=== PATIENT | female | born 1970 | race Two or more races ===

== ENCOUNTER 2020-05-06 20:49 | Inpatient (IN) | payer OTHER ==
[~2020-05-06] VITALS: Ht 157.5 cm; Wt 52.5 kg
[2020-05-06] MEDS ORDERED: Cefepime HCl 2 GM in NS 110 ML IV ONE (21:00)
[2020-05-06] MEDS ORDERED: Acetaminophen 650 MG SUPP RECTAL ONE (21:00)
[2020-05-06] MEDS ORDERED: Vancomycin 750 MG in NS 275 ML IVPB ONE (21:00)
--- NOTE | 2020-05-06 21:00 | NUR ---
ED Nurse Note: Patient brought in by ambulance TINBrandon RA 24 from [facility] with c/o altered mental status. Triage temp at 102F. BP at 68/34, BS 238. Patient is AAOx0, awake but only responds to pain. Patient on O2 at 4lpm satting at 99%. Patient has contracted upper and lower extremities. Paitent was tested covid neg 3 days ago. Patient placed on isolation bed
--- NOTE | 2020-05-06 21:03 | Emergency Room Report ---
History of Present Illness General Chief Complaint: Fever Source: Patient, EMS Present Illness HPI 49-year-old bed bound female female PMHx previous CVA, cerebral aneurysm, diabetes, chronic contracture, dysphagia, PEG, dyslipidemia, hypertension, sacral pressure ulcer brought in by ambulance from [facility] for complaint of fever Temperature prior to arrival was 104F. [facility] staff did not give antipyretic for the medication. Furthermore, she was found to be diaphoretic and hypotensive with systolic blood pressure 80mmHg. Also hypoxic 80% on RA. EMS placed patient on 4L NC with correction of hypoxia. The patient's symptoms were gradual onset, severity was moderate, duration since several days. Quality: unable to obtain Past medical history: previous CVA, cerebral aneurysm, diabetes, chronic contracture, dysphagia, PEG, dyslipidemia, hypertension, sacral pressure ulcer Past surgical history: UTO Smoking: Denies Alcohol use: Denies Drug use: Denies Review of systems: CONST: ++ fevers ++ chills, No night sweats PULMONARY: No productive cough, No shortness of breath CARDIAC: No chest pain, No palpitations GI: No vomiting, No diarrhea , No melena_or_BRBPR : No dysuria, No hematuria, No discharge NEURO: No new_focal_weakness_or_numbness, No confusion, No vision changes 14 point Review of Systems is otherwise negative except per HPI Physical Exam: GENERAL: Awake, chronically ill-appearing, distress, diaphoretic, febrile EYES: Pupils reactive. Conjunctiva clear. ENT: External nose and ear appear normal. Oropharynx clear. Head atraumatic. NECK: No thyromegaly. No midline tenderness. LUNGS: Normal respiratory effort. Clear to auscultation. No stridor. No rales. No wheezes. CARDIAC: Tachycardic and rhythm. Normal radial pulses bilaterally. No significant pedal edema. ABDOMEN: Soft, nontender, and nondistended. No rebound/guarding. No hepatosplenomegaly. G-tube in place, epigastrium, c/d/i, no discharge or tenderness. MSK: Poor muscle tone, contractures with rigidity in extremities. Extremities without asymmetric deformity or swelling. NEUROLOGIC: Awake. Does not follow commands for motor and sensory exam. No truncal ataxia. GCS 2-4-2, protecting airway, intact gag reflex. Withdraws to pain in extremities, groans and opens eyes to sternal rub. SKIN: Diaphoretic. No cyanosis or urticaria present. - COORDINATION OF CARE Case was discussed with: Patient , Patient's Physician Any labs and imaging that were ordered were interpreted as part of the medical decision making: Medical Decision Making/Plan: Differential diagnosis includes sepsis / severe sepsis /septic shock, UTI, pneumonia , viral syndrome, gastroenteritis, emergent abdominal infection, among others. Vitals show high fever, tachycardia, tachypnea, hypoxia on RA, and hypotension. Patients abdomen is benign, no evidence of emergent abdominal condition. CXR shows multifocal pneumonia. COVID swab is negative, however, due to inflammatory marker elevation, my suspicion remains high. Wll not DC iso precuations. Labs demonstrate NSTEMI (type II demand ischemia 2/2 COVID pneumonia) trop 0.2, JESSICA (2/2 septic shock), and elevated inflammatory markers (LDH, CRP, lactate, transaminitis). Lipase is acutely elevated as well. Ca is low. Ransons score is 2. Sepsis bundle initiated on arrival. Blood cultures, lactate drawn. Lactate was elevated , patient was given 30 cc/kg IV fluids by bolus. Empiric antibiotics were started. L IJ placed for adminstration of pressors for septic shock. Patient will be admitted to the hospital for further care and evaluation. I spoke with Dr. Miles, and reviewed the patients presentation, workup, results, and treatment. They will admit the patient for further care and evaluation, and assume care of the patient at this time. 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 COVID-19 Screening: PUI COVID-19 COVID-19 Testing Source: at [facility] Nursing Documentation-PMH Hx Cardiac Problems: Yes - hyperlipidemia Hx Hypertension: Yes Hx Diabetes: Yes Hx Gastrointestinal Problems: Yes - G-tube Hx Cerebrovascular Accident: Yes Hx Seizures: Yes Physical Exam Vital Signs Date Time Temp Pulse Resp B/P (MAP) Pulse Ox O2 Delivery O2 Flow Rate FiO2 05/06/20 20:51 102.0 146 18 84/50 (61) 94 Nasal Cannula 4.0 Sp02 EP Interpretation: reviewed, abnormal Procedures Critical Care Time Critical Care Time Critical Care Statement Organ systems at risk include: cardiac / circulatory / renal / pulmonary Critical care performed for 75 minutes. Time is exclusive of separately billable procedures. Time includes: direct patient care, continuous monitoring and multiple patient reassessment, coordination of patient care, review of patient's medical records, medical consultation, family consultation regarding treatment decisions and documentation of patient care. Medical Decision Making Diagnostic Impression: Primary Impression: COVID-19 Additional Impressions: Hypoxia Sepsis NSTEMI (non-ST elevated myocardial infarction) JESSICA (acute kidney injury) Hypernatremia Dehydration PEG (percutaneous endoscopic gastrostomy) adjustment/replacement/removal Hyperglycemia Diabetes CVA, old, hemiparesis Aneurysm Transaminitis Pancreatitis EKG Diagnostic Results PA Scribe Kelsey 12-lead EKG (interpreted by me) Time: 2115 Indication: Rhythm analysis Tracing visualized and Interpreted by me. Rhythm: Sinus tachycardia Rate: 114 bpm QTc: 541 Morphology: No_significant_ST_elevations_or_depressions, No STEMI Impression: Sinus tachycardia. Normal axis. Normal intervals. Rhythm Strip Diag. Results Rhythm Strip Time: 21:27 EP Interpretation: yes Rate: 141 Rhythm: no PVC's, no ectopy Chest X-Ray Diagnostic Results Chest X-Ray Diagnostic Results : MERRY Monrealibjorge Cole Chest X-Ray: Views: 1 view(s) Indication: SOB Findings: s/p central line Impression: no PTX, interstitial edema vs multifocal pneumonia, no pleural effusion The X-ray(s) were independently viewed and interpreted contemporaneously Electronically signed by Mariela malik DO Reevaluation Time: 22:55 Last Vital Signs Date Time Temp Pulse Resp B/P (MAP) Pulse Ox O2 Delivery O2 Flow Rate FiO2 //20 20:51 102.0 146 18 84/50 (61) 94 Nasal Cannula 4.0 Status: improved Disposition: ADMITTED INPATIENT Admit Decision Time: 21:28 Condition: Critical Mariela Salazar D.O. May 06, 2020 21:03
--- NOTE | 2020-05-06 21:05 | NUR ---
ED Nurse Note: ERMD at bedside
[2020-05-06] MEDS ORDERED: ZOFRAN4 M3 GT (21:10)
[2020-05-06] MEDS ORDERED: HUMALOG100 UNIT/4 SUBQ (21:10)
[2020-05-06] MEDS ORDERED: LISINOPRIL20 MG GT (21:10)
[2020-05-06] MEDS ORDERED: ACETAMINOPHEN325 M1 GT (21:10)
[2020-05-06] MEDS ORDERED: BISACODYL5 MG GT (21:10)
[2020-05-06] MEDS ORDERED: SENNA8.6 M2 GT (21:10)
[2020-05-06] MEDS ORDERED: FLOMAX0.4 MG GT (21:10)
[2020-05-06] MEDS ORDERED: AMANTADINE100 M2 GT (21:10)
[2020-05-06] MEDS ORDERED: LIPITOR80 MG ORAL (21:10)
[2020-05-06] MEDS ORDERED: NORVASC5 MG GT (21:10)
[2020-05-06] MEDS ORDERED: GABAPENTIN100 MG GT (21:10)
[2020-05-06] MEDS ORDERED: MELATONIN5 M5 GT (21:10)
[2020-05-06] MEDS ORDERED: LEVETIRACE1000 MG/10 IV (21:10)
[2020-05-06] MEDS ORDERED: METOPROLOL TART25 MG PO (21:10)
[2020-05-06] MEDS ORDERED: PROSCAR5 MG GT (21:10)
[2020-05-06] MEDS ORDERED: DOCUSATE SODIU100 MG GT (21:10)
[2020-05-06] MEDS ORDERED: LEVEMIR FL100 UNIT/2 SQ (21:10)
[2020-05-06] MEDS ORDERED: cefTRIAXone 1 GM in NS 55 ML IV ONE (21:15)
[2020-05-06] MEDS ORDERED: dexAMETHasone 10mg/ml Inj IV ONE (21:15)
--- NOTE | 2020-05-06 21:20 | NUR ---
ED Nurse Note: IV access established on right and left hand BLood, culture, swab, rapid covid sent to lab
[2020-05-06 21:39] LABS: HEMATOCRIT 37.6 % (37.0-47.0); HEMOGLOBIN 11.4 G/DL (12.0-16.0); MEAN CORPUSCULAR VOLUME 94 FL (80-99); PLATELET COUNT 120 K/UL (150-450); RED BLOOD COUNT 3.99 M/UL (4.20-5.40); RED CELL DISTRIBUTION WIDTH 18.6 % (11.6-14.8); WHITE BLOOD COUNT 10.1 K/UL (4.8-10.8)
[2020-05-06 21:44] LABS: BASOPHILS % (AUTO) 0.2 % (0.0-2.0); EOSINOPHILS % (AUTO) 0.1 % (0.0-3.0); LYMPHOCYTES % (AUTO) 8.1 % (20.0-45.0); MONOCYTES % (AUTO) 4.3 % (1.0-10.0); NEUTROPHILS % (AUTO) 87.3 % (45.0-75.0)
[2020-05-06] MEDS ORDERED: Lidocaine 1% Plain 30 ml INJ ONE (21:48)
[2020-05-06 21:58] LABS: INR 1.3 (0.9-1.1)
[2020-05-06 22:25] VITALS: BP 72/43
[2020-05-06 22:28] LABS: ALANINE AMINOTRANSFERASE 293 U/L (12-78); ALBUMIN 2.4 G/DL (3.4-5.0); ALBUMIN/GLOBULIN RATIO 0.4 (1.0-2.7); ALKALINE PHOSPHATASE 210 U/L (46-116); ANION GAP 14 mmol/L (5-15); ASPARTATE AMINO TRANSFERASE 222 U/L (15-37); BILIRUBIN,TOTAL 0.8 MG/DL (0.2-1.0); BLOOD UREA NITROGEN 92 mg/dL (7-18); CALCIUM 8.3 MG/DL (8.5-10.1); CARBON DIOXIDE 24 MMOL/L (21-32); CHLORIDE 127 MMOL/L (98-107); CREATINE KINASE 95 U/L (26-308); CREATININE 1.8 MG/DL (0.55-1.30); PHOSPHORUS 2.7 MG/DL (2.5-4.9)
[2020-05-06 22:29] LABS: SODIUM 165 MMOL/L (136-145)
--- NOTE | 2020-05-06 22:30 | NUR ---
ED Nurse Note: Levophed drip 4mg started at 10mcg/min BP at 68/34
--- NOTE | 2020-05-06 22:45 | NUR ---
ED Nurse Note: Levophed drip 4mg increased to 16mcg/min BP at 72/38
--- NOTE | 2020-05-06 22:45 | NUR ---
ED Nurse Note: Central line access inserted at left neck by GERALD. Placement verified thru xray
[2020-05-06 23:00] VITALS: BP 79/45
--- NOTE | 2020-05-06 23:00 | NUR ---
ED Nurse Note: Skin assessment: Heel ulcer present on left and right foot Sacral ulcer stage 3 present Pressure ulcer at left ear - All pictures taken and uploaded
--- NOTE | 2020-05-06 23:00 | NUR ---
ED Nurse Note: Levophed drip 4mg increased at 20mcg/min BP at 79/44
--- NOTE | 2020-05-06 23:05 | NUR ---
ED Nurse Note: Skin assessment: Pressure ulcer at left and right ear - All pictures taken and uploaded
--- NOTE | 2020-05-06 23:15 | NUR ---
ED Nurse Note: Pruitt catheter fr 16 inserted aseptically
--- NOTE | 2020-05-06 23:20 | NUR ---
ED Nurse Note: Levophed drip 4mg increased at 28mcg/min BP at 95/67
--- NOTE | 2020-05-06 23:21 | Diagnostic Imaging Report ---
EXAM: XR Chest, 1 View CLINICAL HISTORY: COUGH TECHNIQUE: Frontal view of the chest. COMPARISON: No relevant prior studies available. FINDINGS: Lungs: Bibasilar subsegmental atelectasis. Pleural space: Unremarkable. No pneumothorax. Heart: Unremarkable. No cardiomegaly. Mediastinum: Unremarkable. Bones/joints: Unremarkable. Tubes, lines and devices: Left internal jugular central venous catheter reidentified with the tip in the right atrium. IMPRESSION: Bibasilar subsegmental atelectasis.
[2020-05-06 23:30] VITALS: BP 95/67
[2020-05-06] MEDS ORDERED: Milk of Magnesia 30ml Ud ORAL PRN (23:30)
[2020-05-06 23:34] LABS: APPEARANCE,URINE SLIGHTLY CLOUDY; BILIRUBIN, URINE NEGATIVE (NEGATIVE); GLUCOSE, URINE (UA) NEGATIVE (NEGATIVE); KETONES,URINE NEGATIVE (NEGATIVE); LEUKOCYTE ESTERASE ,URINE 1+ (NEGATIVE); NITRITE,URINE NEGATIVE (NEGATIVE); PH,URINE 5 (4.5-8.0); PROTEIN,URINE 3+ (NEGATIVE); UROBILINOGEN,URINE 1 MG/DL (0.0-1.0)
[2020-05-06 23:36] LABS: COLOR,URINE YELLOW
[2020-05-06] MEDS ORDERED: cefTRIAXone 1 GM in D5W 55 ML IVPB SCH (23:45)
[2020-05-07] VITALS (47 sets, daily range): BP systolic 96–139; BP diastolic 45–84
--- NOTE | 2020-05-07 00:13 | NUR ---
ED Nurse Note: Report given to LOWELL CAZARES
--- NOTE | 2020-05-07 01:25 | NUR ---
TRANSFER TO FLOOR: Patient transferred to ICU at rm 246-G via gurney, with medical facilities section director, accompanied by RN and certified surgical technologist. Belongings checked and given to RN. Patient transported safely to bed and endorsed to RN
--- NOTE | 2020-05-07 02:00 | NUR ---
NURSE NOTES: Received pt from ER, obtunded Afib on the monitor 114/min, Bp labile ,0n 02 at 4L/NC 02 sat >92%,On Levophed at 30mcg/min , infusing to left IJ central line. Site with drsg dry and intact Pt with multiple pressure sores, picture taken done Tx was initiated. and ordered P 200 mattress. Pruitt to gravity with yellowiah urine moderate in amt. Will continue to monitor.
[2020-05-07] MEDS: Enoxaparin 40mg Inj SUBQ SCH ×2 (02:56→20:36)
[2020-05-07] MEDS: D5NS 1,000 ML IV SCH ×3 (02:57→20:30)
--- NOTE | 2020-05-07 04:00 | NUR ---
NURSE NOTES: Repositioned q 2hrs pRN .for comfort and to avoid further developement of pressure sores.
--- NOTE | 2020-05-07 05:00 | NUR ---
NURSE NOTES: Accucheck> 400 with coverage , Will notify Dr Bales
[2020-05-07] MEDS: NovoLOG Insulin Flexpen SUBQ SCH ×4 (05:35→21:04)
--- NOTE | 2020-05-07 06:00 | NUR ---
NURSE NOTES: Still on AFib 109/min, Bp stii labile, Levophed drip tapered. Will continue to monitor.
--- NOTE | 2020-05-07 07:15 | NUR ---
NURSE HAND-OFF REPORT: Latest Vital Signs: Temperature 99.8 , Pulse 115 , B/P 125 /77 , Respiratory Rate 26 , O2 SAT 98 , Nasal Cannula, O2 Flow Rate 2.0 . Vital Sign Comment: [] EKG Rhythm: Sinus Tachycardia Rhythm change?: N MD Notified?: N - MD Response: Latest Rivera Fall Score: 50 Fall Risk: High Risk Safety Measures: Call light Within Reach, Bed Alarm Zone 1, Side Rails Side Rails x3, Bed position Low and Locked. Fall Precautions: Yellow Socks Yellow Gown Door Sign Patient Fall Education Report given to [].Josefina CAZARES
--- NOTE | 2020-05-07 07:39 | NUR ---
NURSE NOTES: levophed bag empty. New bag hung. BP 90s/60s.
--- NOTE | 2020-05-07 08:20 | NUR ---
NURSE NOTES: pt turned and repositioned. oral care done, pt suctioned.
[2020-05-07] MEDS: Tamsulosin 0.4mg cap ORAL SCH (08:23)
[2020-05-07] MEDS ORDERED: CEFTRIAXONE IVPB SCH ×2 (09:00)
[2020-05-07] MEDS ORDERED: [UNRECOGNIZED DRUG - OTHER] IVPB SCH ×2 (09:00)
[2020-05-07 09:19] LABS: ALBUMIN 2.2 G/DL (3.4-5.0); ALKALINE PHOSPHATASE 196 U/L (46-116); ANION GAP 16 mmol/L (5-15); ASPARTATE AMINO TRANSFERASE 232 U/L (15-37); BILIRUBIN,DIRECT 0.5 MG/DL (0.0-0.3); BILIRUBIN,TOTAL 1.1 MG/DL (0.2-1.0); BLOOD UREA NITROGEN 72 mg/dL (7-18); CALCIUM 7.7 MG/DL (8.5-10.1); CARBON DIOXIDE 20 MMOL/L (21-32); CHLORIDE 127 MMOL/L (98-107); CREATININE 1.2 MG/DL (0.55-1.30); PHOSPHORUS 3.2 MG/DL (2.5-4.9); POTASSIUM 3.3 MMOL/L (3.5-5.1)
--- NOTE | 2020-05-07 09:21 | History & Physical ---
History and Physical History & Physicial HP dictated # [id number] Navi Bales MD May 07, 2020 09:21
[2020-05-07 09:24] LABS: SODIUM 163 MMOL/L (136-145)
--- NOTE | 2020-05-07 09:35 | NUR ---
RD ASSESSMENT & RECOMMENDATIONS SEE CARE ACTIVITY FOR COMPLETE ASSESSMENT DAILY ESTIMATED NEEDS: Needs based on Wound, 46.4kg 30-35 kcals/kg 6184-1492 total kcals 1.25-2 g protein/kg 58-93 g total protein 25-35ml/kcal mL/kg 4156-1365 total fluid mLs NUTRITION DIAGNOSIS: Increased kcal and pro needs r/t wound healing as evidenced by sacral wound, eval pending, pt is bedbound GT dep. CURRENT TF: NPO ENTERAL NUTRITION RECOMMENDATIONS: Vital AF 1.2 @50ml/hr x24 hrs to provide 1200ml, 1440 kcal, 90g pro, 973ml free H2O - Currently on high dose pressor support, rec trophic feeds as medically able. - When hemodynamically available, rec to initiate Vital 1.2 (carb control,, high pro, lower in fat than Glucerna carb control) @15ml/hr for 6 hrs. Advance as tolerated 10ml/hr q4-6 hrs to goal. - Flush per MD. HOB over 30 degrees. ADDITIONAL RECOMMENDATIONS: 1) Maintain calibrated bed scale wts 2) Initiate GT feeds when hemodynamically stable 3) F/up w/ WC eval-> open sacral wound 4) Maintain IVF / D5 while NPO Monitor hydration status (Na 165)
[2020-05-07 09:36] LABS: ALANINE AMINOTRANSFERASE 315 U/L (12-78)
--- NOTE | 2020-05-07 09:37 | NUR ---
NURSE NOTES: Dr. Bales @ bedside aware of all morning labs and put in orders.
--- NOTE | 2020-05-07 10:30 | History and Physical Report ---
DATE OF ADMISSION: 05/06/2020 CHIEF COMPLAINT: Fevers. HISTORY OF PRESENT ILLNESS: This is a 49-year-old female who has a history of cerebral aneurysm, status post CVA, bedridden with sacral decubitus. She was brought into the emergency room for fever of 104. In the emergency room, she was found to be diaphoretic, hypotensive, systolic blood pressure in 80s. She had a low O2 saturation in the 80s on room air. She was placed on nasal cannula O2 at 4 liters and was admitted. Also, she was started on Levophed after central line was placed. The patient was seen in the ICU. She is nonverbal and unable to provide any further history. PAST MEDICAL HISTORY: Includes history of diabetes mellitus, chronic contractures, dysphagia status post G-tube placement, history of hypertension, and dyslipidemia. MEDICATIONS: Reviewed in the EMR. SOCIAL HISTORY: No history of smoking or alcohol abuse. ALLERGIES: No known drug allergies. REVIEW OF SYSTEMS: Unobtainable. PHYSICAL EXAMINATION: GENERAL: The patient is a 49-year-old female, in no acute distress. She opens her eyes, does not respond verbally. VITAL SIGNS: Blood pressure is 95/60, pulse 105, and temperature max was 102 yesterday, the latest 98.6. HEENT: [place] conjunctivae. Anicteric sclerae. NECK: Stiff positional. LUNGS: Coarse breath sounds bilaterally. HEART: S1, S2 without murmurs or rubs. ABDOMEN: Soft, nontender. There is a G-tube in upper abdomen. EXTREMITIES: No cyanosis or edema. Lower extremity is in extension contractures. LABORATORY FINDINGS: The CBC shows a WBC of 10,100, hematocrit is 37.6, hemoglobin is 11.4, platelets 120,000. Chemistry panel as of yesterday shows sodium 165, potassium 3, chloride 127, carbon dioxide 24, BUN 92, creatinine 1.8. Blood sugar is 295. ASSESSMENT: This is a 49-year-old female who is admitted with fevers with a concern that the patient may have COVID-19, however, the rapid test was negative. Chest x-ray does not show bilateral infiltrates, which is typical of COVID. The patient has also severe free water deficit with sodium of 165, and also acute renal failure, probably prerenal azotemia with the creatinine of 1.8. There is moderate bacteria in the urine, however, only 2 to 4 wbc's per high-powered field, so I do not believe that source of infection is urinary tract infection. However, he does have significant stage IV sacral decubitus, so he can have osteomyelitis. PLAN: The patient will be on IV antibiotics. ID consultation and Pulmonary consultation will be obtained and a rapid COVID test will be done again. The patient was hydrated with D5 NS because of low blood pressure, but because of high sodium I will start using the G-tube for water flushes and the patient also will be started on tube feeding. IV fluid will be discontinued at this point. She will be on sliding scale insulin. Surgical consultation will be obtained for wound care. Case was discussed with the RN. Navi Bales M.D. DR: BELLA JOB#: [id number] CC:
--- NOTE | 2020-05-07 10:44 | NUR ---
NURSE NOTES: pt continues on NPO status for ABD US
--- NOTE | 2020-05-07 10:49 | NUR ---
NURSE NOTES: Per Dr. Bales, stop decadron IVP d/t high sugar levels.
[2020-05-07] MEDS ORDERED: SILVER SULFADIA50 GM TP (11:32)
[2020-05-07] MEDS ORDERED: MILK OF MA400 MG/51 ORAL (11:32)
[2020-05-07] MEDS ORDERED: CALCIUM CARBON500 M1 GT (11:32)
[2020-05-07] MEDS ORDERED: LEVETIRACE500 MG/51 GT (11:32)
[2020-05-07] MEDS ORDERED: BACITRACIN ZIN1 EACH TOPIC (11:32)
[2020-05-07] MEDS ORDERED: BISACODYL10 M1 RC (11:32)
[2020-05-07] MEDS ORDERED: PRAVASTATIN SOD80 M1 GT (11:32)
[2020-05-07] MEDS ORDERED: MULTIVITAMINS1 EAC8 ORAL (11:32)
[2020-05-07] MEDS ORDERED: BETADINE1 EAC1 TP (11:32)
[2020-05-07] MEDS ORDERED: MINERAL OIL RECTAL (11:35)
--- NOTE | 2020-05-07 12:00 | Consultation ---
DATE OF CONSULTATION: 05/07/2020 PULMONARY CONSULTATION HISTORY OF PRESENT ILLNESS: This is a 49-year-old female who has a history of previous CVA. She is chronically bedridden with decubitus and history of cerebral aneurysm. She was brought in from a facility with fever and was also hypotensive and hypoxemic. She was placed on nasal oxygen with improvement in saturations. She has, however, required placement of a central line and initiation of Levophed. She is currently in the ICU. PAST MEDICAL HISTORY: Notable for chronic dysphagia, diabetes mellitus, hypertension, dyslipidemia, previous CVA, cerebral aneurysm. CURRENT MEDICATIONS: Include antibiotics as well as Levophed. SOCIAL HISTORY: She is a prison resident. ALLERGIES: None. REVIEW OF SYSTEMS: Not obtainable. PHYSICAL EXAMINATION: GENERAL: Reveals elderly female. At this time, she is awake but does not respond. HEENT: Unremarkable. CHEST: Clear breath sounds. ABDOMEN: Soft. G-tube is noted. EXTREMITIES: There is no edema. She has bilateral lower extremity contractures. LABORATORY DATA: Lab testing shows hemoglobin 11.4, otherwise normal CBC. Sodium 163, glucose 514, creatinine 1.2. She has elevation of AST and ALT. Toxicology is negative. Coags are negative. ABG shows pH 7.38, pCO2 32, pO2 159. X-ray chest is reviewed, which shows bilateral subsegmental atelectasis. IMPRESSION: 1. Shock, suspect hypovolemic shock. 2. Cannot exclude infectious process. 3. Chronic decubitus. 4. History of CVA. 5. Diabetes mellitus. DISCUSSION: Admit to the hospital. The patient will need broad-spectrum antibiotics empirically. She will also need fluid resuscitation with hypotonic fluids. Continue pressors. The patient received Decadron for unclear reason, we will discontinue. We will follow carefully. At this point, her rapid COVID-19 testing is negative. Asif Prasad M.D. DR: Mary JOB#: [id number] CC:
--- NOTE | 2020-05-07 12:09 | NUR ---
NURSE NOTES: Pt still febrile. Ice packs placed under bilateral armpits.
--- NOTE | 2020-05-07 12:39 | NUR ---
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 102.0 HR 146 RR 18 B/P 84/50 4L NC O2 SAT @ 98% WBC 16.5 K 3.0 BUN 92 CR 1.8 LACTID ACID 2.90 AST 222 ALT 293 ALK PHOS 210 TROP 0.213 LIPASE 1197 CXR=Bibasilar subsegmental atelectasis. IS: VANCO IV CEFEPIME IV DECADRON IV LEVOPHED GTT IV BOLUS NS 1800ML TYLENOL ADMITTED TO ICU ICU STATUS DCP PENDING HOSPITAL STAY
[2020-05-07] MEDS: Piperacillin/Tazobactam 3.375 GM in NS 110 ML IVPB SCH ×2 (13:00→20:15)
--- NOTE | 2020-05-07 13:16 | NUR ---
NURSE NOTES: spoke with Gillian, wound care nurse, who said they will be seeing patient to evaluate her wounds tomorrow.
--- NOTE | 2020-05-07 14:05 | NUR ---
Social Work This SW followed up with patient who is currently in the ICU. Patient has a history of [place], G-tube, from [facility] and has a POLST on file stating full code, full treatment. This Sw spoke with daughter, Caitlin (who is an MILITARY PAY TECHNICIAN) @ [phone] who plans to visit patient courtney. Patient has a stage 4 D.U (daughter aware). Daughter confirmed plans to remain full code, full treatment; planning to return to [facility] when medically cleared. Brief emotional support provided to daughter. SW to follow as needed.
--- NOTE | 2020-05-07 15:57 | NUR ---
NURSE NOTES: central line dressing changed.
--- NOTE | 2020-05-07 17:02 | NUR ---
NURSE NOTES: Pt cleaned, linen changed. Oral care done. Pt in stable condition.
--- NOTE | 2020-05-07 17:30 | Consultation ---
DATE OF CONSULTATION: 05/07/2020 INFECTIOUS DISEASES CONSULTATION CONSULTING PHYSICIAN: Peter Bales MD PRIMARY ATTENDING PHYSICIAN: Navi Bales MD REASON FOR CONSULTATION: Sepsis, septic shock, pancreatitis. HISTORY OF PRESENT ILLNESS: The patient is a 49-year-old female who is a resident of intermediate facility, admitted yesterday because of fever. She had a temperature of 104 in facility, had a temperature of 102 in hospital, was hypoxemic, diaphoretic, hypotensive, started on Levophed, and transferred to the ICU. PAST MEDICAL HISTORY: CVA, cerebral aneurysm, dysphagia, status post G-tube, hypertension, diabetes mellitus, hyperlipidemia, and contractures. ALLERGIES: No known drug allergies. MEDICATIONS: Getting vancomycin, potassium chloride, norepinephrine, ceftriaxone, dexamethasone, finasteride, vancomycin, magnesium hydroxide, famotidine, Tylenol, and enoxaparin. Got a dose of cefepime in the ER. SOCIAL HISTORY: Single. snf resident. No other history obtainable. REVIEW OF SYSTEMS: Unobtainable. PHYSICAL EXAMINATION: VITAL SIGNS: Temperature 101, pulse is 105, blood pressure 109/62. GENERAL APPEARANCE: She seems to be thin and cachectic. HEAD AND NECK: Ears, pressure ulcer. HEART: Tachycardic. LUNGS: Clear. The patient is getting oxygen by nasal cannula. ABDOMEN: Soft. She has G-tube. EXTREMITIES: She has no edema. SKIN: She has multiple pressure ulcers including ears, left heel, right foot, and sacrum. NEUROLOGIC: Unresponsive. LABORATORY AND DIAGNOSTIC DATA: Sodium 163, potassium 3.3, chloride 127, bicarb 20, BUN 72, creatinine 1.2, glucose is 514. AST 232, ALT 315, alkaline phosphatase 196. Lipase is 1157. Lactic acid 2.9. COVID test was negative. Chest x-ray shows some atelectasis. UA showed wbc's 2-4, rbc's of 2-4, leukocyte esterase 1+, yeast many, and bacteria moderate. IMPRESSION: Sepsis with septic shock. She has acute pancreatitis. We will try to rule out gallstone pancreatitis. She has diabetes mellitus with hyperglycemia, acute renal failure, acidosis, elevated transaminase, hypernatremia, and multiple pressure ulcer. RECOMMENDATION: Continue with IV vancomycin. Change ceftriaxone to Zosyn. We will follow up the culture. We will order abdominal ultrasound. At the end of my exam, I thank Dr. Navi Bales for involving me in the care of this patient. Peter Bales M.D. DR: Nely JOB#: [id number] CC:
--- NOTE | 2020-05-07 18:20 | NUR ---
NURSE NOTES: Vital AF not available in the hospital at this time. tube feeding order changed to glucerna 1.2 as earlier requested by Dr. Bales. Tube feeding started.
--- NOTE | 2020-05-07 19:09 | NUR ---
NURSE HAND-OFF REPORT: Latest Vital Signs: Temperature 99.3 , Pulse 111 , B/P 119 /77 , Respiratory Rate 23 , O2 SAT 99 , Nasal Cannula, O2 Flow Rate 2.0 . Vital Sign Comment: Pt on levophed drip @ 12 EKG Rhythm: Sinus Rhythm Rhythm change?: N MD Notified?: N - MD Response: Latest Rivera Fall Score: 50 Fall Risk: High Risk Safety Measures: Call light Within Reach, Bed Alarm Zone 1, Side Rails Side Rails x3, Bed position Low and Locked. Fall Precautions: Yellow Socks Yellow Gown Door Sign Patient Fall Education Report given to SAGE Fuentes.
--- NOTE | 2020-05-07 20:00 | NUR ---
NURSE NOTES: received report from heidi rn pt obtunded open eyes to touch does not follows command hr [id number] stachy on levo drip at 10mcg/min reposition and suction urnary output good
[2020-05-07] MEDS: Dyna-Hex 2% Top Sol 2oz TOPIC SCH (20:16)
[2020-05-07] MEDS ORDERED: Vancomycin 750mg/D5W 275ml IVPB SCH ×2 (22:00)
--- NOTE | 2020-05-07 22:00 | NUR ---
NURSE NOTES: reposition and suction
--- NOTE | 2020-05-07 23:02 | Consultation ---
History of Present Illness General Date patient seen: May 07, 2020 Chief Complaint: Fever Present Illness HPI This is a very unfortunate 49-year-old bed bound female female PMHx previous CVA, cerebral aneurysm, diabetes, chronic contracture, dysphagia, PEG, dyslipidemia, hypertension, sacral pressure ulcer brought in by ambulance from SNF for complaint of fever. on admission identified to havestage 4 sacral decubitus, heel ulcers, ear ulcers dti abnormal labs and surgery called to evaluate and assist with care and planning. Patient seen, patient [place], chart reviewed. Allergies: Coded Allergies: No Known Allergies (Unverified , 05/06/20) Medication History Scheduled Amantadine Hcl* (Amantadine*), 100 MG GT TWICE A DAY, (Reported) Amlodipine Besylate (Norvasc), 5 MG GT DAILY, (Reported) Bacitracin Zinc* (Bacitracin Zinc*), 1 APPLIC TOPIC DAILY, (Reported) Docusate Sodium* (Docusate Sodium*), 100 MG GT BID, (Reported) Finasteride* (Proscar*), 5 MG GT DAILY, (Reported) Gabapentin* (Gabapentin*), 100 MG GT BID, (Reported) Insulin Detemir (Levemir Flextouch), 15 UNIT SQ Q12HR, (Reported) Levetiracetam (Levetiracetam), 500 MG GT BID, (Reported) Lisinopril (Lisinopril*), 20 MG GT DAILY, (Reported) Metoprolol Tartrate* (Metoprolol Tartrate*), 12.5 MG PO BID, (Reported) Multivitamin With Minerals (Multivitamins With Minerals*), 1 TAB ORAL DAILY, (Reported) Povidone-Iodine (Betadine), 1 EACH TP DAILY, (Reported) Pravastatin Sod (Pravastatin Sod), 80 MG GT BEDTIME, (Reported) Silver Sulfadiazine (Silver Sulfadiazine), 50 GM TP DAILY, (Reported) Tamsulosin HCl (Flomax), 0.4 MG GT DAILY, (Reported) Scheduled PRN Acetaminophen* (Acetaminophen 325MG Tablet*), 650 MG GT Q4H PRN for PAIN/TEMP>100.4, (Reported) Bisacodyl (Bisacodyl), 10 MG RC NEEDED PRN for Constipation, (Reported) Calcium Carbonate (Calcium Carbonate), 500 MG GT Q4HR PRN for HEARTBURN, (Reported) Magnesium Hydroxide* (Milk Of Magnesia*), 15 ML ORAL DAILY PRN for Constipation, (Reported) Melatonin (Melatonin), 5 MG GT BEDTIME PRN for Insomnia, (Reported) Ondansetron* (Zofran*), 4 MG GT Q6H PRN for Nausea & Vomiting, (Reported) [Enema Mineral Oil], 1 UNIT RECTAL NEEDED PRN for Constipation, (Reported) Miscellaneous Medications Insulin Lispro (Humalog), 0 SUBQ, (Reported) Sennosides (Senna), 8.6 MG GT, (Reported) Discontinued Medications Atorvastatin (Lipitor), 80 MG ORAL BEDTIME, (Reported) Discontinued Reason: Prescription changed Bisacodyl* (Dulcolax*), 10 MG GT DAILY, (Reported) Discontinued Reason: Prescription changed Levetiracetam In Nacl (Iso-Os) (Levetiraceta-Nacl 1,000 Mg/100), 1,000 MG IV, (Reported) Discontinued Reason: Prescription changed Patient History Limited by: medical condition History Provided By: Medical Record, PMD Healthcare decision maker Resuscitation status Advanced Directive on File Past Medical/Surgical History Past Medical/Surgical History: (1) Pancreatitis (2) Transaminitis (3) Dehydration (4) Aneurysm (5) Diabetes (6) Hyperglycemia (7) Hypernatremia (8) Hypoxia (9) Sepsis (10) NSTEMI (non-ST elevated myocardial infarction) (11) PEG (percutaneous endoscopic gastrostomy) adjustment/replacement/removal (12) JESSICA (acute kidney injury) (13) CVA, old, hemiparesis (14) COVID-19 Review of Systems All Other Systems: negative except mentioned in HPI ROS Narrative limited given medical condition Physical Exam General Appearance: no apparent distress, alert Lines, tubes and drains: peripheral, central line HEENT: anicteric, mucous membranes moist Neck: supple, normal inspection Respiratory/Chest: no respiratory distress, no accessory muscle use, decreased breath sounds, other Cardiovascular/Chest: normal rate, regular rhythm Abdomen: normal bowel sounds, non tender, soft, no organomegaly, no mass Genitourinary/Rectal: normal rectal exam Extremities: non-tender, normal inspection, no calf tenderness, normal capillary refill, inflammation Skin Exam: warm/dry Neurologic: alert Last 24 Hour Vital Signs Date Time Temp Pulse Resp B/P (MAP) Pulse Ox O2 Delivery O2 Flow Rate FiO2 05/07/20 22:15 118 26 123/75 (91) 98 05/07/20 22:00 123/75 05/07/20 22:00 118 26 121/77 (92) 99 05/07/20 21:45 115 25 123/76 (92) 99 05/07/20 21:30 114 23 123/77 (92) 99 05/07/20 21:15 114 25 122/76 (91) 99 05/07/20 21:00 113 24 124/79 (94) 99 05/07/20 21:00 124/75 05/07/20 20:45 113 25 124/78 (93) 99 05/07/20 20:30 112 24 125/77 (93) 99 05/07/20 20:15 113 22 124/78 (93) 99 05/07/20 20:00 Nasal Cannula 2.0 05/07/20 20:00 99.4 112 20 126/79 (95) 99 05/07/20 20:00 124/78 05/07/20 20:00 110 05/07/20 19:30 111 20 125/80 (95) 99 05/07/20 19:26 98 Nasal Cannula 2.0 28 05/07/20 19:15 109 23 124/77 (93) 99 05/07/20 19:00 124/77 05/07/20 19:00 108 25 123/78 (93) 99 05/07/20 18:30 119/77 05/07/20 18:00 111 23 110/73 (85) 99 05/07/20 17:30 113/71 05/07/20 17:28 109/72 05/07/20 17:13 113/71 05/07/20 17:00 113 24 124/76 (92) 99 05/07/20 16:13 129/78 05/07/20 16:00 99.3 113 23 127/78 (94) 99 05/07/20 16:00 113 05/07/20 16:00 Nasal Cannula 2.0 05/07/20 15:13 128/77 05/07/20 15:00 99.3 115 26 129/76 (93) 99 05/07/20 14:13 129/76 05/07/20 14:00 119 26 128/75 (92) 99 05/07/20 13:43 130/76 05/07/20 13:13 129/78 05/07/20 13:00 118 26 131/76 (94) 99 05/07/20 12:43 134/77 05/07/20 12:13 132/79 05/07/20 12:00 118 05/07/20 12:00 100.0 118 28 133/78 (96) 99 05/07/20 12:00 Nasal Cannula 2.0 05/07/20 11:43 133/79 05/07/20 11:13 135/79 05/07/20 11:00 118 25 139/81 (100) 99 05/07/20 10:43 135/80 05/07/20 10:13 109/62 05/07/20 10:00 114 24 109/62 (78) 99 05/07/20 10:00 128/71 05/07/20 09:52 135/77 05/07/20 09:37 134/76 05/07/20 09:21 101.0 05/07/20 09:07 131/71 05/07/20 09:00 113 23 129/73 (91) 100 05/07/20 08:52 129/75 05/07/20 08:37 134/79 05/07/20 08:00 Nasal Cannula 2.0 05/07/20 08:00 100.3 110 21 132/74 (93) 100 05/07/20 08:00 104 05/07/20 07:37 95/60 05/07/20 07:24 Nasal Cannula 4.0 05/07/20 07:10 100 Nasal Cannula 4.0 36 05/07/20 07:00 114 20 98/54 (69) 100 05/07/20 05:00 100/56 05/07/20 04:45 105 22 100/50 (67) 100 05/07/20 04:41 114/41 05/07/20 04:30 107 20 100/50 (67) 100 05/07/20 04:15 103 21 100/45 (63) 100 05/07/20 04:00 98.6 104 20 113/67 (82) 100 05/07/20 04:00 81/56 05/07/20 03:45 103 20 96/50 (65) 100 05/07/20 03:30 104 18 110/50 (70) 100 05/07/20 03:20 101 18 113/62 (79) 100 05/07/20 03:15 101 18 100/50 (67) 100 05/07/20 03:00 96/45 05/07/20 03:00 100 18 110/63 (79) 100 05/07/20 02:45 100 18 110/46 (67) 100 05/07/20 02:40 99 18 111/61 (78) 100 05/07/20 02:30 99 19 100/50 (67) 100 05/07/20 02:15 97.8 99 17 107/62 (77) 100 05/07/20 02:02 106/36 05/07/20 02:00 97.8 99 17 98/62 (74) 100 05/07/20 02:00 93 19 106/47 (66) 100 05/07/20 01:41 102 05/07/20 01:25 100.4 114 22 101/78 98 Nasal Cannula 4.0 05/07/20 01:00 100.6 113 20 102/84 100 Nasal Cannula 4.0 05/07/20 00:00 100.6 108 22 101/72 100 Nasal Cannula 4.0 05/06/20 23:30 101.0 108 22 95/67 100 Nasal Cannula 4.0 05/06/20 23:20 95/67 05/06/20 23:15 89/55 05/06/20 23:10 84/53 05/06/20 23:05 82/49 Intake and Output 05/06/20 05/07/20 19:00 07:00 Intake Total 637.5 ml Output Total 500 ml Balance 137.5 ml Intake Oral 0 ml IV Total 637.5 ml Output Urine Total 450 ml Stool Total 0 ml Gastric Drainage Total 50 ml Laboratory Tests Test 05/06/20 23:20 05/07/20 00:15 05/07/20 04:03 05/07/20 08:15 Urine Color Yellow Urine Appearance Slightly cloudy Urine pH 5 (4.5-8.0) Urine Specific [place] 1.025 (1.005-1.035) Urine Protein 3+ (NEGATIVE) H Urine Glucose (UA) Negative (NEGATIVE) Urine Ketones Negative (NEGATIVE) Urine Blood 1+ (NEGATIVE) H Urine Nitrite Negative (NEGATIVE) Urine Bilirubin Negative (NEGATIVE) Urine Urobilinogen 1 MG/DL (0.0-1.0) H Urine Leukocyte Esterase 1+ (NEGATIVE) H Urine RBC 2-4 /HPF (0 - 2) H Urine WBC 2-4 /HPF (0 - 2) Urine Squamous Epithelial Cells Moderate /LPF (NONE/OCC) H Urine Bacteria Moderate /HPF (NONE) H Urine Yeast Many /HPF (NONE) H Lactic Acid Level 1.40 mmol/L (0.66-2.22) Sodium Level 163 MMOL/L (136-145) *H Potassium Level 3.3 MMOL/L (3.5-5.1) L Chloride Level 127 MMOL/L (98-107) H Carbon Dioxide Level 20 MMOL/L (21-32) L Anion Gap 16 mmol/L (5-15) H Blood Urea Nitrogen 72 mg/dL (7-18) H Creatinine 1.2 MG/DL (0.55-1.30) Estimat Glomerular Filtration Rate 47.3 mL/min (>60) Glucose Level 514 MG/DL (74-106) #*H Calcium Level 7.7 MG/DL (8.5-10.1) L Phosphorus Level 3.2 MG/DL (2.5-4.9) Magnesium Level 3.1 MG/DL (1.8-2.4) H Total Bilirubin 1.1 MG/DL (0.2-1.0) H Direct Bilirubin 0.5 MG/DL (0.0-0.3) H Aspartate Amino Transf (AST/SGOT) 232 U/L (15-37) H Alanine Aminotransferase (ALT/SGPT) 315 U/L (12-78) H Alkaline Phosphatase 196 U/L (46-116) H Total Protein 7.3 G/DL (6.4-8.2) Albumin 2.2 G/DL (3.4-5.0) L Arterial Blood pH 7.385 (7.350-7.450) Arterial Blood Partial Pressure CO2 32.8 mmHg (35.0-45.0) L Arterial Blood Partial Pressure O2 159.3 mmHg (75.0-100.0) H Arterial Blood HCO3 19.2 mmol/L (22.0-26.0) L Arterial Blood Oxygen Saturation 97.6 % (95-100) Arterial Blood Base Excess -5.1 (-2-2) L [place] Test Positive Microbiology Date/Time Source Procedure Growth Status 05/07/20 12:00 Nasopharynx SARS-CoV-2 RdRp Gene Assay - Final Complete Height (Feet): 5 Height (Inches): 2.00 Weight (Pounds): 102 Medications Current Medications Medications (Trade) Dose Ordered Sig/Renetta Route PRN Reason Start Time Stop Time Status Last Admin Dose Admin Acetaminophen (Tylenol) 650 mg Q4H PRN ORAL Fever 05/06/20 23:30 06/05/20 23:29 05/07/20 08:51 Acetaminophen (Tylenol) 650 mg Q4H PRN ORAL Mild Pain (Pain Scale 1-3) 05/06/20 23:30 06/05/20 23:29 Chlorhexidine Gluconate (Yola-Hex 2%) 1 applic DAILY@2000 TOPIC 05/07/20 20:00 08/05/20 19:59 05/07/20 20:16 Dextrose (Dextrose 50%) 25 ml Q30M PRN IV Hypoglycemia 05/06/20 23:30 08/04/20 23:29 Dextrose (Dextrose 50%) 50 ml Q30M PRN IV Hypoglycemia 05/06/20 23:30 08/04/20 23:29 Dextrose/Sodium Chloride 1,000 ml @ 100 mls/hr Q10H IV 05/07/20 00:30 06/06/20 00:29 05/07/20 20:30 Enoxaparin Sodium (Lovenox) 40 mg QHS SUBQ 05/06/20 23:30 08/04/20 23:29 05/07/20 20:36 Famotidine (Pepcid) 20 mg QHS GT 05/06/20 23:30 08/04/20 23:29 05/07/20 20:37 Finasteride (Proscar) 5 mg DAILY ORAL 05/07/20 09:00 08/05/20 08:59 05/07/20 08:23 Insulin Aspart (NovoLOG) BEFORE MEALS AND HS SUBQ 05/07/20 06:30 08/05/20 06:29 05/07/20 21:04 Magnesium Hydroxide (Mom) 30 ml HSPRN PRN ORAL Constipation 05/06/20 23:30 06/05/20 23:29 Norepinephrine Bitartrate 8 mg/ Dextrose 250 ml @ 0 mls/hr Q24H IV 05/07/20 10:15 05/10/20 10:14 05/07/20 17:30 Ondansetron HCl (Zofran) 4 mg Q6H PRN IVP Nausea & Vomiting 05/06/20 23:30 06/05/20 23:29 Piperacillin Sod/ Tazobactam Sod 3.375 gm/Sodium Chloride 110 ml @ 27.5 mls/hr Q8HR@0400,1200,2000 IVPB 05/07/20 12:00 05/14/20 11:59 05/07/20 20:15 Tamsulosin HCl (Flomax) 0.4 mg DAILY ORAL 05/07/20 09:00 06/06/20 08:59 05/07/20 08:23 Vancomycin HCl (Vanco pharmacy to dose) 1 ea DAILY PRN MISC Per rx protocol 05/06/20 23:45 06/05/20 23:44 Vancomycin HCl 750 mg/Dextrose 275 ml @ 184 mls/hr Q24H IVPB 05/07/20 22:00 05/12/20 21:59 05/07/20 21:30 Assessment/Plan Problem List: (1) Stage 4 skin ulcer of sacral region Assessment & Plan: PATIENT NON-VERBAL. FACIAL GRIMACES NOTED WHEN REPOSITIONING. UNABLE TO REPOSITION SELF. LEFT EAR-STAGE III PRESSURE ULCER MEASURES 3.5X1.0X0.2CM. WOUND BED PINK WITH NOTED SLOUGH. PERIWOUND SKIN DARK RED/PURPLE AND BRUISED. DRAINING SMALL AMOUNT SERO-SANGUINEOUS. RECOMMEND-CLEAN WITH SALINE. PAT DRY. APPLY THERAHONEY AND COVER WITH OPTIFOAM DRESSING. REPLACE DRESSING DAILY. RIGHT EAR- STAGE III PRESSURE ULCER MEASURES 0.5X0.6X0.2CM. WOUND BED PINK WITH NOTED SLOUGH. SMALL AMOUNT SERO-SANGUINEOUS DRAINAGE. RECOMMEND-CLEAN WITH SALINE, PAT DRY, APPLY THERAHONEY AND COVER WITH OPTIFOAM DRESSING. REPLACE DRESSING DAILY. LEFT MEDIAL HEEL- DTI MEASURES 1.7X1.5X0.2CM. NOTED AREA DARK PURPLE. NON- BLANCHABLE. RECOMMEND- APPLY SKIN PROTECTOR AND OPTIFOAM DRESSING. REPLACE DAILY AND PRN. ELEVATE HEELS WITH PILLOWS RIGHT MEDIAL FOOT- DTI 2.5X2.0X0.1CM NOTED AREA DARK PURPLE RECOMMEND- APPLY SKIN PROTECTOR AND OPTIFOAM DRESSING. REPLACE DAILY AND PRN. ELEVATE HEELS/FEET WITH PILLOWS. SACRUM- STAGE IV PRESSURE ULCER MEASURES 9.5X13.7X0.5CM. MODERATE AMOUNT SEROSANGUINEOUS DRAINAGE. NO ODOR NOTED. BONE EXPOSURE WITH 40% SLOUGH AND 60% PINK GRANULATION TISSUE. AREA WITHIN WOUND BED DARK RED, POSSIBLE BRUISING. RECOMMEND-MD CONSULT. CLEAN WITH SALINE. PAT DRY. APPLY THERAHONEY AND COVER WITH GAUZE AND OPTIFOAM DRESSING. REPLACE DAILY. BHARAT MATTRESS(ALREADY IN PLACE). REPOSITION SIDE TO SIDE AT LEAST EVERY 2 HOURS OR TOLERATED ICD Codes: L98.429 - Non-pressure chronic ulcer of back with unspecified severity SNOMED: 13268056, 445938126 (2) Heel ulcer ICD Codes: L97.409 - Non-pressure chronic ulcer of unspecified heel and midfoot with unspecified severity SNOMED: 518959830 (3) Ulcer of external ear ICD Codes: L98.499 - Non-pressure chronic ulcer of skin of other sites with unspecified severity SNOMED: 42964059, 83998683, 07692411 (4) Pancreatitis Assessment & Plan: Patient identified to have elevated lipase levels upon admission. Etiology unknown work-up initiated Trend labs IV fluids urine output monitoring we will follow with recommendations ICD Codes: K85.90 - Acute pancreatitis without necrosis or infection, unspecified SNOMED: 38774355, 642567788 (5) Transaminitis ICD Codes: R74.01 - Elevation of levels of liver transaminase levels SNOMED: 251103359, 556879586 (6) Dehydration ICD Codes: E86.0 - Dehydration SNOMED: 05805867, 5067676 (7) Aneurysm ICD Codes: I72.9 - Aneurysm of unspecified site SNOMED: 565994784 (8) Diabetes ICD Codes: E11.9 - Type 2 diabetes mellitus without complications SNOMED: 65056131 (9) Hyperglycemia ICD Codes: R73.9 - Hyperglycemia, unspecified SNOMED: 23468020 (10) Hypernatremia ICD Codes: E87.0 - Hyperosmolality and hypernatremia SNOMED: 923982175 (11) Hypoxia ICD Codes: R09.02 - Hypoxemia SNOMED: 375338795 (12) Sepsis ICD Codes: A41.9 - Sepsis, unspecified organism SNOMED: 22274348 (13) NSTEMI (non-ST elevated myocardial infarction) ICD Codes: I21.4 - Non-ST elevation (NSTEMI) myocardial infarction SNOMED: 77025526 (14) PEG (percutaneous endoscopic gastrostomy) adjustment/replacement/removal ICD Codes: Z43.1 - Encounter for attention to gastrostomy SNOMED: 247812280, 065941957 (15) JESSICA (acute kidney injury) ICD Codes: N17.9 - Acute kidney failure, unspecified SNOMED: 82821495, 1869789 (16) CVA, old, hemiparesis ICD Codes: I69.359 - Hemiplegia and hemiparesis following cerebral infarction affecting unspecified side SNOMED: 328643030, 5894784 (17) COVID-19 ICD Codes: U07.1 - COVID-19 SNOMED: 636340067 Lino Clark May 07, 2020 23:02
[2020-05-08] VITALS (45 sets, daily range): BP systolic 105–133; BP diastolic 67–81
--- NOTE | 2020-05-08 | NUR ---
NURSE NOTES: npo after mn for abdomenal ultrasound
--- NOTE | 2020-05-08 04:00 | NUR ---
NURSE NOTES: complete bed bath oral care and wound care done
[2020-05-08] MEDS: Piperacillin/Tazobactam 3.375 GM in NS 110 ML IVPB SCH ×3 (04:59→20:35)
[2020-05-08] MEDS: D5NS 1,000 ML IV SCH (05:22)
--- NOTE | 2020-05-08 06:00 | NUR ---
NURSE NOTES: bs 356 insulin coverage given as order
[2020-05-08] MEDS: NovoLOG Insulin Flexpen SUBQ SCH ×4 (06:06→21:41)
[2020-05-08 06:36] LABS: HEMATOCRIT 28.8 % (37.0-47.0); HEMOGLOBIN 8.9 G/DL (12.0-16.0); MEAN CORPUSCULAR VOLUME 91 FL (80-99); PLATELET COUNT 72 K/UL (150-450); RED BLOOD COUNT 3.15 M/UL (4.20-5.40); RED CELL DISTRIBUTION WIDTH 17.2 % (11.6-14.8)
[2020-05-08 06:44] LABS: ANION GAP 10 mmol/L (5-15); BLOOD UREA NITROGEN 24 mg/dL (7-18); CALCIUM 8.2 MG/DL (8.5-10.1); CARBON DIOXIDE 24 MMOL/L (21-32); CHLORIDE 133 MMOL/L (98-107); CREATININE 0.7 MG/DL (0.55-1.30); POTASSIUM 3.2 MMOL/L (3.5-5.1)
[2020-05-08 07:05] LABS: SODIUM 167 MMOL/L (136-145)
--- NOTE | 2020-05-08 07:53 | NUR ---
HAND-OFF: Report given to .
--- NOTE | 2020-05-08 07:56 | NUR ---
NURSE HAND-OFF REPORT: Latest Vital Signs: Temperature 99.8 , Pulse 109 , B/P 120 /78 , Respiratory Rate 20 , O2 SAT 100 , Nasal Cannula, O2 Flow Rate 2.0 . Vital Sign Comment: EKG Rhythm: Sinus Tachycardia Rhythm change?: N MD Notified?: N - MD Response: Latest Rivera Fall Score: 50 Fall Risk: High Risk Safety Measures: Call light Within Reach, Bed Alarm Zone 1, Side Rails Side Rails x3, Bed position Low and Locked. Fall Precautions: Yellow Socks Yellow Gown Door Sign Patient Fall Education Report given to lorenzo oh rn using sbar .
--- NOTE | 2020-05-08 07:57 | NUR ---
NURSE NOTES: Report received SAGE Arias. Pt is awake and resting in bed. Opens eyes spontaneously but does not make eye contacts. Non-verbal. Unable to follow commands. Localizes and makes face to pain. ST on director of cardiac cath lab with HR 100's. On N/C 2L. O2 sat 98-100%. G-tube in place. Feeding is held for abdominal US scheduled for this AM. Pruitt in place draining to yellow urine. Left IJ TLC patent and asymptomatic. Levophed is off for SBP 120's. D5NS is running at 100cc/hr. Bed in lowest position. Side rails up x3. Will resume plan of care.
[2020-05-08] MEDS: Tamsulosin 0.4mg cap ORAL SCH (08:52)
--- NOTE | 2020-05-08 09:50 | NUR ---
NURSE NOTES: Dr Prasad here to see the patient. Updated him with patient's current condition including that patient is off Levo this AM. No new orders.
--- NOTE | 2020-05-08 10:43 | NUR ---
NURSE NOTES: 2 wound care nurses from outpatient wound center came and assessed the patient. Dr Clark was also here to see the patient. Notified him that patient has valente from craniotomy. No new orders for now.
--- NOTE | 2020-05-08 11:49 | Pulmonology Progress Note ---
Subjective Interval Events: None new; on low dose levophed Constitutional: Reports: no symptoms HEENT: Repors: no symptoms Respiratory: Reports: no symptoms Cardiovascular: Reports: no symptoms Gastrointestinal/Abdominal: Reports: no symptoms Allergies: Coded Allergies: No Known Allergies (Unverified , 05/06/20) Objective Last 24 Hour Vital Signs Date Time Temp Pulse Resp B/P (MAP) Pulse Ox O2 Delivery O2 Flow Rate FiO2 05/08/20 10:00 103 18 113/74 (87) 100 05/08/20 09:00 108 20 117/72 (87) 98 05/08/20 08:15 105 22 112/73 (86) 100 05/08/20 08:00 106 19 118/76 (90) 98 05/08/20 08:00 Nasal Cannula 2.0 05/08/20 07:45 107 20 117/74 (88) 100 05/08/20 07:30 108 19 119/75 (90) 92 05/08/20 07:15 106 22 120/76 (91) 100 05/08/20 07:05 120/76 05/08/20 07:00 123/76 05/08/20 07:00 99.1 106 23 123/76 (92) 99 05/08/20 06:00 120/78 05/08/20 05:45 109 20 126/76 (93) 100 05/08/20 05:30 107 17 127/79 (95) 100 05/08/20 05:15 108 21 126/78 (94) 100 05/08/20 05:00 112 18 124/79 (94) 100 05/08/20 05:00 126/73 05/08/20 04:45 109 20 121/76 (91) 100 05/08/20 04:30 106 23 126/78 (94) 100 05/08/20 04:15 110 20 125/79 (94) 100 05/08/20 04:00 Nasal Cannula 2.0 05/08/20 04:00 107 05/08/20 04:00 102 20 124/77 (93) 100 05/08/20 04:00 121/76 05/08/20 03:45 107 22 124/78 (93) 100 05/08/20 03:30 106 19 133/74 (93) 99 05/08/20 03:15 109 19 124/79 (94) 100 05/08/20 03:00 109 22 123/76 (92) 97 05/08/20 03:00 125/75 05/08/20 02:53 109 21 124/79 (94) 100 05/08/20 02:30 117 24 129/81 (97) 98 05/08/20 02:15 113 24 126/77 (93) 98 05/08/20 02:00 124/77 05/08/20 02:00 112 25 124/78 (93) 98 05/08/20 01:45 115 26 125/77 (93) 98 05/08/20 01:30 115 23 127/78 (94) 98 05/08/20 01:15 114 25 126/79 (95) 98 05/08/20 01:00 112 27 126/77 (93) 98 05/08/20 01:00 125/77 05/08/20 00:45 112 25 124/78 (93) 98 05/08/20 00:30 114 27 122/77 (92) 98 05/08/20 00:15 114 26 123/78 (93) 99 05/08/20 00:00 99.8 115 26 125/78 (94) 98 05/08/20 00:00 114 05/08/20 00:00 Nasal Cannula 2.0 05/08/20 00:00 123/78 05/07/20 23:45 116 27 124/77 (93) 99 05/07/20 23:30 115 26 123/78 (93) 99 05/07/20 23:15 117 26 122/77 (92) 99 05/07/20 23:00 118 27 120/76 (91) 98 05/07/20 23:00 122/77 05/07/20 22:45 118 26 124/76 (92) 98 05/07/20 22:30 117 24 122/75 (91) 99 05/07/20 22:15 118 26 123/75 (91) 98 05/07/20 22:00 123/75 05/07/20 22:00 118 26 121/77 (92) 99 05/07/20 21:45 115 25 123/76 (92) 99 05/07/20 21:30 114 23 123/77 (92) 99 05/07/20 21:15 114 25 122/76 (91) 99 05/07/20 21:00 113 24 124/79 (94) 99 05/07/20 21:00 124/75 05/07/20 20:45 113 25 124/78 (93) 99 05/07/20 20:30 112 24 125/77 (93) 99 05/07/20 20:15 113 22 124/78 (93) 99 05/07/20 20:00 Nasal Cannula 2.0 05/07/20 20:00 99.4 112 20 126/79 (95) 99 05/07/20 20:00 124/78 05/07/20 20:00 110 05/07/20 19:30 111 20 125/80 (95) 99 05/07/20 19:26 98 Nasal Cannula 2.0 28 05/07/20 19:15 109 23 124/77 (93) 99 05/07/20 19:00 124/77 05/07/20 19:00 108 25 123/78 (93) 99 05/07/20 18:30 119/77 05/07/20 18:00 111 23 110/73 (85) 99 05/07/20 17:30 113/71 05/07/20 17:28 109/72 05/07/20 17:13 113/71 05/07/20 17:00 113 24 124/76 (92) 99 05/07/20 16:13 129/78 05/07/20 16:00 99.3 113 23 127/78 (94) 99 05/07/20 16:00 113 05/07/20 16:00 Nasal Cannula 2.0 05/07/20 15:13 128/77 05/07/20 15:00 99.3 115 26 129/76 (93) 99 05/07/20 14:13 129/76 05/07/20 14:00 119 26 128/75 (92) 99 05/07/20 13:43 130/76 05/07/20 13:13 129/78 05/07/20 13:00 118 26 131/76 (94) 99 05/07/20 12:43 134/77 05/07/20 12:13 132/79 05/07/20 12:00 118 05/07/20 12:00 100.0 118 28 133/78 (96) 99 05/07/20 12:00 Nasal Cannula 2.0 Intake and Output 05/07/20 05/08/20 19:00 07:00 Intake Total 1836.875 ml 1817.25 ml Output Total 1600 ml 1510 ml Balance 236.875 ml 307.25 ml Intake Oral 0 ml Free Water 100 ml 25 ml IV Total 1716.875 ml 1742.25 ml Tube Feeding 20 ml 50 ml Output Urine Total 1600 ml 1510 ml # Bowel Movements 1 General Appearance: no acute distress HEENT: normocephalic Respiratory: chest wall non-tender, lungs clear Cardiovascular: normal peripheral pulses, normal rate Abdomen: normal bowel sounds Microbiology Date/Time Source Procedure Growth Status 05/07/20 12:00 Nasopharynx SARS-CoV-2 RdRp Gene Assay - Final Complete 05/06/20 23:20 Urine,Clean Catch Urine Culture - Preliminary NO GROWTH Resulted 05/06/20 21:40 Nasopharynx SARS-CoV-2 RdRp Gene Assay - Final Complete 05/06/20 21:20 Nasal Nares MRSA Culture - Final Staphylococcus Aureus - Mrsa Complete Laboratory Tests 05/08/20 04:56: White Blood Count 13.0H, Red Blood Count 3.15L, Hemoglobin 8.9L, Hematocrit 28.8L, Mean Corpuscular Volume 91, Mean Corpuscular Hemoglobin 28.1, Mean Corpu scular Hemoglobin Concent 30.8L, Red Cell Distribution Width 17.2H, Platelet Count 72L, Mean Platelet Volume 14.2H, Neutrophils (%) (Auto) , Lymphocytes (%) (Auto) , Monocytes (%) (Auto) , Eosinophils (%) (Auto) , Basophils (%) (Auto) , Differential Total Cells Counted 100, Neutrophils % (Manual) 91H, Lymphocytes % (Manual) 7L, Monocytes % (Manual) 2, Eosinophils % (Manual) 0, Basophils % (Manu al) 0, Band Neutrophils 0, Nucleated Red Blood Cells 1, Platelet Estimate DecreasedL, Platelet Morphology Normal, Hypochromasia 2+, Anisocytosis 1+, Sodium Level 167*H, Potassium Level 3.2L, Chloride Level 133H, Carbon Dioxide Level 24, Anion Gap 10, Blood Urea Nitrogen 24H, Creatinine 0.7, Estimat Glomerular Filtration Rate > 60, Glucose Level 431H, Calcium Level 8.2L Current Medications Medications (Trade) Dose Ordered Sig/Renetta Route PRN Reason Start Time Stop Time Status Last Admin Dose Admin Acetaminophen (Tylenol) 650 mg Q4H PRN ORAL Fever 05/06/20 23:30 06/05/20 23:29 05/07/20 08:51 Acetaminophen (Tylenol) 650 mg Q4H PRN ORAL Mild Pain (Pain Scale 1-3) 05/06/20 23:30 06/05/20 23:29 Chlorhexidine Gluconate (Yola-Hex 2%) 1 applic DAILY@2000 TOPIC 05/07/20 20:00 08/05/20 19:59 05/07/20 20:16 Dextrose (Dextrose 50%) 25 ml Q30M PRN IV Hypoglycemia 05/06/20 23:30 08/04/20 23:29 Dextrose (Dextrose 50%) 50 ml Q30M PRN IV Hypoglycemia 05/06/20 23:30 08/04/20 23:29 Dextrose/Sodium Chloride 1,000 ml @ 100 mls/hr Q10H IV 05/07/20 00:30 06/06/20 00:29 05/08/20 05:22 Enoxaparin Sodium (Lovenox) 40 mg QHS SUBQ 05/06/20 23:30 08/04/20 23:29 05/07/20 20:36 Famotidine (Pepcid) 20 mg QHS GT 05/06/20 23:30 08/04/20 23:29 05/07/20 20:37 Finasteride (Proscar) 5 mg DAILY ORAL 05/07/20 09:00 08/05/20 08:59 05/08/20 08:52 Insulin Aspart (NovoLOG) BEFORE MEALS AND HS SUBQ 05/07/20 06:30 08/05/20 06:29 05/08/20 11:44 Magnesium Hydroxide (Mom) 30 ml HSPRN PRN ORAL Constipation 05/06/20 23:30 06/05/20 23:29 Norepinephrine Bitartrate 8 mg/ Dextrose 250 ml @ 0 mls/hr Q24H IV 05/07/20 10:15 05/10/20 10:14 05/07/20 17:30 Ondansetron HCl (Zofran) 4 mg Q6H PRN IVP Nausea & Vomiting 05/06/20 23:30 06/05/20 23:29 Piperacillin Sod/ Tazobactam Sod 3.375 gm/Sodium Chloride 110 ml @ 27.5 mls/hr Q8HR@0400,1200,2000 IVPB 05/07/20 12:00 05/14/20 11:59 05/08/20 11:30 Tamsulosin HCl (Flomax) 0.4 mg DAILY ORAL 05/07/20 09:00 06/06/20 08:59 05/08/20 08:52 Vancomycin HCl (Vanco pharmacy to dose) 1 ea DAILY PRN MISC Per rx protocol 05/06/20 23:45 06/05/20 23:44 Vancomycin HCl 750 mg/Dextrose 275 ml @ 184 mls/hr Q24H IVPB 05/07/20 22:00 05/12/20 21:59 05/07/20 21:30 Assessment/Plan Assessment/Plan IMPRESSION: 1. Shock, suspect hypovolemic shock. 2. Cannot exclude infectious process. 3. Chronic decubitus. 4. History of CVA. 5. Diabetes mellitus. DISCUSSION: continue abx Continue fluid resuscitation with hypotonic fluids. Continue pressors. I will follow carefully. At this point, her rapid COVID-19 testing is negative. Asif Prasad M.D. Asif Prasad MD May 08, 2020 11:49
--- NOTE | 2020-05-08 11:55 | Infectious Diseases Prog Note ---
Assessment/Plan Assessment/Plan IMPRESSION: Sepsis with septic shock, improving Acute pancreatitis. Diabetes mellitus with hyperglycemia, Acute renal failure, Acidosis, Elevated transaminase, Hypernatremia, Multiple pressure ulcer. MRSA carrier RECOMMENDATION: Continue with IV vancomycin & Zosyn. We will follow up the cultures We will follow abdominal ultrasound. Subjective ROS Limited/Unobtainable: Yes Constitutional: Denies: fever Cardiovascular: Reports: other - off of pressor Neurologic: Reports: confusion, other - on restraint Allergies: Coded Allergies: No Known Allergies (Unverified , 05/06/20) Objective Last 24 Hour Vital Signs Date Time Temp Pulse Resp B/P (MAP) Pulse Ox O2 Delivery O2 Flow Rate FiO2 05/08/20 10:00 103 18 113/74 (87) 100 05/08/20 09:00 108 20 117/72 (87) 98 05/08/20 08:15 105 22 112/73 (86) 100 05/08/20 08:00 106 19 118/76 (90) 98 05/08/20 08:00 Nasal Cannula 2.0 05/08/20 07:45 107 20 117/74 (88) 100 05/08/20 07:30 108 19 119/75 (90) 92 05/08/20 07:15 106 22 120/76 (91) 100 05/08/20 07:05 120/76 05/08/20 07:00 123/76 05/08/20 07:00 99.1 106 23 123/76 (92) 99 05/08/20 06:00 120/78 05/08/20 05:45 109 20 126/76 (93) 100 05/08/20 05:30 107 17 127/79 (95) 100 05/08/20 05:15 108 21 126/78 (94) 100 05/08/20 05:00 112 18 124/79 (94) 100 05/08/20 05:00 126/73 05/08/20 04:45 109 20 121/76 (91) 100 05/08/20 04:30 106 23 126/78 (94) 100 05/08/20 04:15 110 20 125/79 (94) 100 05/08/20 04:00 Nasal Cannula 2.0 05/08/20 04:00 107 05/08/20 04:00 102 20 124/77 (93) 100 05/08/20 04:00 121/76 05/08/20 03:45 107 22 124/78 (93) 100 05/08/20 03:30 106 19 133/74 (93) 99 05/08/20 03:15 109 19 124/79 (94) 100 05/08/20 03:00 109 22 123/76 (92) 97 05/08/20 03:00 125/75 05/08/20 02:53 109 21 124/79 (94) 100 05/08/20 02:30 117 24 129/81 (97) 98 05/08/20 02:15 113 24 126/77 (93) 98 05/08/20 02:00 124/77 05/08/20 02:00 112 25 124/78 (93) 98 05/08/20 01:45 115 26 125/77 (93) 98 05/08/20 01:30 115 23 127/78 (94) 98 05/08/20 01:15 114 25 126/79 (95) 98 05/08/20 01:00 112 27 126/77 (93) 98 05/08/20 01:00 125/77 05/08/20 00:45 112 25 124/78 (93) 98 05/08/20 00:30 114 27 122/77 (92) 98 05/08/20 00:15 114 26 123/78 (93) 99 05/08/20 00:00 99.8 115 26 125/78 (94) 98 05/08/20 00:00 114 05/08/20 00:00 Nasal Cannula 2.0 05/08/20 00:00 123/78 05/07/20 23:45 116 27 124/77 (93) 99 05/07/20 23:30 115 26 123/78 (93) 99 05/07/20 23:15 117 26 122/77 (92) 99 05/07/20 23:00 118 27 120/76 (91) 98 05/07/20 23:00 122/77 05/07/20 22:45 118 26 124/76 (92) 98 05/07/20 22:30 117 24 122/75 (91) 99 05/07/20 22:15 118 26 123/75 (91) 98 05/07/20 22:00 123/75 05/07/20 22:00 118 26 121/77 (92) 99 05/07/20 21:45 115 25 123/76 (92) 99 05/07/20 21:30 114 23 123/77 (92) 99 05/07/20 21:15 114 25 122/76 (91) 99 05/07/20 21:00 113 24 124/79 (94) 99 05/07/20 21:00 124/75 05/07/20 20:45 113 25 124/78 (93) 99 05/07/20 20:30 112 24 125/77 (93) 99 05/07/20 20:15 113 22 124/78 (93) 99 05/07/20 20:00 Nasal Cannula 2.0 05/07/20 20:00 99.4 112 20 126/79 (95) 99 05/07/20 20:00 124/78 05/07/20 20:00 110 05/07/20 19:30 111 20 125/80 (95) 99 05/07/20 19:26 98 Nasal Cannula 2.0 28 05/07/20 19:15 109 23 124/77 (93) 99 05/07/20 19:00 124/77 05/07/20 19:00 108 25 123/78 (93) 99 05/07/20 18:30 119/77 05/07/20 18:00 111 23 110/73 (85) 99 05/07/20 17:30 113/71 05/07/20 17:28 109/72 05/07/20 17:13 113/71 05/07/20 17:00 113 24 124/76 (92) 99 05/07/20 16:13 129/78 05/07/20 16:00 99.3 113 23 127/78 (94) 99 05/07/20 16:00 113 05/07/20 16:00 Nasal Cannula 2.0 05/07/20 15:13 128/77 05/07/20 15:00 99.3 115 26 129/76 (93) 99 05/07/20 14:13 129/76 05/07/20 14:00 119 26 128/75 (92) 99 05/07/20 13:43 130/76 05/07/20 13:13 129/78 05/07/20 13:00 118 26 131/76 (94) 99 05/07/20 12:43 134/77 05/07/20 12:13 132/79 05/07/20 12:00 118 05/07/20 12:00 100.0 118 28 133/78 (96) 99 05/07/20 12:00 Nasal Cannula 2.0 Height (Feet): 5 Height (Inches): 2.00 Weight (Pounds): 102 HEENT: mucous membranes moist Respiratory/Chest: no respiratory distress, other - oxygen by nasal cannula Cardiovascular: tachycardia Abdomen: soft, non tender Extremities: no edema Skin: ulcers Neurologic/Psychiatric: other - opens eyes Microbiology Date/Time Source Procedure Growth Status 05/07/20 12:00 Nasopharynx SARS-CoV-2 RdRp Gene Assay - Final Complete 05/06/20 23:20 Urine,Clean Catch Urine Culture - Preliminary NO GROWTH Resulted 05/06/20 21:40 Nasopharynx SARS-CoV-2 RdRp Gene Assay - Final Complete 05/06/20 21:20 Nasal Nares MRSA Culture - Final Staphylococcus Aureus - Mrsa Complete Laboratory Tests Test 05/08/20 04:56 White Blood Count 13.0 K/UL (4.8-10.8) H Red Blood Count 3.15 M/UL (4.20-5.40) L Hemoglobin 8.9 G/DL (12.0-16.0) L Hematocrit 28.8 % (37.0-47.0) L Mean Corpuscular Volume 91 FL (80-99) Mean Corpuscular Hemoglobin 28.1 PG (27.0-31.0) Mean Corpuscular Hemoglobin Concent 30.8 G/DL (32.0-36.0) L Red Cell Distribution Width 17.2 % (11.6-14.8) H Platelet Count 72 K/UL (150-450) L Mean Platelet Volume 14.2 FL (6.5-10.1) H Neutrophils (%) (Auto) % (45.0-75.0) Lymphocytes (%) (Auto) % (20.0-45.0) Monocytes (%) (Auto) % (1.0-10.0) Eosinophils (%) (Auto) % (0.0-3.0) Basophils (%) (Auto) % (0.0-2.0) Differential Total Cells Counted 100 Neutrophils % (Manual) 91 % (45-75) H Lymphocytes % (Manual) 7 % (20-45) L Monocytes % (Manual) 2 % (1-10) Eosinophils % (Manual) 0 % (0-3) Basophils % (Manual) 0 % (0-2) Band Neutrophils 0 % (0-8) Nucleated Red Blood Cells 1 /100 WBC Platelet Estimate Decreased L Platelet Morphology Normal Hypochromasia 2+ Anisocytosis 1+ Sodium Level 167 MMOL/L (136-145) *H Potassium Level 3.2 MMOL/L (3.5-5.1) L Chloride Level 133 MMOL/L (98-107) H Carbon Dioxide Level 24 MMOL/L (21-32) Anion Gap 10 mmol/L (5-15) Blood Urea Nitrogen 24 mg/dL (7-18) H Creatinine 0.7 MG/DL (0.55-1.30) Estimat Glomerular Filtration Rate > 60 mL/min (>60) Glucose Level 431 MG/DL (74-106) H Calcium Level 8.2 MG/DL (8.5-10.1) L Current Medications Medications (Trade) Dose Ordered Sig/Renetta Route PRN Reason Start Time Stop Time Status Last Admin Dose Admin Acetaminophen (Tylenol) 650 mg Q4H PRN ORAL Fever 05/06/20 23:30 06/05/20 23:29 05/07/20 08:51 Acetaminophen (Tylenol) 650 mg Q4H PRN ORAL Mild Pain (Pain Scale 1-3) 05/06/20 23:30 06/05/20 23:29 Chlorhexidine Gluconate (Yola-Hex 2%) 1 applic DAILY@1999 TOPIC 05/07/20 20:00 08/05/20 19:59 05/07/20 20:16 Dextrose (Dextrose 50%) 25 ml Q30M PRN IV Hypoglycemia 05/06/20 23:30 08/04/20 23:29 Dextrose (Dextrose 50%) 50 ml Q30M PRN IV Hypoglycemia 05/06/20 23:30 08/04/20 23:29 Dextrose/Sodium Chloride 1,000 ml @ 100 mls/hr Q10H IV 05/07/20 00:30 06/06/20 00:29 05/08/20 05:22 Enoxaparin Sodium (Lovenox) 40 mg QHS SUBQ 05/06/20 23:30 08/04/20 23:29 05/07/20 20:36 Famotidine (Pepcid) 20 mg QHS GT 05/06/20 23:30 08/04/20 23:29 05/07/20 20:37 Finasteride (Proscar) 5 mg DAILY ORAL 05/07/20 09:00 08/05/20 08:59 05/08/20 08:52 Insulin Aspart (NovoLOG) BEFORE MEALS AND HS SUBQ 05/07/20 06:30 08/05/20 06:29 05/08/20 11:44 Magnesium Hydroxide (Mom) 30 ml HSPRN PRN ORAL Constipation 05/06/20 23:30 06/05/20 23:29 Norepinephrine Bitartrate 8 mg/ Dextrose 250 ml @ 0 mls/hr Q24H IV 05/07/20 10:15 05/10/20 10:14 05/07/20 17:30 Ondansetron HCl (Zofran) 4 mg Q6H PRN IVP Nausea & Vomiting 05/06/20 23:30 06/05/20 23:29 Piperacillin Sod/ Tazobactam Sod 3.375 gm/Sodium Chloride 110 ml @ 27.5 mls/hr Q8HR@0400,1200,2000 IVPB 05/07/20 12:00 05/14/20 11:59 05/08/20 11:30 Tamsulosin HCl (Flomax) 0.4 mg DAILY ORAL 05/07/20 09:00 06/06/20 08:59 05/08/20 08:52 Vancomycin HCl (Vanco pharmacy to dose) 1 ea DAILY PRN MISC Per rx protocol 05/06/20 23:45 06/05/20 23:44 Vancomycin HCl 750 mg/Dextrose 275 ml @ 184 mls/hr Q24H IVPB 05/07/20 22:00 05/12/20 21:59 05/07/20 21:30 Peter Bales MD May 08, 2020 11:55
--- NOTE | 2020-05-08 12:14 | NUR ---
NURSE NOTES: Temp 99.0 orally. Turned and repositioned patient. BS 284. Novolog given as per protocol. Feeding is running at 20cc/hr. No residual noted. Will continue to monitor.
--- NOTE | 2020-05-08 12:22 | NUR ---
NURSE NOTES: Dr Lynn Bales here to see the patient. Order for K-Dur 40 meq and IVF to D5W at75cc/hr received, noted, and carried out. Addendum: 05/09/20 at 0800 by COLLEEN ABURTO RN RN Late Entry: NURSE NOTES: Dr Lynn Bales here to see the patient. Updated him with patient's current condition including elevated Na and low K level. Order for K-Dur 40 meq and IVF to D5W at75cc/hr received, noted, and carried out.
--- NOTE | 2020-05-08 12:28 | General Progress Note ---
Subjective Allergies: Coded Allergies: No Known Allergies (Unverified , 05/06/20) Subjective seen in ICU awake Objective Last 24 Hour Vital Signs Date Time Temp Pulse Resp B/P (MAP) Pulse Ox O2 Delivery O2 Flow Rate FiO2 05/08/20 12:00 99.0 108 18 125/71 (89) 100 05/08/20 12:00 Nasal Cannula 2.0 05/08/20 11:00 106 16 116/74 (88) 100 05/08/20 10:00 103 18 113/74 (87) 100 05/08/20 09:00 108 20 117/72 (87) 98 05/08/20 08:15 105 22 112/73 (86) 100 05/08/20 08:02 105 05/08/20 08:00 106 19 118/76 (90) 98 05/08/20 08:00 Nasal Cannula 2.0 05/08/20 07:45 107 20 117/74 (88) 100 05/08/20 07:30 108 19 119/75 (90) 92 05/08/20 07:15 106 22 120/76 (91) 100 05/08/20 07:05 120/76 05/08/20 07:00 123/76 05/08/20 07:00 99.1 106 23 123/76 (92) 99 05/08/20 06:00 120/78 05/08/20 05:45 109 20 126/76 (93) 100 05/08/20 05:30 107 17 127/79 (95) 100 05/08/20 05:15 108 21 126/78 (94) 100 05/08/20 05:00 112 18 124/79 (94) 100 05/08/20 05:00 126/73 05/08/20 04:45 109 20 121/76 (91) 100 05/08/20 04:30 106 23 126/78 (94) 100 05/08/20 04:15 110 20 125/79 (94) 100 05/08/20 04:00 Nasal Cannula 2.0 05/08/20 04:00 107 05/08/20 04:00 102 20 124/77 (93) 100 05/08/20 04:00 121/76 05/08/20 03:45 107 22 124/78 (93) 100 05/08/20 03:30 106 19 133/74 (93) 99 05/08/20 03:15 109 19 124/79 (94) 100 05/08/20 03:00 109 22 123/76 (92) 97 05/08/20 03:00 125/75 05/08/20 02:53 109 21 124/79 (94) 100 05/08/20 02:30 117 24 129/81 (97) 98 05/08/20 02:15 113 24 126/77 (93) 98 05/08/20 02:00 124/77 05/08/20 02:00 112 25 124/78 (93) 98 05/08/20 01:45 115 26 125/77 (93) 98 05/08/20 01:30 115 23 127/78 (94) 98 05/08/20 01:15 114 25 126/79 (95) 98 05/08/20 01:00 112 27 126/77 (93) 98 05/08/20 01:00 125/77 05/08/20 00:45 112 25 124/78 (93) 98 05/08/20 00:30 114 27 122/77 (92) 98 05/08/20 00:15 114 26 123/78 (93) 99 05/08/20 00:00 99.8 115 26 125/78 (94) 98 05/08/20 00:00 114 05/08/20 00:00 Nasal Cannula 2.0 05/08/20 00:00 123/78 05/07/20 23:45 116 27 124/77 (93) 99 05/07/20 23:30 115 26 123/78 (93) 99 05/07/20 23:15 117 26 122/77 (92) 99 05/07/20 23:00 118 27 120/76 (91) 98 05/07/20 23:00 122/77 05/07/20 22:45 118 26 124/76 (92) 98 05/07/20 22:30 117 24 122/75 (91) 99 05/07/20 22:15 118 26 123/75 (91) 98 05/07/20 22:00 123/75 05/07/20 22:00 118 26 121/77 (92) 99 05/07/20 21:45 115 25 123/76 (92) 99 05/07/20 21:30 114 23 123/77 (92) 99 05/07/20 21:15 114 25 122/76 (91) 99 05/07/20 21:00 113 24 124/79 (94) 99 05/07/20 21:00 124/75 05/07/20 20:45 113 25 124/78 (93) 99 05/07/20 20:30 112 24 125/77 (93) 99 05/07/20 20:15 113 22 124/78 (93) 99 05/07/20 20:00 Nasal Cannula 2.0 05/07/20 20:00 99.4 112 20 126/79 (95) 99 05/07/20 20:00 124/78 05/07/20 20:00 110 05/07/20 19:30 111 20 125/80 (95) 99 05/07/20 19:26 98 Nasal Cannula 2.0 28 05/07/20 19:15 109 23 124/77 (93) 99 05/07/20 19:00 124/77 05/07/20 19:00 108 25 123/78 (93) 99 05/07/20 18:30 119/77 05/07/20 18:00 111 23 110/73 (85) 99 05/07/20 17:30 113/71 05/07/20 17:28 109/72 05/07/20 17:13 113/71 05/07/20 17:00 113 24 124/76 (92) 99 05/07/20 16:13 129/78 05/07/20 16:00 99.3 113 23 127/78 (94) 99 05/07/20 16:00 113 05/07/20 16:00 Nasal Cannula 2.0 05/07/20 15:13 128/77 05/07/20 15:00 99.3 115 26 129/76 (93) 99 05/07/20 14:13 129/76 05/07/20 14:00 119 26 128/75 (92) 99 05/07/20 13:43 130/76 05/07/20 13:13 129/78 05/07/20 13:00 118 26 131/76 (94) 99 05/07/20 12:43 134/77 Intake and Output 05/07/20 05/08/20 19:00 07:00 Intake Total 1836.875 ml 1817.25 ml Output Total 1600 ml 1510 ml Balance 236.875 ml 307.25 ml Intake Oral 0 ml Free Water 100 ml 25 ml IV Total 1716.875 ml 1742.25 ml Tube Feeding 20 ml 50 ml Output Urine Total 1600 ml 1510 ml # Bowel Movements 1 Laboratory Tests 05/08/20 04:56: White Blood Count 13.0H, Red Blood Count 3.15L, Hemoglobin 8.9L, Hematocrit 28.8L, Mean Corpuscular Volume 91, Mean Corpuscular Hemoglobin 28.1, Mean Corpuscular Hemoglobin Concent 30.8L, Red Cell Distribution Width 17.2H, Platelet Count 72L, Mean Platelet Volume 14.2H, Neutrophils (%) (Auto) , Lymphocytes (%) (Auto) , Monocytes (%) (Auto) , Eosinophils (%) (Auto) , Basophils (%) (Auto) , Differential Total Cells Counted 100, Neutrophils % (Manual) 91H, Lymphocytes % (Manual) 7L, Monocytes % (Manual) 2, Eosinophils % (Manual) 0, Basophils % (Manual) 0, Band Neutrophils 0, Nucleated Red Blood Cells 1, Platelet Estimate DecreasedL, Platelet Morphology Normal, Hypochromasia 2+, Anisocytosis 1+, Sodium Level 167*H, Potassium Level 3.2L, Chloride Level 133H, Carbon Dioxide Level 24, Anion Gap 10, Blood Urea Nitrogen 24H, Creatinine 0.7, Estimat Glomerular Filtration Rate > 60, Glucose Level 431H, Calcium Level 8.2L Height (Feet): 5 Height (Inches): 2.00 Weight (Pounds): 102 Cardiovascular: normal rate Respiratory/Chest: rhonchi - bilaterally Edema: no edema noted Generalized Assessment/Plan Problem List: (1) Pneumonia ICD Codes: J18.9 - Pneumonia, unspecified organism SNOMED: 704733471 (2) Sepsis ICD Codes: A41.9 - Sepsis, unspecified organism SNOMED: 25113995 (3) Diabetes ICD Codes: E11.9 - Type 2 diabetes mellitus without complications SNOMED: 66489426 (4) Hypernatremia ICD Codes: E87.0 - Hyperosmolality and hypernatremia SNOMED: 886281768 (5) Stage 4 skin ulcer of sacral region ICD Codes: L98.429 - Non-pressure chronic ulcer of back with unspecified severity SNOMED: 15364221, 162571190 (6) PEG (percutaneous endoscopic gastrostomy) adjustment/replacement/removal ICD Codes: Z43.1 - Encounter for attention to gastrostomy SNOMED: 001373209, 190076046 (7) Anemia ICD Codes: D64.9 - Anemia, unspecified SNOMED: 323582587 Assessment/Plan: change IVF to D5W at 100 ml/hr replete K abxs res treatments off Levophed follow labs Discussed with [employer] total time spent 40 min Navi Bales MD May 08, 2020 12:28
--- NOTE | 2020-05-08 12:55 | NUR ---
NURSE NOTES:WOUND ASSESSMENT PATIENT NON-VERBAL. FACIAL GRIMACES NOTED WHEN REPOSITIONING. UNABLE TO REPOSITION SELF. LEFT EAR-STAGE III PRESSURE ULCER MEASURES 3.5X1.0X0.2CM. WOUND BED PINK WITH NOTED SLOUGH. PERIWOUND SKIN DARK RED/PURPLE AND BRUISED. DRAINING SMALL AMOUNT SERO-SANGUINEOUS. RECOMMEND-CLEAN WITH SALINE. PAT DRY. APPLY THERAHONEY AND COVER WITH OPTIFOAM DRESSING. REPLACE DRESSING DAILY. RIGHT EAR- STAGE III PRESSURE ULCER MEASURES 0.5X0.6X0.2CM. WOUND BED PINK WITH NOTED SLOUGH. SMALL AMOUNT SERO-SANGUINEOUS DRAINAGE. RECOMMEND-CLEAN WITH SALINE, PAT DRY, APPLY THERAHONEY AND COVER WITH OPTIFOAM DRESSING. REPLACE DRESSING DAILY. LEFT MEDIAL HEEL- DTI MEASURES 1.7X1.5X0.2CM. NOTED AREA DARK PURPLE. NON-BLANCHABLE. RECOMMEND- APPLY SKIN PROTECTOR AND OPTIFOAM DRESSING. REPLACE DAILY AND PRN. ELEVATE HEELS WITH PILLOWS RIGHT MEDIAL FOOT- DTI 2.5X2.0X0.1CM NOTED AREA DARK PURPLE RECOMMEND- APPLY SKIN PROTECTOR AND OPTIFOAM DRESSING. REPLACE DAILY AND PRN. ELEVATE HEELS/FEET WITH PILLOWS. SACRUM- STAGE IV PRESSURE ULCER MEASURES 9.5X13.7X0.5CM. MODERATE AMOUNT SEROSANGUINEOUS DRAINAGE. NO ODOR NOTED. BONE EXPOSURE WITH 40% SLOUGH AND 60% PINK GRANULATION TISSUE. AREA WITHIN WOUND BED DARK RED, POSSIBLE BRUISING. RECOMMEND-MD CONSULT. (DR. MCKINNON ALREADY CONSULTED). CLEAN WITH SALINE. PAT DRY. APPLY THERAHONEY AND COVER WITH GAUZE AND OPTIFOAM DRESSING. REPLACE DAILY. BHARAT MATTRESS(ALREADY IN PLACE). REPOSITION SIDE TO SIDE AT LEAST EVERY 2 HOURS OR TOLERATED
--- NOTE | 2020-05-08 13:32 | Diagnostic Imaging Report ---
Indication: Abnormal liver function tests, abnormal renal function tests, abnormal lipase Technique: James-scale and duplex images of the upper abdomen were obtained Comparison: No Findings: Gallbladder demonstrates gallstones. Gallbladder wall is borderline thickened, measuring just over 3 mm in diameter. Common bile duct is dilated, measuring 9 mm diameter. Sonographic Lockhart's sign could not be reported, patient noncommunicative. No intrahepatic biliary ductal dilatation. Liver demonstrates normal echogenicity, no focal abnormality. Portal vein and hepatic veins are patent. Pancreas is unremarkable. Spleen is unremarkable. Left kidney measures 10.3 cm in length. Right kidney measures 9.5 cm length. Both kidneys demonstrate normal echogenicity. There is no hydronephrosis. No focal abnormality . Abdominal aorta is partially obscured by bowel gas, visualized portions are non-aneurysmal . There is trace right pleural fluid. There is a very questionable poorly visualized cystic structure in the right lower quadrant Impression: Cholelithiasis. Borderline gallbladder wall thickening raises concern for acute cholecystitis. Consider further evaluation with hepatobiliary nuclear scan Right common bile duct. Downstream obstruction possibility. MRCP may be useful for better characterization Trace right pleural effusion Very questionable, poorly visualized if real, right lower quadrant cystic structure. Of uncertain significance. Consider CT to further characterize if clinically indicated
--- NOTE | 2020-05-08 14:30 | NUR ---
NURSE NOTES: Turned and repositioned patient. Oral care done. Patient is off Levophed. BP stable. Temp 99.0. Will continue to monitor.
--- NOTE | 2020-05-08 14:35 | Surgery Progress Note ---
Surgery Progress Note Subjective Additional Comments ill appearing lab snoted exam stable on support Objective Last 24 Hour Vital Signs Date Time Temp Pulse Resp B/P (MAP) Pulse Ox O2 Delivery O2 Flow Rate FiO2 05/08/20 14:00 108 15 115/73 (87) 100 05/08/20 13:00 106 14 114/70 (85) 98 05/08/20 12:00 99.0 108 18 125/71 (89) 100 05/08/20 12:00 106 05/08/20 12:00 Nasal Cannula 2.0 05/08/20 11:00 106 16 116/74 (88) 100 05/08/20 10:00 103 18 113/74 (87) 100 05/08/20 09:00 108 20 117/72 (87) 98 05/08/20 08:15 105 22 112/73 (86) 100 05/08/20 08:02 105 05/08/20 08:00 106 19 118/76 (90) 98 05/08/20 08:00 Nasal Cannula 2.0 05/08/20 07:45 107 20 117/74 (88) 100 05/08/20 07:30 108 19 119/75 (90) 92 05/08/20 07:15 106 22 120/76 (91) 100 05/08/20 07:05 120/76 05/08/20 07:00 123/76 05/08/20 07:00 99.1 106 23 123/76 (92) 99 05/08/20 06:00 120/78 05/08/20 05:45 109 20 126/76 (93) 100 05/08/20 05:30 107 17 127/79 (95) 100 05/08/20 05:15 108 21 126/78 (94) 100 05/08/20 05:00 112 18 124/79 (94) 100 05/08/20 05:00 126/73 05/08/20 04:45 109 20 121/76 (91) 100 05/08/20 04:30 106 23 126/78 (94) 100 05/08/20 04:15 110 20 125/79 (94) 100 05/08/20 04:00 Nasal Cannula 2.0 05/08/20 04:00 107 05/08/20 04:00 102 20 124/77 (93) 100 05/08/20 04:00 121/76 10/6/20 03:45 107 22 124/78 (93) 100 05/08/20 03:30 106 19 133/74 (93) 99 05/08/20 03:15 109 19 124/79 (94) 100 05/08/20 03:00 109 22 123/76 (92) 97 05/08/20 03:00 125/75 05/08/20 02:53 109 21 124/79 (94) 100 05/08/20 02:30 117 24 129/81 (97) 98 05/08/20 02:15 113 24 126/77 (93) 98 05/08/20 02:00 124/77 05/08/20 02:00 112 25 124/78 (93) 98 05/08/20 01:45 115 26 125/77 (93) 98 05/08/20 01:30 115 23 127/78 (94) 98 05/08/20 01:15 114 25 126/79 (95) 98 05/08/20 01:00 112 27 126/77 (93) 98 05/08/20 01:00 125/77 05/08/20 00:45 112 25 124/78 (93) 98 05/08/20 00:30 114 27 122/77 (92) 98 05/08/20 00:15 114 26 123/78 (93) 99 05/08/20 00:00 99.8 115 26 125/78 (94) 98 05/08/20 00:00 114 05/08/20 00:00 Nasal Cannula 2.0 05/08/20 00:00 123/78 05/07/20 23:45 116 27 124/77 (93) 99 05/07/20 23:30 115 26 123/78 (93) 99 05/07/20 23:15 117 26 122/77 (92) 99 05/07/20 23:00 118 27 120/76 (91) 98 05/07/20 23:00 122/77 05/07/20 22:45 118 26 124/76 (92) 98 05/07/20 22:30 117 24 122/75 (91) 99 05/07/20 22:15 118 26 123/75 (91) 98 05/07/20 22:00 123/75 05/07/20 22:00 118 26 121/77 (92) 99 05/07/20 21:45 115 25 123/76 (92) 99 05/07/20 21:30 114 23 123/77 (92) 99 05/07/20 21:15 114 25 122/76 (91) 99 05/07/20 21:00 113 24 124/79 (94) 99 05/07/20 21:00 124/75 05/07/20 20:45 113 25 124/78 (93) 99 05/07/20 20:30 112 24 125/77 (93) 99 05/07/20 20:15 113 22 124/78 (93) 99 05/07/20 20:00 Nasal Cannula 2.0 05/07/20 20:00 99.4 112 20 126/79 (95) 99 05/07/20 20:00 124/78 05/07/20 20:00 110 05/07/20 19:30 111 20 125/80 (95) 99 05/07/20 19:26 98 Nasal Cannula 2.0 28 05/07/20 19:15 109 23 124/77 (93) 99 05/07/20 19:00 124/77 05/07/20 19:00 108 25 123/78 (93) 99 05/07/20 18:30 119/77 05/07/20 18:00 111 23 110/73 (85) 99 05/07/20 17:30 113/71 05/07/20 17:28 109/72 05/07/20 17:13 113/71 05/07/20 17:00 113 24 124/76 (92) 99 05/07/20 16:13 129/78 05/07/20 16:00 99.3 113 23 127/78 (94) 99 05/07/20 16:00 113 05/07/20 16:00 Nasal Cannula 2.0 05/07/20 15:13 128/77 05/07/20 15:00 99.3 115 26 129/76 (93) 99 I&O Intake and Output 05/07/20 05/08/20 19:00 07:00 Intake Total 1836.875 ml 1817.25 ml Output Total 1600 ml 1510 ml Balance 236.875 ml 307.25 ml Intake Oral 0 ml Free Water 100 ml 25 ml IV Total 1716.875 ml 1742.25 ml Tube Feeding 20 ml 50 ml Output Urine Total 1600 ml 1510 ml # Bowel Movements 1 Dressing: saturated Cardiovascular: RSR Respiratory: decreased breath sounds Abdomen: non-tender, present bowel sounds Extremities: edema, no cyanosis, other Laboratory Tests Test 05/08/20 04:56 White Blood Count 13.0 K/UL (4.8-10.8) H Red Blood Count 3.15 M/UL (4.20-5.40) L Hemoglobin 8.9 G/DL (12.0-16.0) L Hematocrit 28.8 % (37.0-47.0) L Mean Corpuscular Volume 91 FL (80-99) Mean Corpuscular Hemoglobin 28.1 PG (27.0-31.0) Mean Corpuscular Hemoglobin Concent 30.8 G/DL (32.0-36.0) L Red Cell Distribution Width 17.2 % (11.6-14.8) H Platelet Count 72 K/UL (150-450) L Mean Platelet Volume 14.2 FL (6.5-10.1) H Neutrophils (%) (Auto) % (45.0-75.0) Lymphocytes (%) (Auto) % (20.0-45.0) Monocytes (%) (Auto) % (1.0-10.0) Eosinophils (%) (Auto) % (0.0-3.0) Basophils (%) (Auto) % (0.0-2.0) Differential Total Cells Counted 100 Neutrophils % (Manual) 91 % (45-75) H Lymphocytes % (Manual) 7 % (20-45) L Monocytes % (Manual) 2 % (1-10) Eosinophils % (Manual) 0 % (0-3) Basophils % (Manual) 0 % (0-2) Band Neutrophils 0 % (0-8) Nucleated Red Blood Cells 1 /100 WBC Platelet Estimate Decreased L Platelet Morphology Normal Hypochromasia 2+ Anisocytosis 1+ Sodium Level 167 MMOL/L (136-145) *H Potassium Level 3.2 MMOL/L (3.5-5.1) L Chloride Level 133 MMOL/L (98-107) H Carbon Dioxide Level 24 MMOL/L (21-32) Anion Gap 10 mmol/L (5-15) Blood Urea Nitrogen 24 mg/dL (7-18) H Creatinine 0.7 MG/DL (0.55-1.30) Estimat Glomerular Filtration Rate > 60 mL/min (>60) Glucose Level 431 MG/DL (74-106) H Calcium Level 8.2 MG/DL (8.5-10.1) L Plan Problems: (1) Stage 4 skin ulcer of sacral region Assessment & Plan: PATIENT NON-VERBAL. FACIAL GRIMACES NOTED WHEN REPOSITIONING. UNABLE TO REPOSITION SELF. LEFT EAR-STAGE III PRESSURE ULCER MEASURES 3.5X1.0X0.2CM. WOUND BED PINK WITH NOTED SLOUGH. PERIWOUND SKIN DARK RED/PURPLE AND BRUISED. DRAINING SMALL AMOUNT SERO-SANGUINEOUS. RECOMMEND-CLEAN WITH SALINE. PAT DRY. APPLY THERAHONEY AND COVER WITH OPTIFOAM DRESSING. REPLACE DRESSING DAILY. RIGHT EAR- STAGE III PRESSURE ULCER MEASURES 0.5X0.6X0.2CM. WOUND BED PINK WITH NOTED SLOUGH. SMALL AMOUNT SERO-SANGUINEOUS DRAINAGE. RECOMMEND-CLEAN WITH SALINE, PAT DRY, APPLY THERAHONEY AND COVER WITH OPTIFOAM DRESSING. REPLACE DRESSING DAILY. LEFT MEDIAL HEEL- DTI MEASURES 1.7X1.5X0.2CM. NOTED AREA DARK PURPLE. NON- BLANCHABLE. RECOMMEND- APPLY SKIN PROTECTOR AND OPTIFOAM DRESSING. REPLACE DAILY AND PRN. ELEVATE HEELS WITH PILLOWS RIGHT MEDIAL FOOT- DTI 2.5X2.0X0.1CM NOTED AREA DARK PURPLE RECOMMEND- APPLY SKIN PROTECTOR AND OPTIFOAM DRESSING. REPLACE DAILY AND PRN. ELEVATE HEELS/FEET WITH PILLOWS. SACRUM- STAGE IV PRESSURE ULCER MEASURES 9.5X13.7X0.5CM. MODERATE AMOUNT SEROSANGUINEOUS DRAINAGE. NO ODOR NOTED. BONE EXPOSURE WITH 40% SLOUGH AND 60% PINK GRANULATION TISSUE. AREA WITHIN WOUND BED DARK RED, POSSIBLE BRUISING. RECOMMEND-MD CONSULT. CLEAN WITH SALINE. PAT DRY. APPLY THERAHONEY AND COVER WITH GAUZE AND OPTIFOAM DRESSING. REPLACE DAILY. BHARAT MATTRESS(ALREADY IN PLACE). REPOSITION SIDE TO SIDE AT LEAST EVERY 2 HOURS OR TOLERATED (2) Heel ulcer (3) Ulcer of external ear (4) Pancreatitis (5) Transaminitis (6) Dehydration (7) Aneurysm (8) Diabetes (9) Hyperglycemia (10) Hypernatremia (11) Hypoxia (12) Sepsis (13) NSTEMI (non-ST elevated myocardial infarction) (14) PEG (percutaneous endoscopic gastrostomy) adjustment/replacement/removal (15) JESSICA (acute kidney injury) (16) CVA, old, hemiparesis (17) COVID-19 Lino Clark May 08, 2020 14:34
--- NOTE | 2020-05-08 14:52 | NUR ---
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 99.0 HR 108 RR 18 B/P 116/74 2L NC WBC 13.0 NA 167 BUN 24 ABD US=Cholelithiasis. Borderline gallbladder wall thickening raises concern for acute cholecystitis. IS: IVF D5@ 100ML/HR LEVAQUIN IV VANCO IV ZOSYN IV ICU STATUS
--- NOTE | 2020-05-08 15:39 | NUR ---
NURSE NOTES: Dr Mosqueda here to see the patient. Updated him with patient's current condition. Order was entered by Dr Mosqueda. Will carry out his order. Addendum: 05/08/20 at 1540 by COLLEEN ABURTO RN RN wrong patient
--- NOTE | 2020-05-08 16:35 | NUR ---
NURSE NOTES: Started 2nd unit of pRBC. Cosigned with SAGE Muniz. Pre-transfusion temp 99.3, HR 71, BP 103/51. Will continue to monitor. Addendum: 05/08/20 at 1637 by COLLEEN ABURTO RN RN wrong patient
--- NOTE | 2020-05-08 16:40 | NUR ---
NURSE NOTES: Cleaned patient for small amount of leaked urine. Turned and repositioned patient. Oral care done. Afebrile. No acute distress noted. Will continue to monitor.
--- NOTE | 2020-05-08 17:30 | NUR ---
INSURANCE CLINICALS/REVIEW FAXED TO [facility] PH [phone] FX [phone]
--- NOTE | 2020-05-08 19:15 | NUR ---
NURSE HAND-OFF REPORT: Latest Vital Signs: Temperature 98.6 , Pulse 105 , B/P 111 /69 , Respiratory Rate 18 , O2 SAT 99 , Nasal Cannula, O2 Flow Rate 2.0L . Vital Sign Comment: EKG Rhythm: Sinus Tachycardia Rhythm change?: N MD Notified?: MD Response: Latest Rivera Fall Score: 50 Fall Risk: High Risk Safety Measures: Call light Within Reach, Bed Alarm Zone 1, Side Rails Side Rails x3, Bed position Low and Locked. Fall Precautions: Yellow Socks Yellow Gown Door Sign Patient Fall Education Report given to SAGE Arias.
--- NOTE | 2020-05-08 19:27 | NUR ---
NURSE NOTES:received report frommiyeon rn pt awake nonverbal no movement upper and lower extermities on 2l n/c o2 sat 96-100% no resp distress noted [id number] stachy reposiition and suction tolerating tube feeding no residual urinary output reposition and suction
[2020-05-08] MEDS: Dyna-Hex 2% Top Sol 2oz TOPIC SCH (20:36)
[2020-05-08] MEDS: Enoxaparin 40mg Inj SUBQ SCH (20:37)
--- NOTE | 2020-05-08 22:00 | NUR ---
NURSE NOTES: BS [id number] INSULIN COVERAGEGIVEN ORDER
[2020-05-08] MEDS: Vancomycin 750mg/D5W 275ml IVPB SCH ×2 (22:55)
[2020-05-09] VITALS (19 sets, daily range): BP systolic 96–130; BP diastolic 60–79
--- NOTE | 2020-05-09 | NUR ---
NURSE NOTES: REPOSITION AND SUCTION
--- NOTE | 2020-05-09 02:00 | NUR ---
NURSE NOTES: CONDITION UN CHANGE
--- NOTE | 2020-05-09 04:05 | NUR ---
NURSE NOTES: complete bed bath oral care and back care done and wound care done
[2020-05-09 05:02] LABS: HEMATOCRIT 27.5 % (37.0-47.0); HEMOGLOBIN 8.4 G/DL (12.0-16.0); MEAN CORPUSCULAR VOLUME 92 FL (80-99); PLATELET COUNT 55 K/UL (150-450); RED CELL DISTRIBUTION WIDTH 17.1 % (11.6-14.8); WHITE BLOOD COUNT 6.6 K/UL (4.8-10.8)
[2020-05-09] MEDS: Piperacillin/Tazobactam 3.375 GM in NS 110 ML IVPB SCH ×3 (05:06→21:54)
[2020-05-09 05:48] LABS: ALANINE AMINOTRANSFERASE 143 U/L (12-78); ALBUMIN 1.9 G/DL (3.4-5.0); ALBUMIN/GLOBULIN RATIO 0.5 (1.0-2.7); ALKALINE PHOSPHATASE 167 U/L (46-116); ANION GAP 11 mmol/L (5-15); ASPARTATE AMINO TRANSFERASE 26 U/L (15-37); BILIRUBIN,TOTAL 0.4 MG/DL (0.2-1.0); BLOOD UREA NITROGEN 17 mg/dL (7-18); CARBON DIOXIDE 24 MMOL/L (21-32); CHLORIDE 126 MMOL/L (98-107); CREATININE 0.6 MG/DL (0.55-1.30); POTASSIUM 2.9 MMOL/L (3.5-5.1)
[2020-05-09] MEDS: NovoLOG Insulin Flexpen SUBQ SCH ×4 (05:51→22:53)
[2020-05-09 05:53] LABS: SODIUM 162 MMOL/L (136-145)
--- NOTE | 2020-05-09 06:00 | NUR ---
NURSE NOTES: bs [id number] insulin coverage given as order
--- NOTE | 2020-05-09 07:09 | NUR ---
NURSE HAND-OFF REPORT: Latest Vital Signs: Temperature 99.0 , Pulse 94 , B/P 113 /72 , Respiratory Rate 15 , O2 SAT 100 , Nasal Cannula, O2 Flow Rate 2.0 . Vital Sign Comment: EKG Rhythm: Sinus Rhythm Rhythm change?: N MD Notified?: N - MD Response: Latest Rivera Fall Score: 50 Fall Risk: High Risk Safety Measures: Call light Within Reach, Bed Alarm Zone 1, Side Rails Side Rails x3, Bed position Low and Locked. Fall Precautions: Yellow Socks Yellow Gown Door Sign Patient Fall Education Report given to ISAIAH CAZARES USING SBAR.
--- NOTE | 2020-05-09 07:10 | NUR ---
NURSE NOTES: Report received SAGE Arias. Pt is sleeping in bed. Opens eyes to light tactile stimuli but does not make eye contacts. Non-verbal. Unable to follow commands. Localizes and makes face to pain. ST on traffic monitor specialist with HR 100's. On N/C 2L. O2 sat 98-100%. G-tube in place, receiving Glucerna 1.2 at 30cc/hr. Pruitt in place draining to yellow urine. Left IJ TLC patent and asymptomatic. D5W is running at 100cc/hr. Bed in lowest position. Side rails up x3. Will resume plan of care.
[2020-05-09] MEDS: Tamsulosin 0.4mg cap ORAL SCH (08:06)
--- NOTE | 2020-05-09 09:30 | NUR ---
NURSE NOTES: Turned and repositioned patient. VSS. No respiratory distress noted. On 2L N/C. O2 sat 98-100%. Will continue to monitor.
[2020-05-09] MEDS: Vancomycin 750mg/D5W 275ml IVPB SCH ×2 (10:32)
--- NOTE | 2020-05-09 10:40 | NUR ---
NURSE NOTES: Dr Prasad here to see the patient. Updated him with patient's current condition. Patient was cleared to downgrade by Dr Prasad. Will check with primary doctor, Lynn Bales.
--- NOTE | 2020-05-09 10:49 | Pulmonology Progress Note ---
Subjective ROS Limited/Unobtainable: Yes Interval Events: None new; off levophed Constitutional: Denies: fever HEENT: Repors: no symptoms Respiratory: Reports: no symptoms Cardiovascular: Reports: no symptoms Gastrointestinal/Abdominal: Reports: no symptoms Allergies: Coded Allergies: No Known Allergies (Unverified , 05/06/20) Objective Last 24 Hour Vital Signs Date Time Temp Pulse Resp B/P (MAP) Pulse Ox O2 Delivery O2 Flow Rate FiO2 05/09/20 10:00 102 15 106/64 (78) 98 05/09/20 09:30 93 14 119/74 (89) 100 05/09/20 09:00 89 14 108/67 (81) 100 05/09/20 08:00 98.7 90 14 116/71 (86) 100 05/09/20 08:00 Nasal Cannula 2.0 05/09/20 07:00 94 15 113/72 (86) 100 05/09/20 06:00 99 12 114/79 (91) 99 05/09/20 05:00 95 15 106/69 (81) 100 05/09/20 04:00 Nasal Cannula 2.0 05/09/20 04:00 99.0 100 14 103/65 (78) 99 05/09/20 04:00 95 05/09/20 03:00 95 16 97/60 (72) 100 05/09/20 02:00 90 16 96/61 (73) 100 05/09/20 01:00 95 16 97/60 (72) 100 05/09/20 00:00 Nasal Cannula 2.0 05/09/20 00:00 94 05/09/20 00:00 99.4 100 17 102/61 (75) 99 05/08/20 23:00 100 15 105/68 (80) 100 05/08/20 22:00 106 18 107/67 (80) 100 05/08/20 21:00 107 19 115/71 (86) 100 05/08/20 20:00 104 05/08/20 20:00 Nasal Cannula 2.0 05/08/20 20:00 99.2 104 17 107/69 (82) 99 05/08/20 19:00 105 18 111/69 (83) 99 05/08/20 18:00 111 23 108/71 (83) 100 05/08/20 17:00 98.6 108 13 108/69 (82) 100 05/08/20 16:00 106 05/08/20 16:00 Nasal Cannula 2.0 05/08/20 16:00 106 17 110/71 (84) 100 05/08/20 15:00 107 16 114/76 (89) 100 05/08/20 14:00 108 15 115/73 (87) 100 05/08/20 13:00 106 14 114/70 (85) 98 05/08/20 12:00 99.0 108 18 125/71 (89) 100 05/08/20 12:00 106 05/08/20 12:00 Nasal Cannula 2.0 05/08/20 11:00 106 16 116/74 (88) 100 Intake and Output 0 05/08/20 05/09/20 19:00 07:00 Intake Total 1614.4791 ml 1970.0 ml Output Total 885 ml 615 ml Balance 729.4791 ml 1355.0 ml Free Water 75 ml 50 ml IV Total 1309.4791 ml 1640.0 ml Tube Feeding 180 ml 280 ml Other 50 ml Output Urine Total 885 ml 615 ml # Bowel Movements 1 General Appearance: no acute distress HEENT: normocephalic Respiratory: chest wall non-tender, lungs clear Cardiovascular: normal peripheral pulses, normal rate Abdomen: normal bowel sounds Microbiology Date/Time Source Procedure Growth Status 05/07/20 12:00 Nasopharynx Coronavirus COVID-19 PCR (RHONDA) - Final Complete 05/07/20 12:00 Nasopharynx SARS-CoV-2 RdRp Gene Assay - Final Complete 05/06/20 23:20 Urine,Clean Catch Urine Culture - Preliminary NO GROWTH Resulted 05/06/20 21:40 Nasopharynx SARS-CoV-2 RdRp Gene Assay - Final Complete 05/06/20 21:20 Nasal Nares MRSA Culture - Final Staphylococcus Aureus - Mrsa Complete 05/06/20 21:20 Blood Blood Culture - Preliminary Gram Negative Bacillus 1 Resulted 05/06/20 21:05 Blood Blood Culture - Preliminary Gram Negative Bacillus 1 Resulted Laboratory Tests 05/08/20 20:50: Vancomycin Level Trough 0.8L 05/09/20 04:05: White Blood Count 6.6, Red Blood Count 3.00L, Hemoglobin 8.4L, Hematocrit 27.5L, Mean Corpuscular Volume 92, Mean Corpuscular Hemoglobin 28.1, Mean Corpuscular Hemoglobin Concent 30.6L, Red Cell Distribution Width 17.1H, Platelet Count 55L, Mean Platelet Volume 11.6H, Neutrophils (%) (Auto) , Lymphocytes (%) (Auto) , Monocytes (%) (Auto) , Eosinophils (%) (Auto) , Basophils (%) (Auto) , Differential Total Cells Counted 100, Neutrophils % (Manual) 84H, Lymphocytes % (Manual) 13L, Monocytes % (Manual) 0L, Eosinophils % (Manual) 0, Basophils % (Manual) 0, Band Neutrophils 3, Platelet Estimate DecreasedL, Platelet Morphology Normal, Hypochromasia 1+, Anisocytosis 1+, Sodium Level 162*H, Potassium Level 2.9L, Chloride Level 126H, Carbon Dioxide Level 24, Anion Gap 11, Blood Urea Nitrogen 17, Creatinine 0.6, Estimat Glomerular Filtration Rate > 60, Glucose Level 342H, Calcium Level 8.0L, Total Bilirubin 0.4, Aspartate Amino Transf (AST/SGOT) 26, Alanine Aminotransferase (ALT/SGPT) 143H, Alkaline Phosphatase 167H, Total Protein 6.0L, Albumin 1.9L, Globulin 4.1, Albumin/Globulin Ratio 0.5L, Lipase 702H Current Medications Medications (Trade) Dose Ordered Sig/Renetta Route PRN Reason Start Time Stop Time Status Last Admin Dose Admin Acetaminophen (Tylenol) 650 mg Q4H PRN ORAL Fever 05/06/20 23:30 06/05/20 23:29 05/07/20 08:51 Acetaminophen (Tylenol) 650 mg Q4H PRN ORAL Mild Pain (Pain Scale 1-3) 05/06/20 23:30 06/05/20 23:29 Chlorhexidine Gluconate (Yola-Hex 2%) 1 applic DAILY@2000 TOPIC 05/07/20 20:00 08/05/20 19:59 05/08/20 20:36 Dextrose 1,000 ml @ 100 mls/hr Q10H IV 05/08/20 14:33 06/07/20 14:32 05/09/20 09:00 Dextrose (Dextrose 50%) 25 ml Q30M PRN IV Hypoglycemia 05/06/20 23:30 08/04/20 23:29 Dextrose (Dextrose 50%) 50 ml Q30M PRN IV Hypoglycemia 05/06/20 23:30 08/04/20 23:29 Enoxaparin Sodium (Lovenox) 40 mg QHS SUBQ 05/06/20 23:30 08/04/20 23:29 05/08/20 20:37 Famotidine (Pepcid) 20 mg QHS GT 05/06/20 23:30 08/04/20 23:29 05/08/20 20:36 Finasteride (Proscar) 5 mg DAILY ORAL 05/07/20 09:00 08/05/20 08:59 05/09/20 08:06 Insulin Aspart (NovoLOG) BEFORE MEALS AND HS SUBQ 05/07/20 06:30 08/05/20 06:29 05/09/20 05:51 Magnesium Hydroxide (Mom) 30 ml HSPRN PRN ORAL Constipation 05/06/20 23:30 06/05/20 23:29 Norepinephrine Bitartrate 8 mg/ Dextrose 250 ml @ 0 mls/hr Q24H IV 05/07/20 10:15 05/10/20 10:14 05/07/20 17:30 Ondansetron HCl (Zofran) 4 mg Q6H PRN IVP Nausea & Vomiting 05/06/20 23:30 06/05/20 23:29 Piperacillin Sod/ Tazobactam Sod 3.375 gm/Sodium Chloride 110 ml @ 27.5 mls/hr Q8HR@0400,1200,2000 IVPB 05/07/20 12:00 05/14/20 11:59 05/09/20 05:06 Tamsulosin HCl (Flomax) 0.4 mg DAILY ORAL 05/07/20 09:00 06/06/20 08:59 05/09/20 08:06 Vancomycin HCl (Vanco pharmacy to dose) 1 ea DAILY PRN MISC Per rx protocol 05/06/20 23:45 06/05/20 23:44 Vancomycin HCl 750 mg/Dextrose 275 ml @ 184 mls/hr Q12H IVPB 05/08/20 22:00 05/13/20 21:59 05/09/20 10:32 Assessment/Plan Assessment/Plan IMPRESSION: 1. Shock, suspect hypovolemic shock. Now resolved 2. Cannot exclude infectious process. 3. Chronic decubitus. 4. History of CVA. 5. Diabetes mellitus. DISCUSSION: continue abx Continue fluid resuscitation with hypotonic fluids. now off pressors. I will follow carefully. At this point, her rapid COVID-19 testing is negative. Asif Prasad M.D. Asif Prasad MD May 09, 2020 10:48
--- NOTE | 2020-05-09 12:24 | General Progress Note ---
Subjective Allergies: Coded Allergies: No Known Allergies (Unverified , 05/06/20) Subjective seen in ICU Objective Last 24 Hour Vital Signs Date Time Temp Pulse Resp B/P (MAP) Pulse Ox O2 Delivery O2 Flow Rate FiO2 05/09/20 12:00 98.5 88 15 120/71 (87) 100 05/09/20 12:00 91 13 112/70 (84) 100 05/09/20 12:00 Nasal Cannula 2.0 05/09/20 11:00 92 13 112/70 (84) 100 05/09/20 10:00 102 15 106/64 (78) 98 05/09/20 09:30 93 14 119/74 (89) 100 05/09/20 09:00 89 14 108/67 (81) 100 05/09/20 08:00 98.7 90 14 116/71 (86) 100 05/09/20 08:00 91 05/09/20 08:00 Nasal Cannula 2.0 05/09/20 07:00 94 15 113/72 (86) 100 05/09/20 06:00 99 12 114/79 (91) 99 05/09/20 05:00 95 15 106/69 (81) 100 05/09/20 04:00 Nasal Cannula 2.0 05/09/20 04:00 99.0 100 14 103/65 (78) 99 05/09/20 04:00 95 05/09/20 03:00 95 16 97/60 (72) 100 05/09/20 02:00 90 16 96/61 (73) 100 05/09/20 01:00 95 16 97/60 (72) 100 05/09/20 00:00 Nasal Cannula 2.0 05/09/20 00:00 94 05/09/20 00:00 99.4 100 17 102/61 (75) 99 05/08/20 23:00 100 15 105/68 (80) 100 05/08/20 22:00 106 18 107/67 (80) 100 05/08/20 21:00 107 19 115/71 (86) 100 05/08/20 20:00 104 05/08/20 20:00 Nasal Cannula 2.0 05/08/20 20:00 99.2 104 17 107/69 (82) 99 05/08/20 19:00 105 18 111/69 (83) 99 05/08/20 18:00 111 23 108/71 (83) 100 05/08/20 17:00 98.6 108 13 108/69 (82) 100 05/08/20 16:00 106 05/08/20 16:00 Nasal Cannula 2.0 05/08/20 16:00 106 17 110/71 (84) 100 05/08/20 15:00 107 16 114/76 (89) 100 05/08/20 14:00 108 15 115/73 (87) 100 05/08/20 13:00 106 14 114/70 (85) 98 Intake and Output 05/08/20 05/09/20 19:00 07:00 Intake Total 1614.4791 ml 1970.0 ml Output Total 885 ml 615 ml Balance 729.4791 ml 1355.0 ml Free Water 75 ml 50 ml IV Total 1309.4791 ml 1640.0 ml Tube Feeding 180 ml 280 ml Other 50 ml Output Urine Total 885 ml 615 ml # Bowel Movements 1 Laboratory Tests 05/08/20 20:50: Vancomycin Level Trough 0.8L 05/09/20 04:05: White Blood Count 6.6, Red Blood Count 3.00L, Hemoglobin 8.4L, Hematocrit 27.5L, Mean Corpuscular Volume 92, Mean Corpuscular Hemoglobin 28.1, Mean Corpuscular Hemoglobin Concent 30.6L, Red Cell Distribution Width 17.1H, Platelet Count 55L, Mean Platelet Volume 11.6H, Neutrophils (%) (Auto) , Lymphocytes (%) (Auto) , Monocytes (%) (Auto) , Eosinophils (%) (Auto) , Basophils (%) (Auto) , Differential Total Cells Counted 100, Neutrophils % (Manual) 84H, Lymphocytes % (Manual) 13L, Monocytes % (Manual) 0L, Eosinophils % (Manual) 0, Basophils % (Manual) 0, Band Neutrophils 3, Platelet Estimate DecreasedL, Platelet Morphology Normal, Hypochromasia 1+, Anisocytosis 1+, Sodium Level 162*H, Potassium Level 2.9L, Chloride Level 126H, Carbon Dioxide Level 24, Anion Gap 11, Blood Urea Nitrogen 17, Creatinine 0.6, Estimat Glomerular Filtration Rate > 60, Glucose Level 342H, Calcium Level 8.0L, Total Bilirubin 0.4, Aspartate Amino Transf (AST/SGOT) 26, Alanine Aminotransferase (ALT/SGPT) 143H, Alkaline Phosphatase 167H, Total Protein 6.0L, Albumin 1.9L, Globulin 4.1, Albumin/Globulin Ratio 0.5L, Lipase 702H Height (Feet): 5 Height (Inches): 2.00 Weight (Pounds): 102 Cardiovascular: normal rate Respiratory/Chest: rhonchi - bilaterally Edema: no edema noted Generalized Assessment/Plan Problem List: (1) Pneumonia ICD Codes: J18.9 - Pneumonia, unspecified organism SNOMED: 232107983 (2) Sepsis ICD Codes: A41.9 - Sepsis, unspecified organism SNOMED: 15162323 (3) Diabetes ICD Codes: E11.9 - Type 2 diabetes mellitus without complications SNOMED: 33541537 (4) Hypernatremia ICD Codes: E87.0 - Hyperosmolality and hypernatremia SNOMED: 259327232 (5) Stage 4 skin ulcer of sacral region ICD Codes: L98.429 - Non-pressure chronic ulcer of back with unspecified severity SNOMED: 01361732, 871283504 (6) PEG (percutaneous endoscopic gastrostomy) adjustment/replacement/removal ICD Codes: Z43.1 - Encounter for attention to gastrostomy SNOMED: 189207430, 088939974 (7) Anemia ICD Codes: D64.9 - Anemia, unspecified SNOMED: 153184792 (8) Thrombocytopenia ICD Codes: D69.6 - Thrombocytopenia, unspecified SNOMED: 136495510 Assessment/Plan: continue D5W at 100 ml/hr replete K abxs res treatments off Levophed follow labs Discussed with RN PRIVATE DUTY Ming Lovenox Apply SCDs total time spent 40 min Navi Bales MD May 09, 2020 12:24
--- NOTE | 2020-05-09 12:45 | NUR ---
NURSE NOTES: Dr Lynn Bales here to see the patient. Updated him with patient's condition including abnormal labs. Orders received, noted, and carried out.
--- NOTE | 2020-05-09 14:22 | NUR ---
NURSE NOTES: Patient is tolerating tube feeding at 40cc/hr. No residual noted. O2 sat 99-100% on N/C 2L. Patient is sleeping in bed. No acute distress noted. Will continue to monitor.
--- NOTE | 2020-05-09 14:27 | Surgery Progress Note ---
Surgery Progress Note Subjective Additional Comments Leukocytosis resolved LFTs improved lipase trending down. No nausea vomiting. Tachycardic. Micro noted. Objective Last 24 Hour Vital Signs Date Time Temp Pulse Resp B/P (MAP) Pulse Ox O2 Delivery O2 Flow Rate FiO2 05/09/20 14:00 88 12 116/75 (89) 100 05/09/20 13:00 97 16 116/68 (84) 100 05/09/20 12:00 98.5 88 15 120/71 (87) 100 05/09/20 12:00 91 13 112/70 (84) 100 05/09/20 12:00 92 05/09/20 12:00 Nasal Cannula 2.0 05/09/20 11:00 92 13 112/70 (84) 100 05/09/20 10:00 102 15 106/64 (78) 98 05/09/20 09:30 93 14 119/74 (89) 100 05/09/20 09:00 89 14 108/67 (81) 100 05/09/20 08:00 98.7 90 14 116/71 (86) 100 05/09/20 08:00 91 05/09/20 08:00 Nasal Cannula 2.0 05/09/20 07:00 94 15 113/72 (86) 100 05/09/20 06:00 99 12 114/79 (91) 99 05/09/20 05:00 95 15 106/69 (81) 100 05/09/20 04:00 Nasal Cannula 2.0 05/09/20 04:00 99.0 100 14 103/65 (78) 99 05/09/20 04:00 95 05/09/20 03:00 95 16 97/60 (72) 100 05/09/20 02:00 90 16 96/61 (73) 100 05/09/20 01:00 95 16 97/60 (72) 100 05/09/20 00:00 Nasal Cannula 2.0 05/09/20 00:00 94 05/09/20 00:00 99.4 100 17 102/61 (75) 99 05/08/20 23:00 100 15 105/68 (80) 100 05/08/20 22:00 106 18 107/67 (80) 100 05/08/20 21:00 107 19 115/71 (86) 100 05/08/20 20:00 104 05/08/20 20:00 Nasal Cannula 2.0 05/08/20 20:00 99.2 104 17 107/69 (82) 99 05/08/20 19:00 105 18 111/69 (83) 99 05/08/20 18:00 111 23 108/71 (83) 100 05/08/20 17:00 98.6 108 13 108/69 (82) 100 05/08/20 16:00 106 05/08/20 16:00 Nasal Cannula 2.0 05/08/20 16:00 106 17 110/71 (84) 100 05/08/20 15:00 107 16 114/76 (89) 100 I&O Intake and Output 05/08/20 05/09/20 19:00 07:00 Intake Total 1614.4791 ml 1970.0 ml Output Total 885 ml 615 ml Balance 729.4791 ml 1355.0 ml Free Water 75 ml 50 ml IV Total 1309.4791 ml 1640.0 ml Tube Feeding 180 ml 280 ml Other 50 ml Output Urine Total 885 ml 615 ml # Bowel Movements 1 Dressing: saturated Cardiovascular: RSR Respiratory: decreased breath sounds Abdomen: soft, non-tender, present bowel sounds Extremities: no tenderness, no cyanosis Laboratory Tests Test 05/08/20 20:50 05/09/20 04:05 Vancomycin Level Trough 0.8 ug/mL (5.0-12.0) L White Blood Count 6.6 K/UL (4.8-10.8) Red Blood Count 3.00 M/UL (4.20-5.40) L Hemoglobin 8.4 G/DL (12.0-16.0) L Hematocrit 27.5 % (37.0-47.0) L Mean Corpuscular Volume 92 FL (80-99) Mean Corpuscular Hemoglobin 28.1 PG (27.0-31.0) Mean Corpuscular Hemoglobin Concent 30.6 G/DL (32.0-36.0) L Red Cell Distribution Width 17.1 % (11.6-14.8) H Platelet Count 55 K/UL (150-450) L Mean Platelet Volume 11.6 FL (6.5-10.1) H Neutrophils (%) (Auto) % (45.0-75.0) Lymphocytes (%) (Auto) % (20.0-45.0) Monocytes (%) (Auto) % (1.0-10.0) Eosinophils (%) (Auto) % (0.0-3.0) Basophils (%) (Auto) % (0.0-2.0) Differential Total Cells Counted 100 Neutrophils % (Manual) 84 % (45-75) H Lymphocytes % (Manual) 13 % (20-45) L Monocytes % (Manual) 0 % (1-10) L Eosinophils % (Manual) 0 % (0-3) Basophils % (Manual) 0 % (0-2) Band Neutrophils 3 % (0-8) Platelet Estimate Decreased L Platelet Morphology Normal Hypochromasia 1+ Anisocytosis 1+ Sodium Level 162 MMOL/L (136-145) *H Potassium Level 2.9 MMOL/L (3.5-5.1) L Chloride Level 126 MMOL/L (98-107) H Carbon Dioxide Level 24 MMOL/L (21-32) Anion Gap 11 mmol/L (5-15) Blood Urea Nitrogen 17 mg/dL (7-18) Creatinine 0.6 MG/DL (0.55-1.30) Estimat Glomerular Filtration Rate > 60 mL/min (>60) Glucose Level 342 MG/DL (74-106) H Calcium Level 8.0 MG/DL (8.5-10.1) L Total Bilirubin 0.4 MG/DL (0.2-1.0) Aspartate Amino Transf (AST/SGOT) 26 U/L (15-37) Alanine Aminotransferase (ALT/SGPT) 143 U/L (12-78) H Alkaline Phosphatase 167 U/L (46-116) H Total Protein 6.0 G/DL (6.4-8.2) L Albumin 1.9 G/DL (3.4-5.0) L Globulin 4.1 g/dL Albumin/Globulin Ratio 0.5 (1.0-2.7) L Lipase 702 U/L (73-393) H Plan Problems: (1) Stage 4 skin ulcer of sacral region Assessment & Plan: PATIENT NON-VERBAL. FACIAL GRIMACES NOTED WHEN REPOSITIONING. UNABLE TO REPOSITION SELF. LEFT EAR-STAGE III PRESSURE ULCER MEASURES 3.5X1.0X0.2CM. WOUND BED PINK WITH NOTED SLOUGH. PERIWOUND SKIN DARK RED/PURPLE AND BRUISED. DRAINING SMALL AMOUNT SERO-SANGUINEOUS. RECOMMEND-CLEAN WITH SALINE. PAT DRY. APPLY THERAHONEY AND COVER WITH OPTIFOAM DRESSING. REPLACE DRESSING DAILY. RIGHT EAR- STAGE III PRESSURE ULCER MEASURES 0.5X0.6X0.2CM. WOUND BED PINK WITH NOTED SLOUGH. SMALL AMOUNT SERO-SANGUINEOUS DRAINAGE. RECOMMEND-CLEAN WITH SALINE, PAT DRY, APPLY THERAHONEY AND COVER WITH OPTIFOAM DRESSING. REPLACE DRESSING DAILY. LEFT MEDIAL HEEL- DTI MEASURES 1.7X1.5X0.2CM. NOTED AREA DARK PURPLE. NON- BLANCHABLE. RECOMMEND- APPLY SKIN PROTECTOR AND OPTIFOAM DRESSING. REPLACE DAILY AND PRN. ELEVATE HEELS WITH PILLOWS RIGHT MEDIAL FOOT- DTI 2.5X2.0X0.1CM NOTED AREA DARK PURPLE RECOMMEND- APPLY SKIN PROTECTOR AND OPTIFOAM DRESSING. REPLACE DAILY AND PRN. ELEVATE HEELS/FEET WITH PILLOWS. SACRUM- STAGE IV PRESSURE ULCER MEASURES 9.5X13.7X0.5CM. MODERATE AMOUNT SEROSANGUINEOUS DRAINAGE. NO ODOR NOTED. BONE EXPOSURE WITH 40% SLOUGH AND 60% PINK GRANULATION TISSUE. AREA WITHIN WOUND BED DARK RED, POSSIBLE BRUISING. RECOMMEND-MD CONSULT. CLEAN WITH SALINE. PAT DRY. APPLY THERAHONEY AND COVER WITH GAUZE AND OPTIFOAM DRESSING. REPLACE DAILY. BHARAT MATTRESS(ALREADY IN PLACE). REPOSITION SIDE TO SIDE AT LEAST EVERY 2 HOURS OR TOLERATED (2) Heel ulcer (3) Ulcer of external ear (4) Pancreatitis Assessment & Plan: Patient identified to have elevated lipase levels upon admission. Etiology unknown work-up initiated Trend labs IV fluids urine output monitoring we will follow with recommendations Gallbladder demonstrates gallstones. Gallbladder wall is borderline thickened, measuring just over 3 mm in diameter. Common bile duct is dilated, measuring 9 mm diameter. Sonographic Lockhart's sign could not be reported, patient noncommunicative. No intrahepatic biliary ductal dilatation. Liver demonstrates normal echogenicity, no focal abnormality. Portal vein and hepatic veins are patent. Pancreas is unremarkable. Spleen is unremarkable. Left kidney measures 10.3 cm in length. Right kidney measures 9.5 cm length. Both kidneys demonstrate normal echogenicity. There is no hydronephrosis. No focal abnormality . Abdominal aorta is partially obscured by bowel gas, visualized portions are non-aneurysmal . There is trace right pleural fluid. There is a very questionable poorly visualized cystic structure in the right lower quadrant Impression: Cholelithiasis. Borderline gallbladder wall thickening raises concern for acute cholecystitis. Consider further evaluation with hepatobiliary nuclear scan Right common bile duct. Downstream obstruction possibility. MRCP may be useful for better characterization Trace right pleural effusion Very questionable, poorly visualized if real, right lower quadrant cystic structure. Of uncertain significance. Consider CT to further characterize if clinically indicated (5) Transaminitis (6) Dehydration (7) Aneurysm (8) Diabetes (9) Hyperglycemia (10) Hypernatremia (11) Hypoxia (12) Sepsis (13) NSTEMI (non-ST elevated myocardial infarction) (14) PEG (percutaneous endoscopic gastrostomy) adjustment/replacement/removal (15) JESSICA (acute kidney injury) (16) CVA, old, hemiparesis (17) COVID-19 Lino Clark May 09, 2020 14:26
--- NOTE | 2020-05-09 14:40 | NUR ---
NURSE NOTES: Dr Junaid Bales here to see the patient. Updated him with patent's current condition including regular Covid result and abdominal US result. Order to remove isolation for PUI received and noted. Will continue contact isolation only.
--- NOTE | 2020-05-09 14:41 | Infectious Diseases Prog Note ---
Assessment/Plan Assessment/Plan IMPRESSION: Sepsis with septic shock, improving Gram negative sepsis Cholelithiasis, ? cholecystitis Acute pancreatitis. Diabetes mellitus with hyperglycemia, Acute renal failure, Acidosis, Elevated transaminase, Hypernatremia, Multiple pressure ulcer. MRSA carrier RECOMMENDATION: Discontinue IV vancomycin Continue Zosyn. We will follow up the cultures HIDA scan Subjective ROS Limited/Unobtainable: Yes Constitutional: Denies: fever Allergies: Coded Allergies: No Known Allergies (Unverified , 05/06/20) Objective Last 24 Hour Vital Signs Date Time Temp Pulse Resp B/P (MAP) Pulse Ox O2 Delivery O2 Flow Rate FiO2 05/09/20 14:00 88 12 116/75 (89) 100 05/09/20 13:00 97 16 116/68 (84) 100 05/09/20 12:00 98.5 88 15 120/71 (87) 100 05/09/20 12:00 91 13 112/70 (84) 100 05/09/20 12:00 92 05/09/20 12:00 Nasal Cannula 2.0 05/09/20 11:00 92 13 112/70 (84) 100 05/09/20 10:00 102 15 106/64 (78) 98 05/09/20 09:30 93 14 119/74 (89) 100 05/09/20 09:00 89 14 108/67 (81) 100 05/09/20 08:00 98.7 90 14 116/71 (86) 100 05/09/20 08:00 91 05/09/20 08:00 Nasal Cannula 2.0 05/09/20 07:00 94 15 113/72 (86) 100 05/09/20 06:00 99 12 114/79 (91) 99 05/09/20 05:00 95 15 106/69 (81) 100 05/09/20 04:00 Nasal Cannula 2.0 05/09/20 04:00 99.0 100 14 103/65 (78) 99 05/09/20 04:00 95 05/09/20 03:00 95 16 97/60 (72) 100 05/09/20 02:00 90 16 96/61 (73) 100 05/09/20 01:00 95 16 97/60 (72) 100 05/09/20 00:00 Nasal Cannula 2.0 05/09/20 00:00 94 05/09/20 00:00 99.4 100 17 102/61 (75) 99 05/08/20 23:00 100 15 105/68 (80) 100 05/08/20 22:00 106 18 107/67 (80) 100 05/08/20 21:00 107 19 115/71 (86) 100 05/08/20 20:00 104 05/08/20 20:00 Nasal Cannula 2.0 05/08/20 20:00 99.2 104 17 107/69 (82) 99 05/08/20 19:00 105 18 111/69 (83) 99 05/08/20 18:00 111 23 108/71 (83) 100 05/08/20 17:00 98.6 108 13 108/69 (82) 100 05/08/20 16:00 106 05/08/20 16:00 Nasal Cannula 2.0 05/08/20 16:00 106 17 110/71 (84) 100 05/08/20 15:00 107 16 114/76 (89) 100 Height (Feet): 5 Height (Inches): 2.00 Weight (Pounds): 102 General Appearance: no acute distress HEENT: mucous membranes moist Respiratory/Chest: lungs clear Cardiovascular: normal rate Abdomen: soft, non tender Extremities: no edema Neurologic/Psychiatric: aphasia Microbiology Date/Time Source Procedure Growth Status 05/07/20 12:00 Nasopharynx Coronavirus COVID-19 PCR ([facility]ONDA) - Final Complete 05/07/20 12:00 Nasopharynx SARS-CoV-2 RdRp Gene Assay - Final Complete 05/06/20 23:20 Urine,Clean Catch Urine Culture - Final NO GROWTH AFTER 48 HOURS Complete 05/06/20 21:40 Nasopharynx SARS-CoV-2 RdRp Gene Assay - Final Complete 05/06/20 21:20 Nasal Nares MRSA Culture - Final Staphylococcus Aureus - Mrsa Complete 05/06/20 21:20 Blood Blood Culture - Preliminary Gram Negative Bacillus 1 Resulted 05/06/20 21:05 Blood Blood Culture - Preliminary Gram Negative Bacillus 1 Resulted Laboratory Tests Test 05/08/20 20:50 05/09/20 04:05 Vancomycin Level Trough 0.8 ug/mL (5.0-12.0) L White Blood Count 6.6 K/UL (4.8-10.8) Red Blood Count 3.00 M/UL (4.20-5.40) L Hemoglobin 8.4 G/DL (12.0-16.0) L Hematocrit 27.5 % (37.0-47.0) L Mean Corpuscular Volume 92 FL (80-99) Mean Corpuscular Hemoglobin 28.1 PG (27.0-31.0) Mean Corpuscular Hemoglobin Concent 30.6 G/DL (32.0-36.0) L Red Cell Distribution Width 17.1 % (11.6-14.8) H Platelet Count 55 K/UL (150-450) L Mean Platelet Volume 11.6 FL (6.5-10.1) H Neutrophils (%) (Auto) % (45.0-75.0) Lymphocytes (%) (Auto) % (20.0-45.0) Monocytes (%) (Auto) % (1.0-10.0) Eosinophils (%) (Auto) % (0.0-3.0) Basophils (%) (Auto) % (0.0-2.0) Differential Total Cells Counted 100 Neutrophils % (Manual) 84 % (45-75) H Lymphocytes % (Manual) 13 % (20-45) L Monocytes % (Manual) 0 % (1-10) L Eosinophils % (Manual) 0 % (0-3) Basophils % (Manual) 0 % (0-2) Band Neutrophils 3 % (0-8) Platelet Estimate Decreased L Platelet Morphology Normal Hypochromasia 1+ Anisocytosis 1+ Sodium Level 162 MMOL/L (136-145) *H Potassium Level 2.9 MMOL/L (3.5-5.1) L Chloride Level 126 MMOL/L (98-107) H Carbon Dioxide Level 24 MMOL/L (21-32) Anion Gap 11 mmol/L (5-15) Blood Urea Nitrogen 17 mg/dL (7-18) Creatinine 0.6 MG/DL (0.55-1.30) Estimat Glomerular Filtration Rate > 60 mL/min (>60) Glucose Level 342 MG/DL (74-106) H Calcium Level 8.0 MG/DL (8.5-10.1) L Total Bilirubin 0.4 MG/DL (0.2-1.0) Aspartate Amino Transf (AST/SGOT) 26 U/L (15-37) Alanine Aminotransferase (ALT/SGPT) 143 U/L (12-78) H Alkaline Phosphatase 167 U/L (46-116) H Total Protein 6.0 G/DL (6.4-8.2) L Albumin 1.9 G/DL (3.4-5.0) L Globulin 4.1 g/dL Albumin/Globulin Ratio 0.5 (1.0-2.7) L Lipase 702 U/L (73-393) H Current Medications Medications (Trade) Dose Ordered Sig/Renetta Route PRN Reason Start Time Stop Time Status Last Admin Dose Admin Acetaminophen (Tylenol) 650 mg Q4H PRN ORAL Fever 05/06/20 23:30 06/05/20 23:29 05/07/20 08:51 Acetaminophen (Tylenol) 650 mg Q4H PRN ORAL Mild Pain (Pain Scale 1-3) 05/06/20 23:30 06/05/20 23:29 Chlorhexidine Gluconate (Yola-Hex 2%) 1 applic DAILY@2000 TOPIC 05/07/20 20:00 08/05/20 19:59 05/08/20 20:36 Dextrose 1,000 ml @ 100 mls/hr Q10H IV 05/08/20 14:33 06/07/20 14:32 05/09/20 09:00 Dextrose (Dextrose 50%) 25 ml Q30M PRN IV Hypoglycemia 05/06/20 23:30 08/04/20 23:29 Dextrose (Dextrose 50%) 50 ml Q30M PRN IV Hypoglycemia 05/06/20 23:30 08/04/20 23:29 Famotidine (Pepcid) 20 mg QHS GT 05/06/20 23:30 08/04/20 23:29 05/08/20 20:36 Finasteride (Proscar) 5 mg DAILY ORAL 05/07/20 09:00 08/05/20 08:59 05/09/20 08:06 Insulin Aspart (NovoLOG) BEFORE MEALS AND HS SUBQ 05/07/20 06:30 08/05/20 06:29 05/09/20 11:51 Magnesium Hydroxide (Mom) 30 ml HSPRN PRN ORAL Constipation 05/06/20 23:30 06/05/20 23:29 Norepinephrine Bitartrate 8 mg/ Dextrose 250 ml @ 0 mls/hr Q24H IV 10/5/20 10:15 05/10/20 10:14 05/07/20 17:30 Ondansetron HCl (Zofran) 4 mg Q6H PRN IVP Nausea & Vomiting 05/06/20 23:30 06/05/20 23:29 Piperacillin Sod/ Tazobactam Sod 3.375 gm/Sodium Chloride 110 ml @ 27.5 mls/hr Q8HR@0400,1200,2000 IVPB 05/07/20 12:00 05/14/20 11:59 05/09/20 11:41 Potassium Chloride (K-Dur) 40 meq ONCE ORAL 05/09/20 16:30 05/09/20 18:30 Tamsulosin HCl (Flomax) 0.4 mg DAILY ORAL 05/07/20 09:00 06/06/20 08:59 05/09/20 08:06 Vancomycin HCl (Vanco pharmacy to dose) 1 ea DAILY PRN MISC Per rx protocol 05/06/20 23:45 06/05/20 23:44 Vancomycin HCl 750 mg/Dextrose 275 ml @ 184 mls/hr Q12H IVPB 05/08/20 22:00 05/13/20 21:59 05/09/20 10:32 Peter Bales MD May 09, 2020 14:41
--- NOTE | 2020-05-09 16:18 | NUR ---
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 98.5 HR 91 RR 12 B/P 112/70 2L NC O2 SAT @ 98% NA 162 K 2.9 AST 143 IS: ZOSYN IV TRANSFER TO TELE TELE STATUS
--- NOTE | 2020-05-09 16:50 | NUR ---
TRANSFER TO FLOOR: Patient transferred to 220-1, 2E. Report given to Jocelynn. No belongings noted. Medications given to SAGE Cabezas. Will inform family of the transfer.
--- NOTE | 2020-05-09 16:51 | NUR ---
NURSE NOTES: Patient transferred from ICU via hospital bed. AAO x1, Non-verbal, On 2L nasal canula, no acute distress noted, multiple pressure injury noted and took pictures and change dressing. G-tube site intact and patent, Glucerna running at 40cc/hr. Pruitt draining well to gravity. On pressure release mattress for pressure injury protection. Patient has triple lumen central line, intact and patent. SCD's on , bedside rails padded, suction set up for seizure precaution, Bed in low position and locked, call light within reach. will continue plan of care.
--- NOTE | 2020-05-09 19:17 | NUR ---
NURSE HAND-OFF REPORT: Important Events on Shift:NA Patient Status: Stable, Non verbal Diet: Tube feeding Pending Orders: HIDA Pending Results/Labs:Morning labs Pending MD notification:NA Latest Vital Signs: Temperature 98.6 , Pulse 79 , B/P 103 /65 , Respiratory Rate 17 , O2 SAT 100 , Nasal Cannula, O2 Flow Rate 2.0 . Vital Sign Comment: Stable EKG Rhythm: Sinus Rhythm Rhythm change?: N MD Notified?: N - MD Response: Latest Rivera Fall Score: 50 Fall Risk: High Risk Safety Measures: Call light Within Reach, Bed Alarm Zone 1, Side Rails Side Rails x3, Bed position Low and Locked. Fall Precautions: Yellow Socks Yellow Gown Door Sign Patient Fall Education Report given to Melissa/RN.
--- NOTE | 2020-05-09 19:35 | NUR ---
NURSE NOTES: revived report from SAGE Drummond AAO x1, Non-verbal, On 2L nasal canula, wharf hand in place.G-tube site intact and patent, Glucerna running at 40cc/hr. Pruitt draining well to gravity. On pressure release mattress for pressure injury protection. Right jugular triple lumen central line, intact and patent. SCD's. Bed in low position and locked, call light within reach. will continue plan of care.
[2020-05-09] MEDS: Dyna-Hex 2% Top Sol 2oz TOPIC SCH (21:53)
[2020-05-10] VITALS: BP 107/61
[2020-05-10 04:00] VITALS: BP 120/70
[2020-05-10] MEDS: Piperacillin/Tazobactam 3.375 GM in NS 110 ML IVPB SCH ×2 (04:01→12:33)
[2020-05-10] MEDS: NovoLOG Insulin Flexpen SUBQ SCH ×4 (06:36→21:41)
--- NOTE | 2020-05-10 06:52 | NUR ---
NURSE NOTES: Left message for Dr.M. Miles regarding blood culture results.
[2020-05-10 07:22] LABS: HEMATOCRIT 24.1 % (37.0-47.0); HEMOGLOBIN 7.7 G/DL (12.0-16.0); MEAN CORPUSCULAR VOLUME 89 FL (80-99); PLATELET COUNT 45 K/UL (150-450); RED CELL DISTRIBUTION WIDTH 16.2 % (11.6-14.8); WHITE BLOOD COUNT 4.7 K/UL (4.8-10.8)
--- NOTE | 2020-05-10 07:25 | NUR ---
NURSE HAND-OFF REPORT: Important Events on Shift:pt NPO for missya sacn. POSTIVE FOR ESBL of blood left message fro Jd HARRIS Patient Status: [stable Diet: glucernia 1.2 @ 40cc Pending Orders: [] Pending Results/Labs:[] Pending MD notification:[] Latest Vital Signs: Temperature 98.8 , Pulse 92 , B/P 120 /70 , Respiratory Rate 20 , O2 SAT 100 , Nasal Cannula, O2 Flow Rate 2.0 . Vital Sign Comment: [] EKG Rhythm: Sinus Rhythm Rhythm change?: N MD Notified?: N - MD Response: Latest Rivera Fall Score: 50 Fall Risk: High Risk Safety Measures: Call light Within Reach, Bed Alarm Zone 1, Side Rails Side Rails x3, Bed position Low and Locked. Fall Precautions: Yellow Socks Yellow Gown Door Sign Patient Fall Education Report given to marcy Ocampo.
--- NOTE | 2020-05-10 07:53 | NUR ---
NURSE NOTES: Received report from Melissa/RN. Pt in bed laying semi-fowlers. On 2L nasal cannula, no distress or SOB noted. Triple lumen jugular and IV on left hand 20G SL, patent and clean. Bed in the lowest position and locked. Call light within reach. Side rails up X3. Will continue plan of care.
[2020-05-10 08:00] VITALS: BP 109/65
[2020-05-10 08:02] LABS: ALANINE AMINOTRANSFERASE 99 U/L (12-78); ALBUMIN 1.9 G/DL (3.4-5.0); ALBUMIN/GLOBULIN RATIO 0.5 (1.0-2.7); ALKALINE PHOSPHATASE 160 U/L (46-116); AMYLASE 75 U/L (25-115); ANION GAP 8 mmol/L (5-15); ASPARTATE AMINO TRANSFERASE 25 U/L (15-37); BILIRUBIN,TOTAL 0.4 MG/DL (0.2-1.0); BLOOD UREA NITROGEN 13 mg/dL (7-18); CALCIUM 7.7 MG/DL (8.5-10.1); CARBON DIOXIDE 26 MMOL/L (21-32); CHLORIDE 115 MMOL/L (98-107); CREATININE 0.5 MG/DL (0.55-1.30); POTASSIUM 3.2 MMOL/L (3.5-5.1); SODIUM 149 MMOL/L (136-145)
[2020-05-10] MEDS: Tamsulosin 0.4mg cap ORAL SCH (10:01)
--- NOTE | 2020-05-10 10:17 | NUR ---
CASE MANAGEMENT: REVIEW SI: COVID-19 . PNA . CHOLELITHIASIS r/o T 101.9 HR 98 RR 20 BP 107/61 STA 100% NC/2L WBC 4.7 H/H 7.7/24.1 NA 149 IS: D5W IVF @ 100ML/HR ZOSYN IV Q8HR K-DUR 40MEQ PO X2 NPO HIDA SCAN TELEMETRY UNIT STATUS DCP: PATIENT IS FROM [facility]
--- NOTE | 2020-05-10 10:38 | Pulmonology Progress Note ---
Subjective ROS Limited/Unobtainable: Yes Interval Events: None new; off levophed; seen on tele Constitutional: Denies: fever HEENT: Repors: no symptoms Respiratory: Reports: no symptoms Cardiovascular: Reports: no symptoms Gastrointestinal/Abdominal: Reports: no symptoms Allergies: Coded Allergies: No Known Allergies (Unverified , 05/06/20) Objective Last 24 Hour Vital Signs Date Time Temp Pulse Resp B/P (MAP) Pulse Ox O2 Delivery O2 Flow Rate FiO2 05/10/20 08:00 98.1 82 20 109/65 (80) 100 05/10/20 04:00 87 05/10/20 04:00 98.8 92 20 120/70 (87) 100 05/10/20 00:07 100.0 05/10/20 00:00 101.9 98 20 107/61 (76) 100 05/10/20 00:00 Nasal Cannula 2.0 05/10/20 00:00 95 05/09/20 20:00 87 05/09/20 20:00 Nasal Cannula 2.0 05/09/20 20:00 99.9 100 20 130/72 (91) 95 05/09/20 19:26 97 Nasal Cannula 2.0 28 05/09/20 16:00 Nasal Cannula 2.0 05/09/20 16:00 98.6 79 17 103/65 (78) 100 05/09/20 15:24 83 05/09/20 15:00 80 16 118/63 (81) 100 05/09/20 14:00 88 12 116/75 (89) 100 05/09/20 13:00 97 16 116/68 (84) 100 05/09/20 12:00 98.5 88 15 120/71 (87) 100 05/09/20 12:00 91 13 112/70 (84) 100 05/09/20 12:00 92 05/09/20 12:00 Nasal Cannula 2.0 05/09/20 11:00 92 13 112/70 (84) 100 Intake and Output 05/09/20 05/10/20 18:59 06:59 Intake Total 2012.5 ml Output Total 1275 ml Balance 737.5 ml Free Water 75 ml IV Total 1467.5 ml Tube Feeding 370 ml Other 100 ml Output Urine Total 1275 ml General Appearance: no acute distress HEENT: normocephalic Respiratory: chest wall non-tender, lungs clear Cardiovascular: normal peripheral pulses, normal rate Abdomen: normal bowel sounds Microbiology Date/Time Source Procedure Growth Status 05/07/20 12:00 Nasopharynx Coronavirus COVID-19 PCR (RHONDA) - Final Complete 05/07/20 12:00 Nasopharynx SARS-CoV-2 RdRp Gene Assay - Final Complete Laboratory Tests 05/10/20 06:02: POC Whole Blood Glucose 252H 05/10/20 06:40: White Blood Count 4.7L, Red Blood Count 2.70L, Hemoglobin 7.7L, Hematocrit 24.1L , Mean Corpuscular Volume 89, Mean Corpuscular Hemoglobin 28.3, Mean Corpuscular Hemoglobin Concent 31.8L, Red Cell Distribution Width 16.2H, Platelet Count 45L, Mean Platelet Volume 9.7, Neutrophils (%) (Auto) , Lymphocytes (%) (Auto) , Monocytes (%) (Auto) , Eosinophils (%) (Auto) , Basophils (%) (Auto) , Differential Total Cells Counted 100, Neutrophils % (Manual) 80H, Lymphocytes % (Manual) 18L, Monocytes % (Manual) 2, Eosinophils % (Manual) 0, Basophils % (Manual) 0, Band Neutrophils 0, Platelet Estimate DecreasedL, Platelet Morphology Normal, Anisocytosis 1+, Erythrocyte Sedimentation Rate 124H, Prothrombin Time 11.0, Prothromb Time International Ratio 1.0, Activated Partial Thromboplast Time 27, Sodium Level 149H, Potassium Level 3.2L, Chloride Level 115H, Carbon Dioxide Level 26, Anion Gap 8, Blood Urea Nitrogen 13, Creatinine 0.5L, Estimat Glomerular Filtration Rate > 60, Glucose Level 258H, Lactic Acid Level 1.90, Calcium Level 7.7L, Total Bilirubin 0.4, Aspartate Amino Transf (AST/SGOT) 25, Alanine Aminotransferase (ALT/SGPT) 99H, Alkaline Phosphatase 160H, C-Reactive Protein, Quantitative 1.5H, Total Protein 5.6L, Albumin 1.9L, Globulin 3.7, Albumin/Globulin Ratio 0.5L, Amylase Level 75, Lipase 482H Current Medications Medications (Trade) Dose Ordered Sig/Renetta Route PRN Reason Start Time Stop Time Status Last Admin Dose Admin Acetaminophen (Tylenol) 650 mg Q4H PRN ORAL Fever 05/06/20 23:30 06/05/20 23:29 05/09/20 23:37 Acetaminophen (Tylenol) 650 mg Q4H PRN ORAL Mild Pain (Pain Scale 1-3) 05/06/20 23:30 06/05/20 23:29 Chlorhexidine Gluconate (Yola-Hex 2%) 1 applic DAILY@1999 TOPIC 05/07/20 20:00 08/05/20 19:59 05/09/20 21:53 Dextrose 1,000 ml @ 100 mls/hr Q10H IV 05/08/20 14:33 06/07/20 14:32 05/10/20 06:08 Dextrose (Dextrose 50%) 25 ml Q30M PRN IV Hypoglycemia 05/06/20 23:30 08/04/20 23:29 Dextrose (Dextrose 50%) 50 ml Q30M PRN IV Hypoglycemia 05/06/20 23:30 08/04/20 23:29 Famotidine (Pepcid) 20 mg QHS GT 05/06/20 23:30 08/04/20 23:29 05/09/20 21:54 Finasteride (Proscar) 5 mg DAILY ORAL 05/07/20 09:00 08/05/20 08:59 05/10/20 10:01 Insulin Aspart (NovoLOG) BEFORE MEALS AND HS SUBQ 05/07/20 06:30 08/05/20 06:29 05/10/20 06:36 Magnesium Hydroxide (Mom) 30 ml HSPRN PRN ORAL Constipation 05/06/20 23:30 06/05/20 23:29 Ondansetron HCl (Zofran) 4 mg Q6H PRN IVP Nausea & Vomiting 05/06/20 23:30 06/05/20 23:29 Piperacillin Sod/ Tazobactam Sod 3.375 gm/Sodium Chloride 110 ml @ 27.5 mls/hr Q8HR@0400,1200,2000 IVPB 05/07/20 12:00 05/14/20 11:59 05/10/20 04:01 Tamsulosin HCl (Flomax) 0.4 mg DAILY ORAL 05/07/20 09:00 06/06/20 08:59 05/10/20 10:01 Assessment/Plan Assessment/Plan IMPRESSION: 1. Shock, suspect hypovolemic shock. Now resolved 2. Cannot exclude infectious process. 3. Chronic decubitus. 4. History of CVA. 5. Diabetes mellitus. DISCUSSION: continue abx Continue fluid resuscitation with hypotonic fluids. Now off pressors. I will follow carefully. Asif Prasad M.D. Asif Prasad MD May 10, 2020 10:38
[2020-05-10 12:00] VITALS: BP 112/71
--- NOTE | 2020-05-10 12:08 | NUR ---
RD ASSESSMENT & RECOMMENDATIONS SEE CARE ACTIVITY FOR COMPLETE ASSESSMENT DAILY ESTIMATED NEEDS: Needs based on Wound, 46.4kg 30-35 kcals/kg 9680-4888 total kcals 1.5-2 g protein/kg 69-93 g total protein 25-35ml/kcal mL/kg 2347-4306 total fluid mLs NUTRITION DIAGNOSIS: Increased kcal and pro needs r/t wound healing as evidenced by multiple wounds, including stage 4 sacral wound, stage 3 wounds @ lt ear and rt ear, DTI @ lt medial heel and rt medial foot. CURRENT TF:Glucerna 1.2 @ 40ml/hr x 24 hrs -> NPO for HIDA SCAN ENTERAL NUTRITION RECOMMENDATIONS: Glucerna 1.2 @ 50ml/hr x 24 hrs to provide 1200ml, 1440 kcal, 72g pro, 966ml free H2O - Increase goal rate to 50ml/hr x 24 hrs to meet 100% est kcal/prot needs - Flush per MD/ HOB over 30 degrees. ADDITIONAL RECOMMENDATIONS: 1) Maintain calibrated bed scale wts 2) Wound healing: add Vit C 500mg BID + ZnSO4 220mg QD x 10 days Cuauhtemoc BID via PEG 3) DC D5 IVF, increase water flushes instead for improved BG control (BGs in the 200's and 300's) 4) Rec long acting insulin for improved BG control 5) Monitor lipase and TF tolerance: Lipase trending down.
--- NOTE | 2020-05-10 12:59 | Diagnostic Imaging Report ---
Indications: Abnormal liver function tests, abnormal abdominal ultrasound Technique: IV administration 6.5 mCi 99 M technetium Choletec. Serial images obtained over the abdomen for one hour Comparison: No comparison nuclear scan. Reference made to abdominal sonogram dated 05/08/2020 Findings: Prompt tracer uptake within the liver. Extrahepatic bile ducts are seen at 10 minutes. Excretion into the duodenum demonstrated at 13 minutes. Gallbladder visualized at 55 minutes. Impression: Negative. No evidence of cystic duct or common bile duct obstruction
--- NOTE | 2020-05-10 13:17 | General Progress Note ---
Subjective Allergies: Coded Allergies: No Known Allergies (Unverified , 05/06/20) Subjective In NAD Objective Last 24 Hour Vital Signs Date Time Temp Pulse Resp B/P (MAP) Pulse Ox O2 Delivery O2 Flow Rate FiO2 05/10/20 12:00 81 05/10/20 08:00 98.1 82 20 109/65 (80) 100 05/10/20 08:00 86 05/10/20 04:00 87 05/10/20 04:00 98.8 92 20 120/70 (87) 100 05/10/20 00:07 100.0 05/10/20 00:00 101.9 98 20 107/61 (76) 100 05/10/20 00:00 Nasal Cannula 2.0 05/10/20 00:00 95 05/09/20 20:00 87 05/09/20 20:00 Nasal Cannula 2.0 05/09/20 20:00 99.9 100 20 130/72 (91) 95 05/09/20 19:26 97 Nasal Cannula 2.0 28 05/09/20 16:00 Nasal Cannula 2.0 05/09/20 16:00 98.6 79 17 103/65 (78) 100 05/09/20 15:24 83 05/09/20 15:00 80 16 118/63 (81) 100 05/09/20 14:00 88 12 116/75 (89) 100 Intake and Output 05/09/20 05/10/20 19:00 07:00 Intake Total 1855.0 ml Output Total 1205 ml Balance 650.0 ml Free Water 75 ml IV Total 1340.0 ml Tube Feeding 340 ml Other 100 ml Output Urine Total 1205 ml Laboratory Tests 05/10/20 06:02: POC Whole Blood Glucose 252H 05/10/20 06:40: White Blood Count 4.7L, Red Blood Count 2.70L, Hemoglobin 7.7L, Hematocrit 24.1L , Mean Corpuscular Volume 89, Mean Corpuscular Hemoglobin 28.3, Mean Corpuscular Hemoglobin Concent 31.8L, Red Cell Distribution Width 16.2H, Platelet Count 45L, Mean Platelet Volume 9.7, Neutrophils (%) (Auto) , Lymphocytes (%) (Auto) , Monocytes (%) (Auto) , Eosinophils (%) (Auto) , Basophils (%) (Auto) , Differential Total Cells Counted 100, Neutrophils % (Manual) 80H, Lymphocytes % (Manual) 18L, Monocytes % (Manual) 2, Eosinophils % (Manual) 0, Basophils % (Manual) 0, Band Neutrophils 0, Platelet Estimate DecreasedL, Platelet Morphology Normal, Anisocytosis 1+, Erythrocyte Sedimentation Rate 124H, Prothrombin Time 11.0, Prothromb Time International Ratio 1.0, Activated Partial Thromboplast Time 27, Sodium Level 149H, Potassium Level 3.2L, Chloride Level 115H, Carbon Dioxide Level 26, Anion Gap 8, Blood Urea Nitrogen 13, Creatinine 0.5L, Estimat Glomerular Filtration Rate > 60, Glucose Level 258H, Lactic Acid Level 1.90, Calcium Level 7.7L, Total Bilirubin 0.4, Aspartate Amino Transf (AST/SGOT) 25, Alanine Aminotransferase (ALT/SGPT) 99H, Alkaline Phosphatase 160H, C-Reactive Protein, Quantitative 1.5H, Total Protein 5.6L, Albumin 1.9L, Globulin 3.7, Albumin/Globulin Ratio 0.5L, Amylase Level 75, Lipase 482H 05/10/20 11:35: POC Whole Blood Glucose 214H Height (Feet): 5 Height (Inches): 2.00 Weight (Pounds): 102 Cardiovascular: normal rate Respiratory/Chest: lungs clear Edema: other - no edema Assessment/Plan Problem List: (1) Pneumonia ICD Codes: J18.9 - Pneumonia, unspecified organism SNOMED: 669415169 (2) Sepsis ICD Codes: A41.9 - Sepsis, unspecified organism SNOMED: 98928694 (3) Diabetes ICD Codes: E11.9 - Type 2 diabetes mellitus without complications SNOMED: 83469432 (4) Hypernatremia Assessment & Plan: better ICD Codes: E87.0 - Hyperosmolality and hypernatremia SNOMED: 050995940 (5) Stage 4 skin ulcer of sacral region ICD Codes: L98.429 - Non-pressure chronic ulcer of back with unspecified severity SNOMED: 70259540, 609663332 (6) PEG (percutaneous endoscopic gastrostomy) adjustment/replacement/removal ICD Codes: Z43.1 - Encounter for attention to gastrostomy SNOMED: 488895233, 971732536 (7) Anemia Assessment & Plan: worse ICD Codes: D64.9 - Anemia, unspecified SNOMED: 791952349 (8) Thrombocytopenia ICD Codes: D69.6 - Thrombocytopenia, unspecified SNOMED: 191580765 Assessment/Plan: continue D5W at 100 ml/hr replete K abxs res treatments follow labs Discussed with RN total time spent 35 min Navi Bales MD May 10, 2020 13:17
--- NOTE | 2020-05-10 14:46 | NUR ---
INSURANCE CLINICALS/REVIEW FAXED TO [facility] [phone] FX [phone]
--- NOTE | 2020-05-10 15:07 | Infectious Diseases Prog Note ---
Assessment/Plan Assessment/Plan IMPRESSION: Sepsis with septic shock, improving E. coli sepsis Cholelithiasis, HIDS scan negative Acute pancreatitis. Diabetes mellitus with hyperglycemia, Acute renal failure, Acidosis, Elevated transaminase, Hypernatremia, Multiple pressure ulcer. MRSA carrier RECOMMENDATION: Change Zosyn to Meropenem Subjective Constitutional: Reports: fever, other - Am=362.9 Allergies: Coded Allergies: No Known Allergies (Unverified , 05/06/20) Objective Last 24 Hour Vital Signs Date Time Temp Pulse Resp B/P (MAP) Pulse Ox O2 Delivery O2 Flow Rate FiO2 05/10/20 12:00 81 05/10/20 12:00 97.9 86 22 112/71 (85) 99 05/10/20 09:00 Nasal Cannula 2.0 05/10/20 08:00 98.1 82 20 109/65 (80) 100 05/10/20 08:00 86 05/10/20 04:00 87 05/10/20 04:00 98.8 92 20 120/70 (87) 100 05/10/20 00:07 100.0 05/10/20 00:00 101.9 98 20 107/61 (76) 100 05/10/20 00:00 Nasal Cannula 2.0 05/10/20 00:00 95 05/09/20 20:00 87 05/09/20 20:00 Nasal Cannula 2.0 05/09/20 20:00 99.9 100 20 130/72 (91) 95 05/09/20 19:26 97 Nasal Cannula 2.0 28 05/09/20 16:00 Nasal Cannula 2.0 05/09/20 16:00 98.6 79 17 103/65 (78) 100 05/09/20 15:24 83 Height (Feet): 5 Height (Inches): 2.00 Weight (Pounds): 102 General Appearance: no acute distress HEENT: mucous membranes moist Respiratory/Chest: lungs clear, other - oxygen by nasal cannula Cardiovascular: normal rate, other - left IJ central line Abdomen: soft, non tender Extremities: no edema Neurologic/Psychiatric: unresponsiveness Laboratory Tests Test 05/10/20 06:02 05/10/20 06:40 05/10/20 11:35 POC Whole Blood Glucose 252 MG/DL (74-106) H 214 MG/DL (74-106) H White Blood Count 4.7 K/UL (4.8-10.8) L Red Blood Count 2.70 M/UL (4.20-5.40) L Hemoglobin 7.7 G/DL (12.0-16.0) L Hematocrit 24.1 % (37.0-47.0) L Mean Corpuscular Volume 89 FL (80-99) Mean Corpuscular Hemoglobin 28.3 PG (27.0-31.0) Mean Corpuscular Hemoglobin Concent 31.8 G/DL (32.0-36.0) L Red Cell Distribution Width 16.2 % (11.6-14.8) H Platelet Count 45 K/UL (150-450) L Mean Platelet Volume 9.7 FL (6.5-10.1) Neutrophils (%) (Auto) % (45.0-75.0) Lymphocytes (%) (Auto) % (20.0-45.0) Monocytes (%) (Auto) % (1.0-10.0) Eosinophils (%) (Auto) % (0.0-3.0) Basophils (%) (Auto) % (0.0-2.0) Differential Total Cells Counted 100 Neutrophils % (Manual) 80 % (45-75) H Lymphocytes % (Manual) 18 % (20-45) L Monocytes % (Manual) 2 % (1-10) Eosinophils % (Manual) 0 % (0-3) Basophils % (Manual) 0 % (0-2) Band Neutrophils 0 % (0-8) Platelet Estimate Decreased L Platelet Morphology Normal Anisocytosis 1+ Erythrocyte Sedimentation Rate 124 MM/HR (0-30) H Prothrombin Time 11.0 SEC (9.30-11.50) Prothromb Time International Ratio 1.0 (0.9-1.1) Activated Partial Thromboplast Time 27 SEC (23-33) Sodium Level 149 MMOL/L (136-145) H Potassium Level 3.2 MMOL/L (3.5-5.1) L Chloride Level 115 MMOL/L (98-107) H Carbon Dioxide Level 26 MMOL/L (21-32) Anion Gap 8 mmol/L (5-15) Blood Urea Nitrogen 13 mg/dL (7-18) Creatinine 0.5 MG/DL (0.55-1.30) L Estimat Glomerular Filtration Rate > 60 mL/min (>60) Glucose Level 258 MG/DL (74-106) H Lactic Acid Level 1.90 mmol/L (0.4-2.0) Calcium Level 7.7 MG/DL (8.5-10.1) L Total Bilirubin 0.4 MG/DL (0.2-1.0) Aspartate Amino Transf (AST/SGOT) 25 U/L (15-37) Alanine Aminotransferase (ALT/SGPT) 99 U/L (12-78) H Alkaline Phosphatase 160 U/L (46-116) H C-Reactive Protein, Quantitative 1.5 mg/dL (0.00-0.90) H Total Protein 5.6 G/DL (6.4-8.2) L Albumin 1.9 G/DL (3.4-5.0) L Globulin 3.7 g/dL Albumin/Globulin Ratio 0.5 (1.0-2.7) L Amylase Level 75 U/L (25-115) Lipase 482 U/L (73-393) H Current Medications Medications (Trade) Dose Ordered Sig/Renetta Route PRN Reason Start Time Stop Time Status Last Admin Dose Admin Acetaminophen (Tylenol) 650 mg Q4H PRN ORAL Fever 05/06/20 23:30 06/05/20 23:29 05/09/20 23:37 Acetaminophen (Tylenol) 650 mg Q4H PRN ORAL Mild Pain (Pain Scale 1-3) 05/06/20 23:30 06/05/20 23:29 Chlorhexidine Gluconate (Yola-Hex 2%) 1 applic DAILY@2000 TOPIC 05/07/20 20:00 08/05/20 19:59 05/09/20 21:53 Dextrose 1,000 ml @ 100 mls/hr Q10H IV 05/08/20 14:33 06/07/20 14:32 05/10/20 06:08 Dextrose (Dextrose 50%) 25 ml Q30M PRN IV Hypoglycemia 05/06/20 23:30 08/04/20 23:29 Dextrose (Dextrose 50%) 50 ml Q30M PRN IV Hypoglycemia 05/06/20 23:30 08/04/20 23:29 Famotidine (Pepcid) 20 mg QHS GT 05/06/20 23:30 1/2/21 23:29 05/09/20 21:54 Finasteride (Proscar) 5 mg DAILY ORAL 05/07/20 09:00 08/05/20 08:59 05/10/20 10:01 Insulin Aspart (NovoLOG) BEFORE MEALS AND HS SUBQ 05/07/20 06:30 08/05/20 06:29 05/10/20 11:51 Magnesium Hydroxide (Mom) 30 ml HSPRN PRN ORAL Constipation 05/06/20 23:30 06/05/20 23:29 Ondansetron HCl (Zofran) 4 mg Q6H PRN IVP Nausea & Vomiting 05/06/20 23:30 06/05/20 23:29 Piperacillin Sod/ Tazobactam Sod 3.375 gm/Sodium Chloride 110 ml @ 27.5 mls/hr Q8HR@0400,1200,2000 IVPB 05/07/20 12:00 05/14/20 11:59 05/10/20 12:33 Potassium Chloride (K-Dur) 40 meq ONCE GT 05/10/20 13:30 05/10/20 15:30 05/10/20 13:39 Tamsulosin HCl (Flomax) 0.4 mg DAILY ORAL 05/07/20 09:00 06/06/20 08:59 05/10/20 10:01 Peter Bales MD May 10, 2020 15:07
--- NOTE | 2020-05-10 15:16 | Surgery Progress Note ---
Surgery Progress Note Subjective Additional Comments no acute events hida negative resume diet no n/v Objective Last 24 Hour Vital Signs Date Time Temp Pulse Resp B/P (MAP) Pulse Ox O2 Delivery O2 Flow Rate FiO2 05/10/20 12:00 81 05/10/20 12:00 97.9 86 22 112/71 (85) 99 05/10/20 09:00 Nasal Cannula 2.0 05/10/20 08:00 98.1 82 20 109/65 (80) 100 05/10/20 08:00 86 05/10/20 04:00 87 05/10/20 04:00 98.8 92 20 120/70 (87) 100 05/10/20 00:07 100.0 05/10/20 00:00 101.9 98 20 107/61 (76) 100 05/10/20 00:00 Nasal Cannula 2.0 05/10/20 00:00 95 05/09/20 20:00 87 05/09/20 20:00 Nasal Cannula 2.0 05/09/20 20:00 99.9 100 20 130/72 (91) 95 05/09/20 19:26 97 Nasal Cannula 2.0 28 05/09/20 16:00 Nasal Cannula 2.0 05/09/20 16:00 98.6 79 17 103/65 (78) 100 05/09/20 15:24 83 I&O Intake and Output 05/09/20 05/10/20 19:00 07:00 Intake Total 1855.0 ml Output Total 1205 ml Balance 650.0 ml Free Water 75 ml IV Total 1340.0 ml Tube Feeding 340 ml Other 100 ml Output Urine Total 1205 ml Dressing: saturated Cardiovascular: RSR Respiratory: decreased breath sounds Abdomen: soft, non-tender, present bowel sounds Extremities: no edema, no tenderness, no cyanosis Laboratory Tests Test 05/10/20 06:02 05/10/20 06:40 05/10/20 11:35 POC Whole Blood Glucose 252 MG/DL (74-106) H 214 MG/DL (74-106) H White Blood Count 4.7 K/UL (4.8-10.8) L Red Blood Count 2.70 M/UL (4.20-5.40) L Hemoglobin 7.7 G/DL (12.0-16.0) L Hematocrit 24.1 % (37.0-47.0) L Mean Corpuscular Volume 89 FL (80-99) Mean Corpuscular Hemoglobin 28.3 PG (27.0-31.0) Mean Corpuscular Hemoglobin Concent 31.8 G/DL (32.0-36.0) L Red Cell Distribution Width 16.2 % (11.6-14.8) H Platelet Count 45 K/UL (150-450) L Mean Platelet Volume 9.7 FL (6.5-10.1) Neutrophils (%) (Auto) % (45.0-75.0) Lymphocytes (%) (Auto) % (20.0-45.0) Monocytes (%) (Auto) % (1.0-10.0) Eosinophils (%) (Auto) % (0.0-3.0) Basophils (%) (Auto) % (0.0-2.0) Differential Total Cells Counted 100 Neutrophils % (Manual) 80 % (45-75) H Lymphocytes % (Manual) 18 % (20-45) L Monocytes % (Manual) 2 % (1-10) Eosinophils % (Manual) 0 % (0-3) Basophils % (Manual) 0 % (0-2) Band Neutrophils 0 % (0-8) Platelet Estimate Decreased L Platelet Morphology Normal Anisocytosis 1+ Erythrocyte Sedimentation Rate 124 MM/HR (0-30) H Prothrombin Time 11.0 SEC (9.30-11.50) Prothromb Time International Ratio 1.0 (0.9-1.1) Activated Partial Thromboplast Time 27 SEC (23-33) Sodium Level 149 MMOL/L (136-145) H Potassium Level 3.2 MMOL/L (3.5-5.1) L Chloride Level 115 MMOL/L (98-107) H Carbon Dioxide Level 26 MMOL/L (21-32) Anion Gap 8 mmol/L (5-15) Blood Urea Nitrogen 13 mg/dL (7-18) Creatinine 0.5 MG/DL (0.55-1.30) L Estimat Glomerular Filtration Rate > 60 mL/min (>60) Glucose Level 258 MG/DL (74-106) H Lactic Acid Level 1.90 mmol/L (0.4-2.0) Calcium Level 7.7 MG/DL (8.5-10.1) L Total Bilirubin 0.4 MG/DL (0.2-1.0) Aspartate Amino Transf (AST/SGOT) 25 U/L (15-37) Alanine Aminotransferase (ALT/SGPT) 99 U/L (12-78) H Alkaline Phosphatase 160 U/L (46-116) H C-Reactive Protein, Quantitative 1.5 mg/dL (0.00-0.90) H Total Protein 5.6 G/DL (6.4-8.2) L Albumin 1.9 G/DL (3.4-5.0) L Globulin 3.7 g/dL Albumin/Globulin Ratio 0.5 (1.0-2.7) L Amylase Level 75 U/L (25-115) Lipase 482 U/L (73-393) H Plan Problems: (1) Stage 4 skin ulcer of sacral region Assessment & Plan: PATIENT NON-VERBAL. FACIAL GRIMACES NOTED WHEN REPOSITIONING. UNABLE TO REPOSITION SELF. LEFT EAR-STAGE III PRESSURE ULCER MEASURES 3.5X1.0X0.2CM. WOUND BED PINK WITH NOTED SLOUGH. PERIWOUND SKIN DARK RED/PURPLE AND BRUISED. DRAINING SMALL AMOUNT SERO-SANGUINEOUS. RECOMMEND-CLEAN WITH SALINE. PAT DRY. APPLY THERAHONEY AND COVER WITH OPTIFOAM DRESSING. REPLACE DRESSING DAILY. RIGHT EAR- STAGE III PRESSURE ULCER MEASURES 0.5X0.6X0.2CM. WOUND BED PINK WITH NOTED SLOUGH. SMALL AMOUNT SERO-SANGUINEOUS DRAINAGE. RECOMMEND-CLEAN WITH SALINE, PAT DRY, APPLY THERAHONEY AND COVER WITH OPTIFOAM DRESSING. REPLACE DRESSING DAILY. LEFT MEDIAL HEEL- DTI MEASURES 1.7X1.5X0.2CM. NOTED AREA DARK PURPLE. NON- BLANCHABLE. RECOMMEND- APPLY SKIN PROTECTOR AND OPTIFOAM DRESSING. REPLACE DAILY AND PRN. ELEVATE HEELS WITH PILLOWS RIGHT MEDIAL FOOT- DTI 2.5X2.0X0.1CM NOTED AREA DARK PURPLE RECOMMEND- APPLY SKIN PROTECTOR AND OPTIFOAM DRESSING. REPLACE DAILY AND PRN. ELEVATE HEELS/FEET WITH PILLOWS. SACRUM- STAGE IV PRESSURE ULCER MEASURES 9.5X13.7X0.5CM. MODERATE AMOUNT SEROSANGUINEOUS DRAINAGE. NO ODOR NOTED. BONE EXPOSURE WITH 40% SLOUGH AND 60% PINK GRANULATION TISSUE. AREA WITHIN WOUND BED DARK RED, POSSIBLE BRUISING. RECOMMEND-MD CONSULT. CLEAN WITH SALINE. PAT DRY. APPLY THERAHONEY AND COVER WITH GAUZE AND OPTIFOAM DRESSING. REPLACE DAILY. BHARAT MATTRESS(ALREADY IN PLACE). REPOSITION SIDE TO SIDE AT LEAST EVERY 2 HOURS OR TOLERATED (2) Heel ulcer (3) Ulcer of external ear (4) Pancreatitis Assessment & Plan: Patient identified to have elevated lipase levels upon admission. Etiology unknown work-up initiated Trend labs IV fluids urine output monitoring we will follow with recommendations hida negative us noted okay for diet Gallbladder demonstrates gallstones. Gallbladder wall is borderline thickened, measuring just over 3 mm in diameter. Common bile duct is dilated, measuring 9 mm diameter. Sonographic Lockhart's sign could not be reported, pat ient noncommunicative. No intrahepatic biliary ductal dilatation. Liver demonstrates normal echogenicity, no focal abnormality. Portal vein and hepatic veins are patent. Pancreas is unremarkable. Spleen is unremarkable. Left kidney measures 10.3 cm in length. Right kidney measures 9.5 cm length. Both kidneys demonstrate normal echogenicity. There is no hydronephrosis. No focal abnormality . Abdominal aorta is partially obscured by bowel gas, visualized portions are non-aneurysmal . There is trace right pleural fluid. There is a very questionable poorly visualized cystic structure in the right lower quadrant Impression: Cholelithiasis. Borderline gallbladder wall thickening raises concern for acute cholecystitis. Consider further evaluation with hepatobiliary nuclear scan Right common bile duct. Downstream obstruction possibility. MRCP may be useful for better characterization Trace right pleural effusion Very questionable, poorly visualized if real, right lower quadrant cystic struc ture. Of uncertain significance. Consider CT to further characterize if clinically indicated (5) Transaminitis (6) Dehydration (7) Aneurysm (8) Diabetes (9) Hyperglycemia (10) Hypernatremia (11) Hypoxia (12) Sepsis (13) NSTEMI (non-ST elevated myocardial infarction) (14) PEG (percutaneous endoscopic gastrostomy) adjustment/replacement/removal (15) JESSICA (acute kidney injury) (16) CVA, old, hemiparesis (17) COVID-19 LyndonchiloLino May 10, 2020 15:16
[2020-05-10 16:00] VITALS: BP 114/66
--- NOTE | 2020-05-10 18:42 | NUR ---
NURSE NOTES: Called Md Bales stated no transfusion at this time for HGB of 7.7
--- NOTE | 2020-05-10 19:25 | NUR ---
NURSE NOTES: Received report from SAGE Clancy. Pt in bed awake Non-verbal, On 2L nasal canula, environmental monitoring technician in place.G-tube in place & patent , Glucerna 1.2 running at 40cc/hr. HOB elevated, aspiration precautions observed. Pruitt draining well to gravity. On pressure release mattress for pressure injury protection. Left jugular triple lumen central line, intact and patent infusing D5W at 100cc/hr. SCD's in place. On air loss mattress for skin maintenance. Bed in low position and locked, call light within reach. side rails up x2.
--- NOTE | 2020-05-10 19:36 | NUR ---
NURSE HAND-OFF REPORT: Important Events on Shift: Patient Status: Stable Diet: Glucerna 1.2 @ 40ml/hr Pending Orders: Pending Results/Labs: Pending MD notification: Latest Vital Signs: Temperature 98.8 , Pulse 76 , B/P 114 /66 , Respiratory Rate 20 , O2 SAT 98 , Nasal Cannula, O2 Flow Rate 2.0 . Vital Sign Comment: Stable EKG Rhythm: Sinus Rhythm Rhythm change?: N MD Notified?: N - MD Response: Latest Rivera Fall Score: 50 Fall Risk: High Risk Safety Measures: Call light Within Reach, Bed Alarm Zone 1, Side Rails Side Rails x3, Bed position Low and Locked. Fall Precautions: Yellow Socks Yellow Gown Door Sign Patient Fall Education Report given to Melissa/RN.
[2020-05-10 20:00] VITALS: BP 124/79
[2020-05-10] MEDS: Dyna-Hex 2% Top Sol 2oz TOPIC SCH (20:35)
[2020-05-10] MEDS: Meropenem 1 GM in NS 55 ML IVPB SCH (21:36)
[2020-05-10] MEDS ORDERED: NS 275ml ONE (21:56)
[2020-05-10] MEDS ORDERED: D5 1/2NS 1000ml IV ONE (21:56)
[2020-05-10] MEDS ORDERED: Tubing IV Secondary IV ONE (21:56)
[2020-05-10] MEDS ORDERED: D5W 275ml ONE (21:56)
[2020-05-11] VITALS: BP 122/72
[2020-05-11 04:00] VITALS: BP 128/78
[2020-05-11] MEDS: Meropenem 1 GM in NS 55 ML IVPB SCH ×3 (05:42→21:14)
[2020-05-11] MEDS: NovoLOG Insulin Flexpen SUBQ SCH ×4 (05:58→21:23)
[2020-05-11 06:58] LABS: HEMOGLOBIN 7.1 G/DL (12.0-16.0); MEAN CORPUSCULAR VOLUME 87 FL (80-99); PLATELET COUNT 49 K/UL (150-450); RED BLOOD COUNT 2.53 M/UL (4.20-5.40); RED CELL DISTRIBUTION WIDTH 15.7 % (11.6-14.8); WHITE BLOOD COUNT 4.4 K/UL (4.8-10.8)
[2020-05-11 07:19] LABS: ANION GAP 7 mmol/L (5-15); BLOOD UREA NITROGEN 4 mg/dL (7-18); CALCIUM 7.8 MG/DL (8.5-10.1); CARBON DIOXIDE 27 MMOL/L (21-32); CHLORIDE 114 MMOL/L (98-107); CREATININE 0.4 MG/DL (0.55-1.30); POTASSIUM 3.2 MMOL/L (3.5-5.1); SODIUM 148 MMOL/L (136-145)
[2020-05-11 07:30] LABS: % IRON SATURATION 22 % (15-50); IRON 36 ug/dL (50-175); TOTAL IRON BINDING CAPACITY 161 ug/dL (250-450)
--- NOTE | 2020-05-11 07:46 | NUR ---
NURSE HAND-OFF REPORT: Important Events on Shift:n/a Patient Status: stable Diet: glucerna 1.2 @ 40cc/hr Pending Orders: [] Pending Results/Labs:[] Pending MD notification:[] Latest Vital Signs: Temperature 98.6 , Pulse 94 , B/P 128 /78 , Respiratory Rate 20 , O2 SAT 100 , Nasal Cannula, O2 Flow Rate 2.0 . Vital Sign Comment: [] EKG Rhythm: Sinus Rhythm Rhythm change?: N MD Notified?: N - MD Response: Latest Rivera Fall Score: 50 Fall Risk: High Risk Safety Measures: Call light Within Reach, Bed Alarm Zone 1, Side Rails Side Rails x3, Bed position Low and Locked. Fall Precautions: Yellow Socks Yellow Gown Door Sign Patient Fall Education Report given to SAGE Ocampo.
[2020-05-11 08:00] VITALS: BP 120/66
--- NOTE | 2020-05-11 08:15 | NUR ---
NURSE NOTES: Received report from Melissa/RN. Pt in bed lying semi-fowlers. On 2L nasal cannula, no distress or SOB noted. Pruitt catheter draining to gravity. IV on left hand 20G SL, Triple lumen IJ, running D5 @ 100ml/hr. G-tube feeding running Glucerna 1.2 @ 40cc/hr. Bed in the lowest position and locked, call light within reach, side rails up X3. Will continue plan of care.
[2020-05-11] MEDS: Tamsulosin 0.4mg cap ORAL SCH (09:39)
--- NOTE | 2020-05-11 10:23 | Surgery Progress Note ---
Surgery Progress Note Subjective Additional Comments afebrile, HD stable improving tolerating diet Objective Last 24 Hour Vital Signs Date Time Temp Pulse Resp B/P (MAP) Pulse Ox O2 Delivery O2 Flow Rate FiO2 05/11/20 08:00 98.1 82 18 120/66 (84) 99 05/11/20 04:00 87 05/11/20 04:00 98.6 94 20 128/78 (95) 100 05/11/20 00:00 87 05/11/20 00:00 99.2 93 20 122/72 (89) 100 05/10/20 21:00 Nasal Cannula 2.0 05/10/20 20:00 86 05/10/20 20:00 99.0 92 22 124/79 (94) 99 05/10/20 16:00 98.8 91 20 114/66 (82) 98 05/10/20 16:00 76 05/10/20 12:00 81 05/10/20 12:00 97.9 86 22 112/71 (85) 99 I&O Intake and Output 05/10/20 05/11/20 19:00 07:00 Output Total 1300 ml Balance -1300 ml Output Urine Total 1300 ml # Bowel Movements 1 Dressing: saturated Cardiovascular: RSR Respiratory: decreased breath sounds Abdomen: non-tender, present bowel sounds Extremities: no edema, no tenderness, no cyanosis Laboratory Tests Test 05/10/20 11:35 05/10/20 17:18 05/10/20 20:37 05/11/20 05:10 POC Whole Blood Glucose 214 MG/DL (74-106) H 257 MG/DL (74-106) H 239 MG/DL (74-106) H White Blood Count 4.4 K/UL (4.8-10.8) L Red Blood Count 2.53 M/UL (4.20-5.40) L Hemoglobin 7.1 G/DL (12.0-16.0) L Hematocrit 22.0 % (37.0-47.0) L Mean Corpuscular Volume 87 FL (80-99) Mean Corpuscular Hemoglobin 28.2 PG (27.0-31.0) Mean Corpuscular Hemoglobin Concent 32.4 G/DL (32.0-36.0) Red Cell Distribution Width 15.7 % (11.6-14.8) H Platelet Count 49 K/UL (150-450) L Mean Platelet Volume 11.6 FL (6.5-10.1) H Neutrophils (%) (Auto) % (45.0-75.0) Lymphocytes (%) (Auto) % (20.0-45.0) Monocytes (%) (Auto) % (1.0-10.0) Eosinophils (%) (Auto) % (0.0-3.0) Basophils (%) (Auto) % (0.0-2.0) Neutrophils % (Manual) Pending Lymphocytes % (Manual) Pending Platelet Estimate Pending Platelet Morphology Pending Sodium Level 148 MMOL/L (136-145) H Potassium Level 3.2 MMOL/L (3.5-5.1) L Chloride Level 114 MMOL/L (98-107) H Carbon Dioxide Level 27 MMOL/L (21-32) Anion Gap 7 mmol/L (5-15) Blood Urea Nitrogen 4 mg/dL (7-18) L Creatinine 0.4 MG/DL (0.55-1.30) L Estimat Glomerular Filtration Rate > 60 mL/min (>60) Glucose Level 249 MG/DL (74-106) H Calcium Level 7.8 MG/DL (8.5-10.1) L Iron Level 36 ug/dL (50-175) L Total Iron Binding Capacity 161 ug/dL (250-450) L Percent Iron Saturation 22 % (15-50) Unsaturated Iron Binding 125 ug/dL (112-346) Test 05/11/20 05:48 POC Whole Blood Glucose Pending Plan Problems: (1) Stage 4 skin ulcer of sacral region Assessment & Plan: PATIENT NON-VERBAL. FACIAL GRIMACES NOTED WHEN REPOSITIONING. UNABLE TO REPOSITION SELF. LEFT EAR-STAGE III PRESSURE ULCER MEASURES 3.5X1.0X0.2CM. WOUND BED PINK WITH NOTED SLOUGH. PERIWOUND SKIN DARK RED/PURPLE AND BRUISED. DRAINING SMALL AMOUNT SERO-SANGUINEOUS. RECOMMEND-CLEAN WITH SALINE. PAT DRY. APPLY THERAHONEY AND COVER WITH OPTIFOAM DRESSING. REPLACE DRESSING DAILY. RIGHT EAR- STAGE III PRESSURE ULCER MEASURES 0.5X0.6X0.2CM. WOUND BED PINK WITH NOTED SLOUGH. SMALL AMOUNT SERO-SANGUINEOUS DRAINAGE. RECOMMEND-CLEAN WITH SALINE, PAT DRY, APPLY THERAHONEY AND COVER WITH OPTIFOAM DRESSING. REPLACE DRESSING DAILY. LEFT MEDIAL HEEL- DTI MEASURES 1.7X1.5X0.2CM. NOTED AREA DARK PURPLE. NON- BLANCHABLE. RECOMMEND- APPLY SKIN PROTECTOR AND OPTIFOAM DRESSING. REPLACE DAILY AND PRN. ELEVATE HEELS WITH PILLOWS RIGHT MEDIAL FOOT- DTI 2.5X2.0X0.1CM NOTED AREA DARK PURPLE RECOMMEND- APPLY SKIN PROTECTOR AND OPTIFOAM DRESSING. REPLACE DAILY AND PRN. ELEVATE HEELS/FEET WITH PILLOWS. SACRUM- STAGE IV PRESSURE ULCER MEASURES 9.5X13.7X0.5CM. MODERATE AMOUNT SEROSANGUINEOUS DRAINAGE. NO ODOR NOTED. BONE EXPOSURE WITH 40% SLOUGH AND 60% PINK GRANULATION TISSUE. AREA WITHIN WOUND BED DARK RED, POSSIBLE BRUISING. RECOMMEND-MD CONSULT. CLEAN WITH SALINE. PAT DRY. APPLY THERAHONEY AND COVER WITH GAUZE AND OPTIFOAM DRESSING. REPLACE DAILY. BHARAT MATTRESS(ALREADY IN PLACE). REPOSITION SIDE TO SIDE AT LEAST EVERY 2 HOURS OR TOLERATED (2) Heel ulcer (3) Ulcer of external ear (4) Pancreatitis Assessment & Plan: Patient identified to have elevated lipase levels upon admission. Etiology unknown work-up initiated Trend labs IV fluids urine output monitoring we will follow with recommendations hida negative us noted okay for diet Gallbladder demonstrates gallstones. Gallbladder wall is borderline thickened, measuring just over 3 mm in diameter. Common bile duct is dilated, measuring 9 mm diameter. Sonographic Lockhart's sign could not be reported, patient noncommunicative. No intrahepatic biliary ductal dilatation. Liver demonstrates normal echogenicity, no focal abnormality. Portal vein and hepatic veins are patent. Pancreas is unremarkable. Spleen is unremarkable. Left kidney measures 10.3 cm in length. Right kidney measures 9.5 cm length. Both kidneys demonstrate normal echogenicity. There is no hydronephrosis. No focal abnormality . Abdominal aorta is partially obscured by bowel gas, visualized portions are non-aneurysmal . There is trace right pleural fluid. There is a very questionable poorly visualized cystic structure in the right lower quadrant Impression: Cholelithiasis. Borderline gallbladder wall thickening raises concern for acute cholecystitis. Consider further evaluation with hepatobiliary nuclear scan Right common bile duct. Downstream obstruction possibility. MRCP may be useful for better characterization Trace right pleural effusion Very questionable, poorly visualized if real, right lower quadrant cystic structure. Of uncertain significance. Consider CT to further characterize if clinically indicated (5) Transaminitis (6) Dehydration (7) Aneurysm (8) Diabetes (9) Hyperglycemia (10) Hypernatremia (11) Hypoxia (12) Sepsis (13) NSTEMI (non-ST elevated myocardial infarction) (14) PEG (percutaneous endoscopic gastrostomy) adjustment/replacement/removal (15) JESSICA (acute kidney injury) (16) CVA, old, hemiparesis (17) COVID-19 Lino Clark May 11, 2020 10:23
--- NOTE | 2020-05-11 10:33 | Infectious Diseases Prog Note ---
Assessment/Plan Assessment/Plan IMPRESSION: Sepsis with septic shock, improving E. coli, Bacteroid sepsis Cholelithiasis, HIDA scan negative Acute pancreatitis. Diabetes mellitus with hyperglycemia, Acute renal failure, Acidosis, Elevated transaminase, Hypernatremia, Multiple pressure ulcer. MRSA carrier RECOMMENDATION: Continue Meropenem Subjective ROS Limited/Unobtainable: Yes Constitutional: Denies: fever Allergies: Coded Allergies: No Known Allergies (Unverified , 05/06/20) Objective Last 24 Hour Vital Signs Date Time Temp Pulse Resp B/P (MAP) Pulse Ox O2 Delivery O2 Flow Rate FiO2 05/11/20 08:00 98.1 82 18 120/66 (84) 99 05/11/20 04:00 87 05/11/20 04:00 98.6 94 20 128/78 (95) 100 05/11/20 00:00 87 05/11/20 00:00 99.2 93 20 122/72 (89) 100 05/10/20 21:00 Nasal Cannula 2.0 05/10/20 20:00 86 05/10/20 20:00 99.0 92 22 124/79 (94) 99 05/10/20 16:00 98.8 91 20 114/66 (82) 98 05/10/20 16:00 76 05/10/20 12:00 81 05/10/20 12:00 97.9 86 22 112/71 (85) 99 Height (Feet): 5 Height (Inches): 2.00 Weight (Pounds): 102 HEENT: mucous membranes moist Respiratory/Chest: lungs clear Cardiovascular: normal rate, other - Left IJ central line Abdomen: soft, non tender, other - GT feeding Neurologic/Psychiatric: responsive, other - tries to open eyes Laboratory Tests Test 05/10/20 11:35 05/10/20 17:18 05/10/20 20:37 05/11/20 05:10 POC Whole Blood Glucose 214 MG/DL (74-106) H 257 MG/DL (74-106) H 239 MG/DL (74-106) H White Blood Count 4.4 K/UL (4.8-10.8) L Red Blood Count 2.53 M/UL (4.20-5.40) L Hemoglobin 7.1 G/DL (12.0-16.0) L Hematocrit 22.0 % (37.0-47.0) L Mean Corpuscular Volume 87 FL (80-99) Mean Corpuscular Hemoglobin 28.2 PG (27.0-31.0) Mean Corpuscular Hemoglobin Concent 32.4 G/DL (32.0-36.0) Red Cell Distribution Width 15.7 % (11.6-14.8) H Platelet Count 49 K/UL (150-450) L Mean Platelet Volume 11.6 FL (6.5-10.1) H Neutrophils (%) (Auto) % (45.0-75.0) Lymphocytes (%) (Auto) % (20.0-45.0) Monocytes (%) (Auto) % (1.0-10.0) Eosinophils (%) (Auto) % (0.0-3.0) Basophils (%) (Auto) % (0.0-2.0) Neutrophils % (Manual) Pending Lymphocytes % (Manual) Pending Platelet Estimate Pending Platelet Morphology Pending Sodium Level 148 MMOL/L (136-145) H Potassium Level 3.2 MMOL/L (3.5-5.1) L Chloride Level 114 MMOL/L (98-107) H Carbon Dioxide Level 27 MMOL/L (21-32) Anion Gap 7 mmol/L (5-15) Blood Urea Nitrogen 4 mg/dL (7-18) L Creatinine 0.4 MG/DL (0.55-1.30) L Estimat Glomerular Filtration Rate > 60 mL/min (>60) Glucose Level 249 MG/DL (74-106) H Calcium Level 7.8 MG/DL (8.5-10.1) L Iron Level 36 ug/dL (50-175) L Total Iron Binding Capacity 161 ug/dL (250-450) L Percent Iron Saturation 22 % (15-50) Unsaturated Iron Binding 125 ug/dL (112-346) Test 05/11/20 05:48 POC Whole Blood Glucose Pending Current Medications Medications (Trade) Dose Ordered Sig/Renetta Route PRN Reason Start Time Stop Time Status Last Admin Dose Admin Acetaminophen (Tylenol) 650 mg Q4H PRN ORAL Fever 05/06/20 23:30 06/05/20 23:29 05/09/20 23:37 Acetaminophen (Tylenol) 650 mg Q4H PRN ORAL Mild Pain (Pain Scale 1-3) 05/06/20 23:30 06/05/20 23:29 Chlorhexidine Gluconate (Yola-Hex 2%) 1 applic DAILY@2000 TOPIC 05/07/20 20:00 08/05/20 19:59 05/10/20 20:35 Dextrose 1,000 ml @ 100 mls/hr Q10H IV 05/08/20 14:33 06/07/20 14:32 05/11/20 03:04 Dextrose (Dextrose 50%) 25 ml Q30M PRN IV Hypoglycemia 05/06/20 23:30 08/04/20 23:29 Dextrose (Dextrose 50%) 50 ml Q30M PRN IV Hypoglycemia 05/06/20 23:30 08/04/20 23:29 Famotidine (Pepcid) 20 mg QHS GT 05/06/20 23:30 08/04/20 23:29 05/10/20 20:35 Finasteride (Proscar) 5 mg DAILY ORAL 05/07/20 09:00 08/05/20 08:59 05/11/20 09:39 Insulin Aspart (NovoLOG) BEFORE MEALS AND HS SUBQ 05/07/20 06:30 08/05/20 06:29 05/11/20 05:58 Magnesium Hydroxide (Mom) 30 ml HSPRN PRN ORAL Constipation 05/06/20 23:30 06/05/20 23:29 Meropenem 1 gm/ Sodium Chloride 55 ml @ 110 mls/hr Q8HR IVPB 05/10/20 22:00 05/15/20 21:59 05/11/20 05:42 Ondansetron HCl (Zofran) 4 mg Q6H PRN IVP Nausea & Vomiting 05/06/20 23:30 06/05/20 23:29 Tamsulosin HCl (Flomax) 0.4 mg DAILY ORAL 05/07/20 09:00 06/06/20 08:59 05/11/20 09:39 Peter Bales MD May 11, 2020 10:33
--- NOTE | 2020-05-11 11:49 | Pulmonology Progress Note ---
Subjective ROS Limited/Unobtainable: Yes Interval Events: None new; off levophed; seen on tele Constitutional: Denies: fever HEENT: Repors: no symptoms Respiratory: Reports: no symptoms Cardiovascular: Reports: no symptoms Gastrointestinal/Abdominal: Reports: no symptoms Allergies: Coded Allergies: No Known Allergies (Unverified , 05/06/20) Objective Last 24 Hour Vital Signs Date Time Temp Pulse Resp B/P (MAP) Pulse Ox O2 Delivery O2 Flow Rate FiO2 05/11/20 09:00 Nasal Cannula 2.0 05/11/20 08:00 98.1 82 18 120/66 (84) 99 05/11/20 08:00 75 05/11/20 07:06 94 Nasal Cannula 3.0 32 05/11/20 04:00 87 05/11/20 04:00 98.6 94 20 128/78 (95) 100 05/11/20 00:00 87 05/11/20 00:00 99.2 93 20 122/72 (89) 100 05/10/20 21:00 Nasal Cannula 2.0 05/10/20 20:00 86 05/10/20 20:00 99.0 92 22 124/79 (94) 99 05/10/20 16:00 98.8 91 20 114/66 (82) 98 05/10/20 16:00 76 05/10/20 12:00 81 05/10/20 12:00 97.9 86 22 112/71 (85) 99 Intake and Output 05/10/20 05/11/20 19:00 07:00 Output Total 1300 ml Balance -1300 ml Output Urine Total 1300 ml # Bowel Movements 1 General Appearance: no acute distress HEENT: normocephalic Respiratory: chest wall non-tender, lungs clear Cardiovascular: normal peripheral pulses, normal rate Abdomen: normal bowel sounds Laboratory Tests 05/10/20 17:18: POC Whole Blood Glucose 257H 05/10/20 20:37: POC Whole Blood Glucose 239H 05/11/20 05:10: White Blood Count 4.4L, Red Blood Count 2.53L, Hemoglobin 7.1L, Hematocrit 22.0L , Mean Corpuscular Volume 87, Mean Corpuscular Hemoglobin 28.2, Mean Corpuscular Hemoglobin Concent 32.4, Red Cell Distribution Width 15.7H, Platelet Count 49L, Mean Platelet Volume 11.6H, Neutrophils (%) (Auto) , Lymphocytes (%) (Auto) , Monocytes (%) (Auto) , Eosinophils (%) (Auto) , Basophils (%) (Auto) , Differential Total Cells Counted 100, Neutrophils % (Manual) 85H, Lymphocytes % (Manual) 12L, Monocytes % (Manual) 3, Eosinophils % (Manual) 0, Basophils % (Manual) 0, Band Neutrophils 0, Platelet Estimate DecreasedL, Platelet M orphology Normal, Anisocytosis 1+, Sodium Level 148H, Potassium Level 3.2L, Chloride Level 114H, Carbon Dioxide Level 27, Anion Gap 7, Blood Urea Nitrogen 4L, Creatinine 0.4L, Estimat Glomerular Filtration Rate > 60, Glucose Level 249H , Calcium Level 7.8L, Iron Level 36L, Total Iron Binding Capacity 161L, Percent Iron Saturation 22, Unsaturated Iron Binding 125 05/11/20 05:48: POC Whole Blood Glucose [Pending] 05/11/20 11:30: POC Whole Blood Glucose 210H Current Medications Medications (Trade) Dose Ordered Sig/Renetta Route PRN Reason Start Time Stop Time Status Last Admin Dose Admin Acetaminophen (Tylenol) 650 mg Q4H PRN ORAL Fever 05/06/20 23:30 06/05/20 23:29 05/09/20 23:37 Acetaminophen (Tylenol) 650 mg Q4H PRN ORAL Mild Pain (Pain Scale 1-3) 05/06/20 23:30 06/05/20 23:29 Chlorhexidine Gluconate (Yola-Hex 2%) 1 applic DAILY@2000 TOPIC 05/07/20 20:00 08/05/20 19:59 05/10/20 20:35 Dextrose 1,000 ml @ 100 mls/hr Q10H IV 05/08/20 14:33 06/07/20 14:32 05/11/20 03:04 Dextrose (Dextrose 50%) 25 ml Q30M PRN IV Hypoglycemia 05/06/20 23:30 08/04/20 23:29 Dextrose (Dextrose 50%) 50 ml Q30M PRN IV Hypoglycemia 05/06/20 23:30 08/04/20 23:29 Famotidine (Pepcid) 20 mg QHS GT 05/06/20 23:30 08/04/20 23:29 05/10/20 20:35 Finasteride (Proscar) 5 mg DAILY ORAL 05/07/20 09:00 08/05/20 08:59 05/11/20 09:39 Insulin Aspart (NovoLOG) BEFORE MEALS AND HS SUBQ 05/07/20 06:30 08/05/20 06:29 05/11/20 11:38 Magnesium Hydroxide (Mom) 30 ml HSPRN PRN ORAL Constipation 05/06/20 23:30 06/05/20 23:29 Meropenem 1 gm/ Sodium Chloride 55 ml @ 110 mls/hr Q8HR IVPB 05/10/20 22:00 05/15/20 21:59 05/11/20 05:42 Ondansetron HCl (Zofran) 4 mg Q6H PRN IVP Nausea & Vomiting 05/06/20 23:30 06/05/20 23:29 Tamsulosin HCl (Flomax) 0.4 mg DAILY ORAL 05/07/20 09:00 06/06/20 08:59 05/11/20 09:39 Assessment/Plan Assessment/Plan IMPRESSION: 1. Shock, suspect hypovolemic shock. Now resolved 2. Cannot exclude infectious process. 3. Chronic decubitus. 4. History of CVA. 5. Diabetes mellitus. DISCUSSION: continue abx Continue fluid resuscitation with hypotonic fluids. Now off pressors. I will follow carefully. Jarett Schilling Omar Syed MD May 11, 2020 11:49
[2020-05-11 12:00] VITALS: BP 118/69
--- NOTE | 2020-05-11 12:20 | General Progress Note ---
Subjective Allergies: Coded Allergies: No Known Allergies (Unverified , 05/06/20) Subjective In NAD Objective Last 24 Hour Vital Signs Date Time Temp Pulse Resp B/P (MAP) Pulse Ox O2 Delivery O2 Flow Rate FiO2 05/11/20 09:00 Nasal Cannula 2.0 05/11/20 08:00 98.1 82 18 120/66 (84) 99 05/11/20 08:00 75 05/11/20 07:06 94 Nasal Cannula 3.0 32 05/11/20 04:00 87 05/11/20 04:00 98.6 94 20 128/78 (95) 100 05/11/20 00:00 87 05/11/20 00:00 99.2 93 20 122/72 (89) 100 05/10/20 21:00 Nasal Cannula 2.0 05/10/20 20:00 86 05/10/20 20:00 99.0 92 22 124/79 (94) 99 05/10/20 16:00 98.8 91 20 114/66 (82) 98 05/10/20 16:00 76 Intake and Output 05/10/20 05/11/20 19:00 07:00 Output Total 1300 ml Balance -1300 ml Output Urine Total 1300 ml # Bowel Movements 1 Laboratory Tests 05/10/20 17:18: POC Whole Blood Glucose 257H 05/10/20 20:37: POC Whole Blood Glucose 239H 05/11/20 05:10: White Blood Count 4.4L, Red Blood Count 2.53L, Hemoglobin 7.1L, Hematocrit 22.0L , Mean Corpuscular Volume 87, Mean Corpuscular Hemoglobin 28.2, Mean Corpuscular Hemoglobin Concent 32.4, Red Cell Distribution Width 15.7H, Platelet Count 49L, Mean Platelet Volume 11.6H, Neutrophils (%) (Auto) , Lymphocytes (%) (Auto) , Monocytes (%) (Auto) , Eosinophils (%) (Auto) , Basophils (%) (Auto) , Differential Total Cells Counted 100, Neutrophils % (Manual) 85H, Lymphocytes % (Manual) 12L, Monocytes % (Manual) 3, Eosinophils % (Manual) 0, Basophils % (Manual) 0, Band Neutrophils 0, Platelet Estimate DecreasedL, Platelet Morphology Normal, Anisocytosis 1+, Sodium Level 148H, Potassium Level 3.2L, Chloride Level 114H, Carbon Dioxide Level 27, Anion Gap 7, Blood Urea Nitrogen 4L, Creatinine 0.4L, Estimat Glomerular Filtration Rate > 60, Glucose Level 249H , Calcium Level 7.8L, Iron Level 36L, Total Iron Binding Capacity 161L, Percent Iron Saturation 22, Unsaturated Iron Binding 125 05/11/20 05:48: POC Whole Blood Glucose [Pending] 05/11/20 11:30: POC Whole Blood Glucose 210H Height (Feet): 5 Height (Inches): 2.00 Weight (Pounds): 102 Cardiovascular: normal rate Respiratory/Chest: lungs clear Assessment/Plan Problem List: (1) Pneumonia ICD Codes: J18.9 - Pneumonia, unspecified organism SNOMED: 579025248 (2) Sepsis ICD Codes: A41.9 - Sepsis, unspecified organism SNOMED: 90070602 (3) Diabetes ICD Codes: E11.9 - Type 2 diabetes mellitus without complications SNOMED: 28085365 (4) Hypernatremia Assessment & Plan: better ICD Codes: E87.0 - Hyperosmolality and hypernatremia SNOMED: 389379276 (5) Stage 4 skin ulcer of sacral region ICD Codes: L98.429 - Non-pressure chronic ulcer of back with unspecified severity SNOMED: 47887606, 878210833 (6) PEG (percutaneous endoscopic gastrostomy) adjustment/replacement/removal ICD Codes: Z43.1 - Encounter for attention to gastrostomy SNOMED: 883848192, 251613214 (7) Anemia Assessment & Plan: worse ICD Codes: D64.9 - Anemia, unspecified SNOMED: 055423296 (8) Thrombocytopenia ICD Codes: D69.6 - Thrombocytopenia, unspecified SNOMED: 274600527 Assessment/Plan: change IVF to D5W with KCL Transfuse 2 units BRBCs abxs res treatments follow labs Discussed with RN GI consult total time spent 32 min Navi Bales MD May 11, 2020 12:20
[2020-05-11] MEDS: D5W w/KCl 20mEq 1,000 ML IV SCH (14:15)
--- NOTE | 2020-05-11 15:43 | NUR ---
CASE MANAGEMENT:REVIEW 05/11/20 SI: COVID PNA. / CHOLELITHIASIS 98.6 81 18 118/69 98% ON 2L/NC H/H-7.1/22.0 PLT-49 IS: IVF@75/HR IV MEROPENEM Q8HRS TRANSFUSE 1 UNIT PRBC'S : TELEMETRY DCP: FROM [facility]
[2020-05-11 16:00] VITALS: BP 122/72
--- NOTE | 2020-05-11 16:11 | NUR ---
INSURANCE CLINICALS/REVIEW FAXED TO ELINA SILVA [phone]
--- NOTE | 2020-05-11 16:25 | Cardiology Report ---
APPROVED REPORT EKG Measurement Heart [id number] <Conclusion> Sinus tachycardia with short MT Nonspecific ST and T wave abnormality Abnormal ECG
--- NOTE | 2020-05-11 19:31 | NUR ---
NURSE HAND-OFF REPORT: Important Events on Shift:Blood transfusion in process Patient Status: Stable Diet: G-tube Glucerna 1.2 @ 40cc/hr Pending Orders: Pending Results/Labs: Pending MD notification: Latest Vital Signs: Temperature 98.1 , Pulse 106 , B/P 122 /72 , Respiratory Rate 20 , O2 SAT 100 , Nasal Cannula, O2 Flow Rate 2.0 . Vital Sign Comment: Stable EKG Rhythm: Sinus Tachycardia Rhythm change?: N MD Notified?: N - MD Response: Latest Rivera Fall Score: 50 Fall Risk: High Risk Safety Measures: Call light Within Reach, Bed Alarm Zone 1, Side Rails Side Rails x3, Bed position Low and Locked. Fall Precautions: Yellow Socks Yellow Gown Door Sign Patient Fall Education Report given to Agustin/RN.
--- NOTE | 2020-05-11 19:40 | NUR ---
NURSE NOTES: Received report from Julieth CAZARES.The patient is presently sleeping and is receiving blood transfusion of PRBC tolerating well.She is on oxygen via NC @ 2 liters well tolerated. The Resp is even and unlabored. The HOB is at semi fair position as indicated for aspiration precaution.She is status Gtube feeding and is on Glucerna 1.2 @ 40cc/Hr via enteral pulp well tolerated.The patient was also noted with bilateral ear stage 3 ulcer, L heel DTI, R. inner foot DTI and a sacral stage 4 all covered with clean dressings. The bed in low and locked level and the call light within reach. Bed alarm was on.
[2020-05-11 20:00] VITALS: BP 130/84
[2020-05-11] MEDS: Dyna-Hex 2% Top Sol 2oz TOPIC SCH (21:31)
--- NOTE | 2020-05-11 21:36 | NUR ---
NURSE NOTES: The patient started the second unit of PRBC and is alert and stable with Resp even and unlabored. No evidence of a transfusion reaction noted at this time.Will continue to monitor
--- NOTE | 2020-05-11 21:44 | General Progress Note ---
Subjective Allergies: Coded Allergies: No Known Allergies (Unverified , 05/06/20) Objective Last 24 Hour Vital Signs Date Time Temp Pulse Resp B/P (MAP) Pulse Ox O2 Delivery O2 Flow Rate FiO2 05/11/20 20:00 99.0 91 20 130/84 (99) 100 05/11/20 16:00 98.1 105 20 122/72 (89) 100 05/11/20 16:00 106 05/11/20 12:00 98.6 81 18 118/69 (85) 98 05/11/20 12:00 76 05/11/20 09:00 Nasal Cannula 2.0 05/11/20 08:00 98.1 82 18 120/66 (84) 99 05/11/20 08:00 75 05/11/20 07:06 94 Nasal Cannula 3.0 32 05/11/20 04:00 87 05/11/20 04:00 98.6 94 20 128/78 (95) 100 05/11/20 00:00 87 05/11/20 00:00 99.2 93 20 122/72 (89) 100 Intake and Output 05/10/20 05/11/20 19:00 07:00 Output Total 1300 ml Balance -1300 ml Output Urine Total 1300 ml # Bowel Movements 1 Laboratory Tests 05/11/20 05:10: White Blood Count 4.4L, Red Blood Count 2.53L, Hemoglobin 7.1L, Hematocrit 22.0L , Mean Corpuscular Volume 87, Mean Corpuscular Hemoglobin 28.2, Mean Corpuscular Hemoglobin Concent 32.4, Red Cell Distribution Width 15.7H, Platelet Count 49L, Mean Platelet Volume 11.6H, Neutrophils (%) (Auto) , Lymphocytes (%) (Auto) , Monocytes (%) (Auto) , Eosinophils (%) (Auto) , Basophils (%) (Auto) , Diff erential Total Cells Counted 100, Neutrophils % (Manual) 85H, Lymphocytes % (Manual) 12L, Monocytes % (Manual) 3, Eosinophils % (Manual) 0, Basophils % (Manual) 0, Band Neutrophils 0, Platelet Estimate DecreasedL, Platelet Morphology Normal, Anisocytosis 1+, Sodium Level 148H, Potassium Level 3.2L, Chloride Level 114H, Carbon Dioxide Level 27, Anion Gap 7, Blood Urea Nitrogen 4L, Creatinine 0.4L, Estimat Glomerular Filtration Rate > 60, Glucose Level 249H , Calcium Level 7.8L, Iron Level 36L, Total Iron Binding Capacity 161L, Percent Iron Saturation 22, Unsaturated Iron Binding 125 05/11/20 05:48: POC Whole Blood Glucose [Pending] 05/11/20 11:30: POC Whole Blood Glucose 210H 05/11/20 16:34: POC Whole Blood Glucose 163H Height (Feet): 5 Height (Inches): 2.00 Weight (Pounds): 102 Assessment/Plan Assessment/Plan: Assessment - Anemia, ? chronic disease, ? decline due to hydration - OBS - dysphagia, s/p PEG - decubitus ulcerations - contracted - HTN - cerebral aneuryms - Poor Px Recommendations - Transfuse PRN - Continue TF - elevate HOB - PPI - family discussion re level of care Thank you MD Jb Caraballo Payman MD May 11, 2020 21:44
[2020-05-12] VITALS: BP 142/78
[2020-05-12] MEDS: Pantoprazole Inj IVP SCH ×3 (00:55→21:32)
--- NOTE | 2020-05-12 01:14 | NUR ---
NURSE NOTES: The patient completed her second bag of PRBC transfusion and is stable with Resp even and unlabored. The is no evidence of a transfusion reaction noted at this time . Will continue to monitor as indicated
[2020-05-12] MEDS: D5W w/KCl 20mEq 1,000 ML IV SCH ×2 (03:57→16:42)
[2020-05-12 04:00] VITALS: BP 137/87
[2020-05-12] MEDS: Meropenem 1 GM in NS 55 ML IVPB SCH ×3 (05:29→21:19)
[2020-05-12] MEDS: NovoLOG Insulin Flexpen SUBQ SCH ×4 (05:59→21:33)
--- NOTE | 2020-05-12 07:02 | NUR ---
HAND-OFF: Report given to Julieth CAZARES.
--- NOTE | 2020-05-12 07:14 | NUR ---
NURSE NOTES: Received report from Agustin/RN. Pt in bed lying semi-fowlers. On 2L nasal cannula, no distress or SOB noted. Pruitt catheter draining to gravity. IV on left hand 20G SL, Triple lumen IJ, running D5W w/Kcl 20Meq @ 75 ml/hr. G-tube feeding running Glucerna 1.2 @ 40cc/hr. Bed in the lowest position and locked, call light within reach, side rails up X3. Will continue plan of care.
[2020-05-12 07:24] LABS: HEMATOCRIT 35.9 % (37.0-47.0); MEAN CORPUSCULAR VOLUME 87 FL (80-99); PLATELET COUNT 42 K/UL (150-450); RED BLOOD COUNT 4.11 M/UL (4.20-5.40); RED CELL DISTRIBUTION WIDTH 14.2 % (11.6-14.8); WHITE BLOOD COUNT 4.5 K/UL (4.8-10.8)
[2020-05-12 07:32] LABS: ANION GAP 7 mmol/L (5-15); BLOOD UREA NITROGEN 6 mg/dL (7-18); CALCIUM 8.3 MG/DL (8.5-10.1); CARBON DIOXIDE 28 MMOL/L (21-32); CHLORIDE 114 MMOL/L (98-107); CREATININE 0.4 MG/DL (0.55-1.30); POTASSIUM 3.4 MMOL/L (3.5-5.1); SODIUM 149 MMOL/L (136-145)
[2020-05-12 08:00] VITALS: BP 137/68
[2020-05-12] MEDS: Tamsulosin 0.4mg cap ORAL SCH (09:32)
[2020-05-12 12:00] VITALS: BP 124/83
--- NOTE | 2020-05-12 12:54 | Surgery Progress Note ---
Surgery Progress Note Subjective Additional Comments no acute events tolerating tube feeds central line left IJ in place no n/v Objective Last 24 Hour Vital Signs Date Time Temp Pulse Resp B/P (MAP) Pulse Ox O2 Delivery O2 Flow Rate FiO2 05/12/20 12:00 97.3 95 20 124/83 (97) 100 05/12/20 12:00 87 05/12/20 10:00 80 05/12/20 09:00 Nasal Cannula 2.0 05/12/20 08:00 97.7 93 20 137/68 (91) 100 05/12/20 04:00 89 05/12/20 04:00 98.9 91 20 137/87 (104) 99 05/12/20 00:00 99.1 79 20 142/78 (99) 100 05/12/20 00:00 91 05/11/20 21:00 Nasal Cannula 2.0 05/11/20 20:00 83 05/11/20 20:00 99.0 91 20 130/84 (99) 100 05/11/20 16:00 98.1 105 20 122/72 (89) 100 05/11/20 16:00 106 I&O Intake and Output 05/11/20 05/12/20 19:00 07:00 Intake Total 395 ml 1455 ml Output Total 3350 ml 800 ml Balance -2955 ml 655 ml Free Water 120 ml 75 ml IV Total 75 ml 900 ml Tube Feeding 80 ml 480 ml Other 120 ml Output Urine Total 3350 ml 800 ml # Voids 2 1 # Bowel Movements 1 Dressing: saturated Cardiovascular: RSR Respiratory: decreased breath sounds Abdomen: soft, non-tender, present bowel sounds Extremities: no tenderness, no cyanosis Laboratory Tests Test 05/11/20 16:34 05/12/20 05:10 05/12/20 05:44 POC Whole Blood Glucose 163 MG/DL (74-106) H 145 MG/DL (74-106) H White Blood Count 4.5 K/UL (4.8-10.8) L Red Blood Count 4.11 M/UL (4.20-5.40) L Hemoglobin 12.0 G/DL (12.0-16.0) # Hematocrit 35.9 % (37.0-47.0) #L Mean Corpuscular Volume 87 FL (80-99) Mean Corpuscular Hemoglobin 29.2 PG (27.0-31.0) Mean Corpuscular Hemoglobin Concent 33.4 G/DL (32.0-36.0) Red Cell Distribution Width 14.2 % (11.6-14.8) Platelet Count 42 K/UL (150-450) L Mean Platelet Volume 10.2 FL (6.5-10.1) H Neutrophils (%) (Auto) % (45.0-75.0) Lymphocytes (%) (Auto) % (20.0-45.0) Monocytes (%) (Auto) % (1.0-10.0) Eosinophils (%) (Auto) % (0.0-3.0) Basophils (%) (Auto) % (0.0-2.0) Differential Total Cells Counted 100 Neutrophils % (Manual) 81 % (45-75) H Lymphocytes % (Manual) 15 % (20-45) L Monocytes % (Manual) 4 % (1-10) Eosinophils % (Manual) 0 % (0-3) Basophils % (Manual) 0 % (0-2) Band Neutrophils 0 % (0-8) Platelet Estimate Decreased L Platelet Morphology Normal Anisocytosis 1+ Sodium Level 149 MMOL/L (136-145) H Potassium Level 3.4 MMOL/L (3.5-5.1) L Chloride Level 114 MMOL/L (98-107) H Carbon Dioxide Level 28 MMOL/L (21-32) Anion Gap 7 mmol/L (5-15) Blood Urea Nitrogen 6 mg/dL (7-18) L Creatinine 0.4 MG/DL (0.55-1.30) L Estimat Glomerular Filtration Rate > 60 mL/min (>60) Glucose Level 170 MG/DL (74-106) H Calcium Level 8.3 MG/DL (8.5-10.1) L Plan Problems: (1) Stage 4 skin ulcer of sacral region Assessment & Plan: PATIENT NON-VERBAL. FACIAL GRIMACES NOTED WHEN REPOSITIONING. UNABLE TO REPOSITION SELF. LEFT EAR-STAGE III PRESSURE ULCER MEASURES 3.5X1.0X0.2CM. WOUND BED PINK WITH NOTED SLOUGH. PERIWOUND SKIN DARK RED/PURPLE AND BRUISED. DRAINING SMALL AMOUNT SERO-SANGUINEOUS. RECOMMEND-CLEAN WITH SALINE. PAT DRY. APPLY THERAHONEY AND COVER WITH OPTIFOAM DRESSING. REPLACE DRESSING DAILY. RIGHT EAR- STAGE III PRESSURE ULCER MEASURES 0.5X0.6X0.2CM. WOUND BED PINK WITH NOTED SLOUGH. SMALL AMOUNT SERO-SANGUINEOUS DRAINAGE. RECOMMEND-CLEAN WITH SALINE, PAT DRY, APPLY THERAHONEY AND COVER WITH OPTIFOAM DRESSING. REPLACE DRESSING DAILY. LEFT MEDIAL HEEL- DTI MEASURES 1.7X1.5X0.2CM. NOTED AREA DARK PURPLE. NON- BLANCHABLE. RECOMMEND- APPLY SKIN PROTECTOR AND OPTIFOAM DRESSING. REPLACE DAILY AND PRN. ELEVATE HEELS WITH PILLOWS RIGHT MEDIAL FOOT- DTI 2.5X2.0X0.1CM NOTED AREA DARK PURPLE RECOMMEND- APPLY SKIN PROTECTOR AND OPTIFOAM DRESSING. REPLACE DAILY AND PRN. ELEVATE HEELS/FEET WITH PILLOWS. SACRUM- STAGE IV PRESSURE ULCER MEASURES 9.5X13.7X0.5CM. MODERATE AMOUNT SEROSANGUINEOUS DRAINAGE. NO ODOR NOTED. BONE EXPOSURE WITH 40% SLOUGH AND 60% PINK GRANULATION TISSUE. AREA WITHIN WOUND BED DARK RED, POSSIBLE BRUISING. RECOMMEND-MD CONSULT. CLEAN WITH SALINE. PAT DRY. APPLY THERAHONEY AND COVER WITH GAUZE AND OPTIFOAM DRESSING. REPLACE DAILY. BHARAT MATTRESS(ALREADY IN PLACE). REPOSITION SIDE TO SIDE AT LEAST EVERY 2 HOURS OR TOLERATED (2) Heel ulcer (3) Ulcer of external ear (4) Pancreatitis Assessment & Plan: Patient identified to have elevated lipase levels upon admission. Etiology unknown work-up initiated Trend labs IV fluids urine output monitoring we will follow with recommendations hida negative us noted labs improved tf as tolerated okay for diet Gallbladder demonstrates gallstones. Gallbladder wall is borderline thickened, measuring just over 3 mm in diameter. Common bile duct is dilated, measuring 9 mm diameter. Sonographic Lockhart's sign could not be reported, patient noncommunicative. No intrahepatic biliary ductal dilatation. Liver demonstrates normal echogenicity, no focal abnormality. Portal vein and hepatic veins are patent. Pancreas is unremarkable. Spleen is unremarkable. Left kidney measures 10.3 cm in length. Right kidney measures 9.5 cm length. Both kidneys demonstrate normal echogenicity. There is no hydronephrosis. No focal abnormality . Abdominal aorta is partially obscured by bowel gas, visualized portions are non-aneurysmal . There is trace right pleural fluid. There is a very questionable poorly visualized cystic structure in the right lower quadrant Impression: Cholelithiasis. Borderline gallbladder wall thickening raises concern for acute cholecystitis. Consider further evaluation with hepatobiliary nuclear scan Right common bile duct. Downstream obstruction possibility. MRCP may be useful for better characterization Trace right pleural effusion Very questionable, poorly visualized if real, right lower quadrant cystic structure. Of uncertain significance. Consider CT to further characterize if clinically indicated (5) Transaminitis (6) Dehydration (7) Aneurysm (8) Diabetes (9) Hyperglycemia (10) Hypernatremia (11) Hypoxia (12) Sepsis (13) NSTEMI (non-ST elevated myocardial infarction) (14) PEG (percutaneous endoscopic gastrostomy) adjustment/replacement/removal (15) JESSICA (acute kidney injury) (16) CVA, old, hemiparesis (17) COVID-19 Lino Clark May 12, 2020 12:54
--- NOTE | 2020-05-12 14:19 | Pulmonology Progress Note ---
Subjective ROS Limited/Unobtainable: Yes Interval Events: None new; off levophed; seen on tele Constitutional: Denies: fever HEENT: Repors: no symptoms Respiratory: Reports: no symptoms Cardiovascular: Reports: no symptoms Gastrointestinal/Abdominal: Reports: no symptoms Allergies: Coded Allergies: No Known Allergies (Unverified , 05/06/20) Objective Last 24 Hour Vital Signs Date Time Temp Pulse Resp B/P (MAP) Pulse Ox O2 Delivery O2 Flow Rate FiO2 05/12/20 12:00 97.3 95 20 124/83 (97) 100 05/12/20 12:00 87 05/12/20 10:00 80 05/12/20 09:00 Nasal Cannula 2.0 05/12/20 08:00 97.7 93 20 137/68 (91) 100 05/12/20 04:00 89 05/12/20 04:00 98.9 91 20 137/87 (104) 99 05/12/20 00:00 99.1 79 20 142/78 (99) 100 05/12/20 00:00 91 05/11/20 21:00 Nasal Cannula 2.0 05/11/20 20:00 83 05/11/20 20:00 99.0 91 20 130/84 (99) 100 05/11/20 16:00 98.1 105 20 122/72 (89) 100 05/11/20 16:00 106 Intake and Output 05/11/20 05/12/20 19:00 07:00 Intake Total 395 ml 1455 ml Output Total 3350 ml 800 ml Balance -2955 ml 655 ml Free Water 120 ml 75 ml IV Total 75 ml 900 ml Tube Feeding 80 ml 480 ml Other 120 ml Output Urine Total 3350 ml 800 ml # Voids 2 1 # Bowel Movements 1 General Appearance: no acute distress HEENT: normocephalic Respiratory: chest wall non-tender, lungs clear Cardiovascular: normal peripheral pulses, normal rate Abdomen: normal bowel sounds Laboratory Tests 05/11/20 16:34: POC Whole Blood Glucose 163H 05/12/20 05:10: White Blood Count 4.5L, Red Blood Count 4.11L, Hemoglobin 12.0#, Hematocrit 35.9#L, Mean Corpuscular Volume 87, Mean Corpuscular Hemoglobin 29.2, Mean Corpuscular Hemoglobin Concent 33.4, Red Cell Distribution Width 14.2, Platelet Count 42L, Mean Platelet Volume 10.2H, Neutrophils (%) (Auto) , Lymphocytes (%) (Auto) , Monocytes (%) (Auto) , Eosinophils (%) (Auto) , Basophils (%) (Auto) , Differential Total Cells Counted 100, Neutrophils % (Manual) 81H, Lymphocytes % (Manual) 15L, Monocytes % (Manual) 4, Eosinophils % (Manual) 0, Basophils % (Manual) 0, Band Neutrophils 0, Platelet Estimate DecreasedL, Platelet Morphology Normal, Anisocytosis 1+, Sodium Level 149H, Potassium Level 3.4L, Chloride Level 114H, Carbon Dioxide Level 28, Anion Gap 7, Blood Urea Nitrogen 6L, Creatinine 0.4L, Estimat Glomerular Filtration Rate > 60, Glucose Level 170H , Calcium Level 8.3L 05/12/20 05:44: POC Whole Blood Glucose 145H Current Medications Medications (Trade) Dose Ordered Sig/Renetta Route PRN Reason Start Time Stop Time Status Last Admin Dose Admin Acetaminophen (Tylenol) 650 mg Q4H PRN ORAL Fever 05/06/20 23:30 06/05/20 23:29 05/09/20 23:37 Acetaminophen (Tylenol) 650 mg Q4H PRN ORAL Mild Pain (Pain Scale 1-3) 05/06/20 23:30 06/05/20 23:29 Chlorhexidine Gluconate (Yola-Hex 2%) 1 applic DAILY@2000 TOPIC 05/07/20 20:00 08/05/20 19:59 05/11/20 21:31 Dextrose (Dextrose 50%) 25 ml Q30M PRN IV Hypoglycemia 05/06/20 23:30 08/04/20 23:29 Dextrose (Dextrose 50%) 50 ml Q30M PRN IV Hypoglycemia 05/06/20 23:30 08/04/20 23:29 Dextrose/ Electrolytes 1,000 ml @ 75 mls/hr [id number] IV 05/11/20 14:00 06/10/20 13:59 05/12/20 03:57 Famotidine (Pepcid) 20 mg QHS GT 05/06/20 23:30 08/04/20 23:29 05/11/20 21:26 Finasteride (Proscar) 5 mg DAILY ORAL 05/07/20 09:00 08/05/20 08:59 05/12/20 09:32 Insulin Aspart (NovoLOG) BEFORE MEALS AND HS SUBQ 05/07/20 06:30 08/05/20 06:29 05/12/20 05:59 Magnesium Hydroxide (Mom) 30 ml HSPRN PRN ORAL Constipation 05/06/20 23:30 06/05/20 23:29 Meropenem 1 gm/ Sodium Chloride 55 ml @ 110 mls/hr Q8HR IVPB 05/10/20 22:00 05/15/20 21:59 05/12/20 13:17 Ondansetron HCl (Zofran) 4 mg Q6H PRN IVP Nausea & Vomiting 05/06/20 23:30 06/05/20 23:29 Pantoprazole (Protonix) 40 mg EVERY 12 HOURS IVP 05/12/20 00:00 06/11/20 00:00 05/12/20 09:33 Tamsulosin HCl (Flomax) 0.4 mg DAILY ORAL 05/07/20 09:00 06/06/20 08:59 05/12/20 09:32 Assessment/Plan Assessment/Plan IMPRESSION: 1. Shock, suspect hypovolemic shock. Now resolved 2. Cannot exclude infectious process. 3. Chronic decubitus. 4. History of CVA. 5. Diabetes mellitus. DISCUSSION: continue abx Continue fluid resuscitation with hypotonic fluids. Now off pressors. I will follow carefully. Jarett Schilling Omar Syed MD May 12, 2020 14:19
[2020-05-12 16:00] VITALS: BP 142/92
--- NOTE | 2020-05-12 16:22 | NUR ---
CASE MANAGEMENT:REVIEW SI;COVID PNA. CHOLELITHIASIS. 99.1 95 20 142/78 99% 2L NC WBC 4.5 RBC 4.11 PLT 42 NA 149 K+ 3.4 BG 170 IS;PROTONIX IV Q12 MEROPENEM IV Q8 IVF D5W @ 110 ML/HR FLOMAX PO QD TELE STATUS DCP;FROM [facility]
--- NOTE | 2020-05-12 16:27 | NUR ---
INSURANCE CLINICALS/REVIEW FAXED TO [facility]IL[facility] [phone]
--- NOTE | 2020-05-12 18:50 | General Progress Note ---
Subjective Allergies: Coded Allergies: No Known Allergies (Unverified , 05/06/20) Subjective Above noted non verbal tolerating TF Objective Last 24 Hour Vital Signs Date Time Temp Pulse Resp B/P (MAP) Pulse Ox O2 Delivery O2 Flow Rate FiO2 05/12/20 16:00 97.7 61 20 142/92 (109) 100 05/12/20 16:00 87 05/12/20 12:00 97.3 95 20 124/83 (97) 100 05/12/20 12:00 87 05/12/20 10:00 80 05/12/20 09:00 Nasal Cannula 2.0 05/12/20 08:00 97.7 93 20 137/68 (91) 100 05/12/20 04:00 89 05/12/20 04:00 98.9 91 20 137/87 (104) 99 05/12/20 00:00 99.1 79 20 142/78 (99) 100 05/12/20 00:00 91 05/11/20 21:00 Nasal Cannula 2.0 05/11/20 20:00 83 05/11/20 20:00 99.0 91 20 130/84 (99) 100 Intake and Output 05/11/20 05/12/20 19:00 07:00 Intake Total 395 ml 1455 ml Output Total 3350 ml 800 ml Balance -2955 ml 655 ml Free Water 120 ml 75 ml IV Total 75 ml 900 ml Tube Feeding 80 ml 480 ml Other 120 ml Output Urine Total 3350 ml 800 ml # Voids 2 1 # Bowel Movements 1 Laboratory Tests 05/12/20 05:10: White Blood Count 4.5L, Red Blood Count 4.11L, Hemoglobin 12.0#, Hematocrit 35.9#L, Mean Corpuscular Volume 87, Mean Corpuscular Hemoglobin 29.2, Mean Corpuscular Hemoglobin Concent 33.4, Red Cell Distribution Width 14.2, Platelet Count 42L, Mean Platelet Volume 10.2H, Neutrophils (%) (Auto) , Lymphocytes (%) (Auto) , Monocytes (%) (Auto) , Eosinophils (%) (Auto) , Basophils (%) (Auto) , Differential Total Cells Counted 100, Neutrophils % (Manual) 81H, Lymphocytes % (Manual) 15L, Monocytes % (Manual) 4, Eosinophils % (Manual) 0, Basophils % (Manual) 0, Band Neutrophils 0, Platelet Estimate DecreasedL, Platelet Morpho logy Normal, Anisocytosis 1+, Sodium Level 149H, Potassium Level 3.4L, Chloride Level 114H, Carbon Dioxide Level 28, Anion Gap 7, Blood Urea Nitrogen 6L, Creatinine 0.4L, Estimat Glomerular Filtration Rate > 60, Glucose Level 170H, Calcium Level 8.3L 05/12/20 05:44: POC Whole Blood Glucose 145H Height (Feet): 5 Height (Inches): 2.00 Weight (Pounds): 102 Objective Bedridden Woman NCAT CTA RR abd soft, (+) GT contractures Assessment/Plan Assessment/Plan: Assessment - Anemia, - ? chronic disease, - ? decline due to hydration - ? marow d/o (pacytopenia) - thrombocytopenia - OBS - dysphagia, s/p PEG - decubitus ulcerations - contracted - HTN - cerebral aneuryms - Poor Px Recommendations - Transfuse PRN - Continue TF - check OB - ? Heme eval re platelets - elevate HOB - PPI - family discussion re level of care Mariajose Muhammad MD May 12, 2020 18:50
--- NOTE | 2020-05-12 19:14 | NUR ---
NURSE HAND-OFF REPORT: Important Events on Shift: n/a Patient Status: Full code, stable Diet: Glucerna 1.2 @ 40 ml/hr Pending Orders: n/a Pending Results/Labs: CT chest/abd/pelvis Pending MD notification: Latest Vital Signs: Temperature 97.7 , Pulse 87 , B/P 142 /92 , Respiratory Rate 20 , O2 SAT 100 , Nasal Cannula, O2 Flow Rate 2.0 . Vital Sign Comment: EKG Rhythm: Sinus Rhythm Rhythm change?: N MD Notified?: N - MD Response: Latest Rivera Fall Score: 50 Fall Risk: High Risk Safety Measures: Call light Within Reach, Bed Alarm Zone 1, Side Rails Side Rails x3, Bed position Low and Locked. Fall Precautions: Yellow Socks Yellow Gown Door Sign Patient Fall Education Report given to SAGE Mitchell.
--- NOTE | 2020-05-12 19:20 | NUR ---
NURSE NOTES: Pt received from SAGE Van alert and oriented x0, nonverbal with no acute s/s of distress noted at bedside. On 2L nasal cannula. Gtube feed tolerated, HOB elevated - Glucerna 1.2 at 40 running to Gtube. IV site asymptomatic and patent on L hand 20 g, saline lock and L neck IJ triple lumen with D5W with 20 KCL at 75. Seizure precautions implemented. Bed in lowest position, bed alarm on. Call light and belongings within reach.
[2020-05-12 20:00] VITALS: BP 154/96
--- NOTE | 2020-05-12 20:54 | General Progress Note ---
Subjective Allergies: Coded Allergies: No Known Allergies (Unverified , 05/06/20) Subjective all noted Objective Last 24 Hour Vital Signs Date Time Temp Pulse Resp B/P (MAP) Pulse Ox O2 Delivery O2 Flow Rate FiO2 05/12/20 20:23 99 Nasal Cannula 3.0 32 05/12/20 16:00 97.7 61 20 142/92 (109) 100 05/12/20 16:00 87 05/12/20 12:00 97.3 95 20 124/83 (97) 100 05/12/20 12:00 87 05/12/20 10:00 80 05/12/20 09:00 Nasal Cannula 2.0 05/12/20 08:00 97.7 93 20 137/68 (91) 100 05/12/20 04:00 89 05/12/20 04:00 98.9 91 20 137/87 (104) 99 05/12/20 00:00 99.1 79 20 142/78 (99) 100 05/12/20 00:00 91 05/11/20 21:00 Nasal Cannula 2.0 Intake and Output 05/11/20 05/12/20 19:00 07:00 Intake Total 395 ml 1455 ml Output Total 3350 ml 800 ml Balance -2955 ml 655 ml Free Water 120 ml 75 ml IV Total 75 ml 900 ml Tube Feeding 80 ml 480 ml Other 120 ml Output Urine Total 3350 ml 800 ml # Voids 2 1 # Bowel Movements 1 Laboratory Tests 05/12/20 05:10: White Blood Count 4.5L, Red Blood Count 4.11L, Hemoglobin 12.0#, Hematocrit 35.9#L, Mean Corpuscular Volume 87, Mean Corpuscular Hemoglobin 29.2, Mean Corpuscular Hemoglobin Concent 33.4, Red Cell Distribution Width 14.2, Platelet Count 42L, Mean Platelet Volume 10.2H, Neutrophils (%) (Auto) , Lymphocytes (%) (Auto) , Monocytes (%) (Auto) , Eosinophils (%) (Auto) , Basophils (%) (Auto) , Differential Total Cells Counted 100, Neutrophils % (Manual) 81H, Lymphocytes % (Manual) 15L, Monocytes % (Manual) 4, Eosinophils % (Manual) 0, Basophils % (Manual) 0, Band Neutrophils 0, Platelet Estimate DecreasedL, Platelet Morphology Normal, Anisocytosis 1+, Sodium Level 149H, Potassium Level 3.4L, Chloride Level 114H, Carbon Dioxide Level 28, Anion Gap 7, Blood Urea Nitrogen 6L, Creatinine 0.4L, Estimat Glomerular Filtration Rate > 60, Glucose Level 170H , Calcium Level 8.3L 05/12/20 05:44: POC Whole Blood Glucose 145H Height (Feet): 5 Height (Inches): 2.00 Weight (Pounds): 102 Cardiovascular: normal rate Respiratory/Chest: lungs clear Assessment/Plan Problem List: (1) Pneumonia ICD Codes: J18.9 - Pneumonia, unspecified organism SNOMED: 233495539 (2) Sepsis ICD Codes: A41.9 - Sepsis, unspecified organism SNOMED: 84298865 (3) Diabetes ICD Codes: E11.9 - Type 2 diabetes mellitus without complications SNOMED: 36103686 (4) Hypernatremia Assessment & Plan: better ICD Codes: E87.0 - Hyperosmolality and hypernatremia SNOMED: 632326681 (5) Stage 4 skin ulcer of sacral region ICD Codes: L98.429 - Non-pressure chronic ulcer of back with unspecified severity SNOMED: 35891210, 500278616 (6) PEG (percutaneous endoscopic gastrostomy) adjustment/replacement/removal ICD Codes: Z43.1 - Encounter for attention to gastrostomy SNOMED: 738756668, 220158986 (7) Anemia Assessment & Plan: worse ICD Codes: D64.9 - Anemia, unspecified SNOMED: 647728558 (8) Thrombocytopenia ICD Codes: D69.6 - Thrombocytopenia, unspecified SNOMED: 883874153 Assessment/Plan: Continue D5W with KCL abxs res treatments follow labs total time spent 31 min Navi Bales MD May 12, 2020 20:54
--- NOTE | 2020-05-12 21:18 | NUR ---
NURSE NOTES: Noted patient's Gtube residual to be over 200 ml of yellow-tinged fluid. Gtube feed paused, pending reassessment of residual later. Will continue to monitor.
[2020-05-12] MEDS: Dyna-Hex 2% Top Sol 2oz TOPIC SCH (21:32)
--- NOTE | 2020-05-12 23:17 | NUR ---
NURSE NOTES: Gtube residual reassessed - noted 5 ml of yellow-tinged gastric residual. Gtube feed restarted, will continue to monitor.
[2020-05-13] VITALS: BP 140/84
[2020-05-13 04:00] VITALS: BP 121/79
[2020-05-13] MEDS: NovoLOG Insulin Flexpen SUBQ SCH ×4 (05:39→20:51)
[2020-05-13] MEDS: Meropenem 1 GM in NS 55 ML IVPB SCH ×3 (05:39→21:46)
[2020-05-13] MEDS: D5W w/KCl 20mEq 1,000 ML IV SCH ×2 (05:39→20:32)
[2020-05-13 06:07] LABS: HEMATOCRIT 33.2 % (37.0-47.0); HEMOGLOBIN 11.3 G/DL (12.0-16.0); MEAN CORPUSCULAR VOLUME 86 FL (80-99); PLATELET COUNT 51 K/UL (150-450); RED BLOOD COUNT 3.85 M/UL (4.20-5.40); RED CELL DISTRIBUTION WIDTH 14.1 % (11.6-14.8); WHITE BLOOD COUNT 4.5 K/UL (4.8-10.8)
[2020-05-13 06:22] LABS: ALANINE AMINOTRANSFERASE 68 U/L (12-78); ALBUMIN/GLOBULIN RATIO 0.5 (1.0-2.7); ALKALINE PHOSPHATASE 174 U/L (46-116); ANION GAP 5 mmol/L (5-15); ASPARTATE AMINO TRANSFERASE 26 U/L (15-37); BILIRUBIN,TOTAL 0.6 MG/DL (0.2-1.0); BLOOD UREA NITROGEN 5 mg/dL (7-18); CALCIUM 8.4 MG/DL (8.5-10.1); CARBON DIOXIDE 30 MMOL/L (21-32); CHLORIDE 110 MMOL/L (98-107); CREATININE 0.4 MG/DL (0.55-1.30); POTASSIUM 3.6 MMOL/L (3.5-5.1); SODIUM 144 MMOL/L (136-145)
--- NOTE | 2020-05-13 07:05 | NUR ---
NURSE HAND-OFF REPORT: Important Events on Shift: OB stool collected Patient Status: Stable Diet: Glucerna 1.2 at 40 Pending Orders: n/a Pending Results/Labs: CBC, BMP Pending MD notification:n/a Latest Vital Signs: Temperature 98.2 , Pulse 105 , B/P 121 /79 , Respiratory Rate 20 , O2 SAT 100 , Nasal Cannula, O2 Flow Rate 2.0 . Vital Sign Comment: EKG Rhythm: Sinus Rhythm Rhythm change?: N MD Notified?: N - MD Response: Latest Rivera Fall Score: 50 Fall Risk: High Risk Safety Measures: Call light Within Reach, Bed Alarm Zone 1, Side Rails Side Rails x3, Bed position Low and Locked. Fall Precautions: Yes Yellow Socks Yellow Gown Door Sign Patient Fall Education Report given to SAGE Perez.
--- NOTE | 2020-05-13 07:10 | NUR ---
NURSE NOTES: Pt report received from SAGE Mitchell. Pt alert and oriented x0, nonverbal with no acute s/s of distress noted at this time. On 2L nasal cannula, unlabored and even breathing. Gtube feed tolerated, no residual, HOB elevated - Glucerna 1.2 at 40 running to Gtube. IV site on L hand 20g asymptomatic and patent, saline lock and L neck IJ triple lumen running D5W with 20 KCL at 75cc, asymptomatic and intact. Pruitt draining to gravity, clear pale yellow urine, off the floor. Seizure precautions implemented. Bed in low and locked, call light in reach and call light in reach.
[2020-05-13 08:00] VITALS: BP 99/49
[2020-05-13] MEDS ORDERED: D5W 275ml ONE (08:53)
[2020-05-13] MEDS ORDERED: Tubing Blood Filter IV ONE (08:53)
[2020-05-13] MEDS ORDERED: NS 275ml ONE (08:53)
[2020-05-13] MEDS: Tamsulosin 0.4mg cap ORAL SCH (09:15)
[2020-05-13] MEDS: Pantoprazole Inj IVP SCH ×2 (09:15→20:33)
[2020-05-13 12:00] VITALS: BP 122/85
--- NOTE | 2020-05-13 12:59 | Pulmonology Progress Note ---
Subjective ROS Limited/Unobtainable: Yes Interval Events: None new; off levophed; seen on tele Constitutional: Denies: fever HEENT: Repors: no symptoms Respiratory: Reports: no symptoms Cardiovascular: Reports: no symptoms Gastrointestinal/Abdominal: Reports: no symptoms Allergies: Coded Allergies: No Known Allergies (Unverified , 05/06/20) Objective Last 24 Hour Vital Signs Date Time Temp Pulse Resp B/P (MAP) Pulse Ox O2 Delivery O2 Flow Rate FiO2 05/13/20 12:00 99 05/13/20 12:00 97.9 109 22 122/85 (97) 100 05/13/20 09:00 Nasal Cannula 2.0 05/13/20 08:00 103 05/13/20 08:00 96.6 70 20 99/49 (66) 100 05/13/20 04:00 98.2 105 20 121/79 (93) 100 05/13/20 04:00 90 05/13/20 00:00 97.5 101 22 140/84 (102) 100 05/13/20 00:00 101 05/12/20 21:00 Nasal Cannula 2.0 05/12/20 20:23 99 Nasal Cannula 3.0 32 05/12/20 20:00 87 05/12/20 20:00 96.6 97 22 154/96 (115) 100 05/12/20 16:00 97.7 61 20 142/92 (109) 100 05/12/20 16:00 87 Intake and Output 05/12/20 05/13/20 19:00 07:00 Intake Total 355 ml 1110 ml Output Total 800 ml Balance 355 ml 310 ml IV Total 75 ml 750 ml Tube Feeding 280 ml 360 ml Output Urine Total 800 ml # Bowel Movements 1 General Appearance: no acute distress HEENT: normocephalic Respiratory: chest wall non-tender, lungs clear Cardiovascular: normal peripheral pulses, normal rate Abdomen: normal bowel sounds Laboratory Tests 05/12/20 22:00: Stool Occult Blood Negative 05/13/20 05:45: White Blood Count 4.5L, Red Blood Count 3.85L, Hemoglobin 11.3L, Hematocrit 33.2L, Mean Corpuscular Volume 86, Mean Corpuscular Hemoglobin 29.4, Mean Corpuscular Hemoglobin Concent 34.1, Red Cell Distribution Width 14.1, Platelet Count 51L, Mean Platelet Volume 10.4H, Neutrophils (%) (Auto) , Lymphocytes (%) (Auto) , Monocytes (%) (Auto) , Eosinophils (%) (Auto) , Basophils (%) (Auto) , Differential Total Cells Counted 100, Neutrophils % (Manual) 84H, Lymphocytes % (Manual) 11L, Monocytes % (Manual) 5, Eosinophils % (Manual) 0, Basophils % (Manual) 0, Band Neutrophils 0, Platelet Estimate DecreasedL, Platelet Morphology Normal, Anisocytosis 1+, Sodium Level 144, Potassium Level 3.6, Chloride Level 110H, Carbon Dioxide Level 30, Anion Gap 5, Blood Urea Nitrogen 5 L, Creatinine 0.4L, Estimat Glomerular Filtration Rate > 60, Glucose Level 155H, Calcium Level 8.4L, Total Bilirubin 0.6, Aspartate Amino Transf (AST/SGOT) 26, Alanine Aminotransferase (ALT/SGPT) 68, Alkaline Phosphatase 174H, Total Protein 5.7L, Albumin 2.0L, Globulin 3.7, Albumin/Globulin Ratio 0.5L 05/13/20 11:33: POC Whole Blood Glucose 173H Current Medications Medications (Trade) Dose Ordered Sig/Renetta Route PRN Reason Start Time Stop Time Status Last Admin Dose Admin Acetaminophen (Tylenol) 650 mg Q4H PRN ORAL Fever 05/06/20 23:30 06/05/20 23:29 05/09/20 23:37 Acetaminophen (Tylenol) 650 mg Q4H PRN ORAL Mild Pain (Pain Scale 1-3) 05/06/20 23:30 06/05/20 23:29 Chlorhexidine Gluconate (Yola-Hex 2%) 1 applic DAILY@2000 TOPIC 05/07/20 20:00 08/05/20 19:59 05/12/20 21:32 Dextrose (Dextrose 50%) 25 ml Q30M PRN IV Hypoglycemia 05/06/20 23:30 08/04/20 23:29 Dextrose (Dextrose 50%) 50 ml Q30M PRN IV Hypoglycemia 05/06/20 23:30 08/04/20 23:29 Dextrose/ Electrolytes 1,000 ml @ 75 mls/hr [id number] IV 05/11/20 14:00 06/10/20 13:59 05/13/20 05:39 Famotidine (Pepcid) 20 mg QHS GT 05/06/20 23:30 08/04/20 23:29 05/12/20 21:32 Finasteride (Proscar) 5 mg DAILY ORAL 05/07/20 09:00 08/05/20 08:59 05/13/20 09:15 Insulin Aspart (NovoLOG) BEFORE MEALS AND HS SUBQ 05/07/20 06:30 08/05/20 06:29 05/13/20 11:45 Magnesium Hydroxide (Mom) 30 ml HSPRN PRN ORAL Constipation 05/06/20 23:30 06/05/20 23:29 Meropenem 1 gm/ Sodium Chloride 55 ml @ 110 mls/hr Q8HR IVPB 05/10/20 22:00 05/15/20 21:59 05/13/20 05:39 Ondansetron HCl (Zofran) 4 mg Q6H PRN IVP Nausea & Vomiting 05/06/20 23:30 06/05/20 23:29 Pantoprazole (Protonix) 40 mg EVERY 12 HOURS IVP 05/12/20 00:00 06/11/20 00:00 05/13/20 09:15 Tamsulosin HCl (Flomax) 0.4 mg DAILY ORAL 05/07/20 09:00 06/06/20 08:59 05/13/20 09:15 Assessment/Plan Assessment/Plan 1. Shock resolved 2. Cannot exclude infectious process. 3. Chronic decubitus. 4. History of CVA. 5. Diabetes mellitus. 6. Anemia DISCUSSION: continue abx Continue fluid resuscitation with hypotonic fluids. Now off pressors. Cont. o2 2/L n/c, pulse ox 100% I will follow carefully. Roberto Oneill [employer]ETING MANAGER May 13, 2020 12:59
--- NOTE | 2020-05-13 15:35 | Infectious Diseases Prog Note ---
Assessment/Plan Assessment/Plan IMPRESSION: Sepsis with septic shock, improving E. coli, Bacteroid sepsis Cholelithiasis, HIDA scan negative Acute pancreatitis. Diabetes mellitus with hyperglycemia, Acute renal failure, Acidosis, Elevated transaminase, Hypernatremia, Multiple pressure ulcer. MRSA carrier RECOMMENDATION: Continue Meropenem Will f/u CT scan of abdomen & Pelvis Subjective ROS Limited/Unobtainable: Yes Constitutional: Denies: fever Allergies: Coded Allergies: No Known Allergies (Unverified , 05/06/20) Objective Last 24 Hour Vital Signs Date Time Temp Pulse Resp B/P (MAP) Pulse Ox O2 Delivery O2 Flow Rate FiO2 05/13/20 12:00 99 05/13/20 12:00 97.9 109 22 122/85 (97) 100 05/13/20 09:00 Nasal Cannula 2.0 05/13/20 08:00 103 05/13/20 08:00 96.6 70 20 99/49 (66) 100 05/13/20 04:00 98.2 105 20 121/79 (93) 100 05/13/20 04:00 90 05/13/20 00:00 97.5 101 22 140/84 (102) 100 05/13/20 00:00 101 05/12/20 21:00 Nasal Cannula 2.0 05/12/20 20:23 99 Nasal Cannula 3.0 32 05/12/20 20:00 87 05/12/20 20:00 96.6 97 22 154/96 (115) 100 05/12/20 16:00 97.7 61 20 142/92 (109) 100 05/12/20 16:00 87 Height (Feet): 5 Height (Inches): 2.00 Weight (Pounds): 102 General Appearance: no acute distress HEENT: mucous membranes moist Respiratory/Chest: lungs clear Cardiovascular: tachycardia, other - left IJ line Abdomen: soft, non tender, other - GT feeding Extremities: other - mild pedal edema Skin: ulcers Neurologic/Psychiatric: unresponsiveness, aphasia Laboratory Tests Test 05/12/20 22:00 05/13/20 05:45 05/13/20 11:33 Stool Occult Blood Negative (NEGATIVE) White Blood Count 4.5 K/UL (4.8-10.8) L Red Blood Count 3.85 M/UL (4.20-5.40) L Hemoglobin 11.3 G/DL (12.0-16.0) L Hematocrit 33.2 % (37.0-47.0) L Mean Corpuscular Volume 86 FL (80-99) Mean Corpuscular Hemoglobin 29.4 PG (27.0-31.0) Mean Corpuscular Hemoglobin Concent 34.1 G/DL (32.0-36.0) Red Cell Distribution Width 14.1 % (11.6-14.8) Platelet Count 51 K/UL (150-450) L Mean Platelet Volume 10.4 FL (6.5-10.1) H Neutrophils (%) (Auto) % (45.0-75.0) Lymphocytes (%) (Auto) % (20.0-45.0) Monocytes (%) (Auto) % (1.0-10.0) Eosinophils (%) (Auto) % (0.0-3.0) Basophils (%) (Auto) % (0.0-2.0) Differential Total Cells Counted 100 Neutrophils % (Manual) 84 % (45-75) H Lymphocytes % (Manual) 11 % (20-45) L Monocytes % (Manual) 5 % (1-10) Eosinophils % (Manual) 0 % (0-3) Basophils % (Manual) 0 % (0-2) Band Neutrophils 0 % (0-8) Platelet Estimate Decreased L Platelet Morphology Normal Anisocytosis 1+ Sodium Level 144 MMOL/L (136-145) Potassium Level 3.6 MMOL/L (3.5-5.1) Chloride Level 110 MMOL/L (98-107) H Carbon Dioxide Level 30 MMOL/L (21-32) Anion Gap 5 mmol/L (5-15) Blood Urea Nitrogen 5 mg/dL (7-18) L Creatinine 0.4 MG/DL (0.55-1.30) L Estimat Glomerular Filtration Rate > 60 mL/min (>60) Glucose Level 155 MG/DL (74-106) H Calcium Level 8.4 MG/DL (8.5-10.1) L Total Bilirubin 0.6 MG/DL (0.2-1.0) Aspartate Amino Transf (AST/SGOT) 26 U/L (15-37) Alanine Aminotransferase (ALT/SGPT) 68 U/L (12-78) Alkaline Phosphatase 174 U/L (46-116) H Total Protein 5.7 G/DL (6.4-8.2) L Albumin 2.0 G/DL (3.4-5.0) L Globulin 3.7 g/dL Albumin/Globulin Ratio 0.5 (1.0-2.7) L POC Whole Blood Glucose 173 MG/DL (74-106) H Current Medications Medications (Trade) Dose Ordered Sig/Renetta Route PRN Reason Start Time Stop Time Status Last Admin Dose Admin Acetaminophen (Tylenol) 650 mg Q4H PRN ORAL Fever 05/06/20 23:30 06/05/20 23:29 05/09/20 23:37 Acetaminophen (Tylenol) 650 mg Q4H PRN ORAL Mild Pain (Pain Scale 1-3) 05/06/20 23:30 06/05/20 23:29 Chlorhexidine Gluconate (Yola-Hex 2%) 1 applic DAILY@2000 TOPIC 05/07/20 20:00 08/05/20 19:59 05/12/20 21:32 Dextrose (Dextrose 50%) 25 ml Q30M PRN IV Hypoglycemia 05/06/20 23:30 08/04/20 23:29 Dextrose (Dextrose 50%) 50 ml Q30M PRN IV Hypoglycemia 05/06/20 23:30 08/04/20 23:29 Dextrose/ Electrolytes 1,000 ml @ 75 mls/hr [id number] IV 05/11/20 14:00 06/10/20 13:59 05/13/20 05:39 Famotidine (Pepcid) 20 mg QHS GT 05/06/20 23:30 08/04/20 23:29 05/12/20 21:32 Finasteride (Proscar) 5 mg DAILY ORAL 05/07/20 09:00 08/05/20 08:59 05/13/20 09:15 Insulin Aspart (NovoLOG) BEFORE MEALS AND HS SUBQ 05/07/20 06:30 08/05/20 06:29 05/13/20 11:45 Magnesium Hydroxide (Mom) 30 ml HSPRN PRN ORAL Constipation 05/06/20 23:30 06/05/20 23:29 Meropenem 1 gm/ Sodium Chloride 55 ml @ 110 mls/hr Q8HR IVPB 05/10/20 22:00 05/15/20 21:59 05/13/20 13:15 Ondansetron HCl (Zofran) 4 mg Q6H PRN IVP Nausea & Vomiting 05/06/20 23:30 06/05/20 23:29 Pantoprazole (Protonix) 40 mg EVERY 12 HOURS IVP 05/12/20 00:00 06/11/20 00:00 05/13/20 09:15 Tamsulosin HCl (Flomax) 0.4 mg DAILY ORAL 05/07/20 09:00 06/06/20 08:59 05/13/20 09:15 Peter Bales MD May 13, 2020 15:35
--- NOTE | 2020-05-13 15:52 | General Progress Note ---
Subjective Allergies: Coded Allergies: No Known Allergies (Unverified , 05/06/20) Subjective all noted Objective Last 24 Hour Vital Signs Date Time Temp Pulse Resp B/P (MAP) Pulse Ox O2 Delivery O2 Flow Rate FiO2 05/13/20 12:00 99 05/13/20 12:00 97.9 109 22 122/85 (97) 100 05/13/20 09:00 Nasal Cannula 2.0 05/13/20 08:00 103 05/13/20 08:00 96.6 70 20 99/49 (66) 100 05/13/20 04:00 98.2 105 20 121/79 (93) 100 05/13/20 04:00 90 05/13/20 00:00 97.5 101 22 140/84 (102) 100 05/13/20 00:00 101 05/12/20 21:00 Nasal Cannula 2.0 05/12/20 20:23 99 Nasal Cannula 3.0 32 05/12/20 20:00 87 05/12/20 20:00 96.6 97 22 154/96 (115) 100 05/12/20 16:00 97.7 61 20 142/92 (109) 100 05/12/20 16:00 87 Intake and Output 05/12/20 05/13/20 19:00 07:00 Intake Total 355 ml 1110 ml Output Total 800 ml Balance 355 ml 310 ml IV Total 75 ml 750 ml Tube Feeding 280 ml 360 ml Output Urine Total 800 ml # Bowel Movements 1 Laboratory Tests 05/12/20 22:00: Stool Occult Blood Negative 05/13/20 05:45: White Blood Count 4.5L, Red Blood Count 3.85L, Hemoglobin 11.3L, Hematocrit 33.2L, Mean Corpuscular Volume 86, Mean Corpuscular Hemoglobin 29.4, Mean Corpuscular Hemoglobin Concent 34.1, Red Cell Distribution Width 14.1, Platelet Count 51L, Mean Platelet Volume 10.4H, Neutrophils (%) (Auto) , Lymphocytes (%) (Auto) , Monocytes (%) (Auto) , Eosinophils (%) (Auto) , Basophils (%) (Auto) , Differential Total Cells Counted 100, Neutrophils % (Manual) 84H, Lymphocytes % (Manual) 11L, Monocytes % (Manual) 5, Eosinophils % (Manual) 0, Basophils % (Manual) 0, Band Neutrophils 0, Platelet Estimate DecreasedL, Platelet Morphology Normal, Anisocytosis 1+, Sodium Level 144, Potassium Level 3.6, Chloride Level 110H, Carbon Dioxide Level 30, Anion Gap 5, Blood Urea Nitrogen 5L, Creatinine 0.4L, Estimat Glomerular Filtration Rate > 60, Glucose Level 155H , Calcium Level 8.4L, Total Bilirubin 0.6, Aspartate Amino Transf (AST/SGOT) 26, Alanine Aminotransferase (ALT/SGPT) 68, Alkaline Phosphatase 174H, Total Protein 5.7L, Albumin 2.0L, Globulin 3.7, Albumin/Globulin Ratio 0.5L 05/13/20 11:33: POC Whole Blood Glucose 173H Height (Feet): 5 Height (Inches): 2.00 Weight (Pounds): 102 Cardiovascular: normal rate Respiratory/Chest: lungs clear Edema: no edema noted Generalized Assessment/Plan Problem List: (1) Pneumonia ICD Codes: J18.9 - Pneumonia, unspecified organism SNOMED: 618706897 (2) Sepsis ICD Codes: A41.9 - Sepsis, unspecified organism SNOMED: 06211774 (3) Diabetes ICD Codes: E11.9 - Type 2 diabetes mellitus without complications SNOMED: 01202335 (4) Hypernatremia Assessment & Plan: better ICD Codes: E87.0 - Hyperosmolality and hypernatremia SNOMED: 321877020 (5) Stage 4 skin ulcer of sacral region ICD Codes: L98.429 - Non-pressure chronic ulcer of back with unspecified severity SNOMED: 79110543, 166482167 (6) PEG (percutaneous endoscopic gastrostomy) adjustment/replacement/removal ICD Codes: Z43.1 - Encounter for attention to gastrostomy SNOMED: 227060126, 910179582 (7) Anemia Assessment & Plan: worse ICD Codes: D64.9 - Anemia, unspecified SNOMED: 292020845 (8) Thrombocytopenia ICD Codes: D69.6 - Thrombocytopenia, unspecified SNOMED: 790250526 Assessment/Plan: Continue D5W with KCL abxs res treatments follow labs total time spent 32 min Navi Bales MD May 13, 2020 15:52
[2020-05-13 16:00] VITALS: BP 126/82
--- NOTE | 2020-05-13 17:39 | Surgery Progress Note ---
Surgery Progress Note Subjective Symptoms: improved, tolerating diet, passing flatus Objective Last 24 Hour Vital Signs Date Time Temp Pulse Resp B/P (MAP) Pulse Ox O2 Delivery O2 Flow Rate FiO2 05/13/20 16:00 97.4 119 22 126/82 (97) 100 05/13/20 16:00 95 05/13/20 12:00 99 05/13/20 12:00 97.9 109 22 122/85 (97) 100 05/13/20 09:00 Nasal Cannula 2.0 05/13/20 08:00 103 05/13/20 08:00 96.6 70 20 99/49 (66) 100 05/13/20 04:00 98.2 105 20 121/79 (93) 100 05/13/20 04:00 90 05/13/20 00:00 97.5 101 22 140/84 (102) 100 05/13/20 00:00 101 05/12/20 21:00 Nasal Cannula 2.0 05/12/20 20:23 99 Nasal Cannula 3.0 32 05/12/20 20:00 87 05/12/20 20:00 96.6 97 22 154/96 (115) 100 I&O Intake and Output 05/12/20 05/13/20 19:00 07:00 Intake Total 355 ml 1110 ml Output Total 800 ml Balance 355 ml 310 ml IV Total 75 ml 750 ml Tube Feeding 280 ml 360 ml Output Urine Total 800 ml # Bowel Movements 1 Dressing: saturated Cardiovascular: RSR Respiratory: decreased breath sounds Abdomen: soft, non-tender, present bowel sounds Extremities: no edema, no tenderness, no cyanosis Laboratory Tests Test 05/12/20 22:00 05/13/20 05:45 05/13/20 11:33 Stool Occult Blood Negative (NEGATIVE) White Blood Count 4.5 K/UL (4.8-10.8) L Red Blood Count 3.85 M/UL (4.20-5.40) L Hemoglobin 11.3 G/DL (12.0-16.0) L Hematocrit 33.2 % (37.0-47.0) L Mean Corpuscular Volume 86 FL (80-99) Mean Corpuscular Hemoglobin 29.4 PG (27.0-31.0) Mean Corpuscular Hemoglobin Concent 34.1 G/DL (32.0-36.0) Red Cell Distribution Width 14.1 % (11.6-14.8) Platelet Count 51 K/UL (150-450) L Mean Platelet Volume 10.4 FL (6.5-10.1) H Neutrophils (%) (Auto) % (45.0-75.0) Lymphocytes (%) (Auto) % (20.0-45.0) Monocytes (%) (Auto) % (1.0-10.0) Eosinophils (%) (Auto) % (0.0-3.0) Basophils (%) (Auto) % (0.0-2.0) Differential Total Cells Counted 100 Neutrophils % (Manual) 84 % (45-75) H Lymphocytes % (Manual) 11 % (20-45) L Monocytes % (Manual) 5 % (1-10) Eosinophils % (Manual) 0 % (0-3) Basophils % (Manual) 0 % (0-2) Band Neutrophils 0 % (0-8) Platelet Estimate Decreased L Platelet Morphology Normal Anisocytosis 1+ Sodium Level 144 MMOL/L (136-145) Potassium Level 3.6 MMOL/L (3.5-5.1) Chloride Level 110 MMOL/L (98-107) H Carbon Dioxide Level 30 MMOL/L (21-32) Anion Gap 5 mmol/L (5-15) Blood Urea Nitrogen 5 mg/dL (7-18) L Creatinine 0.4 MG/DL (0.55-1.30) L Estimat Glomerular Filtration Rate > 60 mL/min (>60) Glucose Level 155 MG/DL (74-106) H Calcium Level 8.4 MG/DL (8.5-10.1) L Total Bilirubin 0.6 MG/DL (0.2-1.0) Aspartate Amino Transf (AST/SGOT) 26 U/L (15-37) Alanine Aminotransferase (ALT/SGPT) 68 U/L (12-78) Alkaline Phosphatase 174 U/L (46-116) H Total Protein 5.7 G/DL (6.4-8.2) L Albumin 2.0 G/DL (3.4-5.0) L Globulin 3.7 g/dL Albumin/Globulin Ratio 0.5 (1.0-2.7) L POC Whole Blood Glucose 173 MG/DL (74-106) H Plan Problems: (1) Stage 4 skin ulcer of sacral region Assessment & Plan: PATIENT NON-VERBAL. FACIAL GRIMACES NOTED WHEN REPOSITIONING. UNABLE TO REPOSITION SELF. LEFT EAR-STAGE III PRESSURE ULCER MEASURES 3.5X1.0X0.2CM. WOUND BED PINK WITH NOTED SLOUGH. PERIWOUND SKIN DARK RED/PURPLE AND BRUISED. DRAINING SMALL AMOUNT SERO-SANGUINEOUS. RECOMMEND-CLEAN WITH SALINE. PAT DRY. APPLY THERAHONEY AND COVER WITH OPTIFOAM DRESSING. REPLACE DRESSING DAILY. RIGHT EAR- STAGE III PRESSURE ULCER MEASURES 0.5X0.6X0.2CM. WOUND BED PINK WITH NOTED SLOUGH. SMALL AMOUNT SERO-SANGUINEOUS DRAINAGE. RECOMMEND-CLEAN WITH SALINE, PAT DRY, APPLY THERAHONEY AND COVER WITH OPTIFOAM DRESSING. REPLACE DRESSING DAILY. LEFT MEDIAL HEEL- DTI MEASURES 1.7X1.5X0.2CM. NOTED AREA DARK PURPLE. NON- BLANCHABLE. RECOMMEND- APPLY SKIN PROTECTOR AND OPTIFOAM DRESSING. REPLACE DAILY AND PRN. ELEVATE HEELS WITH PILLOWS RIGHT MEDIAL FOOT- DTI 2.5X2.0X0.1CM NOTED AREA DARK PURPLE RECOMMEND- APPLY SKIN PROTECTOR AND OPTIFOAM DRESSING. REPLACE DAILY AND PRN. ELEVATE HEELS/FEET WITH PILLOWS. SACRUM- STAGE IV PRESSURE ULCER MEASURES 9.5X13.7X0.5CM. MODERATE AMOUNT SEROSANGUINEOUS DRAINAGE. NO ODOR NOTED. BONE EXPOSURE WITH 40% SLOUGH AND 60% PINK GRANULATION TISSUE. AREA WITHIN WOUND BED DARK RED, POSSIBLE BRUISING. RECOMMEND-MD CONSULT. CLEAN WITH SALINE. PAT DRY. APPLY THERAHONEY AND COVER WITH GAUZE AND OPTIFOAM DRESSING. REPLACE DAILY. BHARAT MATTRESS(ALREADY IN PLACE). REPOSITION SIDE TO SIDE AT LEAST EVERY 2 HOURS OR TOLERATED (2) Heel ulcer (3) Ulcer of external ear (4) Pancreatitis Assessment & Plan: Patient identified to have elevated lipase levels upon admission. Etiology unknown work-up initiated Trend labs IV fluids urine output monitoring we will follow with recommendations hida negative us noted labs improved tf as tolerated okay for diet Gallbladder demonstrates gallstones. Gallbladder wall is borderline thickened, measuring just over 3 mm in diameter. Common bile duct is dilated, measuring 9 mm diameter. Sonographic Lockhart's sign could not be reported, patient noncommunicative. No intrahepatic biliary ductal dilatation. Liver demonstrates normal echogenicity, no focal abnormality. Portal vein and hepatic veins are patent. Pancreas is unremarkable. Spleen is unremarkable. Left kidney measures 10.3 cm in length. Right kidney measures 9.5 cm length. Both kidneys demonstrate normal echogenicity. There is no hydronephrosis. No focal abnormality . Abdominal aorta is partially obscured by bowel gas, visualized portions are non-aneurysmal . There is trace right pleural fluid. There is a very questionable poorly visualized cystic structure in the right lower quadrant Impression: Cholelithiasis. Borderline gallbladder wall thickening raises concern for acute cholecystitis. Consider further evaluation with hepatobiliary nuclear scan Right common bile duct. Downstream obstruction possibility. MRCP may be useful for better characterization Trace right pleural effusion Very questionable, poorly visualized if real, right lower quadrant cystic structure. Of uncertain significance. Consider CT to further characterize if clinically indicated (5) Transaminitis (6) Dehydration (7) Aneurysm (8) Diabetes (9) Hyperglycemia (10) Hypernatremia (11) Hypoxia (12) Sepsis (13) NSTEMI (non-ST elevated myocardial infarction) (14) PEG (percutaneous endoscopic gastrostomy) adjustment/replacement/removal (15) JESSICA (acute kidney injury) (16) CVA, old, hemiparesis (17) COVID-19 Lino Clark May 13, 2020 17:39
--- NOTE | 2020-05-13 19:18 | General Progress Note ---
Subjective Allergies: Coded Allergies: No Known Allergies (Unverified , 05/06/20) Subjective Above noted non verbal tolerating TF Objective Last 24 Hour Vital Signs Date Time Temp Pulse Resp B/P (MAP) Pulse Ox O2 Delivery O2 Flow Rate FiO2 05/13/20 16:00 97.4 119 22 126/82 (97) 100 05/13/20 16:00 95 05/13/20 12:00 99 05/13/20 12:00 97.9 109 22 122/85 (97) 100 05/13/20 09:00 Nasal Cannula 2.0 05/13/20 08:00 103 05/13/20 08:00 96.6 70 20 99/49 (66) 100 05/13/20 04:00 98.2 105 20 121/79 (93) 100 05/13/20 04:00 90 05/13/20 00:00 97.5 101 22 140/84 (102) 100 05/13/20 00:00 101 05/12/20 21:00 Nasal Cannula 2.0 05/12/20 20:23 99 Nasal Cannula 3.0 32 05/12/20 20:00 87 05/12/20 20:00 96.6 97 22 154/96 (115) 100 Intake and Output 05/12/20 05/13/20 19:00 07:00 Intake Total 355 ml 1110 ml Output Total 800 ml Balance 355 ml 310 ml IV Total 75 ml 750 ml Tube Feeding 280 ml 360 ml Output Urine Total 800 ml # Bowel Movements 1 Laboratory Tests 05/12/20 22:00: Stool Occult Blood Negative 05/13/20 05:45: White Blood Count 4.5L, Red Blood Count 3.85L, Hemoglobin 11.3L, Hematocrit 33.2L, Mean Corpuscular Volume 86, Mean Corpuscular Hemoglobin 29.4, Mean Corpuscular Hemoglobin Concent 34.1, Red Cell Distribution Width 14.1, Platelet Count 51L, Mean Platelet Volume 10.4H, Neutrophils (%) (Auto) , Lymphocytes (%) (Auto) , Monocytes (%) (Auto) , Eosinophils (%) (Auto) , Basophils (%) (Auto) , Differential Total Cells Counted 100, Neutrophils % (Manual) 84H, Lymphocytes % (Manual) 11L, Monocytes % (Manual) 5, Eosinophils % (Manual) 0, Basophils % (Manual) 0, Band Neutrophils 0, Platelet Estimate DecreasedL, Platelet Morphology Normal, Anisocytosis 1+, Sodium Level 144, Potassium Level 3.6, Chloride Level 110H, Carbon Dioxide Level 30, Anion Gap 5, Blood Urea Nitrogen 5L, Creatinine 0.4L, Estimat Glomerular Filtration Rate > 60, Glucose Level 155H , Calcium Level 8.4L, Total Bilirubin 0.6, Aspartate Amino Transf (AST/SGOT) 26, Alanine Aminotransferase (ALT/SGPT) 68, Alkaline Phosphatase 174H, Total Protein 5.7L, Albumin 2.0L, Globulin 3.7, Albumin/Globulin Ratio 0.5L 05/13/20 11:33: POC Whole Blood Glucose 173H Height (Feet): 5 Height (Inches): 2.00 Weight (Pounds): 102 Objective Bedridden Woman NCAT CTA RR abd soft, (+) GT contractures Assessment/Plan Assessment/Plan: Assessment - Anemia, - ? chronic disease, - ? decline due to hydration - ? marow d/o (pacytopenia) - thrombocytopenia - OBS - dysphagia, s/p PEG - decubitus ulcerations - contracted - HTN - cerebral aneuryms - Poor Px Recommendations - Transfuse PRN - Continue TF - check OB - ? Heme eval re platelets - elevate HOB - PPI - family discussion re level of care Mariajose Muhammad MD May 13, 2020 19:18
--- NOTE | 2020-05-13 19:37 | NUR ---
NURSE HAND-OFF REPORT: Important Events on Shift: Patient Status: fc, stable Diet: fc, stable Pending Orders: Pending Results/Labs: ct of abd and pelvis Pending MD notification: possible leaky crandall Latest Vital Signs: Temperature 97.4 , Pulse 119 , B/P 126 /82 , Respiratory Rate 22 , O2 SAT 100 , Nasal Cannula, O2 Flow Rate 2.0 . Vital Sign Comment: EKG Rhythm: Sinus Rhythm Rhythm change?: N MD Notified?: N - MD Response: Latest Rivera Fall Score: 50 Fall Risk: High Risk Safety Measures: Call light Within Reach, Bed Alarm Zone 1, Side Rails Side Rails x3, Bed position Low and Locked. Fall Precautions: Yellow Socks Yellow Gown Door Sign Patient Fall Education Report given to SAGE Banks.
--- NOTE | 2020-05-13 19:40 | NUR ---
NURSE NOTES: Received report from SAGE Perez. Patient is alert and oriented x 0. shoemaker apprentice is in place, shows sinus rhythm. With g-tube on glucerna 1.2 @ 40 cc/hour.. With crandall catheter in place, drained via gravity, slightly leaking and added 6ml of saline on the balloon for anchor, will continue to observe. On fall and aspiration precaution. Safety measures are in place, bed in [facility] hagane dposition, Addendum: 05/13/20 at 1954 by Norah Reeves RN Will continue plan of care,
[2020-05-13 20:00] VITALS: BP 117/76
[2020-05-13] MEDS: Dyna-Hex 2% Top Sol 2oz TOPIC SCH (20:32)
--- NOTE | 2020-05-13 23:00 | Consultation ---
DATE OF CONSULTATION: 05/11/2020 GASTROENTEROLOGY CONSULTATION REPORT CONSULTING PHYSICIAN: Mariajose Muhammad MD CHIEF COMPLAINT: I was asked to see patient by Dr. Navi Bales for evaluation of anemia. HISTORY OF PRESENT ILLNESS: The patient is an unfortunate 49-year-old with a history of cerebral aneurysm, status post stroke, who has been admitted with sacral decubitus ulcerations and gastrostomy tube who was found to have anemia and declining hematocrit. The patient is a unable to provide any history and most of the information is available only from the chart. PAST MEDICAL HISTORY: History of diabetes, chronic contraction, dysphagia, status post gastrostomy tube placement, hypertension, hyperlipidemia. FAMILY HISTORY: Unavailable. SOCIAL HISTORY: The is no chart reports of smoking or drinking. ALLERGIES: None. REVIEW OF SYSTEMS: Unobtainable. PHYSICAL EXAMINATION: GENERAL: Debilitated woman seen in her room, nonverbal. HEENT: Normocephalic. CHEST: Revealed coarse breath sounds. CARDIOVASCULAR: Revealed a regular rate. ABDOMEN: Soft. Gastrostomy tube is in position. EXTREMITIES: Revealed no edema. LABORATORY DATA: Noted. ASSESSMENT: This patient presents with anemia of unclear etiology. Differential diagnosis would likely lead to multifactorial process such as chronic disease or possible decline due to dehydration. The patient has advanced medical conditions including stroke, contractures, bedridden state, and has poor prognosis. Therefore, a discussion to be held with the patient's family history for further GI workup will be worthwhile. RECOMMENDATIONS: 1. Consider management. 2. Monitor CBC. 3. Continue tube feeds. 4. Further workup if decline continues. Thank you for asking me to participate in the care of this patient. Mariajose Muhammad M.D. DR: GARRETT JOB#: [id number] CC: RUDI
[2020-05-14] VITALS: BP 122/88
[2020-05-14 04:00] VITALS: BP 128/78
--- NOTE | 2020-05-14 04:00 | NUR ---
NURSE NOTES: Dressing changed on bilateral heels and sacral area and turned to left side.
[2020-05-14] MEDS: Meropenem 1 GM in NS 55 ML IVPB SCH ×3 (05:19→22:19)
[2020-05-14] MEDS: NovoLOG Insulin Flexpen SUBQ SCH ×4 (06:05→21:00)
--- NOTE | 2020-05-14 06:19 | Diagnostic Imaging Report ---
History: INFECT Exam: CT ABDOMEN + PELVIS Without Contrast Technique more: CTDI is 3.6 mGy and DLP is 196.3 mGy-cm. Technique more: One or more of the following dose reduction techniques were used: automated exposure control, adjustment of the mA and/or kV according to patient size, use of iterative reconstruction technique. Comparison: FINDINGS: Basilar atelectasis. Presumed ventricular peroneal shunt catheter, percutaneous gastrostomy tube and Pruitt catheter noted. Cholelithiasis noted nondistended, noninflamed appearing gallbladder. Nonobstructing small right intrarenal stones. 7 mm high-density ovoid focus interpolar aspect left kidney axial 57 may represent complex cyst with possibility of a solid lesion not excluded. Bilateral perinephric stranding slightly greater on the right is nonspecific, clinically correlate. No hydronephrosis. The other abdominal solid organs and abdominal aorta appear within limits on non-infused imaging. No bowel dilation or free air. Normal caliber appendix without secondary signs. The adnexa, uterus and bladder appear within limits. Destruction, deformity of the lower sacrum and coccyx with osseous erosion and overlying appearance of possible sacral decubitus pressure ulcer associated with presacral soft tissue thickening, stranding, edema with possibility of chronic osteomyelitis and soft tissue infection not excluded. IMPRESSION: Presumed ventricular peroneal shunt catheter, percutaneous gastrostomy tube and Pruitt catheter noted. Cholelithiasis noted nondistended, noninflamed appearing gallbladder. Nonobstructing small right intrarenal stones. 7 mm high-density ovoid focus interpolar aspect left kidney axial 57 may represent complex cyst with possibility of a solid lesion not excluded. Bilateral perinephric stranding slightly greater on the right is nonspecific, clinically correlate. No hydronephrosis. Destruction, deformity of the lower sacrum and coccyx with osseous erosion and overlying appearance of possible sacral decubitus pressure ulcer associated with presacral soft tissue thickening, stranding, edema with possibility of chronic osteomyelitis and soft tissue infection not excluded.
--- NOTE | 2020-05-14 06:49 | NUR ---
NURSE NOTES: Called Dr. Gokul Bales to inform him about the Nutrition recommendation as well as Pruitt catheter leaking. Awaiting for call back.
[2020-05-14 07:39] LABS: HEMATOCRIT 32.7 % (37.0-47.0); MEAN CORPUSCULAR VOLUME 87 FL (80-99); PLATELET COUNT 64 K/UL (150-450); RED BLOOD COUNT 3.77 M/UL (4.20-5.40); WHITE BLOOD COUNT 4.1 K/UL (4.8-10.8)
--- NOTE | 2020-05-14 07:50 | NUR ---
NURSE NOTES: pt in bed, AOx2. pt on monitor and storage bin tender no signs of cardiac or respiratory distress at this time. Bed in lowest position , call light within reach. pt has Gtube and is able to flush. IV site intact and running. pt also has a crandall. Will continue to monitor pt.
[2020-05-14 08:00] VITALS: BP 140/46
[2020-05-14 08:03] LABS: ANION GAP 7 mmol/L (5-15); BLOOD UREA NITROGEN 8 mg/dL (7-18); CALCIUM 8.7 MG/DL (8.5-10.1); CARBON DIOXIDE 28 MMOL/L (21-32); CHLORIDE 109 MMOL/L (98-107); CREATININE 0.4 MG/DL (0.55-1.30); POTASSIUM 3.8 MMOL/L (3.5-5.1); SODIUM 144 MMOL/L (136-145)
[2020-05-14] MEDS: D5W w/KCl 20mEq 1,000 ML IV SCH ×2 (09:15→22:19)
[2020-05-14] MEDS: Tamsulosin 0.4mg cap ORAL SCH (10:24)
[2020-05-14] MEDS: Pantoprazole Inj IVP SCH ×2 (10:25→22:15)
--- NOTE | 2020-05-14 10:51 | Pulmonology Progress Note ---
Subjective ROS Limited/Unobtainable: Yes Interval Events: None new; off levophed; seen on tele Constitutional: Denies: fever HEENT: Repors: no symptoms Respiratory: Reports: no symptoms Cardiovascular: Reports: no symptoms Gastrointestinal/Abdominal: Reports: no symptoms Allergies: Coded Allergies: No Known Allergies (Unverified , 05/06/20) Objective Last 24 Hour Vital Signs Date Time Temp Pulse Resp B/P (MAP) Pulse Ox O2 Delivery O2 Flow Rate FiO2 05/14/20 08:56 Nasal Cannula 2.0 05/14/20 08:00 96.6 94 19 140/46 (77) 100 05/14/20 04:00 98.8 99 20 128/78 (95) 99 05/14/20 04:00 97 05/14/20 01:46 100.1 05/14/20 00:00 100.6 104 22 122/88 (99) 100 05/14/20 00:00 103 05/13/20 22:06 98 Nasal Cannula 3.0 32 05/13/20 21:00 Nasal Cannula 2.0 05/13/20 20:00 102 05/13/20 20:00 100.0 111 22 117/76 (90) 99 05/13/20 16:00 97.4 119 22 126/82 (97) 100 05/13/20 16:00 95 05/13/20 12:00 99 05/13/20 12:00 97.9 109 22 122/85 (97) 100 Intake and Output 05/13/20 05/14/20 19:00 07:00 Intake Total 505 ml 1340 ml Output Total 1300 ml 1100 ml Balance -795 ml 240 ml Free Water 350 ml 150 ml IV Total 75 ml 750 ml Tube Feeding 80 ml 440 ml Output Urine Total 1300 ml 1100 ml # Voids 1 # Bowel Movements 1 General Appearance: no acute distress HEENT: normocephalic Respiratory: chest wall non-tender, lungs clear Cardiovascular: normal peripheral pulses, normal rate Abdomen: normal bowel sounds Laboratory Tests 05/13/20 11:33: POC Whole Blood Glucose 173H 05/14/20 07:30: White Blood Count 4.1L, Red Blood Count 3.77L, Hemoglobin 11.0L, Hematocrit 32.7L, Mean Corpuscular Volume 87, Mean Corpuscular Hemoglobin 29.3, Mean Corpuscular Hemoglobin Concent 33.8, Red Cell Distribution Width 14.0, Platelet Count 64L, Mean Platelet Volume 9.3, Neutrophils (%) (Auto) , Lymphocytes (%) (Auto) , Monocytes (%) (Auto) , Eosinophils (%) (Auto) , Basophils (%) (Auto) , Differential Total Cells Counted 100, Neutrophils % (Manual) 79H, Lymphocytes % (Manual) 15L, Monocytes % (Manual) 6, Eosinophils % (Manual) 0, Basophils % (Manual) 0, Band Neutrophils 0, Platelet Estimate DecreasedL, Platelet Morphology Normal, Red Blood Cell Morphology Normal, Sodium Level 144, Potassium Level 3.8, Chloride Level 109H, Carbon Dioxide Level 28, Anion Gap 7, Blood Urea Nitrogen 8, Creatinine 0.4L, Estimat Glomerular Filtration Rate > 60, Glucose Level 150H, Calcium Level 8.7 Current Medications Medications (Trade) Dose Ordered Sig/Renetta Route PRN Reason Start Time Stop Time Status Last Admin Dose Admin Acetaminophen (Tylenol) 650 mg Q4H PRN ORAL Fever 05/06/20 23:30 06/05/20 23:29 05/14/20 01:16 Acetaminophen (Tylenol) 650 mg Q4H PRN ORAL Mild Pain (Pain Scale 1-3) 05/06/20 23:30 06/05/20 23:29 Chlorhexidine Gluconate (Yola-Hex 2%) 1 applic DAILY@2000 TOPIC 05/07/20 20:00 08/05/20 19:59 05/13/20 20:32 Dextrose (Dextrose 50%) 25 ml Q30M PRN IV Hypoglycemia 05/06/20 23:30 08/04/20 23:29 Dextrose (Dextrose 50%) 50 ml Q30M PRN IV Hypoglycemia 05/06/20 23:30 08/04/20 23:29 Dextrose/ Electrolytes 1,000 ml @ 75 mls/hr [id number] IV 05/11/20 14:00 06/10/20 13:59 05/14/20 09:15 Famotidine (Pepcid) 20 mg QHS GT 05/06/20 23:30 08/04/20 23:29 05/13/20 20:33 Finasteride (Proscar) 5 mg DAILY ORAL 05/07/20 09:00 08/05/20 08:59 05/14/20 10:24 Insulin Aspart (NovoLOG) BEFORE MEALS AND HS SUBQ 05/07/20 06:30 08/05/20 06:29 05/14/20 06:05 Magnesium Hydroxide (Mom) 30 ml HSPRN PRN ORAL Constipation 05/06/20 23:30 06/05/20 23:29 Meropenem 1 gm/ Sodium Chloride 55 ml @ 110 mls/hr Q8HR IVPB 05/10/20 22:00 05/15/20 21:59 05/14/20 05:19 Ondansetron HCl (Zofran) 4 mg Q6H PRN IVP Nausea & Vomiting 05/06/20 23:30 06/05/20 23:29 Pantoprazole (Protonix) 40 mg EVERY 12 HOURS IVP 05/12/20 00:00 06/11/20 00:00 05/14/20 10:25 Tamsulosin HCl (Flomax) 0.4 mg DAILY ORAL 05/07/20 09:00 06/06/20 08:59 05/14/20 10:24 Assessment/Plan Assessment/Plan IMPRESSION: 1. Shock, suspect hypovolemic shock. Now resolved 2. Cannot exclude infectious process. 3. Chronic decubitus. 4. History of CVA. 5. Diabetes mellitus. DISCUSSION: continue abx Respiratory status is stable Now off pressors. I will follow carefully. Asif Prasad M.D. Asif Prasad MD May 14, 2020 10:50
--- NOTE | 2020-05-14 11:08 | Infectious Diseases Prog Note ---
Assessment/Plan Assessment/Plan IMPRESSION: Sepsis with septic shock, improving E. coli, Bacteroid sepsis Cholelithiasis, HIDA scan negative Acute pancreatitis. Chronic sacral osteomyelitis Diabetes mellitus with hyperglycemia, Acute renal failure, Acidosis, Elevated transaminase, Hypernatremia, Multiple pressure ulcer. 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 RECOMMENDATION: Continue Meropenem Start on IV Vancomycin PICC line placement Case was D/W primary MD Subjective ROS Limited/Unobtainable: Yes Constitutional: Reports: fever, other - Um=098.6 Allergies: Coded Allergies: No Known Allergies (Unverified , 05/06/20) Objective Last 24 Hour Vital Signs Date Time Temp Pulse Resp B/P (MAP) Pulse Ox O2 Delivery O2 Flow Rate FiO2 05/14/20 08:56 Nasal Cannula 2.0 05/14/20 08:00 96.6 94 19 140/46 (77) 100 05/14/20 04:00 98.8 99 20 128/78 (95) 99 05/14/20 04:00 97 05/14/20 01:46 100.1 05/14/20 00:00 100.6 104 22 122/88 (99) 100 05/14/20 00:00 103 05/13/20 22:06 98 Nasal Cannula 3.0 32 05/13/20 21:00 Nasal Cannula 2.0 05/13/20 20:00 102 05/13/20 20:00 100.0 111 22 117/76 (90) 99 05/13/20 16:00 97.4 119 22 126/82 (97) 100 05/13/20 16:00 95 05/13/20 12:00 99 05/13/20 12:00 97.9 109 22 122/85 (97) 100 Height (Feet): 5 Height (Inches): 2.00 Weight (Pounds): 102 General Appearance: cachetic HEENT: mucous membranes moist Respiratory/Chest: lungs clear Cardiovascular: normal rate Abdomen: soft, non tender, other - GT feeding Extremities: no edema, other - legs contracture Skin: ulcers Neurologic/Psychiatric: alert, other - moaning Laboratory Tests Test 05/13/20 11:33 05/14/20 07:30 POC Whole Blood Glucose 173 MG/DL (74-106) H White Blood Count 4.1 K/UL (4.8-10.8) L Red Blood Count 3.77 M/UL (4.20-5.40) L Hemoglobin 11.0 G/DL (12.0-16.0) L Hematocrit 32.7 % (37.0-47.0) L Mean Corpuscular Volume 87 FL (80-99) Mean Corpuscular Hemoglobin 29.3 PG (27.0-31.0) Mean Corpuscular Hemoglobin Concent 33.8 G/DL (32.0-36.0) Red Cell Distribution Width 14.0 % (11.6-14.8) Platelet Count 64 K/UL (150-450) L Mean Platelet Volume 9.3 FL (6.5-10.1) Neutrophils (%) (Auto) % (45.0-75.0) Lymphocytes (%) (Auto) % (20.0-45.0) Monocytes (%) (Auto) % (1.0-10.0) Eosinophils (%) (Auto) % (0.0-3.0) Basophils (%) (Auto) % (0.0-2.0) Differential Total Cells Counted 100 Neutrophils % (Manual) 79 % (45-75) H Lymphocytes % (Manual) 15 % (20-45) L Monocytes % (Manual) 6 % (1-10) Eosinophils % (Manual) 0 % (0-3) Basophils % (Manual) 0 % (0-2) Band Neutrophils 0 % (0-8) Platelet Estimate Decreased L Platelet Morphology Normal Red Blood Cell Morphology Normal Sodium Level 144 MMOL/L (136-145) Potassium Level 3.8 MMOL/L (3.5-5.1) Chloride Level 109 MMOL/L (98-107) H Carbon Dioxide Level 28 MMOL/L (21-32) Anion Gap 7 mmol/L (5-15) Blood Urea Nitrogen 8 mg/dL (7-18) Creatinine 0.4 MG/DL (0.55-1.30) L Estimat Glomerular Filtration Rate > 60 mL/min (>60) Glucose Level 150 MG/DL (74-106) H Calcium Level 8.7 MG/DL (8.5-10.1) Current Medications Medications (Trade) Dose Ordered Sig/Renetta Route PRN Reason Start Time Stop Time Status Last Admin Dose Admin Acetaminophen (Tylenol) 650 mg Q4H PRN ORAL Fever 05/06/20 23:30 06/05/20 23:29 05/14/20 01:16 Acetaminophen (Tylenol) 650 mg Q4H PRN ORAL Mild Pain (Pain Scale 1-3) 05/06/20 23:30 06/05/20 23:29 Chlorhexidine Gluconate (Yola-Hex 2%) 1 applic DAILY@2000 TOPIC 05/07/20 20:00 08/05/20 19:59 05/13/20 20:32 Dextrose (Dextrose 50%) 25 ml Q30M PRN IV Hypoglycemia 05/06/20 23:30 08/04/20 23:29 Dextrose (Dextrose 50%) 50 ml Q30M PRN IV Hypoglycemia 05/06/20 23:30 08/04/20 23:29 Dextrose/ Electrolytes 1,000 ml @ 75 mls/hr [id number] IV 05/11/20 14:00 06/10/20 13:59 05/14/20 09:15 Famotidine (Pepcid) 20 mg QHS GT 05/06/20 23:30 08/04/20 23:29 05/13/20 20:33 Finasteride (Proscar) 5 mg DAILY ORAL 05/07/20 09:00 08/05/20 08:59 05/14/20 10:24 Insulin Aspart (NovoLOG) BEFORE MEALS AND HS SUBQ 05/07/20 06:30 08/05/20 06:29 05/14/20 06:05 Magnesium Hydroxide (Mom) 30 ml HSPRN PRN ORAL Constipation 05/06/20 23:30 06/05/20 23:29 Meropenem 1 gm/ Sodium Chloride 55 ml @ 110 mls/hr Q8HR IVPB 05/10/20 22:00 05/15/20 21:59 05/14/20 05:19 Ondansetron HCl (Zofran) 4 mg Q6H PRN IVP Nausea & Vomiting 05/06/20 23:30 06/05/20 23:29 Pantoprazole (Protonix) 40 mg EVERY 12 HOURS IVP 05/12/20 00:00 06/11/20 00:00 05/14/20 10:25 Tamsulosin HCl (Flomax) 0.4 mg DAILY ORAL 05/07/20 09:00 06/06/20 08:59 05/14/20 10:24 Peter Bales MD May 14, 2020 11:08
[2020-05-14] MEDS ORDERED: Lidocaine 1% Plain 30 ml INJ PRN (11:15)
[2020-05-14] MEDS ORDERED: Heparin1,000 units/500ml Premix(Conc:2 units/ml) IV PRN (11:15)
--- NOTE | 2020-05-14 11:43 | Surgery Progress Note ---
Surgery Progress Note Subjective Additional Comments low grade fevers ct discussed with pcp and ID picc and abx Objective Last 24 Hour Vital Signs Date Time Temp Pulse Resp B/P (MAP) Pulse Ox O2 Delivery O2 Flow Rate FiO2 05/14/20 08:56 Nasal Cannula 2.0 05/14/20 08:00 96.6 94 19 140/46 (77) 100 05/14/20 04:00 98.8 99 20 128/78 (95) 99 05/14/20 04:00 97 05/14/20 01:46 100.1 05/14/20 00:00 100.6 104 22 122/88 (99) 100 05/14/20 00:00 103 05/13/20 22:06 98 Nasal Cannula 3.0 32 05/13/20 21:00 Nasal Cannula 2.0 05/13/20 20:00 102 05/13/20 20:00 100.0 111 22 117/76 (90) 99 05/13/20 16:00 97.4 119 22 126/82 (97) 100 05/13/20 16:00 95 05/13/20 12:00 99 05/13/20 12:00 97.9 109 22 122/85 (97) 100 I&O Intake and Output 05/13/20 05/14/20 19:00 07:00 Intake Total 505 ml 1340 ml Output Total 1300 ml 1100 ml Balance -795 ml 240 ml Free Water 350 ml 150 ml IV Total 75 ml 750 ml Tube Feeding 80 ml 440 ml Output Urine Total 1300 ml 1100 ml # Voids 1 # Bowel Movements 1 Dressing: saturated Cardiovascular: RSR Respiratory: decreased breath sounds Abdomen: soft, non-tender, present bowel sounds, other, non-distended Extremities: no edema, no tenderness, no cyanosis, other Laboratory Tests Test 05/14/20 07:30 White Blood Count 4.1 K/UL (4.8-10.8) L Red Blood Count 3.77 M/UL (4.20-5.40) L Hemoglobin 11.0 G/DL (12.0-16.0) L Hematocrit 32.7 % (37.0-47.0) L Mean Corpuscular Volume 87 FL (80-99) Mean Corpuscular Hemoglobin 29.3 PG (27.0-31.0) Mean Corpuscular Hemoglobin Concent 33.8 G/DL (32.0-36.0) Red Cell Distribution Width 14.0 % (11.6-14.8) Platelet Count 64 K/UL (150-450) L Mean Platelet Volume 9.3 FL (6.5-10.1) Neutrophils (%) (Auto) % (45.0-75.0) Lymphocytes (%) (Auto) % (20.0-45.0) Monocytes (%) (Auto) % (1.0-10.0) Eosinophils (%) (Auto) % (0.0-3.0) Basophils (%) (Auto) % (0.0-2.0) Differential Total Cells Counted 100 Neutrophils % (Manual) 79 % (45-75) H Lymphocytes % (Manual) 15 % (20-45) L Monocytes % (Manual) 6 % (1-10) Eosinophils % (Manual) 0 % (0-3) Basophils % (Manual) 0 % (0-2) Band Neutrophils 0 % (0-8) Platelet Estimate Decreased L Platelet Morphology Normal Red Blood Cell Morphology Normal Sodium Level 144 MMOL/L (136-145) Potassium Level 3.8 MMOL/L (3.5-5.1) Chloride Level 109 MMOL/L (98-107) H Carbon Dioxide Level 28 MMOL/L (21-32) Anion Gap 7 mmol/L (5-15) Blood Urea Nitrogen 8 mg/dL (7-18) Creatinine 0.4 MG/DL (0.55-1.30) L Estimat Glomerular Filtration Rate > 60 mL/min (>60) Glucose Level 150 MG/DL (74-106) H Calcium Level 8.7 MG/DL (8.5-10.1) Plan Problems: (1) Stage 4 skin ulcer of sacral region Assessment & Plan: PATIENT NON-VERBAL. FACIAL GRIMACES NOTED WHEN REPOSITIONING. UNABLE TO REPOSITION SELF. LEFT EAR-STAGE III PRESSURE ULCER MEASURES 3.5X1.0X0.2CM. WOUND BED PINK WITH NOTED SLOUGH. PERIWOUND SKIN DARK RED/PURPLE AND BRUISED. DRAINING SMALL AMOUNT SERO-SANGUINEOUS. RECOMMEND-CLEAN WITH SALINE. PAT DRY. APPLY THERAHONEY AND COVER WITH OPTIFOAM DRESSING. REPLACE DRESSING DAILY. RIGHT EAR- STAGE III PRESSURE ULCER MEASURES 0.5X0.6X0.2CM. WOUND BED PINK WITH NOTED SLOUGH. SMALL AMOUNT SERO-SANGUINEOUS DRAINAGE. RECOMMEND-CLEAN WITH SALINE, PAT DRY, APPLY THERAHONEY AND COVER WITH OPTIFOAM DRESSING. REPLACE DRESSING DAILY. LEFT MEDIAL HEEL- DTI MEASURES 1.7X1.5X0.2CM. NOTED AREA DARK PURPLE. NON- BLANCHABLE. RECOMMEND- APPLY SKIN PROTECTOR AND OPTIFOAM DRESSING. REPLACE DAILY AND PRN. ELEVATE HEELS WITH PILLOWS RIGHT MEDIAL FOOT- DTI 2.5X2.0X0.1CM NOTED AREA DARK PURPLE RECOMMEND- APPLY SKIN PROTECTOR AND OPTIFOAM DRESSING. REPLACE DAILY AND PRN. ELEVATE HEELS/FEET WITH PILLOWS. SACRUM- STAGE IV PRESSURE ULCER MEASURES 9.5X13.7X0.5CM. MODERATE AMOUNT SEROSANGUINEOUS DRAINAGE. NO ODOR NOTED. BONE EXPOSURE WITH 40% SLOUGH AND 60% PINK GRANULATION TISSUE. AREA WITHIN WOUND BED DARK RED, POSSIBLE BRUISING. RECOMMEND-MD CONSULT. CLEAN WITH SALINE. PAT DRY. APPLY THERAHONEY AND COVER WITH GAUZE AND OPTIFOAM DRESSING. REPLACE DAILY. BHARAT MATTRESS(ALREADY IN PLACE). REPOSITION SIDE TO SIDE AT LEAST EVERY 2 HOURS OR TOLERATED Presumed ventricular peroneal shunt catheter, percutaneous gastrostomy tube and Pruitt catheter noted. Cholelithiasis noted nondistended, noninflamed appearing gallbladder. Nonobstructing small right intrarenal stones. 7 mm high-density ovoid focus interpolar aspect left kidney axial 57 may represent complex cyst with possibility of a solid lesion not excluded. Bilateral perinephric stranding slightly greater on the right is nonspecific, clinically correlate. No hydronephrosis. Destruction, deformity of the lower sacrum and coccyx with osseous erosion and overlying appearance of possible sacral decubitus pressure ulcer associated with presacral soft tissue thickening, stranding, edema with possibility of chronic osteomyelitis and soft tissue infection not excluded. (2) Heel ulcer (3) Ulcer of external ear (4) Pancreatitis Assessment & Plan: Patient identified to have elevated lipase levels upon admission. Etiology unknown work-up initiated Trend labs IV fluids urine output monitoring we will follow with recommendations hida negative us noted labs improved tf as tolerated okay for diet Gallbladder demonstrates gallstones. Gallbladder wall is borderline thickened, measuring just over 3 mm in diameter. Common bile duct is dilated, measuring 9 mm diameter. Sonographic Lockhart's sign could not be reported, patient noncommunicative. No intrahepatic biliary ductal dilatation. Liver demonstrates normal echogenicity, no focal abnormality. Portal vein and hepatic veins are patent. Pancreas is unremarkable. Spleen is unremarkable. Left kidney measures 10.3 cm in length. Right kidney measures 9.5 cm length. Both kidneys demonstrate normal echogenicity. There is no hydronephrosis. No focal abnormality . Abdominal aorta is partially obscured by bowel gas, visualized portions are non-aneurysmal . There is trace right pleural fluid. There is a very questionable poorly visualized cystic structure in the right lower quadrant Impression: Cholelithiasis. Borderline gallbladder wall thickening raises concern for acute cholecystitis. Consider further evaluation with hepatobiliary nuclear scan Right common bile duct. Downstream obstruction possibility. MRCP may be useful for better characterization Trace right pleural effusion Very questionable, poorly visualized if real, right lower quadrant cystic s tructure. Of uncertain significance. Consider CT to further characterize if clinically indicated (5) Transaminitis (6) Dehydration (7) Aneurysm (8) Diabetes (9) Hyperglycemia (10) Hypernatremia (11) Hypoxia (12) Sepsis (13) NSTEMI (non-ST elevated myocardial infarction) (14) PEG (percutaneous endoscopic gastrostomy) adjustment/replacement/removal (15) JESSICA (acute kidney injury) (16) CVA, old, hemiparesis (17) COVID-19 Lino Clark May 14, 2020 11:43
[2020-05-14 12:00] VITALS: BP 121/80
--- NOTE | 2020-05-14 12:10 | General Progress Note ---
Subjective Allergies: Coded Allergies: No Known Allergies (Unverified , 05/06/20) Subjective all noted Objective Last 24 Hour Vital Signs Date Time Temp Pulse Resp B/P (MAP) Pulse Ox O2 Delivery O2 Flow Rate FiO2 05/14/20 08:56 Nasal Cannula 2.0 05/14/20 08:00 96.6 94 19 140/46 (77) 100 05/14/20 04:00 98.8 99 20 128/78 (95) 99 05/14/20 04:00 97 05/14/20 01:46 100.1 05/14/20 00:00 100.6 104 22 122/88 (99) 100 05/14/20 00:00 103 05/13/20 22:06 98 Nasal Cannula 3.0 32 05/13/20 21:00 Nasal Cannula 2.0 05/13/20 20:00 102 05/13/20 20:00 100.0 111 22 117/76 (90) 99 05/13/20 16:00 97.4 119 22 126/82 (97) 100 05/13/20 16:00 95 Intake and Output 05/13/20 05/14/20 19:00 07:00 Intake Total 505 ml 1340 ml Output Total 1300 ml 1100 ml Balance -795 ml 240 ml Free Water 350 ml 150 ml IV Total 75 ml 750 ml Tube Feeding 80 ml 440 ml Output Urine Total 1300 ml 1100 ml # Voids 1 # Bowel Movements 1 Laboratory Tests 05/14/20 07:30: White Blood Count 4.1L, Red Blood Count 3.77L, Hemoglobin 11.0L, Hematocrit 32.7L, Mean Corpuscular Volume 87, Mean Corpuscular Hemoglobin 29.3, Mean Corpuscular Hemoglobin Concent 33.8, Red Cell Distribution Width 14.0, Platelet Count 64L, Mean Platelet Volume 9.3, Neutrophils (%) (Auto) , Lymphocytes (%) (Auto) , Monocytes (%) (Auto) , Eosinophils (%) (Auto) , Basophils (%) (Auto) , Differential Total Cells Counted 100, Neutrophils % (Manual) 79H, Lymphocytes % (Manual) 15L, Monocytes % (Manual) 6, Eosinophils % (Manual) 0, Basophils % (Manual) 0, Band Neutrophils 0, Platelet Estimate DecreasedL, Platelet Morphology Normal, Red Blood Cell Morphology Normal, Sodium Level 144, Potassium Level 3.8, Chloride Level 109H, Carbon Dioxide Level 28, Anion Gap 7, Blood Urea Nitrogen 8, Creatinine 0.4L, Estimat Glomerular Filtration Rate > 60, Glucose Level 150H, Calcium Level 8.7 05/14/20 11:42: POC Whole Blood Glucose 175H Height (Feet): 5 Height (Inches): 2.00 Weight (Pounds): 102 Cardiovascular: normal rate Respiratory/Chest: lungs clear Assessment/Plan Problem List: (1) Pneumonia ICD Codes: J18.9 - Pneumonia, unspecified organism SNOMED: 926636501 (2) Sepsis ICD Codes: A41.9 - Sepsis, unspecified organism SNOMED: 91602481 (3) Diabetes ICD Codes: E11.9 - Type 2 diabetes mellitus without complications SNOMED: 88899932 (4) Hypernatremia Assessment & Plan: better ICD Codes: E87.0 - Hyperosmolality and hypernatremia SNOMED: 822081252 (5) Stage 4 skin ulcer of sacral region ICD Codes: L98.429 - Non-pressure chronic ulcer of back with unspecified severity SNOMED: 05621802, 708553525 (6) PEG (percutaneous endoscopic gastrostomy) adjustment/replacement/removal ICD Codes: Z43.1 - Encounter for attention to gastrostomy SNOMED: 297605103, 224886403 (7) Anemia Assessment & Plan: worse ICD Codes: D64.9 - Anemia, unspecified SNOMED: 669360311 (8) Thrombocytopenia ICD Codes: D69.6 - Thrombocytopenia, unspecified SNOMED: 508762853 (9) Osteomyelitis ICD Codes: M86.9 - Osteomyelitis, unspecified SNOMED: 35527176 Assessment/Plan: DC IVF abxs res treatments follow labs Discussed with ID picc line for termite inspector abxs total time spent 32 min Navi Bales MD May 14, 2020 12:10
--- NOTE | 2020-05-14 12:54 | NUR ---
CASE MANAGEMENT: REVIEW SI: COVID-19 . PNA . CHOLELITHIASIS . T 100.6 HR 104 RR 22 BP 140/46 SAT 98% NC/3L WBC 4.1 CHLORIDE 109 CR 0.4 GLUCOSE 175 IS: VANCOMYCIN IV Q12HR PROTONIX IV Q12HR MEROPENEM IV Q8HR D5W w/KCl 20MEQ @ 75ML/HR TELEMETRY UNIT STATUS DCP: PATIENT IS FROM [facility]
[2020-05-14] MEDS ORDERED: Vancomycin 1gm/D5W 275ml IVPB ONE ×2 (13:00)
--- NOTE | 2020-05-14 13:03 | NUR ---
RD ASSESSMENT & RECOMMENDATIONS SEE CARE ACTIVITY FOR COMPLETE ASSESSMENT DAILY ESTIMATED NEEDS: Needs based on Wound, 46.4kg 30-35 kcals/kg 0861-9496 total kcals 1.5-2 g protein/kg 69-93 g total protein 25-35ml/kcal mL/kg 4505-0751 total fluid mLs NUTRITION DIAGNOSIS: Increased kcal and pro needs r/t wound healing as evidenced by multiple wounds, including stage 4 sacral wound, stage 3 wounds @ lt ear and rt ear, DTI @ lt medial heel and rt medial foot. CURRENT TF:Glucerna 1.2 @ 40ml/hr x 24 hrs ENTERAL NUTRITION RECOMMENDATIONS: Glucerna 1.2 @ 50ml/hr x 24 hrs to provide 1200ml, 1440 kcal, 72g pro, 966ml free H2O - Increase goal rate to 50ml/hr x 24 hrs to meet 100% est kcal/prot needs - Flush per MD/ HOB over 30 degrees. ADDITIONAL RECOMMENDATIONS: 1) Maintain calibrated bed scale wts 2) Wound healing: add Vit C 500mg BID + ZnSO4 220mg QD x 10 days Cuauhtemoc BID via PEG 3) DC D5 IVF, increase water flushes instead for improved BG control BGs in the 200's and 300's-> now improved 4) Rec long acting insulin for improved BG control 5) Monitor lipase and TF tolerance: Lipase trending down.
[2020-05-14 16:00] VITALS: BP 135/85
[2020-05-14] MEDS: Ascorbic Acid 500mg tab ORAL SCH (18:01)
--- NOTE | 2020-05-14 19:38 | NUR ---
NURSE HAND-OFF REPORT: Important Events on Shift: awaiting for pICC consent to be given over the phone, left 2 messages for family member to call back Patient Status: full Diet: Gtube Pending Orders: Pending Results/Labs: Pending MD notification: Latest Vital Signs: Temperature 97.7 , Pulse 90 , B/P 135 /85 , Respiratory Rate 19 , O2 SAT 100 , Nasal Cannula, O2 Flow Rate 2.0 . Vital Sign Comment: EKG Rhythm: Sinus Rhythm Rhythm change?: N MD Notified?: N - MD Response: Latest Rivera Fall Score: 50 Fall Risk: High Risk Safety Measures: Call light Within Reach, Bed Alarm Zone 1, Side Rails Side Rails x2, Bed position Low and Locked. Fall Precautions: y Yellow Socks y Yellow Gown y Door Sign Patient Fall Education Report given to Ed/RN.
[2020-05-14] MEDS ORDERED: Dyna-Hex 2% Top Sol 2oz TOPIC SCH (20:00)
--- NOTE | 2020-05-14 21:35 | General Progress Note ---
Subjective Allergies: Coded Allergies: No Known Allergies (Unverified , 05/06/20) Subjective Above noted non verbal tolerating TF Objective Last 24 Hour Vital Signs Date Time Temp Pulse Resp B/P (MAP) Pulse Ox O2 Delivery O2 Flow Rate FiO2 05/14/20 16:00 90 05/14/20 16:00 97.7 104 19 135/85 (102) 100 05/14/20 12:00 95 05/14/20 12:00 97.7 101 21 121/80 (94) 98 05/14/20 08:56 Nasal Cannula 2.0 05/14/20 08:00 96.6 94 19 140/46 (77) 100 05/14/20 08:00 98 05/14/20 04:00 98.8 99 20 128/78 (95) 99 05/14/20 04:00 97 05/14/20 01:46 100.1 05/14/20 00:00 100.6 104 22 122/88 (99) 100 05/14/20 00:00 103 05/13/20 22:06 98 Nasal Cannula 3.0 32 Intake and Output 05/13/20 05/14/20 19:00 07:00 Intake Total 505 ml 1340 ml Output Total 1300 ml 1100 ml Balance -795 ml 240 ml Free Water 350 ml 150 ml IV Total 75 ml 750 ml Tube Feeding 80 ml 440 ml Output Urine Total 1300 ml 1100 ml # Voids 1 # Bowel Movements 1 Laboratory Tests 05/14/20 07:30: White Blood Count 4.1L, Red Blood Count 3.77L, Hemoglobin 11.0L, Hematocrit 32.7L, Mean Corpuscular Volume 87, Mean Corpuscular Hemoglobin 29.3, Mean Corpuscular Hemoglobin Concent 33.8, Red Cell Distribution Width 14.0, Platelet Count 64L, Mean Platelet Volume 9.3, Neutrophils (%) (Auto) , Lymphocytes (%) (Auto) , Monocytes (%) (Auto) , Eosinophils (%) (Auto) , Basophils (%) (Auto) , Differential Total Cells Counted 100, Neutrophils % (Manual) 79H, Lymphocytes % (Manual) 15L, Monocytes % (Manual) 6, Eosinophils % (Manual) 0, Basophils % (Manual) 0, Band Neutrophils 0, Platelet Estimate DecreasedL, Platelet Morphology Normal, Red Blood Cell Morphology Normal, Sodium Level 144, Potassium Level 3.8, Chloride Level 109H, Carbon Dioxide Level 28, Anion Gap 7, Blood Urea Nitrogen 8, Creatinine 0.4L, Estimat Glomerular Filtration Rate > 60, Glucose Level 150H, Calcium Level 8.7 05/14/20 11:42: POC Whole Blood Glucose 175H Height (Feet): 5 Height (Inches): 2.00 Weight (Pounds): 102 Objective Bedridden Woman NCAT CTA RR abd soft, (+) GT contractures Assessment/Plan Assessment/Plan: Assessment - Anemia, - ? chronic disease, - ? decline due to hydration - ? marow d/o (pacytopenia) - thrombocytopenia - OBS - dysphagia, s/p PEG - decubitus ulcerations - contracted - HTN - cerebral aneuryms - Poor Px Recommendations - Transfuse PRN - Continue TF - check OB - ? Heme eval re platelets - elevate HOB - PPI - family discussion re level of care Mariajose Muhammad MD May 14, 2020 21:35
[2020-05-15] VITALS: BP 122/81
[2020-05-15] MEDS: Vancomycin 500mg/D5W 110ml IVPB SCH ×4 (01:33→13:20)
[2020-05-15 04:00] VITALS: BP 138/86
[2020-05-15] MEDS: Meropenem 1 GM in NS 55 ML IVPB SCH ×3 (05:20→21:28)
[2020-05-15] MEDS: NovoLOG Insulin Flexpen SUBQ SCH ×4 (05:22→21:31)
--- NOTE | 2020-05-15 06:06 | NUR ---
NURSE HAND-OFF REPORT: Important Events on Shift: None Patient Status: Stable Diet: Glucerna 1.2 @ 40ml/hr Pending Orders: none Pending Results/Labs: cmp, bmp, crp, cbc, sed rate Pending MD notification: none Latest Vital Signs: Temperature 98.6 , Pulse 114 , B/P 138 /86 , Respiratory Rate 22 , O2 SAT 98 , Nasal Cannula, O2 Flow Rate 2.0 . Vital Sign Comment: stable EKG Rhythm: Sinus Tachycardia Rhythm change?: N MD Notified?: N - MD Response: - Latest Rivera Fall Score: 50 Fall Risk: High Risk Safety Measures: Call light Within Reach, Bed Alarm Zone 1, Side Rails Side Rails x2, Bed position Low and Locked. Fall Precautions: Yellow Socks yes Yellow Gown yes Door Sign yes Patient Fall Education yes Addendum: 05/15/20 at 0711 by Dayan Ward RN HAND-OFF: Report given to Lisa Cleveland RN
[2020-05-15 07:36] LABS: HEMATOCRIT 34.6 % (37.0-47.0); HEMOGLOBIN 11.7 G/DL (12.0-16.0); MEAN CORPUSCULAR VOLUME 87 FL (80-99); PLATELET COUNT 80 K/UL (150-450); RED BLOOD COUNT 3.98 M/UL (4.20-5.40); RED CELL DISTRIBUTION WIDTH 14.2 % (11.6-14.8); WHITE BLOOD COUNT 3.4 K/UL (4.8-10.8)
[2020-05-15 07:50] LABS: ALANINE AMINOTRANSFERASE 59 U/L (12-78); ALBUMIN 2.2 G/DL (3.4-5.0); ALBUMIN/GLOBULIN RATIO 0.5 (1.0-2.7); ALKALINE PHOSPHATASE 211 U/L (46-116); ANION GAP 6 mmol/L (5-15); ASPARTATE AMINO TRANSFERASE 23 U/L (15-37); BILIRUBIN,TOTAL 0.5 MG/DL (0.2-1.0); BLOOD UREA NITROGEN 7 mg/dL (7-18); CALCIUM 8.9 MG/DL (8.5-10.1); CARBON DIOXIDE 29 MMOL/L (21-32); CHLORIDE 108 MMOL/L (98-107); CREATININE 0.4 MG/DL (0.55-1.30); POTASSIUM 3.9 MMOL/L (3.5-5.1); SODIUM 143 MMOL/L (136-145)
--- NOTE | 2020-05-15 07:55 | NUR ---
NURSE NOTES: pt AOx0. Pt on NC with no respiratory distress issues at this time. pt on environmental monitoring technician no signs or cardiac distress. Pt on Gtube working well. pt as a crandall draining. Still waiting on consent from family for picc line placement. Pt has various wounds on body. will continue to monitor.
[2020-05-15 08:00] VITALS: BP 127/84
[2020-05-15] MEDS ORDERED: Zinc Sulfate 220mg ORAL SCH (09:00)
--- NOTE | 2020-05-15 09:49 | Pulmonology Progress Note ---
Subjective ROS Limited/Unobtainable: Yes Interval Events: None new; off levophed; seen on tele Constitutional: Reports: fever, other - Ug=225.6 HEENT: Repors: no symptoms Respiratory: Reports: no symptoms Cardiovascular: Reports: no symptoms Gastrointestinal/Abdominal: Reports: no symptoms Allergies: Coded Allergies: No Known Allergies (Unverified , 05/06/20) Objective Last 24 Hour Vital Signs Date Time Temp Pulse Resp B/P (MAP) Pulse Ox O2 Delivery O2 Flow Rate FiO2 05/15/20 08:00 98.4 116 18 127/84 (98) 100 05/15/20 04:00 108 05/15/20 04:00 98.6 114 22 138/86 (103) 98 05/15/20 00:00 108 05/15/20 00:00 99.8 113 19 122/81 (95) 100 05/14/20 21:00 Nasal Cannula 2.0 05/14/20 20:00 107 05/14/20 20:00 96 Nasal Cannula 2.0 28 05/14/20 16:00 90 05/14/20 16:00 97.7 104 19 135/85 (102) 100 05/14/20 12:00 95 05/14/20 12:00 97.7 101 21 121/80 (94) 98 Intake and Output 05/14/20 05/15/20 19:00 07:00 Output Total 1200 ml Balance -1200 ml Output Urine Total 1200 ml General Appearance: no acute distress HEENT: normocephalic Respiratory: chest wall non-tender, lungs clear Cardiovascular: normal peripheral pulses, normal rate Abdomen: normal bowel sounds Laboratory Tests 05/14/20 11:42: POC Whole Blood Glucose 175H 05/14/20 22:14: POC Whole Blood Glucose 134H 05/15/20 04:41: POC Whole Blood Glucose 157H 05/15/20 06:47: White Blood Count 3.4L, Red Blood Count 3.98L, Hemoglobin 11.7L, Hematocrit 34.6L, Mean Corpuscular Volume 87, Mean Corpuscular Hemoglobin 29.3, Mean Corpuscular Hemoglobin Concent 33.7, Red Cell Distribution Width 14.2, Platelet Count 80L, Mean Platelet Volume 10.9H, Neutrophils (%) (Auto) , Lymphocytes (%) (Auto) , Monocytes (%) (Auto) , Eosinophils (%) (Auto) , Basophils (%) (Auto) , Neutrophils % (Manual) [Pending], Lymphocytes % (Manual) [Pending], Platelet Estimate [Pending], Platelet Morphology [Pending], Erythrocyte Sedimentation Rate [Pending], Sodium Level 143, Potassium Level 3.9, Chloride Level 108H, Carbon Dioxide Level 29, Anion Gap 6, Blood Urea Nitrogen 7, Creatinine 0.4L, Estimat Glomerular Filtration Rate > 60, Glucose Level 159H, Calcium Level 8.9, Total Bilirubin 0.5, Aspartate Amino Transf (AST/SGOT) 23, Alanine Aminotransferase (ALT/SGPT) 59, Alkaline Phosphatase 211H, C-Reactive Protein, Quantitative 5.8H, Total Protein 6.9, Albumin 2.2L, Globulin 4.7, Albumin/Globulin Ratio 0.5L Current Medications Medications (Trade) Dose Ordered Sig/Renetta Route PRN Reason Start Time Stop Time Status Last Admin Dose Admin Acetaminophen (Tylenol) 650 mg Q4H PRN ORAL Fever 05/06/20 23:30 06/05/20 23:29 05/14/20 01:16 Acetaminophen (Tylenol) 650 mg Q4H PRN ORAL Mild Pain (Pain Scale 1-3) 05/06/20 23:30 06/05/20 23:29 Ascorbic Acid (Vitamin C) 250 mg TWICE A DAY ORAL 05/14/20 18:00 06/13/20 17:59 05/14/20 18:01 Chlorhexidine Gluconate (Yola-Hex 2%) 1 applic DAILY@2000 TOPIC 05/14/20 20:00 08/12/20 19:59 05/14/20 22:15 Dextrose (Dextrose 50%) 25 ml Q30M PRN IV Hypoglycemia 05/06/20 23:30 08/04/20 23:29 Dextrose (Dextrose 50%) 50 ml Q30M PRN IV Hypoglycemia 05/06/20 23:30 08/04/20 23:29 Dextrose/ Electrolytes 1,000 ml @ 75 mls/hr [id number] IV 05/11/20 14:00 06/10/20 13:59 05/14/20 22:19 Famotidine (Pepcid) 20 mg QHS GT 05/06/20 23:30 08/04/20 23:29 05/14/20 22:15 Finasteride (Proscar) 5 mg DAILY ORAL 05/07/20 09:00 08/05/20 08:59 05/14/20 10:24 Heparin Sodium/ Sodium Chloride (Heparin 1000 units/500ml Premix) 1,000 unit ONCE PRN IV PICC LINE PLACEMENT 05/14/20 11:15 05/16/20 11:14 Insulin Aspart (NovoLOG) BEFORE MEALS AND HS SUBQ 05/07/20 06:30 08/05/20 06:29 05/15/20 05:22 Lidocaine HCl (Xylocaine 1% 30ml) 30 ml ONCE PRN INJ PICC LINE PLACEMENT 05/14/20 11:15 05/16/20 11:14 Magnesium Hydroxide (Mom) 30 ml HSPRN PRN ORAL Constipation 05/06/20 23:30 06/05/20 23:29 Meropenem 1 gm/ Sodium Chloride 55 ml @ 110 mls/hr Q8HR IVPB 05/15/20 22:00 05/20/20 21:59 Meropenem 1 gm/ Sodium Chloride 55 ml @ 110 mls/hr Q8HR IVPB 05/10/20 22:00 05/15/20 21:59 05/15/20 05:20 Multivitamins (Multivitamins) 1 tab DAILY ORAL 05/15/20 09:00 06/14/20 08:59 Ondansetron HCl (Zofran) 4 mg Q6H PRN IVP Nausea & Vomiting 05/06/20 23:30 06/05/20 23:29 Pantoprazole (Protonix) 40 mg EVERY 12 HOURS IVP 05/12/20 00:00 06/11/20 00:00 05/14/20 22:15 Tamsulosin HCl (Flomax) 0.4 mg DAILY ORAL 05/07/20 09:00 06/06/20 08:59 05/14/20 10:24 Vancomycin HCl (Vanco pharmacy to dose) 1 ea DAILY PRN MISC Per rx protocol 05/14/20 11:15 06/13/20 11:14 Vancomycin HCl 500 mg/Dextrose 110 ml @ 110 mls/hr Q12H IVPB 05/15/20 01:00 05/20/20 00:59 05/15/20 01:33 Zinc Sulfate (Zinc Sulfate) 220 mg DAILY ORAL 05/15/20 09:00 05/25/20 08:59 Assessment/Plan Assessment/Plan IMPRESSION: 1. Shock, suspect hypovolemic shock. Now resolved 2. Cannot exclude infectious process. 3. Chronic decubitus. 4. History of CVA. 5. Diabetes mellitus. DISCUSSION: continue abx Respiratory status is stable Now off pressors. I will follow carefully. Jarett Schilling Omar Syed MD May 15, 2020 09:49
[2020-05-15] MEDS: Pantoprazole Inj IVP SCH ×2 (09:56→21:28)
[2020-05-15] MEDS: Ascorbic Acid 500mg tab ORAL SCH ×2 (09:57→18:00)
[2020-05-15] MEDS: Tamsulosin 0.4mg cap ORAL SCH (09:57)
--- NOTE | 2020-05-15 10:53 | NUR ---
NURSE NOTES: L/M for family about PICC line consent. This is the 3rd message for daughter to call back.
[2020-05-15] MEDS: D5W w/KCl 20mEq 1,000 ML IV SCH (11:26)
--- NOTE | 2020-05-15 11:49 | Infectious Diseases Prog Note ---
Assessment/Plan Assessment/Plan IMPRESSION: Sepsis with septic shock, improving E. coli, Bacteroid sepsis Cholelithiasis, HIDA scan negative Acute pancreatitis. Chronic sacral osteomyelitis Diabetes mellitus with hyperglycemia, Acute renal failure, Acidosis, Elevated transaminase, Hypernatremia, Multiple pressure ulcer. 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 PAD REPA[employer]ER shunt RECOMMENDATION: Continue Meropenem Continue Vancomycin Subjective ROS Limited/Unobtainable: Yes Constitutional: Reports: fever, other - last night Allergies: Coded Allergies: No Known Allergies (Unverified , 05/06/20) Objective Last 24 Hour Vital Signs Date Time Temp Pulse Resp B/P (MAP) Pulse Ox O2 Delivery O2 Flow Rate FiO2 05/15/20 08:00 98.4 116 18 127/84 (98) 100 05/15/20 04:00 108 05/15/20 04:00 98.6 114 22 138/86 (103) 98 05/15/20 00:00 108 05/15/20 00:00 99.8 113 19 122/81 (95) 100 05/14/20 21:00 Nasal Cannula 2.0 05/14/20 20:00 107 05/14/20 20:00 96 Nasal Cannula 2.0 28 05/14/20 16:00 90 05/14/20 16:00 97.7 104 19 135/85 (102) 100 05/14/20 12:00 95 05/14/20 12:00 97.7 101 21 121/80 (94) 98 Height (Feet): 5 Height (Inches): 2.00 Weight (Pounds): 102 Cardiovascular: normal rate, other - IJ central line Abdomen: other - GT feeding Skin: ulcers Neurologic/Psychiatric: unresponsiveness, aphasia Laboratory Tests Test 05/14/20 22:14 05/15/20 04:41 05/15/20 06:47 POC Whole Blood Glucose 134 MG/DL (74-106) H 157 MG/DL (74-106) H White Blood Count 3.4 K/UL (4.8-10.8) L Red Blood Count 3.98 M/UL (4.20-5.40) L Hemoglobin 11.7 G/DL (12.0-16.0) L Hematocrit 34.6 % (37.0-47.0) L Mean Corpuscular Volume 87 FL (80-99) Mean Corpuscular Hemoglobin 29.3 PG (27.0-31.0) Mean Corpuscular Hemoglobin Concent 33.7 G/DL (32.0-36.0) Red Cell Distribution Width 14.2 % (11.6-14.8) Platelet Count 80 K/UL (150-450) L Mean Platelet Volume 10.9 FL (6.5-10.1) H Neutrophils (%) (Auto) % (45.0-75.0) Lymphocytes (%) (Auto) % (20.0-45.0) Monocytes (%) (Auto) % (1.0-10.0) Eosinophils (%) (Auto) % (0.0-3.0) Basophils (%) (Auto) % (0.0-2.0) Differential Total Cells Counted 100 Neutrophils % (Manual) 74 % (45-75) Lymphocytes % (Manual) 23 % (20-45) Monocytes % (Manual) 3 % (1-10) Eosinophils % (Manual) 0 % (0-3) Basophils % (Manual) 0 % (0-2) Band Neutrophils 0 % (0-8) Platelet Estimate Decreased L Platelet Morphology Normal Red Blood Cell Morphology Normal Erythrocyte Sedimentation Rate 95 MM/HR (0-30) H Sodium Level 143 MMOL/L (136-145) Potassium Level 3.9 MMOL/L (3.5-5.1) Chloride Level 108 MMOL/L (98-107) H Carbon Dioxide Level 29 MMOL/L (21-32) Anion Gap 6 mmol/L (5-15) Blood Urea Nitrogen 7 mg/dL (7-18) Creatinine 0.4 MG/DL (0.55-1.30) L Estimat Glomerular Filtration Rate > 60 mL/min (>60) Glucose Level 159 MG/DL (74-106) H Calcium Level 8.9 MG/DL (8.5-10.1) Total Bilirubin 0.5 MG/DL (0.2-1.0) Aspartate Amino Transf (AST/SGOT) 23 U/L (15-37) Alanine Aminotransferase (ALT/SGPT) 59 U/L (12-78) Alkaline Phosphatase 211 U/L (46-116) H C-Reactive Protein, Quantitative 5.8 mg/dL (0.00-0.90) H Total Protein 6.9 G/DL (6.4-8.2) Albumin 2.2 G/DL (3.4-5.0) L Globulin 4.7 g/dL Albumin/Globulin Ratio 0.5 (1.0-2.7) L Current Medications Medications (Trade) Dose Ordered Sig/Renetta Route PRN Reason Start Time Stop Time Status Last Admin Dose Admin Acetaminophen (Tylenol) 650 mg Q4H PRN ORAL Fever 05/06/20 23:30 06/05/20 23:29 05/14/20 01:16 Acetaminophen (Tylenol) 650 mg Q4H PRN ORAL Mild Pain (Pain Scale 1-3) 05/06/20 23:30 06/05/20 23:29 05/15/20 10:19 Ascorbic Acid (Vitamin C) 250 mg TWICE A DAY ORAL 05/14/20 18:00 06/13/20 17:59 05/15/20 09:57 Chlorhexidine Gluconate (Yola-Hex 2%) 1 applic DAILY@2000 TOPIC 05/14/20 20:00 08/12/20 19:59 05/14/20 22:15 Dextrose (Dextrose 50%) 25 ml Q30M PRN IV Hypoglycemia 05/06/20 23:30 08/04/20 23:29 Dextrose (Dextrose 50%) 50 ml Q30M PRN IV Hypoglycemia 05/06/20 23:30 08/04/20 23:29 Dextrose/ Electrolytes 1,000 ml @ 75 mls/hr [id number] IV 05/11/20 14:00 06/10/20 13:59 05/15/20 11:26 Famotidine (Pepcid) 20 mg QHS GT 05/06/20 23:30 08/04/20 23:29 05/14/20 22:15 Finasteride (Proscar) 5 mg DAILY ORAL 05/07/20 09:00 08/05/20 08:59 05/15/20 09:57 Heparin Sodium/ Sodium Chloride (Heparin 1000 units/500ml Premix) 1,000 unit ONCE PRN IV PICC LINE PLACEMENT 05/14/20 11:15 05/16/20 11:14 Insulin Aspart (NovoLOG) BEFORE MEALS AND HS SUBQ 05/07/20 06:30 08/05/20 06:29 05/15/20 05:22 Lidocaine HCl (Xylocaine 1% 30ml) 30 ml ONCE PRN INJ PICC LINE PLACEMENT 05/14/20 11:15 05/16/20 11:14 Magnesium Hydroxide (Mom) 30 ml HSPRN PRN ORAL Constipation 05/06/20 23:30 06/05/20 23:29 Meropenem 1 gm/ Sodium Chloride 55 ml @ 110 mls/hr Q8HR IVPB 05/15/20 22:00 05/20/20 21:59 Meropenem 1 gm/ Sodium Chloride 55 ml @ 110 mls/hr Q8HR IVPB 05/10/20 22:00 05/15/20 21:59 05/15/20 05:20 Multivitamins (Multivitamins) 1 tab DAILY ORAL 05/15/20 09:00 06/14/20 08:59 05/15/20 09:57 Ondansetron HCl (Zofran) 4 mg Q6H PRN IVP Nausea & Vomiting 05/06/20 23:30 06/05/20 23:29 Pantoprazole (Protonix) 40 mg EVERY 12 HOURS IVP 05/12/20 00:00 06/11/20 00:00 05/15/20 09:56 Tamsulosin HCl (Flomax) 0.4 mg DAILY ORAL 05/07/20 09:00 06/06/20 08:59 05/15/20 09:57 Vancomycin HCl (Vanco pharmacy to dose) 1 ea DAILY PRN MISC Per rx protocol 05/14/20 11:15 06/13/20 11:14 Vancomycin HCl 500 mg/Dextrose 110 ml @ 110 mls/hr Q12H IVPB 05/15/20 01:00 05/20/20 00:59 05/15/20 01:33 Zinc Sulfate (Zinc Sulfate) 220 mg DAILY ORAL 05/15/20 09:00 05/25/20 08:59 05/15/20 09:57 Peter Bales MD May 15, 2020 11:49
[2020-05-15 12:00] VITALS: BP 132/84
--- NOTE | 2020-05-15 15:00 | General Progress Note ---
Subjective Allergies: Coded Allergies: No Known Allergies (Unverified , 05/06/20) Subjective In NAD Objective Last 24 Hour Vital Signs Date Time Temp Pulse Resp B/P (MAP) Pulse Ox O2 Delivery O2 Flow Rate FiO2 05/15/20 08:00 98.4 116 18 127/84 (98) 100 05/15/20 04:00 108 05/15/20 04:00 98.6 114 22 138/86 (103) 98 05/15/20 00:00 108 05/15/20 00:00 99.8 113 19 122/81 (95) 100 05/14/20 21:00 Nasal Cannula 2.0 05/14/20 20:00 107 05/14/20 20:00 96 Nasal Cannula 2.0 28 05/14/20 16:00 90 05/14/20 16:00 97.7 104 19 135/85 (102) 100 Intake and Output 05/14/20 05/15/20 19:00 07:00 Output Total 1200 ml Balance -1200 ml Output Urine Total 1200 ml Laboratory Tests 05/14/20 22:14: POC Whole Blood Glucose 134H 05/15/20 04:41: POC Whole Blood Glucose 157H 05/15/20 06:47: White Blood Count 3.4L, Red Blood Count 3.98L, Hemoglobin 11.7L, Hematocrit 34.6L, Mean Corpuscular Volume 87, Mean Corpuscular Hemoglobin 29.3, Mean Corpuscular Hemoglobin Concent 33.7, Red Cell Distribution Width 14.2, Platelet Count 80L, Mean Platelet Volume 10.9H, Neutrophils (%) (Auto) , Lymphocytes (%) (Auto) , Monocytes (%) (Auto) , Eosinophils (%) (Auto) , Basophils (%) (Auto) , Differential Total Cells Counted 100, Neutrophils % (Manual) 74, Lymphocytes % (Manual) 23, Monocytes % (Manual) 3, Eosinophils % (Manual) 0, Basophils % (Manual) 0, Band Neutrophils 0, Platelet Estimate DecreasedL, Platelet Morphology Normal, Red Blood Cell Morphology Normal, Erythrocyte Sedimentation Rate 95H, Sodium Level 143, Potassium Level 3.9, Chloride Level 108H, Carbon Dioxide Level 29, Anion Gap 6, Blood Urea Nitrogen 7, Creatinine 0.4L, Estimat Glomerular Filtration Rate > 60, Glucose Level 159H, Calcium Level 8.9, Total Bilirubin 0.5, Aspartate Amino Transf (AST/SGOT) 23, Alanine Aminotransferase (ALT/SGPT) 59, Alkaline Phosphatase 211H, C-Reactive Protein, Quantitative 5.8H, Total Protein 6.9, Albumin 2.2L, Globulin 4.7, Albumin/Globulin Ratio 0.5L Height (Feet): 5 Height (Inches): 2.00 Weight (Pounds): 102 Cardiovascular: normal rate Respiratory/Chest: lungs clear Edema: no edema noted Generalized Assessment/Plan Problem List: (1) Pneumonia ICD Codes: J18.9 - Pneumonia, unspecified organism SNOMED: 345855319 (2) Sepsis ICD Codes: A41.9 - Sepsis, unspecified organism SNOMED: 11641343 (3) Diabetes ICD Codes: E11.9 - Type 2 diabetes mellitus without complications SNOMED: 93984620 (4) Hypernatremia Assessment & Plan: better ICD Codes: E87.0 - Hyperosmolality and hypernatremia SNOMED: 200384825 (5) Stage 4 skin ulcer of sacral region ICD Codes: L98.429 - Non-pressure chronic ulcer of back with unspecified severity SNOMED: 63165645, 639252766 (6) PEG (percutaneous endoscopic gastrostomy) adjustment/replacement/removal ICD Codes: Z43.1 - Encounter for attention to gastrostomy SNOMED: 554027975, 593175644 (7) Anemia Assessment & Plan: worse ICD Codes: D64.9 - Anemia, unspecified SNOMED: 655397144 (8) Thrombocytopenia ICD Codes: D69.6 - Thrombocytopenia, unspecified SNOMED: 104686381 (9) Osteomyelitis ICD Codes: M86.9 - Osteomyelitis, unspecified SNOMED: 94456619 Assessment/Plan: abxs res treatments follow labs Discussed with ID picc line for [facility]iary abxs total time spent 33 min Navi Bales MD May 15, 2020 15:00
[2020-05-15] MEDS ORDERED: HYDROcodone/Acetamin 10/325 tab ORAL PRN (15:15)
[2020-05-15] MEDS ORDERED: HYDROcodone/Acetamin 5/325 tab ORAL PRN (15:15)
--- NOTE | 2020-05-15 15:21 | NUR ---
CASE MANAGEMENT: REVIEW SI: S/P COVID-19 . PNA . CHOLELITHIASIS . T 99.8 HR 116 RR 22 BP 127/84 SAT 98% NC/2L WBC 3.4 H/H 11.7/34.6 REPEAT COVID NEGATIVE IS: VANCOMYCIN IV Q12HR PROTONIX IV Q12HR MEROPENEM IV Q8HR D5W w/KCl 20MEQ @ 75ML/HR NPO GT FEEDING BENITES CATH PENDING PICC PLACEMENT TELEMETRY UNIT STATUS DCP: PATIENT IS FROM [facility]
[2020-05-15 16:00] VITALS: BP 138/86
--- NOTE | 2020-05-15 16:06 | Surgery Progress Note ---
Surgery Progress Note Subjective Symptoms: tolerating diet, passing flatus, BM Objective Last 24 Hour Vital Signs Date Time Temp Pulse Resp B/P (MAP) Pulse Ox O2 Delivery O2 Flow Rate FiO2 05/15/20 08:00 98.4 116 18 127/84 (98) 100 05/15/20 04:00 108 05/15/20 04:00 98.6 114 22 138/86 (103) 98 05/15/20 00:00 108 05/15/20 00:00 99.8 113 19 122/81 (95) 100 05/14/20 21:00 Nasal Cannula 2.0 05/14/20 20:00 107 05/14/20 20:00 96 Nasal Cannula 2.0 28 I&O Intake and Output 05/14/20 05/15/20 19:00 07:00 Output Total 1200 ml Balance -1200 ml Output Urine Total 1200 ml Dressing: saturated Cardiovascular: RSR Respiratory: decreased breath sounds Abdomen: soft, non-tender, present bowel sounds Extremities: no edema, no tenderness, no cyanosis Laboratory Tests Test 05/14/20 22:14 05/15/20 04:41 05/15/20 06:47 POC Whole Blood Glucose 134 MG/DL (74-106) H 157 MG/DL (74-106) H White Blood Count 3.4 K/UL (4.8-10.8) L Red Blood Count 3.98 M/UL (4.20-5.40) L Hemoglobin 11.7 G/DL (12.0-16.0) L Hematocrit 34.6 % (37.0-47.0) L Mean Corpuscular Volume 87 FL (80-99) Mean Corpuscular Hemoglobin 29.3 PG (27.0-31.0) Mean Corpuscular Hemoglobin Concent 33.7 G/DL (32.0-36.0) Red Cell Distribution Width 14.2 % (11.6-14.8) Platelet Count 80 K/UL (150-450) L Mean Platelet Volume 10.9 FL (6.5-10.1) H Neutrophils (%) (Auto) % (45.0-75.0) Lymphocytes (%) (Auto) % (20.0-45.0) Monocytes (%) (Auto) % (1.0-10.0) Eosinophils (%) (Auto) % (0.0-3.0) Basophils (%) (Auto) % (0.0-2.0) Differential Total Cells Counted 100 Neutrophils % (Manual) 74 % (45-75) Lymphocytes % (Manual) 23 % (20-45) Monocytes % (Manual) 3 % (1-10) Eosinophils % (Manual) 0 % (0-3) Basophils % (Manual) 0 % (0-2) Band Neutrophils 0 % (0-8) Platelet Estimate Decreased L Platelet Morphology Normal Red Blood Cell Morphology Normal Erythrocyte Sedimentation Rate 95 MM/HR (0-30) H Sodium Level 143 MMOL/L (136-145) Potassium Level 3.9 MMOL/L (3.5-5.1) Chloride Level 108 MMOL/L (98-107) H Carbon Dioxide Level 29 MMOL/L (21-32) Anion Gap 6 mmol/L (5-15) Blood Urea Nitrogen 7 mg/dL (7-18) Creatinine 0.4 MG/DL (0.55-1.30) L Estimat Glomerular Filtration Rate > 60 mL/min (>60) Glucose Level 159 MG/DL (74-106) H Calcium Level 8.9 MG/DL (8.5-10.1) Total Bilirubin 0.5 MG/DL (0.2-1.0) Aspartate Amino Transf (AST/SGOT) 23 U/L (15-37) Alanine Aminotransferase (ALT/SGPT) 59 U/L (12-78) Alkaline Phosphatase 211 U/L (46-116) H C-Reactive Protein, Quantitative 5.8 mg/dL (0.00-0.90) H Total Protein 6.9 G/DL (6.4-8.2) Albumin 2.2 G/DL (3.4-5.0) L Globulin 4.7 g/dL Albumin/Globulin Ratio 0.5 (1.0-2.7) L Plan Problems: (1) Stage 4 skin ulcer of sacral region Assessment & Plan: PATIENT NON-VERBAL. FACIAL GRIMACES NOTED WHEN REPOSITIONING. UNABLE TO REPOSITION SELF. LEFT EAR-STAGE III PRESSURE ULCER MEASURES 3.5X1.0X0.2CM. WOUND BED PINK WITH NOTED SLOUGH. PERIWOUND SKIN DARK RED/PURPLE AND BRUISED. DRAINING SMALL AMOUNT SERO-SANGUINEOUS. RECOMMEND-CLEAN WITH SALINE. PAT DRY. APPLY THERAHONEY AND COVER WITH OPTIFOAM DRESSING. REPLACE DRESSING DAILY. RIGHT EAR- STAGE III PRESSURE ULCER MEASURES 0.5X0.6X0.2CM. WOUND BED PINK WITH NOTED SLOUGH. SMALL AMOUNT SERO-SANGUINEOUS DRAINAGE. RECOMMEND-CLEAN WITH SALINE, PAT DRY, APPLY THERAHONEY AND COVER WITH OPTIFOAM DRESSING. REPLACE DRESSING DAILY. LEFT MEDIAL HEEL- DTI MEASURES 1.7X1.5X0.2CM. NOTED AREA DARK PURPLE. NON- BLANCHABLE. RECOMMEND- APPLY SKIN PROTECTOR AND OPTIFOAM DRESSING. REPLACE DAILY AND PRN. ELEVATE HEELS WITH PILLOWS RIGHT MEDIAL FOOT- DTI 2.5X2.0X0.1CM NOTED AREA DARK PURPLE RECOMMEND- APPLY SKIN PROTECTOR AND OPTIFOAM DRESSING. REPLACE DAILY AND PRN. ELEVATE HEELS/FEET WITH PILLOWS. SACRUM- STAGE IV PRESSURE ULCER MEASURES 9.5X13.7X0.5CM. MODERATE AMOUNT SEROSANGUINEOUS DRAINAGE. NO ODOR NOTED. BONE EXPOSURE WITH 40% SLOUGH AND 60% PINK GRANULATION TISSUE. AREA WITHIN WOUND BED DARK RED, POSSIBLE BRUISING. RECOMMEND-MD CONSULT. CLEAN WITH SALINE. PAT DRY. APPLY THERAHONEY AND COVER WITH GAUZE AND OPTIFOAM DRESSING. REPLACE DAILY. BHARAT MATTRESS(ALREADY IN PLACE). REPOSITION SIDE TO SIDE AT LEAST EVERY 2 HOURS OR TOLERATED Presumed ventricular peroneal shunt catheter, percutaneous gastrostomy tube and Pruitt catheter noted. Cholelithiasis noted nondistended, noninflamed appearing gallbladder. Nonobstructing small right intrarenal stones. 7 mm high-density ovoid focus interpolar aspect left kidney axial 57 may represent complex cyst with possibility of a solid lesion not excluded. Bilateral perinephric stranding slightly greater on the right is nonspecific, clinically correlate. No hydronephrosis. Destruction, deformity of the lower sacrum and coccyx with osseous erosion and overlying appearance of possible sacral decubitus pressure ulcer associated with presacral soft tissue thickening, stranding, edema with possibility of chronic osteomyelitis and soft tissue infection not excluded. (2) Heel ulcer (3) Ulcer of external ear (4) Pancreatitis Assessment & Plan: Patient identified to have elevated lipase levels upon admission. Etiology unknown work-up initiated Trend labs IV fluids urine output monitoring we will follow with recommendations hida negative us noted labs improved tf as tolerated okay for diet Gallbladder demonstrates gallstones. Gallbladder wall is borderline thickened, measuring just over 3 mm in diameter. Common bile duct is dilated, measuring 9 mm diameter. Sonographic Lockhart's sign could not be reported, patient noncommunicative. No intrahepatic biliary ductal dilatation. Liver demonstrates normal echogenicity, no focal abnormality. Portal vein and hepatic veins are patent. Pancreas is unremarkable. Spleen is unremarkable. Left kidney measures 10.3 cm in length. Right kidney measures 9.5 cm length. Both kidneys demonstrate normal echogenicity. There is no hydronephrosis. No focal abnormality . Abdominal aorta is partially obscured by bowel gas, visualized portions are non-aneurysmal . There is trace right pleural fluid. There is a very questionable poorly visualized cystic structure in the right lower quadrant Impression: Cholelithiasis. Borderline gallbladder wall thickening raises concern for acute cholecystitis. Consider further evaluation with hepatobiliary nuclear scan Right common bile duct. Downstream obstruction possibility. MRCP may be useful for better characterization Trace right pleural effusion Very questionable, poorly visualized if real, right lower quadrant cystic structure. Of uncertain significance. Consider CT to further characterize if clinically indicated (5) Transaminitis (6) Dehydration (7) Aneurysm (8) Diabetes (9) Hyperglycemia (10) Hypernatremia (11) Hypoxia (12) Sepsis (13) NSTEMI (non-ST elevated myocardial infarction) (14) PEG (percutaneous endoscopic gastrostomy) adjustment/replacement/removal (15) JESSICA (acute kidney injury) (16) CVA, old, hemiparesis (17) COVID-19 LyndonchiloLino May 15, 2020 16:06
--- NOTE | 2020-05-15 16:55 | General Progress Note ---
Subjective Allergies: Coded Allergies: No Known Allergies (Unverified , 05/06/20) Subjective Above noted non verbal tolerating TF Objective Last 24 Hour Vital Signs Date Time Temp Pulse Resp B/P (MAP) Pulse Ox O2 Delivery O2 Flow Rate FiO2 05/15/20 08:00 98.4 116 18 127/84 (98) 100 05/15/20 04:00 108 05/15/20 04:00 98.6 114 22 138/86 (103) 98 05/15/20 00:00 108 05/15/20 00:00 99.8 113 19 122/81 (95) 100 05/14/20 21:00 Nasal Cannula 2.0 05/14/20 20:00 107 05/14/20 20:00 96 Nasal Cannula 2.0 28 Intake and Output 05/14/20 05/15/20 19:00 07:00 Output Total 1200 ml Balance -1200 ml Output Urine Total 1200 ml Laboratory Tests 05/14/20 22:14: POC Whole Blood Glucose 134H 05/15/20 04:41: POC Whole Blood Glucose 157H 05/15/20 06:47: White Blood Count 3.4L, Red Blood Count 3.98L, Hemoglobin 11.7L, Hematocrit 34.6L, Mean Corpuscular Volume 87, Mean Corpuscular Hemoglobin 29.3, Mean Corpuscular Hemoglobin Concent 33.7, Red Cell Distribution Width 14.2, Platelet Count 80L, Mean Platelet Volume 10.9H, Neutrophils (%) (Auto) , Lymphocytes (%) (Auto) , Monocytes (%) (Auto) , Eosinophils (%) (Auto) , Basophils (%) (Auto) , Differential Total Cells Counted 100, Neutrophils % (Manual) 74, Lymphocytes % (Manual) 23, Monocytes % (Manual) 3, Eosinophils % (Manual) 0, Basophils % (Manual) 0, Band Neutrophils 0, Platelet Estimate DecreasedL, Platelet Morphology Normal, Red Blood Cell Morphology Normal, Erythrocyte Sedimentation Rate 95H, Sodium Level 143, Potassium Level 3.9, Chloride Level 108H, Carbon Di oxide Level 29, Anion Gap 6, Blood Urea Nitrogen 7, Creatinine 0.4L, Estimat Glomerular Filtration Rate > 60, Glucose Level 159H, Calcium Level 8.9, Total Bilirubin 0.5, Aspartate Amino Transf (AST/SGOT) 23, Alanine Aminotransferase (ALT/SGPT) 59, Alkaline Phosphatase 211H, C-Reactive Protein, Quantitative 5.8H, Total Protein 6.9, Albumin 2.2L, Globulin 4.7, Albumin/Globulin Ratio 0.5L Height (Feet): 5 Height (Inches): 2.00 Weight (Pounds): 102 Objective Bedridden Woman NCAT CTA RR abd soft, (+) GT contractures Assessment/Plan Assessment/Plan: Assessment - Anemia, - ? chronic disease, - ? decline due to hydration - ? marow d/o (pacytopenia) - thrombocytopenia - improving - OBS - dysphagia, s/p PEG - decubitus ulcerations - contracted - HTN - cerebral aneuryms - Poor Px Recommendations - Transfuse PRN - Continue TF - check OB - ? Heme eval re platelets - elevate HOB - PPI - family discussion re level of care Mariajose Muhammad MD May 15, 2020 16:54
--- NOTE | 2020-05-15 18:37 | NUR ---
NURSE NOTES: SPOKE WITH DR GAN AND PLACEMENT OF PICC LINE WAS CLARIFIED, ACCORDING TO HIM PT NEED LONGTERM IV ANTIBIOTIC FOR 6 WEEKS, CURRENTLY WITH CENTRAL LINE TRIPLE LUMEN LEFT IJ. AND OKAY FOR PICC PLACEMENT.
[2020-05-15] MEDS ORDERED: Heparin1,000 units/500ml Premix(Conc:2 units/ml) IV PRN (18:45)
[2020-05-15] MEDS ORDERED: Lidocaine 1% Plain 30 ml INJ PRN (18:45)
--- NOTE | 2020-05-15 19:25 | NUR ---
NURSE HAND-OFF REPORT: Important Events on Shift:wound cleaning and dressing change done. Picc placement may happen tomorrow, still awaiting family's consent Patient Status: full code Diet: gtube Pending Orders: Pending Results/Labs: Pending MD notification: Latest Vital Signs: Temperature 98.1 , Pulse 114 , B/P 138 /86 , Respiratory Rate 18 , O2 SAT 100 , Nasal Cannula, O2 Flow Rate 2.0 . Vital Sign Comment: EKG Rhythm: Sinus Tachycardia Rhythm change?: N MD Notified?: N - MD Response: Latest Rivera Fall Score: 50 Fall Risk: High Risk Safety Measures: Call light Within Reach, Bed Alarm Zone 1, Side Rails Side Rails x2, Bed position Low and Locked. Fall Precautions: y Yellow Socks y Yellow Gown y Door Sign Patient Fall Education Report given to Reginald/ RN.
--- NOTE | 2020-05-15 19:51 | NUR ---
NURSE NOTES: Report received from Lisa CAZARES. Patient is noted to be awake and alert x 0. Patient is noted to have spontaneous eye opening. Patient is non verbal. Patient is noted to be on 2L of oxygen. Does not appear to be in respiratory distress at this time. Patient is noted not to have facial grimacing at this time, and is not moaning. Patient does not appear to be in pain. Was endorsed to Moshe CAZARES that Lisa CAZARES administered pain medication as ordered due to the patient moaning and showing signs of pain. Patient is noted to have G tube with with Glucerna 1.2 running at 40 cc/hr. Patient is noted to have triple lumen in left IJ with fluids running per MD orders. It is noted that patient has an order for PICC line placement. Was endorsed to Moshe CAZARES that daughter has been attempted to be contacted for the past two days with no answer. Consent is still needed at this time. Wound care was endorsed to Moshe CAZARES. Bed is locked, alarmed, and in lowest position. Will continue to follow plan of care.
[2020-05-15 20:00] VITALS: BP 123/79
[2020-05-15] MEDS: Dyna-Hex 2% Top Sol 2oz TOPIC SCH (20:00)
--- NOTE | 2020-05-15 23:41 | NUR ---
NURSE NOTES: Under "Shift mandatory Screen" intervention, it appears that the triple lumen catheter is documented to be placed in the right internal jugular vein. Upon assessment by Moshe CAZARES it is noted that the triple lumen catheter is placed in the left internal jugular vein. Documentation updated by Moshe CAZARES. Charge Nurse Maureen bloom.
[2020-05-16] VITALS: BP 131/85
[2020-05-16] MEDS: Vancomycin 500mg/D5W 110ml IVPB SCH ×6 (00:53→17:01)
[2020-05-16] MEDS: D5W w/KCl 20mEq 1,000 ML IV SCH ×2 (00:54→15:12)
--- NOTE | 2020-05-16 02:57 | NUR ---
NURSE NOTES: sponge bath given. All wound care done per MD orders. All dressings removed, wounds cleaned per MD orders, new dressings applied per MD orders.
[2020-05-16 04:00] VITALS: BP 140/88
[2020-05-16] MEDS: Meropenem 1 GM in NS 55 ML IVPB SCH ×3 (05:10→21:10)
[2020-05-16] MEDS: NovoLOG Insulin Flexpen SUBQ SCH ×4 (05:54→20:36)
--- NOTE | 2020-05-16 07:28 | NUR ---
NURSE HAND-OFF REPORT: Important Events on Shift: Patient was stable throughout the shift. continues to receive tube feeding without any issues. wound care preformed. wound care endorsed. patient requires PICC line, awaiting for daughter to call with consent. Patient Status: full code Diet: Glucerna 1.2 at 40 cc/hr Pending Orders: PICC placement Pending Results/Labs:none Pending MD notification:none Latest Vital Signs: Temperature 97.9 , Pulse 117 , B/P 140 /88 , Respiratory Rate 20 , O2 SAT 100 , Nasal Cannula, O2 Flow Rate 2.0 . Vital Sign Comment: within normal limits EKG Rhythm: Sinus Tachycardia Rhythm change?: N MD Notified?: N - MD Response: Latest Rivera Fall Score: 50 Fall Risk: High Risk Safety Measures: Call light Within Reach, Bed Alarm Zone 1, Side Rails Side Rails x2, Bed position Low and Locked. Fall Precautions: Yellow Socks Yellow Gown Door Sign Patient Fall Education Report given to Will CAZARES.
--- NOTE | 2020-05-16 07:54 | NUR ---
NURSE NOTES: Pt in bed in low position 3 rails up, bed alarm on, pt has no orientation d/t past CVA, pt is non-verbal, pt has several skin issues, mainly the sacral area stage 4 which was changed this morning needs to use therahoney and optifoam, also has bilateral ears and heels, pt ihas a left IJ [address], pt was repositioned, G-Tube was flushed with 30ml and had no residual, FLACC score was 0 no pain observed, no SOB or Distress noted.
[2020-05-16 08:27] VITALS: BP 135/85
[2020-05-16] MEDS ORDERED: Acetaminophen 650mg/20.3ml GT PRN (09:15)
[2020-05-16] MEDS: Ascorbic Acid 500mg tab GT SCH ×2 (09:32→17:30)
[2020-05-16] MEDS: Multivitamins W/Minerals 15 ML UDC GT SCH (09:33)
[2020-05-16] MEDS: Pantoprazole Inj IVP SCH ×2 (09:33→20:34)
[2020-05-16] MEDS: Zinc Sulfate 220mg GT SCH (09:33)
[2020-05-16] MEDS: HYDROcodone/Acetamin 10/325 tab GT PRN (09:46)
--- NOTE | 2020-05-16 09:54 | NUR ---
CASE MANAGEMENT:REVIEW 05/16/20 SI: BACTEREMIA. PNA . CHOLELITHIASIS . 97.9 120 20 135/85 100% ON 2L/NC IS: IV VANCOMYCIN Q8HRS IV MEROPENEM Q8HR IVF+KCL@75/HR IV PROTONIX Q12 : TELEMETRY STATUS DCP: FROM CENTER LINE PLAN: PICC LINE PLACEMENT PENDING
--- NOTE | 2020-05-16 10:05 | NUR ---
message left for daughter Caitlin Jean to call unit, need to get consent for PICC line placement.
--- NOTE | 2020-05-16 10:08 | Pulmonology Progress Note ---
Subjective ROS Limited/Unobtainable: Yes Interval Events: None new; off levophed; seen on tele Constitutional: Reports: fever, other - last night HEENT: Repors: no symptoms Respiratory: Reports: no symptoms Cardiovascular: Reports: no symptoms Gastrointestinal/Abdominal: Reports: no symptoms Allergies: Coded Allergies: No Known Allergies (Unverified , 05/06/20) Objective Last 24 Hour Vital Signs Date Time Temp Pulse Resp B/P (MAP) Pulse Ox O2 Delivery O2 Flow Rate FiO2 05/16/20 08:27 97.9 18 135/85 (102) 100 05/16/20 08:11 Nasal Cannula 2.0 05/16/20 04:00 117 05/16/20 04:00 97.9 120 20 140/88 (105) 100 05/16/20 00:00 101 05/16/20 00:00 97.9 112 22 131/85 (100) 96 05/15/20 21:00 Nasal Cannula 2.0 05/15/20 20:15 98 Nasal Cannula 2.0 28 05/15/20 20:00 97.7 110 20 123/79 (94) 99 05/15/20 20:00 76 05/15/20 16:00 127 05/15/20 16:00 98.1 114 18 138/86 (103) 100 05/15/20 12:00 98.8 113 18 132/84 (100) 100 05/15/20 12:00 111 Intake and Output 05/15/20 05/16/20 19:00 07:00 Intake Total 65 ml 545 ml Output Total 1100 ml Balance -1035 ml 545 ml Free Water 25 ml 50 ml IV Total 55 ml Tube Feeding 40 ml 440 ml Output Urine Total 1100 ml General Appearance: no acute distress HEENT: normocephalic Respiratory: chest wall non-tender, lungs clear Cardiovascular: normal peripheral pulses, normal rate Abdomen: normal bowel sounds Laboratory Tests 05/15/20 13:53: POC Whole Blood Glucose [Pending] 05/15/20 17:58: POC Whole Blood Glucose 185H 05/15/20 19:59: POC Whole Blood Glucose 175H 05/16/20 00:15: Vancomycin Level Trough 3.8L 05/16/20 05:26: POC Whole Blood Glucose 161H Current Medications Medications (Trade) Dose Ordered Sig/Renetta Route PRN Reason Start Time Stop Time Status Last Admin Dose Admin Acetaminophen (Tylenol) 650 mg Q4H PRN GT Mild Pain (Pain Scale 1-3) 05/16/20 09:05 06/15/20 09:04 Acetaminophen (Tylenol) 650 mg Q4H PRN GT Temp>=100.3 05/16/20 09:15 06/15/20 09:14 Acetaminophen/ Hydrocodone Bitart ([place] 10/325) 1 tab Q4H PRN GT Severe Pain (Pain Scale 7-10) 05/16/20 09:30 05/22/20 09:29 05/16/20 09:46 Acetaminophen/ Hydrocodone Bitart ([place] 5/325) 1 tab Q4H PRN GT Moderate Pain (Pain Scale 4-6) 05/16/20 09:30 05/22/20 09:29 Ascorbic Acid (Vitamin C) 250 mg TWICE A DAY GT 05/16/20 09:30 06/13/20 09:29 05/16/20 09:32 Chlorhexidine Gluconate (Yola-Hex 2%) 1 applic DAILY@2000 TOPIC 05/15/20 20:00 08/13/20 19:59 05/15/20 20:00 Dextrose (Dextrose 50%) 25 ml Q30M PRN IV Hypoglycemia 05/06/20 23:30 08/04/20 23:29 Dextrose (Dextrose 50%) 50 ml Q30M PRN IV Hypoglycemia 05/06/20 23:30 08/04/20 23:29 Dextrose/ Electrolytes 1,000 ml @ 75 mls/hr [id number] IV 05/11/20 14:00 06/10/20 13:59 05/16/20 00:54 Famotidine (Pepcid) 20 mg QHS GT 05/06/20 23:30 08/04/20 23:29 05/15/20 21:28 Heparin Sodium/ Sodium Chloride (Heparin 1000 units/500ml Premix) 1,000 unit ONCE PRN IV PICC LINE PLACEMENT 05/14/20 11:15 05/16/20 11:14 Heparin Sodium/ Sodium Chloride (Heparin 1000 units/500ml Premix) 1,000 unit ONCE PRN IV PICC LINE 05/15/20 18:45 05/16/20 18:00 Insulin Aspart (NovoLOG) BEFORE MEALS AND HS SUBQ 05/07/20 06:30 08/05/20 06:29 05/16/20 05:54 Lidocaine HCl (Xylocaine 1% 30ml) 30 ml ONCE PRN INJ PICC LINE PLACEMENT 05/14/20 11:15 05/16/20 11:14 Lidocaine HCl (Xylocaine 1% 30ml) 30 ml ONCE PRN INJ PICC LINE 05/15/20 18:45 05/16/20 18:00 Magnesium Hydroxide (Mom) 30 ml HSPRN PRN ORAL Constipation 05/06/20 23:30 06/05/20 23:29 Meropenem 1 gm/ Sodium Chloride 55 ml @ 110 mls/hr Q8HR IVPB 05/15/20 22:00 05/20/20 21:59 05/16/20 05:10 Multivitamins (Multivitamins W/ Minerals 15ml Liquid) 15 ml DAILY GT 05/16/20 09:30 06/15/20 09:29 05/16/20 09:33 Ondansetron HCl (Zofran) 4 mg Q6H PRN IVP Nausea & Vomiting 05/06/20 23:30 06/05/20 23:29 Pantoprazole (Protonix) 40 mg EVERY 12 HOURS IVP 05/12/20 00:00 06/11/20 00:00 05/16/20 09:33 Vancomycin HCl ([facility] pharmacy to dose) 1 ea DAILY PRN MISC Per rx protocol 05/14/20 11:15 06/13/20 11:14 Vancomycin HCl 500 mg/Dextrose 110 ml @ 110 mls/hr Q8HR@0100,0900,1700 IVPB 05/16/20 09:00 05/21/20 08:59 05/16/20 09:32 Zinc Sulfate (Zinc Sulfate) 220 mg DAILY GT 05/16/20 09:30 05/25/20 09:29 05/16/20 09:33 Assessment/Plan Assessment/Plan IMPRESSION: 1. Shock, suspect hypovolemic shock. Now resolved 2. Cannot exclude infectious process. 3. Chronic decubitus. 4. History of CVA. 5. Diabetes mellitus. DISCUSSION: continue abx Respiratory status is stable Now off pressors. I will follow carefully. Jarett Schilling Omar Syed MD May 16, 2020 10:08
--- NOTE | 2020-05-16 10:34 | Infectious Diseases Prog Note ---
Assessment/Plan Assessment/Plan IMPRESSION: Sepsis with septic shock, improving E. coli, Bacteroid sepsis Cholelithiasis, HIDA scan negative Acute pancreatitis. Chronic sacral osteomyelitis Diabetes mellitus with hyperglycemia, Acute renal failure, Acidosis, Elevated transaminase, Hypernatremia, Multiple pressure ulcer. 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 RECOMMENDATION: Continue Meropenem in hospital Continue Vancomycin X 39 days ESR in am Subjective ROS Limited/Unobtainable: Yes Constitutional: Denies: fever Allergies: Coded Allergies: No Known Allergies (Unverified , 05/06/20) Objective Last 24 Hour Vital Signs Date Time Temp Pulse Resp B/P (MAP) Pulse Ox O2 Delivery O2 Flow Rate FiO2 05/16/20 10:16 97.9 05/16/20 08:27 97.9 18 135/85 (102) 100 05/16/20 08:11 Nasal Cannula 2.0 05/16/20 04:00 117 05/16/20 04:00 97.9 120 20 140/88 (105) 100 05/16/20 00:00 101 05/16/20 00:00 97.9 112 22 131/85 (100) 96 05/15/20 21:00 Nasal Cannula 2.0 05/15/20 20:15 98 Nasal Cannula 2.0 28 05/15/20 20:00 97.7 110 20 123/79 (94) 99 05/15/20 20:00 76 05/15/20 16:00 127 05/15/20 16:00 98.1 114 18 138/86 (103) 100 05/15/20 12:00 98.8 113 18 132/84 (100) 100 05/15/20 12:00 111 Height (Feet): 5 Height (Inches): 2.00 Weight (Pounds): 102 HEENT: mucous membranes moist Respiratory/Chest: lungs clear, other - Oxygen by nasal cannula Cardiovascular: tachycardia, other - Left IJ central line Abdomen: soft, non tender, other - GT feeding Extremities: no edema Neurologic/Psychiatric: aphasia, other - opens eyes Laboratory Tests Test 05/15/20 13:53 05/15/20 17:58 05/15/20 19:59 05/16/20 00:15 POC Whole Blood Glucose Pending 185 MG/DL (74-106) H 175 MG/DL (74-106) H Vancomycin Level Trough 3.8 ug/mL (5.0-12.0) L Test 05/16/20 05:26 POC Whole Blood Glucose 161 MG/DL (74-106) H Current Medications Medications (Trade) Dose Ordered Sig/Renetta Route PRN Reason Start Time Stop Time Status Last Admin Dose Admin Acetaminophen (Tylenol) 650 mg Q4H PRN GT Mild Pain (Pain Scale 1-3) 05/16/20 09:05 06/15/20 09:04 Acetaminophen (Tylenol) 650 mg Q4H PRN GT Temp>=100.3 05/16/20 09:15 06/15/20 09:14 Acetaminophen/ Hydrocodone Bitart ([place] 10/325) 1 tab Q4H PRN GT Severe Pain (Pain Scale 7-10) 05/16/20 09:30 05/22/20 09:29 05/16/20 09:46 Acetaminophen/ Hydrocodone Bitart ([place] 5/325) 1 tab Q4H PRN GT Moderate Pain (Pain Scale 4-6) 05/16/20 09:30 05/22/20 09:29 Ascorbic Acid (Vitamin C) 250 mg TWICE A DAY GT 05/16/20 09:30 06/13/20 09:29 05/16/20 09:32 Chlorhexidine Gluconate (Yola-Hex 2%) 1 applic DAILY@2000 TOPIC 05/15/20 20:00 08/13/20 19:59 05/15/20 20:00 Dextrose (Dextrose 50%) 25 ml Q30M PRN IV Hypoglycemia 05/06/20 23:30 08/04/20 23:29 Dextrose (Dextrose 50%) 50 ml Q30M PRN IV Hypoglycemia 05/06/20 23:30 08/04/20 23:29 Dextrose/ Electrolytes 1,000 ml @ 75 mls/hr [id number] IV 05/11/20 14:00 06/10/20 13:59 05/16/20 00:54 Famotidine (Pepcid) 20 mg QHS GT 05/06/20 23:30 08/04/20 23:29 05/15/20 21:28 Heparin Sodium/ Sodium Chloride (Heparin 1000 units/500ml Premix) 1,000 unit ONCE PRN IV PICC LINE PLACEMENT 05/14/20 11:15 05/16/20 11:14 Heparin Sodium/ Sodium Chloride (Heparin 1000 units/500ml Premix) 1,000 unit ONCE PRN IV PICC LINE 05/15/20 18:45 05/16/20 18:00 Insulin Aspart (NovoLOG) BEFORE MEALS AND HS SUBQ 05/07/20 06:30 08/05/20 06:29 05/16/20 05:54 Lidocaine HCl (Xylocaine 1% 30ml) 30 ml ONCE PRN INJ PICC LINE PLACEMENT 05/14/20 11:15 05/16/20 11:14 Lidocaine HCl (Xylocaine 1% 30ml) 30 ml ONCE PRN INJ PICC LINE 05/15/20 18:45 05/16/20 18:00 Magnesium Hydroxide (Mom) 30 ml HSPRN PRN ORAL Constipation 05/06/20 23:30 06/05/20 23:29 Meropenem 1 gm/ Sodium Chloride 55 ml @ 110 mls/hr Q8HR IVPB 05/15/20 22:00 05/20/20 21:59 05/16/20 05:10 Multivitamins (Multivitamins W/ Minerals 15ml Liquid) 15 ml DAILY GT 05/16/20 09:30 06/15/20 09:29 05/16/20 09:33 Ondansetron HCl (Zofran) 4 mg Q6H PRN IVP Nausea & Vomiting 05/06/20 23:30 06/05/20 23:29 Pantoprazole (Protonix) 40 mg EVERY 12 HOURS IVP 05/12/20 00:00 06/11/20 00:00 05/16/20 09:33 Vancomycin HCl ([facility] pharmacy to dose) 1 ea DAILY PRN MISC Per rx protocol 05/14/20 11:15 06/13/20 11:14 Vancomycin HCl 500 mg/Dextrose 110 ml @ 110 mls/hr Q8HR@0100,0900,1700 IVPB 05/16/20 09:00 05/21/20 08:59 05/16/20 09:32 Zinc Sulfate (Zinc Sulfate) 220 mg DAILY GT 05/16/20 09:30 05/25/20 09:29 05/16/20 09:33 Peter Bales MD May 16, 2020 10:34
[2020-05-16 12:10] VITALS: BP 143/92
--- NOTE | 2020-05-16 12:30 | General Progress Note ---
Subjective Allergies: Coded Allergies: No Known Allergies (Unverified , 05/06/20) Subjective In NAD Objective Last 24 Hour Vital Signs Date Time Temp Pulse Resp B/P (MAP) Pulse Ox O2 Delivery O2 Flow Rate FiO2 05/16/20 10:16 97.9 05/16/20 08:27 97.9 18 135/85 (102) 100 05/16/20 08:11 Nasal Cannula 2.0 05/16/20 07:42 126 05/16/20 04:00 117 05/16/20 04:00 97.9 120 20 140/88 (105) 100 05/16/20 00:00 101 05/16/20 00:00 97.9 112 22 131/85 (100) 96 05/15/20 21:00 Nasal Cannula 2.0 05/15/20 20:15 98 Nasal Cannula 2.0 28 05/15/20 20:00 97.7 110 20 123/79 (94) 99 05/15/20 20:00 76 05/15/20 16:00 127 05/15/20 16:00 98.1 114 18 138/86 (103) 100 Intake and Output 05/15/20 05/16/20 19:00 07:00 Intake Total 65 ml 545 ml Output Total 1100 ml Balance -1035 ml 545 ml Free Water 25 ml 50 ml IV Total 55 ml Tube Feeding 40 ml 440 ml Output Urine Total 1100 ml Laboratory Tests 05/15/20 13:53: POC Whole Blood Glucose [Pending] 05/15/20 17:58: POC Whole Blood Glucose 185H 05/15/20 19:59: POC Whole Blood Glucose 175H 05/16/20 00:15: Vancomycin Level Trough 3.8L 05/16/20 05:26: POC Whole Blood Glucose 161H 05/16/20 11:44: POC Whole Blood Glucose 193H Height (Feet): 5 Height (Inches): 2.00 Weight (Pounds): 102 Cardiovascular: normal rate Respiratory/Chest: lungs clear Edema: no edema noted Generalized Assessment/Plan Problem List: (1) Pneumonia ICD Codes: J18.9 - Pneumonia, unspecified organism SNOMED: 483476810 (2) Sepsis ICD Codes: A41.9 - Sepsis, unspecified organism SNOMED: 26961266 (3) Diabetes ICD Codes: E11.9 - Type 2 diabetes mellitus without complications SNOMED: 26640359 (4) Hypernatremia Assessment & Plan: better ICD Codes: E87.0 - Hyperosmolality and hypernatremia SNOMED: 539295976 (5) Stage 4 skin ulcer of sacral region ICD Codes: L98.429 - Non-pressure chronic ulcer of back with unspecified severity SNOMED: 18602157, 192607580 (6) PEG (percutaneous endoscopic gastrostomy) adjustment/replacement/removal ICD Codes: Z43.1 - Encounter for attention to gastrostomy SNOMED: 758124327, 597306599 (7) Anemia Assessment & Plan: worse ICD Codes: D64.9 - Anemia, unspecified SNOMED: 360320074 (8) Thrombocytopenia ICD Codes: D69.6 - Thrombocytopenia, unspecified SNOMED: 906820629 (9) Osteomyelitis ICD Codes: M86.9 - Osteomyelitis, unspecified SNOMED: 96728134 Assessment/Plan: abxs res treatments follow labs Discussed with ID and RN Use central line as outpt for abxs possible Dc tomorrow Discussed with correctional case manager total time spent 34 min Navi Bales MD May 16, 2020 12:30
[2020-05-16] MEDS ORDERED: NS 275ml ONE (13:50)
[2020-05-16] MEDS ORDERED: Tubing IV Secondary IV ONE (13:50)
--- NOTE | 2020-05-16 15:30 | NUR ---
INSURANCE [employer]INICALS/REVIEW FAXED TO [facility]IL[facility] [phone]
[2020-05-16 16:00] VITALS: BP 113/78
--- NOTE | 2020-05-16 16:37 | NUR ---
*-*DISCHARGE PLANNING*-* PATIENT HAS BEEN REFERRED BACK TO: [facility] P: [phone]
--- NOTE | 2020-05-16 16:45 | NUR ---
*-*DISCHARGE PLANNING*-* PATIENT HAS BEEN REFERRED BACK TO: [facility] P: [phone] S/W KERRY, STATED SHE WILL FOLLOW UP TOMORROW 05/17/2020
--- NOTE | 2020-05-16 16:52 | Surgery Progress Note ---
Surgery Progress Note Subjective Additional Comments no acute events comfortable stable abx outpt planning Objective Last 24 Hour Vital Signs Date Time Temp Pulse Resp B/P (MAP) Pulse Ox O2 Delivery O2 Flow Rate FiO2 05/16/20 16:00 97.6 111 20 113/78 (90) 98 05/16/20 12:10 97.9 116 22 143/92 (109) 96 05/16/20 11:45 115 05/16/20 10:16 97.9 05/16/20 08:27 97.9 18 135/85 (102) 100 05/16/20 08:11 Nasal Cannula 2.0 05/16/20 07:42 126 05/16/20 04:00 117 05/16/20 04:00 97.9 120 20 140/88 (105) 100 05/16/20 00:00 101 05/16/20 00:00 97.9 112 22 131/85 (100) 96 05/15/20 21:00 Nasal Cannula 2.0 05/15/20 20:15 98 Nasal Cannula 2.0 28 05/15/20 20:00 97.7 110 20 123/79 (94) 99 05/15/20 20:00 76 I&O Intake and Output 05/15/20 05/16/20 19:00 07:00 Intake Total 65 ml 545 ml Output Total 1100 ml Balance -1035 ml 545 ml Free Water 25 ml 50 ml IV Total 55 ml Tube Feeding 40 ml 440 ml Output Urine Total 1100 ml Dressing: saturated Wound: clean Cardiovascular: RSR Respiratory: decreased breath sounds Abdomen: non-tender, present bowel sounds Extremities: no edema, no tenderness, no cyanosis Laboratory Tests Test 05/15/20 17:58 05/15/20 19:59 05/16/20 00:15 05/16/20 05:26 POC Whole Blood Glucose 185 MG/DL (74-106) H 175 MG/DL (74-106) H 161 MG/DL (74-106) H Vancomycin Level Trough 3.8 ug/mL (5.0-12.0) L Test 05/16/20 11:44 05/16/20 16:42 POC Whole Blood Glucose 193 MG/DL (74-106) H Pending Plan Problems: (1) Stage 4 skin ulcer of sacral region Assessment & Plan: PATIENT NON-VERBAL. FACIAL GRIMACES NOTED WHEN REPOSITIONING. UNABLE TO REPOSITION SELF. LEFT EAR-STAGE III PRESSURE ULCER MEASURES 3.5X1.0X0.2CM. WOUND BED PINK WITH NOTED SLOUGH. PERIWOUND SKIN DARK RED/PURPLE AND BRUISED. DRAINING SMALL AMOUNT SERO-SANGUINEOUS. RECOMMEND-CLEAN WITH SALINE. PAT DRY. APPLY THERAHONEY AND COVER WITH OPTIFOAM DRESSING. REPLACE DRESSING DAILY. RIGHT EAR- STAGE III PRESSURE ULCER MEASURES 0.5X0.6X0.2CM. WOUND BED PINK WITH NOTED SLOUGH. SMALL AMOUNT SERO-SANGUINEOUS DRAINAGE. RECOMMEND-CLEAN WITH SALINE, PAT DRY, APPLY THERAHONEY AND COVER WITH OPTIFOAM DRESSING. REPLACE DRESSING DAILY. LEFT MEDIAL HEEL- DTI MEASURES 1.7X1.5X0.2CM. NOTED AREA DARK PURPLE. NON- BLANCHABLE. RECOMMEND- APPLY SKIN PROTECTOR AND OPTIFOAM DRESSING. REPLACE DAILY AND PRN. ELEVATE HEELS WITH PILLOWS RIGHT MEDIAL FOOT- DTI 2.5X2.0X0.1CM NOTED AREA DARK PURPLE RECOMMEND- APPLY SKIN PROTECTOR AND OPTIFOAM DRESSING. REPLACE DAILY AND PRN. ELEVATE HEELS/FEET WITH PILLOWS. SACRUM- STAGE IV PRESSURE ULCER MEASURES 9.5X13.7X0.5CM. MODERATE AMOUNT SE ROSANGUINEOUS DRAINAGE. NO ODOR NOTED. BONE EXPOSURE WITH 40% SLOUGH AND 60% PINK GRANULATION TISSUE. AREA WITHIN WOUND BED DARK RED, POSSIBLE BRUISING. RECOMMEND-MD CONSULT. CLEAN WITH SALINE. PAT DRY. APPLY THERAHONEY AND COVER WITH GAUZE AND OPTIFOAM DRESSING. REPLACE DAILY. BHARAT MATTRESS(ALREADY IN PLACE). REPOSITION SIDE TO SIDE AT LEAST EVERY 2 HOURS OR TOLERATED Presumed ventricular peroneal shunt catheter, percutaneous gastrostomy tube and Pruitt catheter noted. Cholelithiasis noted nondistended, noninflamed appearing gallbladder. Nonobstructing small right intrarenal stones. 7 mm high-density ovoid focus interpolar aspect left kidney axial 57 may represent complex cyst with possibility of a solid lesion not excluded. Bilateral perinephric stranding slightly greater on the right is nonspecific, clinically correlate. No hydronephrosis. Destruction, deformity of the lower sacrum and coccyx with osseous erosion and overlying appearance of possible sacral decubitus pressure ulcer associated with presacral soft tissue thickening, stranding, edema with possibility of chronic osteomyelitis and soft tissue infection not excluded. (2) Heel ulcer (3) Ulcer of external ear (4) Pancreatitis Assessment & Plan: Patient identified to have elevated lipase levels upon admission. Etiology unknown work-up initiated Trend labs IV fluids urine output monitoring we will follow with recommendations hida negative us noted labs improved tf as tolerated okay for diet Gallbladder demonstrates gallstones. Gallbladder wall is borderline thickened, measuring just over 3 mm in diameter. Common bile duct is dilated, measuring 9 mm diameter. Sonographic Lockhart's sign could not be reported, patient noncommunicative. No intrahepatic biliary ductal dilatation. Liver demonstrates normal echogenicity, no focal abnormality. Portal vein and hepatic veins are patent. Pancreas is unremarkable. Spleen is unremarkable. Left kidney measures 10.3 cm in length. Right kidney measures 9.5 cm length. Both kidneys demonstrate normal echogenicity. There is no hydronephrosis. No focal abnormality . Abdominal aorta is partially obscured by bowel gas, visualized portions are non-aneurysmal . There is trace right pleural fluid. There is a very questionable poorly visualized cystic structure in the right lower quadrant Impression: Cholelithiasis. Borderline gallbladder wall thickening raises concern for acute cholecystitis. Consider further evaluation with hepatobiliary nuclear scan Right common bile duct. Downstream obstruction possibility. MRCP may be useful for better characterization Trace right pleural effusion Very questionable, poorly visualized if real, right lower quadrant cystic structure. Of uncertain significance. Consider CT to further characterize if clinically indicated (5) Transaminitis (6) Dehydration (7) Aneurysm (8) Diabetes (9) Hyperglycemia (10) Hypernatremia (11) Hypoxia (12) Sepsis (13) NSTEMI (non-ST elevated myocardial infarction) (14) PEG (percutaneous endoscopic gastrostomy) adjustment/replacement/removal (15) JESSICA (acute kidney injury) (16) CVA, old, hemiparesis (17) COVID-19 Lino Clark May 16, 2020 16:52
--- NOTE | 2020-05-16 19:22 | NUR ---
NURSE HAND-OFF REPORT: Important Events on Shift:Pt will be discharged back to SNF Patient Status: Diet: Pending Orders: Pending Results/Labs: Pending MD notification: Latest Vital Signs: Temperature 97.6 , Pulse 111 , B/P 113 /78 , Respiratory Rate 20 , O2 SAT 98 , Nasal Cannula, O2 Flow Rate 2.0 . Vital Sign Comment: EKG Rhythm: Sinus Tachycardia Rhythm change?: N MD Notified?: N - MD Response: Latest Rivera Fall Score: 50 Fall Risk: High Risk Safety Measures: Call light Within Reach, Bed Alarm Zone 1, Side Rails Side Rails x2, Bed position Low and Locked. Fall Precautions: Yellow Socks Yellow Gown Door Sign Patient Fall Education Report given to .
--- NOTE | 2020-05-16 19:29 | NUR ---
NURSE NOTES: Pt. received from SAGE Solis. Pt. nonverbal, eyes open upon touch, breathing even and unlabored on room air, no indications of respiratory distress, signs of pain and will follow up with active pain interventions. Left IJ triple lumen noted, dressing changed 05/16, dressings clean dry and intact. Gtube noted with glucerna running at 40cc/hr. Pruitt intact and draining yellow urine well. Bed low and locked, side rails x3 up, bed alarm active, and call light in reach.
[2020-05-16 20:00] VITALS: BP 131/81
[2020-05-16] MEDS: Acetaminophen 650mg/20.3ml GT PRN (20:34)
[2020-05-16] MEDS: Dyna-Hex 2% Top Sol 2oz TOPIC SCH (20:34)
--- NOTE | 2020-05-16 21:45 | NUR ---
NURSE NOTES: Wound care performed on bilateral ears, dressings applied. Dressings on bilateral heels and sacrum clean dry and intact.
--- NOTE | 2020-05-16 22:10 | General Progress Note ---
Subjective Allergies: Coded Allergies: No Known Allergies (Unverified , 05/06/20) Subjective Above noted non verbal tolerating TF Objective Last 24 Hour Vital Signs Date Time Temp Pulse Resp B/P (MAP) Pulse Ox O2 Delivery O2 Flow Rate FiO2 05/16/20 16:00 97.6 111 20 113/78 (90) 98 05/16/20 15:13 112 05/16/20 12:10 97.9 116 22 143/92 (109) 96 05/16/20 11:45 115 05/16/20 10:16 97.9 05/16/20 08:27 97.9 18 135/85 (102) 100 05/16/20 08:11 Nasal Cannula 2.0 05/16/20 07:42 126 05/16/20 04:00 117 05/16/20 04:00 97.9 120 20 140/88 (105) 100 05/16/20 00:00 101 05/16/20 00:00 97.9 112 22 131/85 (100) 96 Intake and Output 05/15/20 05/16/20 19:00 07:00 Intake Total 65 ml 635 ml Output Total 1100 ml Balance -1035 ml 635 ml Free Water 25 ml 100 ml IV Total 55 ml Tube Feeding 40 ml 480 ml Output Urine Total 1100 ml Laboratory Tests 05/16/20 00:15: Vancomycin Level Trough 3.8L 05/16/20 05:26: POC Whole Blood Glucose 161H 05/16/20 11:44: POC Whole Blood Glucose 193H 05/16/20 16:42: POC Whole Blood Glucose [Pending] 05/16/20 20:29: POC Whole Blood Glucose 157H Height (Feet): 5 Height (Inches): 2.00 Weight (Pounds): 102 Objective Bedridden Woman NCAT CTA RR abd soft, (+) GT contractures Assessment/Plan Assessment/Plan: Assessment - Anemia, - ? chronic disease, - ? decline due to hydration - ? marow d/o (pacytopenia) - thrombocytopenia - improving - OBS - dysphagia, s/p PEG - decubitus ulcerations - contracted - HTN - cerebral aneuryms - Poor Px Recommendations - Transfuse PRN - Continue TF - check OB - elevate HOB - PPI - family discussion re level of care Mariajose Muhammad MD May 16, 2020 22:10
[2020-05-17] VITALS: BP 130/88
[2020-05-17] MEDS: Vancomycin 500mg/D5W 110ml IVPB SCH ×2 (00:11)
[2020-05-17] MEDS: D5W w/KCl 20mEq 1,000 ML IV SCH ×2 (03:10→16:10)
[2020-05-17 04:00] VITALS: BP 116/84
--- NOTE | 2020-05-17 05:20 | NUR ---
NURSE NOTES: Wound care performed on bilateral heels and feet, dressings changed, SCDs continued.
[2020-05-17] MEDS: Meropenem 1 GM in NS 55 ML IVPB SCH ×3 (05:27→21:50)
[2020-05-17] MEDS: NovoLOG Insulin Flexpen SUBQ SCH ×4 (06:16→20:49)
--- NOTE | 2020-05-17 06:20 | NUR ---
NURSE NOTES: Perineal care provided, sacral wound care performed and dressing changed. Moderate drainage noted, small serosanguineous bleeding.
--- NOTE | 2020-05-17 07:10 | NUR ---
NURSE NOTES: Received Pt report from SAGE Gonzalez. Pt is bedbound and nonverbal. Pt is stable on RA, breathing is even and unlabored. no s/s or complaints of distress at this time. L IJ triple lumen noted, running fluids at 75cc, asymptomatic and intact, dressing clean and dry. Gtube noted running Glucerna 1.2 at 40cc, no residual. Pruitt intact and draining to gravity clear yellow urine. horser up on. Sacral wound stage 4, bilateral ear stage 3, R inner foot DTI and bilateral heel boggy and red. Bed low and locked, side rails x3 up, bed alarm active, and call light in reach.
--- NOTE | 2020-05-17 07:21 | NUR ---
NURSE HAND-OFF REPORT: Important Events on Shift:[wound care provided and dressings changed] Patient Status: eyes open to light touch Diet: glucerna at 40cc Pending Orders: na Pending Results/Labs:na Pending MD notification:na Latest Vital Signs: Temperature 99.0 , Pulse 110 , B/P 116 /84 , Respiratory Rate 20 , O2 SAT 97 , Room Air, O2 Flow Rate 2.0 . Vital Sign Comment: stable EKG Rhythm: Sinus Tachycardia Rhythm change?: N MD Notified?: N - MD Response: Latest Rivera Fall Score: 50 Fall Risk: High Risk Safety Measures: Call light Within Reach, Bed Alarm Zone 1, Side Rails Side Rails x2, Bed position Low and Locked. Fall Precautions: Yellow Socks Yellow Gown Door Sign Patient Fall Education Report given to SAGE Perez.
[2020-05-17 08:00] VITALS: BP 151/122
--- NOTE | 2020-05-17 08:52 | NUR ---
RD ASSESSMENT & RECOMMENDATIONS SEE CARE ACTIVITY FOR COMPLETE ASSESSMENT DAILY ESTIMATED NEEDS: Needs based on Wound, 46.4kg 30-35 kcals/kg 9753-8229 total kcals 1.5-2 g protein/kg 69-93 g total protein 25-35ml/kcal mL/kg 5037-0667 total fluid mLs NUTRITION DIAGNOSIS: Increased kcal and pro needs r/t wound healing as evidenced by multiple wounds, including stage 4 sacral wound, stage 3 wounds @ lt ear and rt ear, DTI @ lt medial heel and rt medial foot. CURRENT TF:Glucerna 1.2 @ 40ml/hr x 24 hrs ENTERAL NUTRITION RECOMMENDATIONS: Glucerna 1.2 @ 50ml/hr x 24 hrs to provide 1200ml, 1440 kcal, 72g pro, 966ml free H2O - With tolerance, increase goal rate to 50ml/hr x 24 hrs to meet 100% est kcal/prot needs - Flush per MD/ HOB over 30 degrees. ADDITIONAL RECOMMENDATIONS: 1) Recalibrate bed scale for accurate daily wts 2) Wound healing: add Vit C 500mg BID + ZnSO4 220mg QD x 10 days Cuauhtemoc BID via PEG 3) DC D5 IVF, increase water flushes instead for improved BG control BGs in the 200's and 300's-> now improved 4) Rec long acting insulin for improved BG control 5) Monitor lipase and TF tolerance: Lipase trending down.
[2020-05-17] MEDS: Multivitamins W/Minerals 15 ML UDC GT SCH (09:05)
[2020-05-17] MEDS: Pantoprazole Inj IVP SCH ×2 (09:05→20:45)
[2020-05-17] MEDS: Zinc Sulfate 220mg GT SCH (09:06)
[2020-05-17] MEDS: Ascorbic Acid 500mg tab GT SCH ×2 (09:06→17:42)
[2020-05-17] MEDS: HYDROcodone/Acetamin 5/325 tab GT PRN ×3 (09:07→20:46)
--- NOTE | 2020-05-17 09:20 | NUR ---
NURSE NOTES: BP rechecked 125/86. RR 19, HR 119, spO2 97% on RA.
--- NOTE | 2020-05-17 10:50 | Infectious Diseases Prog Note ---
Assessment/Plan Assessment/Plan IMPRESSION: Sepsis with septic shock, improving E. coli, Bacteroid sepsis Cholelithiasis, HIDA scan negative Acute pancreatitis. Chronic sacral osteomyelitis Diabetes mellitus with hyperglycemia, Acute renal failure, Acidosis, Elevated transaminase, Hypernatremia, Multiple pressure ulcer. 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 RECOMMENDATION: Continue Meropenem in hospital Continue Vancomycin X 38 days Subjective ROS Limited/Unobtainable: Yes Constitutional: Denies: fever Allergies: Coded Allergies: No Known Allergies (Unverified , 05/06/20) Objective Last 24 Hour Vital Signs Date Time Temp Pulse Resp B/P (MAP) Pulse Ox O2 Delivery O2 Flow Rate FiO2 05/17/20 09:38 99.0 05/17/20 09:00 Room Air 05/17/20 08:00 99.0 128 19 151/122 (132) 97 05/17/20 08:00 127 05/17/20 04:00 99.0 110 20 116/84 (95) 97 05/17/20 04:00 99 05/17/20 00:00 98.8 105 20 130/88 (102) 99 05/17/20 00:00 105 05/16/20 21:00 Room Air 05/16/20 20:00 98.2 117 20 131/81 (98) 98 05/16/20 20:00 117 05/16/20 16:00 97.6 111 20 113/78 (90) 98 05/16/20 15:13 112 05/16/20 12:10 97.9 116 22 143/92 (109) 96 05/16/20 11:45 115 Height (Feet): 5 Height (Inches): 2.00 Weight (Pounds): 102 HEENT: mucous membranes moist Respiratory/Chest: lungs clear Cardiovascular: tachycardia, other - left IJ central line Abdomen: soft, non tender, other - GT feeding Skin: ulcers Neurologic/Psychiatric: aphasia Laboratory Tests Test 05/16/20 11:44 05/16/20 16:42 05/16/20 20:29 05/17/20 05:47 POC Whole Blood Glucose 193 MG/DL (74-106) H Pending 157 MG/DL (74-106) H 150 MG/DL (74-106) H Test 05/17/20 08:00 Erythrocyte Sedimentation Rate 115 MM/HR (0-30) H Vancomycin Level Trough 7.7 ug/mL (5.0-12.0) Current Medications Medications (Trade) Dose Ordered Sig/Renetta Route PRN Reason Start Time Stop Time Status Last Admin Dose Admin Acetaminophen (Tylenol) 650 mg Q4H PRN GT Mild Pain (Pain Scale 1-3) 05/16/20 09:05 06/15/20 09:04 05/16/20 20:34 Acetaminophen (Tylenol) 650 mg Q4H PRN GT Temp>=100.3 05/16/20 09:15 06/15/20 09:14 Acetaminophen/ Hydrocodone Bitart ([place] 10/325) 1 tab Q4H PRN GT Severe Pain (Pain Scale 7-10) 05/16/20 09:30 05/22/20 09:29 05/16/20 09:46 Acetaminophen/ Hydrocodone Bitart ([place] 5/325) 1 tab Q4H PRN GT Moderate Pain (Pain Scale 4-6) 05/16/20 09:30 05/22/20 09:29 05/17/20 09:07 Ascorbic Acid (Vitamin C) 250 mg TWICE A DAY GT 05/16/20 09:30 06/13/20 09:29 05/17/20 09:06 Chlorhexidine Gluconate (Yola-Hex 2%) 1 applic DAILY@2000 TOPIC 05/15/20 20:00 08/13/20 19:59 05/16/20 20:34 Dextrose (Dextrose 50%) 25 ml Q30M PRN IV Hypoglycemia 05/06/20 23:30 08/04/20 23:29 Dextrose (Dextrose 50%) 50 ml Q30M PRN IV Hypoglycemia 05/06/20 23:30 08/04/20 23:29 Dextrose/ Electrolytes 1,000 ml @ 75 mls/hr [id number] IV 05/11/20 14:00 06/10/20 13:59 05/17/20 03:10 Famotidine (Pepcid) 20 mg QHS GT 05/06/20 23:30 08/04/20 23:29 05/16/20 20:34 Insulin Aspart (NovoLOG) BEFORE MEALS AND HS SUBQ 05/07/20 06:30 08/05/20 06:29 05/17/20 06:16 Magnesium Hydroxide (Mom) 30 ml HSPRN PRN ORAL Constipation 05/06/20 23:30 06/05/20 23:29 Meropenem 1 gm/ Sodium Chloride 55 ml @ 110 mls/hr Q8HR IVPB 05/15/20 22:00 05/20/20 21:59 05/17/20 05:27 Multivitamins (Multivitamins W/ Minerals 15ml Liquid) 15 ml DAILY GT 05/16/20 09:30 06/15/20 09:29 05/17/20 09:05 Ondansetron HCl (Zofran) 4 mg Q6H PRN IVP Nausea & Vomiting 05/06/20 23:30 06/05/20 23:29 Pantoprazole (Protonix) 40 mg EVERY 12 HOURS IVP 05/12/20 00:00 06/11/20 00:00 05/17/20 09:05 Vancomycin HCl (Vanco pharmacy to dose) 1 ea DAILY PRN MISC Per rx protocol 05/14/20 11:15 06/13/20 11:14 Vancomycin HCl 750 mg/Sodium Chloride 250 ml @ 166.667 mls/hr Q8H IVPB 05/17/20 11:00 05/22/20 10:59 Zinc Sulfate (Zinc Sulfate) 220 mg DAILY GT 05/16/20 09:30 05/25/20 09:29 05/17/20 09:06 Peter Bales MD May 17, 2020 10:50
--- NOTE | 2020-05-17 10:57 | Pulmonology Progress Note ---
Subjective ROS Limited/Unobtainable: Yes Interval Events: None new; off levophed; seen on tele Constitutional: Denies: fever HEENT: Repors: no symptoms Respiratory: Reports: no symptoms Cardiovascular: Reports: no symptoms Gastrointestinal/Abdominal: Reports: no symptoms Allergies: Coded Allergies: No Known Allergies (Unverified , 05/06/20) Objective Last 24 Hour Vital Signs Date Time Temp Pulse Resp B/P (MAP) Pulse Ox O2 Delivery O2 Flow Rate FiO2 05/17/20 09:38 99.0 05/17/20 09:00 Room Air 05/17/20 08:00 99.0 128 19 151/122 (132) 97 05/17/20 08:00 127 05/17/20 04:00 99.0 110 20 116/84 (95) 97 05/17/20 04:00 99 05/17/20 00:00 98.8 105 20 130/88 (102) 99 05/17/20 00:00 105 05/16/20 21:00 Room Air 05/16/20 20:00 98.2 117 20 131/81 (98) 98 05/16/20 20:00 117 05/16/20 16:00 97.6 111 20 113/78 (90) 98 05/16/20 15:13 112 05/16/20 12:10 97.9 116 22 143/92 (109) 96 05/16/20 11:45 115 Intake and Output 05/16/20 05/17/20 19:00 07:00 Intake Total 500 ml 1390 ml Output Total 1000 ml Balance 500 ml 390 ml Free Water 100 ml 75 ml IV Total 915 ml Tube Feeding 400 ml 400 ml Output Urine Total 1000 ml # Voids 1 General Appearance: no acute distress HEENT: normocephalic Respiratory: chest wall non-tender, lungs clear Cardiovascular: normal peripheral pulses, normal rate Abdomen: normal bowel sounds Laboratory Tests 05/16/20 11:44: POC Whole Blood Glucose 193H 05/16/20 16:42: POC Whole Blood Glucose [Pending] 05/16/20 20:29: POC Whole Blood Glucose 157H 05/17/20 05:47: POC Whole Blood Glucose 150H 05/17/20 08:00: Erythrocyte Sedimentation Rate 115H, Vancomycin Level Trough 7.7 Current Medications Medications (Trade) Dose Ordered Sig/Renetta Route PRN Reason Start Time Stop Time Status Last Admin Dose Admin Acetaminophen (Tylenol) 650 mg Q4H PRN GT Mild Pain (Pain Scale 1-3) 05/16/20 09:05 06/15/20 09:04 05/16/20 20:34 Acetaminophen (Tylenol) 650 mg Q4H PRN GT Temp>=100.3 05/16/20 09:15 06/15/20 09:14 Acetaminophen/ Hydrocodone Bitart ([place] 10/325) 1 tab Q4H PRN GT Severe Pain (Pain Scale 7-10) 05/16/20 09:30 05/22/20 09:29 05/16/20 09:46 Acetaminophen/ Hydrocodone Bitart ([place] 5/325) 1 tab Q4H PRN GT Moderate Pain (Pain Scale 4-6) 05/16/20 09:30 05/22/20 09:29 05/17/20 09:07 Ascorbic Acid (Vitamin C) 250 mg TWICE A DAY GT 05/16/20 09:30 06/13/20 09:29 05/17/20 09:06 Chlorhexidine Gluconate (Yola-Hex 2%) 1 applic DAILY@2000 TOPIC 05/15/20 20:00 08/13/20 19:59 05/16/20 20:34 Dextrose (Dextrose 50%) 25 ml Q30M PRN IV Hypoglycemia 05/06/20 23:30 08/04/20 23:29 Dextrose (Dextrose 50%) 50 ml Q30M PRN IV Hypoglycemia 05/06/20 23:30 08/04/20 23:29 Dextrose/ Electrolytes 1,000 ml @ 75 mls/hr [id number] IV 05/11/20 14:00 06/10/20 13:59 05/17/20 03:10 Famotidine (Pepcid) 20 mg QHS GT 05/06/20 23:30 08/04/20 23:29 05/16/20 20:34 Insulin Aspart (NovoLOG) BEFORE MEALS AND HS SUBQ 05/07/20 06:30 08/05/20 06:29 05/17/20 06:16 Magnesium Hydroxide (Mom) 30 ml HSPRN PRN ORAL Constipation 05/06/20 23:30 06/05/20 23:29 Meropenem 1 gm/ Sodium Chloride 55 ml @ 110 mls/hr Q8HR IVPB 05/15/20 22:00 05/20/20 21:59 05/17/20 05:27 Multivitamins (Multivitamins W/ Minerals 15ml Liquid) 15 ml DAILY GT 05/16/20 09:30 06/15/20 09:29 05/17/20 09:05 Ondansetron HCl (Zofran) 4 mg Q6H PRN IVP Nausea & Vomiting 05/06/20 23:30 06/05/20 23:29 Pantoprazole (Protonix) 40 mg EVERY 12 HOURS IVP 05/12/20 00:00 06/11/20 00:00 05/17/20 09:05 Vancomycin HCl (Vanco pharmacy to dose) 1 ea DAILY PRN MISC Per rx protocol 05/14/20 11:15 06/13/20 11:14 Vancomycin HCl 750 mg/Sodium Chloride 250 ml @ 166.667 mls/hr Q8H IVPB 05/17/20 11:00 05/22/20 10:59 Zinc Sulfate (Zinc Sulfate) 220 mg DAILY GT 05/16/20 09:30 05/25/20 09:29 05/17/20 09:06 Assessment/Plan Assessment/Plan IMPRESSION: 1. Shock, suspect hypovolemic shock. Now resolved 2. Cannot exclude infectious process. 3. Chronic decubitus. 4. History of CVA. 5. Diabetes mellitus. DISCUSSION: continue abx Respiratory status is stable Now off pressors. I will follow carefully. Jarett Schilling Omar Syed MD May 17, 2020 10:57
--- NOTE | 2020-05-17 11:39 | Surgery Progress Note ---
Surgery Progress Note Subjective Additional Comments esr elevated afebrile comfortable appearing no n/v Objective Last 24 Hour Vital Signs Date Time Temp Pulse Resp B/P (MAP) Pulse Ox O2 Delivery O2 Flow Rate FiO2 05/17/20 09:38 99.0 05/17/20 09:00 Room Air 05/17/20 08:00 99.0 128 19 151/122 (132) 97 05/17/20 08:00 127 05/17/20 04:00 99.0 110 20 116/84 (95) 97 05/17/20 04:00 99 05/17/20 00:00 98.8 105 20 130/88 (102) 99 05/17/20 00:00 105 05/16/20 21:00 Room Air 05/16/20 20:00 98.2 117 20 131/81 (98) 98 05/16/20 20:00 117 05/16/20 16:00 97.6 111 20 113/78 (90) 98 05/16/20 15:13 112 05/16/20 12:10 97.9 116 22 143/92 (109) 96 05/16/20 11:45 115 I&O Intake and Output 05/16/20 05/17/20 19:00 07:00 Intake Total 500 ml 1390 ml Output Total 1000 ml Balance 500 ml 390 ml Free Water 100 ml 75 ml IV Total 915 ml Tube Feeding 400 ml 400 ml Output Urine Total 1000 ml # Voids 1 Dressing: saturated Cardiovascular: RSR Respiratory: decreased breath sounds Abdomen: soft, non-tender, present bowel sounds Extremities: no tenderness, no cyanosis Laboratory Tests Test 05/16/20 11:44 05/16/20 16:42 05/16/20 20:29 05/17/20 05:47 POC Whole Blood Glucose 193 MG/DL (74-106) H Pending 157 MG/DL (74-106) H 150 MG/DL (74-106) H Test 05/17/20 08:00 05/17/20 11:22 Erythrocyte Sedimentation Rate 115 MM/HR (0-30) H Vancomycin Level Trough 7.7 ug/mL (5.0-12.0) POC Whole Blood Glucose 180 MG/DL (74-106) H Plan Problems: (1) Stage 4 skin ulcer of sacral region Assessment & Plan: PATIENT NON-VERBAL. FACIAL GRIMACES NOTED WHEN R EPOSITIONING. UNABLE TO REPOSITION SELF. LEFT EAR-STAGE III PRESSURE ULCER MEASURES 3.5X1.0X0.2CM. WOUND BED PINK WITH NOTED SLOUGH. PERIWOUND SKIN DARK RED/PURPLE AND BRUISED. DRAINING SMALL AMOUNT SERO-SANGUINEOUS. RECOMMEND-CLEAN WITH SALINE. PAT DRY. APPLY THERAHONEY AND COVER WITH OPTIFOAM DRESSING. REPLACE DRESSING DAILY. RIGHT EAR- STAGE III PRESSURE ULCER MEASURES 0.5X0.6X0.2CM. WOUND BED PINK WITH NOTED SLOUGH. SMALL AMOUNT SERO-SANGUINEOUS DRAINAGE. RECOMMEND-CLEAN WITH SALINE, PAT DRY, APPLY THERAHONEY AND COVER WITH OPTIFOAM DRESSING. REPLACE DRESSING DAILY. LEFT MEDIAL HEEL- DTI MEASURES 1.7X1.5X0.2CM. NOTED AREA DARK PURPLE. NON- BLANCHABLE. RECOMMEND- APPLY SKIN PROTECTOR AND OPTIFOAM DRESSING. REPLACE DAILY AND PRN. ELEVATE HEELS WITH PILLOWS RIGHT MEDIAL FOOT- DTI 2.5X2.0X0.1CM NOTED AREA DARK PURPLE RECOMMEND- APPLY SKIN PROTECTOR AND OPTIFOAM DRESSING. REPLACE DAILY AND PRN. ELEVATE HEELS/FEET WITH PILLOWS. SACRUM- STAGE IV PRESSURE ULCER MEASURES 9.5X13.7X0.5CM. MODERATE AMOUNT SERO SANGUINEOUS DRAINAGE. NO ODOR NOTED. BONE EXPOSURE WITH 40% SLOUGH AND 60% PINK GRANULATION TISSUE. AREA WITHIN WOUND BED DARK RED, POSSIBLE BRUISING. RECOMMEND-MD CONSULT. CLEAN WITH SALINE. PAT DRY. APPLY THERAHONEY AND COVER WITH GAUZE AND OPTIFOAM DRESSING. REPLACE DAILY. BHARAT MATTRESS(ALREADY IN PLACE). REPOSITION SIDE TO SIDE AT LEAST EVERY 2 HOURS OR TOLERATED Presumed ventricular peroneal shunt catheter, percutaneous gastrostomy tube and Pruitt catheter noted. Cholelithiasis noted nondistended, noninflamed appearing gallbladder. Nonobstructing small right intrarenal stones. 7 mm high-density ovoid focus interpolar aspect left kidney axial 57 may represent complex cyst with possibility of a solid lesion not excluded. Bilateral perinephric stranding slightly greater on the right is nonspecific, clinically correlate. No hydronephrosis. Destruction, deformity of the lower sacrum and coccyx with osseous erosion and overlying appearance of possible sacral decubitus pressure ulcer associated with presacral soft tissue thickening, stranding, edema with possibility of chronic osteomyelitis and soft tissue infection not excluded. (2) Heel ulcer (3) Ulcer of external ear (4) Pancreatitis Assessment & Plan: Patient identified to have elevated lipase levels upon admission. Etiology unknown work-up initiated Trend labs IV fluids urine output monitoring we will follow with recommendations hida negative us noted labs improved tf as tolerated okay for diet Gallbladder demonstrates gallstones. Gallbladder wall is borderline thickened, measuring just over 3 mm in diameter. Common bile duct is dilated, measuring 9 mm diameter. Sonographic Lockhart's sign could not be reported, patient noncommunicative. No intrahepatic biliary ductal dilatation. Liver demonstrates normal echogenicity, no focal abnormality. Portal vein and hepatic veins are patent. Pancreas is unremarkable. Spleen is unremarkable. Left kidney measures 10.3 cm in length. Right kidney measures 9.5 cm length. Both kidneys demonstrate normal echogenicity. There is no hydronephrosis. No focal abnormality . Abdominal aorta is partially obscured by bowel gas, visualized portions are non-aneurysmal . There is trace right pleural fluid. There is a very questionable poorly visualized cystic structure in the right lower quadrant Impression: Cholelithiasis. Borderline gallbladder wall thickening raises concern for acute cholecystitis. Consider further evaluation with hepatobiliary nuclear scan Right common bile duct. Downstream obstruction possibility. MRCP may be useful for better characterization Trace right pleural effusion Very questionable, poorly visualized if real, right lower quadrant cystic structure. Of uncertain significance. Consider CT to further characterize if clinically indicated DAILY ESTIMATED NEEDS: Needs based on Wound, 46.4kg 30-35 kcals/kg 5171-5236 total kcals 1.5-2 g protein/kg 69-93 g total protein 25-35ml/kcal mL/kg 6530-5287 total fluid mLs NUTRITION DIAGNOSIS: Increased kcal and pro needs r/t wound healing as evidenced by multiple wounds, including stage 4 sacral wound, stage 3 wounds @ lt ear and rt ear, DTI @ lt medial heel and rt medial foot. CURRENT TF:Glucerna 1.2 @ 40ml/hr x 24 hrs ENTERAL NUTRITION RECOMMENDATIONS: Glucerna 1.2 @ 50ml/hr x 24 hrs to provide 1200ml, 1440 kcal, 72g pro, 966ml free H2O - With tolerance, increase goal rate to 50ml/hr x 24 hrs to meet 100% est kcal/prot needs - Flush per MD/ HOB over 30 degrees. ADDITIONAL RECOMMENDATIONS: 1) Recalibrate bed scale for accurate daily wts 2) Wound healing: add Vit C 500mg BID + ZnSO4 220mg QD x 10 days Cuauhtemoc BID via PEG 3) DC D5 IVF, increase water flushes instead for improved BG control BGs in the 200's and 300's-> now improved 4) Rec long acting insulin for improved BG control 5) Monitor lipase and TF tolerance: Lipase trending down. (5) Transaminitis (6) Dehydration (7) Aneurysm (8) Diabetes (9) Hyperglycemia (10) Hypernatremia (11) Hypoxia (12) Sepsis (13) NSTEMI (non-ST elevated myocardial infarction) (14) PEG (percutaneous endoscopic gastrostomy) adjustment/replacement/removal (15) JESSICA (acute kidney injury) (16) CVA, old, hemiparesis (17) COVID-19 Lino Clark May 17, 2020 11:38
[2020-05-17 12:00] VITALS: BP 120/78
--- NOTE | 2020-05-17 12:18 | General Progress Note ---
Subjective Allergies: Coded Allergies: No Known Allergies (Unverified , 05/06/20) Subjective In NAD Objective Last 24 Hour Vital Signs Date Time Temp Pulse Resp B/P (MAP) Pulse Ox O2 Delivery O2 Flow Rate FiO2 05/17/20 09:38 99.0 05/17/20 09:00 Room Air 05/17/20 08:00 99.0 128 19 151/122 (132) 97 05/17/20 08:00 127 05/17/20 04:00 99.0 110 20 116/84 (95) 97 05/17/20 04:00 99 05/17/20 00:00 98.8 105 20 130/88 (102) 99 05/17/20 00:00 105 05/16/20 21:00 Room Air 05/16/20 20:00 98.2 117 20 131/81 (98) 98 05/16/20 20:00 117 05/16/20 16:00 97.6 111 20 113/78 (90) 98 05/16/20 15:13 112 Intake and Output 05/16/20 05/17/20 19:00 07:00 Intake Total 500 ml 1390 ml Output Total 1000 ml Balance 500 ml 390 ml Free Water 100 ml 75 ml IV Total 915 ml Tube Feeding 400 ml 400 ml Output Urine Total 1000 ml # Voids 1 Laboratory Tests 05/16/20 16:42: POC Whole Blood Glucose [Pending] 05/16/20 20:29: POC Whole Blood Glucose 157H 05/17/20 05:47: POC Whole Blood Glucose 150H 05/17/20 08:00: Erythrocyte Sedimentation Rate 115H, Vancomycin Level Trough 7.7 05/17/20 11:22: POC Whole Blood Glucose 180H Height (Feet): 5 Height (Inches): 2.00 Weight (Pounds): 102 Cardiovascular: normal rate Respiratory/Chest: lungs clear Assessment/Plan Problem List: (1) Pneumonia ICD Codes: J18.9 - Pneumonia, unspecified organism SNOMED: 220967858 (2) Sepsis ICD Codes: A41.9 - Sepsis, unspecified organism SNOMED: 14970270 (3) Diabetes ICD Codes: E11.9 - Type 2 diabetes mellitus without complications SNOMED: 13474504 (4) Hypernatremia Assessment & Plan: better ICD Codes: E87.0 - Hyperosmolality and hypernatremia SNOMED: 443078491 (5) Stage 4 skin ulcer of sacral region ICD Codes: L98.429 - Non-pressure chronic ulcer of back with unspecified severity SNOMED: 09438502, 785424033 (6) PEG (percutaneous endoscopic gastrostomy) adjustment/replacement/removal ICD Codes: Z43.1 - Encounter for attention to gastrostomy SNOMED: 583295119, 546885597 (7) Anemia Assessment & Plan: worse ICD Codes: D64.9 - Anemia, unspecified SNOMED: 928976452 (8) Thrombocytopenia ICD Codes: D69.6 - Thrombocytopenia, unspecified SNOMED: 533790241 (9) Osteomyelitis ICD Codes: M86.9 - Osteomyelitis, unspecified SNOMED: 84773937 Assessment/Plan: abxs res treatments follow labs Discussed with ID and RN Use central line as outpt for abxs Discussed with case preparer and liner Dc today total time spent 34 min Navi Bales MD May 17, 2020 12:18
[2020-05-17] MEDS ORDERED: VANCOMYCIN1.25 GM/23 IV (12:29)
--- NOTE | 2020-05-17 12:52 | NUR ---
CASE MANAGEMENT:REVIEW 05/17/20 SI: BACTEREMIA. PNA . CHOLELITHIASIS . 99.3 105 20 120/78 99% ON RA IS: IV VANCOMYCIN Q12HRS IV MEROPENEM Q8HR IVF+@75/HR IV PROTONIX Q12 : TELEMETRY STATUS DCP: FROM [facility] PLAN: DISCHARGE BACK TO [facility] AND CONTINUE IV ANTIBIOTICS PLAN: PICC LINE PLACEMENT PENDING
--- NOTE | 2020-05-17 13:02 | NUR ---
DISCHARGE PLANNING FAXED COVID RESULTS TO [facility] FOR ASSIGNED ROOM NUMBER
--- NOTE | 2020-05-17 14:30 | NUR ---
NURSE NOTES: Pt wound care done. Pt given pain medication prior to wound care. Pt bilateral ears stage 3, L ear with some clear drainage. Covered with optifoam and terahoney applied. Bilateral inner foot DTI, no drainage, purple/brown dry. Terahoney applied and covered with optifoam. Sacral stage 4 draining serosanguineous and bright red blood. Cleaned with saline spray, dried with gauze, terahoney applied and covered with 2 large optifoams. Added preventive optifoam to bilateral hips. Pt tolerated well. Pt stable. Bed low and locked, call light in reach and bed alarm on. SCDs on.
--- NOTE | 2020-05-17 15:01 | NUR ---
DISCHARGE PLANNING DAUGHTER HAS NOT RESPONDED SINCE THURSDAY TO CONSENT FOR PICC LINE LARGE GAUGE PERIPHERAL IV HAS BEEN STARTED SNF CANNOT ACCEPT WITH IJ SO IT NEEDS TO BE REMOVED MESSAGE LEFT FOR DR GAN REQUESTING ORDER TO DC IJ PATIENT WILL DISCHARGE TO [facility] ROOM 37[address] T: [phone] FOR REPORT [facility] HAS BEEN ARRANGED FOR 1800 MACHINIST BENCH IJ MUST BE DC'D PRIOR TO TRANSPORT
--- NOTE | 2020-05-17 15:09 | NUR ---
DISCHARGE UPDATE HOLDING DISCHARGE DR GAN SAID NO TO REMOVING IJ DIRECTOR OF CASE MGMT CALLED AND WAS ABLE TO SPEAK WITH PATIENT'S DAUGHTER WHO GAVE CONSENT FOR PICC LINE CALL WAS TRANSFERRED TO NURSES STATION PATIENT IS REQUIRING 38 DAYS OF ABX
--- NOTE | 2020-05-17 15:27 | NUR ---
NURSE NOTES: Pt PICC line consent obtained by daughter, understands procedure and risks and benefits. Consent witnessed by SAGE Colunga. Pt discharge back to [facility] postponed to tomorrow after PICC line placement by radiology. Discussed with case management, Bailey.
[2020-05-17] MEDS ORDERED: Lidocaine 1% Plain 30 ml INJ PRN (15:51)
[2020-05-17] MEDS ORDERED: Heparin1,000 units/500ml Premix(Conc:2 units/ml) IV PRN (15:52)
[2020-05-17 16:00] VITALS: BP 118/76
--- NOTE | 2020-05-17 17:24 | NUR ---
NURSE NOTES: Notified daughter of postponed d/c to tmr 05/18/2020, to late afternoon, after PICC line insertion. Daughter verbalizes understanding, no concerns at this time.
[2020-05-17] MEDS: Vancomycin 1.25gm/NS Premix q24h IVPB SCH (17:46)
--- NOTE | 2020-05-17 19:10 | NUR ---
NURSE HAND-OFF REPORT: Important Events on Shift: D/C order held for PICC line insertion 05/18, consent obtained from daughter its in the chart Patient Status: fc, stable Diet: glucerna 1.2 40cc Pending Orders: PICC line Pending Results/Labs: Pending MD notification: Latest Vital Signs: Temperature 98.8 , Pulse 109 , B/P 118 /76 , Respiratory Rate 20 , O2 SAT 99 , Room Air, O2 Flow Rate 2.0 . Vital Sign Comment: EKG Rhythm: Sinus Tachycardia Rhythm change?: N MD Notified?: N - MD Response: Latest Rivera Fall Score: 50 Fall Risk: High Risk Safety Measures: Call light Within Reach, Bed Alarm Zone 1, Side Rails Side Rails x3, Bed position Low and Locked. Fall Precautions: Yellow Socks Yellow Gown Door Sign Patient Fall Education Report given to SAGE Francis.
--- NOTE | 2020-05-17 19:25 | NUR ---
NURSE NOTES: Pt received from SAGE Perez. Pt is resting in bed and shows no signs of pain. Pt is A/Ox0 and bedbound;Pt has BEar St 3, LHeel DTI, RFoot DTI, and Sacral St 4. Pt has cardiac monitoring ST and asymptomatic. Pt is breathing unlabored on RA and asymptomatic. Pt has FC for I&O wounds patent and draining well to gravity. Pt is accucheck ACHS with latest 117 and asymptomatic. Pt has RIJ Triple lumen running IV atbx patent with site dry and intact. Pt has LHand 20 SL patent with skin dry and intact. Bed is locked in lowest position with call light within reach. Will continue to monitor.
[2020-05-17 20:00] VITALS: BP 131/85
[2020-05-17] MEDS: Dyna-Hex 2% Top Sol 2oz TOPIC SCH (20:45)
--- NOTE | 2020-05-17 22:26 | General Progress Note ---
Subjective Allergies: Coded Allergies: No Known Allergies (Unverified , 05/06/20) Subjective Above noted non verbal tolerating TF Objective Last 24 Hour Vital Signs Date Time Temp Pulse Resp B/P (MAP) Pulse Ox O2 Delivery O2 Flow Rate FiO2 05/17/20 21:16 98.8 05/17/20 16:00 104 05/17/20 16:00 98.8 109 20 118/76 (90) 99 05/17/20 14:46 99.3 05/17/20 12:00 99.3 105 20 120/78 (92) 99 05/17/20 12:00 105 05/17/20 09:38 99.0 05/17/20 09:00 Room Air 05/17/20 08:00 99.0 128 19 151/122 (132) 97 05/17/20 08:00 127 05/17/20 04:00 99.0 110 20 116/84 (95) 97 05/17/20 04:00 99 05/17/20 00:00 98.8 105 20 130/88 (102) 99 05/17/20 00:00 105 Intake and Output 05/16/20 05/17/20 19:00 07:00 Intake Total 500 ml 1390 ml Output Total 1000 ml Balance 500 ml 390 ml Free Water 100 ml 75 ml IV Total 915 ml Tube Feeding 400 ml 400 ml Output Urine Total 1000 ml # Voids 1 Laboratory Tests 05/17/20 05:47: POC Whole Blood Glucose 150H 05/17/20 08:00: Erythrocyte Sedimentation Rate 115H, Vancomycin Level Trough 7.7 05/17/20 11:22: POC Whole Blood Glucose 180H 05/17/20 16:07: POC Whole Blood Glucose 117H 05/17/20 20:12: POC Whole Blood Glucose 142H Height (Feet): 5 Height (Inches): 2.00 Weight (Pounds): 102 Objective Bedridden Woman NCAT CTA RR abd soft, (+) GT contractures Assessment/Plan Assessment/Plan: Assessment - Anemia, - ? chronic disease, - ? decline due to hydration - ? marow d/o (pacytopenia) - thrombocytopenia - improving - OBS - dysphagia, s/p PEG - decubitus ulcerations - contracted - HTN - cerebral aneuryms - Poor Px Recommendations - Transfuse PRN - Continue TF - check OB - elevate HOB - PPI - family discussion re level of care Mariajose Muhammad MD May 17, 2020 22:25
--- NOTE | 2020-05-17 23:00 | NUR ---
NURSE NOTES: Dressings changed on pt Bilateral Ears, Left Inner Foot, R Heel, and sacrum. Will continue to monitor.
[2020-05-18] VITALS: BP 119/76
[2020-05-18] MEDS: Acetaminophen 650mg/20.3ml GT PRN (01:16)
[2020-05-18 04:00] VITALS: BP 119/82
[2020-05-18] MEDS: Vancomycin 1.25gm/NS Premix q24h IVPB SCH (06:00)
[2020-05-18] MEDS: D5W w/KCl 20mEq 1,000 ML IV SCH ×2 (06:31→22:51)
[2020-05-18] MEDS: Meropenem 1 GM in NS 55 ML IVPB SCH ×3 (06:31→21:25)
[2020-05-18] MEDS: NovoLOG Insulin Flexpen SUBQ SCH ×3 (06:39→18:12)
--- NOTE | 2020-05-18 07:50 | NUR ---
NURSE HAND-OFF REPORT: Important Events on Shift:Pt had wound dressings changed. Patient Status: Stable Diet: Glucerna 1.2 40 ml/hr Pending Orders: PICC Line Placement Pending Results/Labs:AM Labs Pending MD notification: Latest Vital Signs: Temperature 99.5 , Pulse 94 , B/P 119 /82 , Respiratory Rate 24 , O2 SAT 97 , Room Air, O2 Flow Rate 2.0 . Vital Sign Comment: VSS EKG Rhythm: Sinus Rhythm Rhythm change?: N MD Notified?: N - MD Response: Latest Rivera Fall Score: 50 Fall Risk: High Risk Safety Measures: Call light Within Reach, Bed Alarm Zone 1, Side Rails Side Rails x3, Bed position Low and Locked. Fall Precautions: Yellow Socks Yellow Gown Door Sign Patient Fall Education Report given to SAGE Bojorquez.
[2020-05-18 08:00] VITALS: BP 123/83
--- NOTE | 2020-05-18 08:24 | NUR ---
NURSE NOTES: Pt awake/not alert/non verbal, responds to physical stim by withdrawal. No evidence of SOB or pain at this time. Vital signs stable with SR @ 97. IV access Left IJ triple lumen with D5 + 20 K running at 75 ml/hr. Vanco running into other lumen. Third lumen flushed with 10 ml NS and locked. G-tube feeding Glu 1.2 40 ml/hr, 0 residualj, flushed with 60 ml free water. Pruitt cath in place, patent, draining clear straw urine into collection bag at foot of bed. SCDs in place and running. Low air loss mattress installed and running. Heels elevated/floating. Bed left in low position, side rails up x 3 and call light left near pt's hand.
[2020-05-18] MEDS: Zinc Sulfate 220mg GT SCH (09:16)
[2020-05-18] MEDS: Pantoprazole Inj IVP SCH ×2 (09:16→21:20)
[2020-05-18] MEDS: Multivitamins W/Minerals 15 ML UDC GT SCH (09:16)
[2020-05-18] MEDS: Ascorbic Acid 500mg tab GT SCH ×2 (09:17→18:15)
--- NOTE | 2020-05-18 09:42 | Pulmonology Progress Note ---
Subjective ROS Limited/Unobtainable: Yes Interval Events: None new Constitutional: Denies: fever HEENT: Repors: no symptoms Respiratory: Reports: no symptoms Cardiovascular: Reports: no symptoms Gastrointestinal/Abdominal: Reports: no symptoms Allergies: Coded Allergies: No Known Allergies (Unverified , 05/06/20) Objective Last 24 Hour Vital Signs Date Time Temp Pulse Resp B/P (MAP) Pulse Ox O2 Delivery O2 Flow Rate FiO2 05/18/20 08:00 98.1 110 20 123/83 (96) 98 05/18/20 08:00 104 05/18/20 04:00 99.5 115 24 119/82 (94) 97 05/18/20 04:00 94 05/18/20 01:46 99.1 05/18/20 00:00 104 05/18/20 00:00 99.1 115 20 119/76 (90) 97 05/17/20 21:16 98.8 05/17/20 21:00 Room Air 05/17/20 20:00 99.0 108 20 131/85 (100) 98 05/17/20 20:00 105 05/17/20 16:00 104 05/17/20 16:00 98.8 109 20 118/76 (90) 99 05/17/20 14:46 99.3 05/17/20 12:00 99.3 105 20 120/78 (92) 99 05/17/20 12:00 105 Intake and Output 05/17/20 05/18/20 19:00 07:00 Intake Total 290 ml Output Total 500 ml Balance -210 ml Free Water 250 ml Tube Feeding 40 ml Output Urine Total 500 ml General Appearance: no acute distress HEENT: normocephalic Respiratory: chest wall non-tender, lungs clear Cardiovascular: normal peripheral pulses, normal rate Abdomen: normal bowel sounds Microbiology Date/Time Source Procedure Growth Status 05/17/20 10:30 Nasopharynx SARS-CoV-2 RdRp Gene Assay - Final Complete Laboratory Tests 05/17/20 11:22: POC Whole Blood Glucose 180H 05/17/20 16:07: POC Whole Blood Glucose 117H 05/17/20 20:12: POC Whole Blood Glucose 142H 05/18/20 06:36: POC Whole Blood Glucose [Pending] Current Medications Medications (Trade) Dose Ordered Sig/Renetta Route PRN Reason Start Time Stop Time Status Last Admin Dose Admin Acetaminophen (Tylenol) 650 mg Q4H PRN GT Mild Pain (Pain Scale 1-3) 05/16/20 09:05 06/15/20 09:04 05/18/20 01:16 Acetaminophen (Tylenol) 650 mg Q4H PRN GT Temp>=100.3 05/16/20 09:15 06/15/20 09:14 Acetaminophen/ Hydrocodone Bitart ([place] 10/325) 1 tab Q4H PRN GT Severe Pain (Pain Scale 7-10) 05/16/20 09:30 05/22/20 09:29 05/16/20 09:46 Acetaminophen/ Hydrocodone Bitart ([place] 5/325) 1 tab Q4H PRN GT Moderate Pain (Pain Scale 4-6) 05/16/20 09:30 05/22/20 09:29 05/17/20 20:46 Ascorbic Acid (Vitamin C) 250 mg TWICE A DAY GT 05/16/20 09:30 06/13/20 09:29 05/18/20 09:17 Chlorhexidine Gluconate (Yola-Hex 2%) 1 applic DAILY@2000 TOPIC 05/17/20 20:00 08/15/20 19:59 05/17/20 20:45 Dextrose (Dextrose 50%) 25 ml Q30M PRN IV Hypoglycemia 05/06/20 23:30 08/04/20 23:29 Dextrose (Dextrose 50%) 50 ml Q30M PRN IV Hypoglycemia 05/06/20 23:30 08/04/20 23:29 Dextrose/ Electrolytes 1,000 ml @ 75 mls/hr [id number] IV 05/11/20 14:00 06/10/20 13:59 05/18/20 06:31 Famotidine (Pepcid) 20 mg QHS GT 05/06/20 23:30 08/04/20 23:29 05/17/20 20:46 Heparin Sodium/ Sodium Chloride (Heparin 1000 units/500ml Premix) 1,000 unit ONCE PRN IV PICC 05/17/20 15:52 05/18/20 23:59 Insulin Aspart (NovoLOG) BEFORE MEALS AND HS SUBQ 05/07/20 06:30 08/05/20 06:29 05/18/20 06:39 Lidocaine HCl (Xylocaine 1% 30ml) 30 ml ONCE PRN INJ PICC 05/17/20 15:51 05/18/20 23:59 Magnesium Hydroxide (Mom) 30 ml HSPRN PRN ORAL Constipation 05/06/20 23:30 06/05/20 23:29 Meropenem 1 gm/ Sodium Chloride 55 ml @ 110 mls/hr Q8HR IVPB 05/15/20 22:00 05/20/20 21:59 05/18/20 06:31 Multivitamins (Multivitamins W/ Minerals 15ml Liquid) 15 ml DAILY GT 05/16/20 09:30 06/15/20 09:29 05/18/20 09:16 Ondansetron HCl (Zofran) 4 mg Q6H PRN IVP Nausea & Vomiting 05/06/20 23:30 06/05/20 23:29 Pantoprazole (Protonix) 40 mg EVERY 12 HOURS IVP 05/12/20 00:00 06/11/20 00:00 05/18/20 09:16 Vancomycin HCl (Vanco pharmacy to dose) 1 ea DAILY PRN MISC Per rx protocol 05/14/20 11:15 06/13/20 11:14 Vancomycin/Sodium Chloride 275 ml @ 183.333 mls/hr Q12HR@0600,1800 IVPB 05/17/20 18:00 05/22/20 17:59 05/18/20 06:00 Zinc Sulfate (Zinc Sulfate) 220 mg DAILY GT 05/16/20 09:30 05/25/20 09:29 05/18/20 09:16 Assessment/Plan Assessment/Plan IMPRESSION: 1. Shock, suspect hypovolemic shock. Now resolved 2. Cannot exclude infectious process. 3. Chronic decubitus. 4. History of CVA. 5. Diabetes mellitus. DISCUSSION: continue abx Respiratory status is stable Now off pressors. I will follow carefully. Jarett Schilling Omar Syed MD May 18, 2020 09:42
--- NOTE | 2020-05-18 10:00 | NUR ---
DISCHARGE PLANNING PLAN IS TO DISCHARGE AFTER PICC LINE PLACEMENT WHICH WON'T BE DONE UNTIL AFTER 1300 TODAY BED AT [facility] HAS BEEN SECURE PLEASE NOTIFY ORTHOTIST PROSTHETIST POST PICC PLACEMENT BAKARI [id number]
[2020-05-18 12:00] VITALS: BP 126/81
--- NOTE | 2020-05-18 12:19 | General Progress Note ---
Subjective Allergies: Coded Allergies: No Known Allergies (Unverified , 05/06/20) Subjective In NAD Objective Last 24 Hour Vital Signs Date Time Temp Pulse Resp B/P (MAP) Pulse Ox O2 Delivery O2 Flow Rate FiO2 05/18/20 09:00 Room Air 05/18/20 08:00 98.1 110 20 123/83 (96) 98 05/18/20 08:00 104 05/18/20 04:00 99.5 115 24 119/82 (94) 97 05/18/20 04:00 94 05/18/20 01:46 99.1 05/18/20 00:00 104 05/18/20 00:00 99.1 115 20 119/76 (90) 97 05/17/20 21:16 98.8 05/17/20 21:00 Room Air 05/17/20 20:00 99.0 108 20 131/85 (100) 98 05/17/20 20:00 105 05/17/20 16:00 104 05/17/20 16:00 98.8 109 20 118/76 (90) 99 05/17/20 14:46 99.3 Intake and Output 05/17/20 05/18/20 19:00 07:00 Intake Total 290 ml Output Total 500 ml Balance -210 ml Free Water 250 ml Tube Feeding 40 ml Output Urine Total 500 ml Laboratory Tests 05/17/20 16:07: POC Whole Blood Glucose 117H 05/17/20 20:12: POC Whole Blood Glucose 142H 05/18/20 06:36: POC Whole Blood Glucose [Pending] 05/18/20 11:15: POC Whole Blood Glucose 155H Height (Feet): 5 Height (Inches): 2.00 Weight (Pounds): 102 Cardiovascular: normal rate Respiratory/Chest: lungs clear Assessment/Plan Problem List: (1) Pneumonia ICD Codes: J18.9 - Pneumonia, unspecified organism SNOMED: 506973240 (2) Sepsis ICD Codes: A41.9 - Sepsis, unspecified organism SNOMED: 75598850 (3) Diabetes ICD Codes: E11.9 - Type 2 diabetes mellitus without complications SNOMED: 53011458 (4) Hypernatremia Assessment & Plan: better ICD Codes: E87.0 - Hyperosmolality and hypernatremia SNOMED: 269445573 (5) Stage 4 skin ulcer of sacral region ICD Codes: L98.429 - Non-pressure chronic ulcer of back with unspecified severity SNOMED: 31097154, 049325826 (6) PEG (percutaneous endoscopic gastrostomy) adjustment/replacement/removal ICD Codes: Z43.1 - Encounter for attention to gastrostomy SNOMED: 177690106, 141232894 (7) Anemia Assessment & Plan: worse ICD Codes: D64.9 - Anemia, unspecified SNOMED: 721394317 (8) Thrombocytopenia ICD Codes: D69.6 - Thrombocytopenia, unspecified SNOMED: 326099712 (9) Osteomyelitis ICD Codes: M86.9 - Osteomyelitis, unspecified SNOMED: 36429385 Assessment/Plan: abxs res treatments follow labs Discussed with ID and RN Picc line today Discussed with disability case manager Dc today total time spent 34 min Navi Bales MD May 18, 2020 12:19
[2020-05-18] MEDS: HYDROcodone/Acetamin 10/325 tab GT PRN ×2 (12:26→16:29)
--- NOTE | 2020-05-18 13:12 | Infectious Diseases Prog Note ---
Assessment/Plan Assessment/Plan IMPRESSION: Sepsis with septic shock, improving E. coli, Bacteroid sepsis Cholelithiasis, HIDA scan negative Acute pancreatitis. Chronic sacral osteomyelitis Diabetes mellitus with hyperglycemia, Acute renal failure, Acidosis, Elevated transaminase, Hypernatremia, Multiple pressure ulcer. 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 RECOMMENDATION: Continue Meropenem in hospital Continue Vancomycin X 37 days Will have PICC line placement today Remove left IJ line after PICC line placement Subjective ROS Limited/Unobtainable: Yes Constitutional: Denies: fever Allergies: Coded Allergies: No Known Allergies (Unverified , 05/06/20) Objective Last 24 Hour Vital Signs Date Time Temp Pulse Resp B/P (MAP) Pulse Ox O2 Delivery O2 Flow Rate FiO2 05/18/20 12:00 100 05/18/20 12:00 96.8 101 19 126/81 (96) 97 05/18/20 09:00 Room Air 05/18/20 08:00 98.1 110 20 123/83 (96) 98 05/18/20 08:00 104 05/18/20 04:00 99.5 115 24 119/82 (94) 97 05/18/20 04:00 94 05/18/20 01:46 99.1 05/18/20 00:00 104 05/18/20 00:00 99.1 115 20 119/76 (90) 97 05/17/20 21:16 98.8 05/17/20 21:00 Room Air 05/17/20 20:00 99.0 108 20 131/85 (100) 98 05/17/20 20:00 105 05/17/20 16:00 104 05/17/20 16:00 98.8 109 20 118/76 (90) 99 05/17/20 14:46 99.3 Height (Feet): 5 Height (Inches): 2.00 Weight (Pounds): 102 General Appearance: no acute distress HEENT: mucous membranes moist Respiratory/Chest: lungs clear Cardiovascular: normal rate, tachycardia, other - left IJ line Abdomen: soft, non tender, other - GT feeding Extremities: no edema Skin: ulcers Neurologic/Psychiatric: aphasia Microbiology Date/Time Source Procedure Growth Status 05/17/20 10:30 Nasopharynx SARS-CoV-2 RdRp Gene Assay - Final Complete Laboratory Tests Test 05/17/20 16:07 05/17/20 20:12 10/16/20 06:36 05/18/20 11:15 POC Whole Blood Glucose 117 MG/DL (74-106) H 142 MG/DL (74-106) H Pending 155 MG/DL (74-106) H Current Medications Medications (Trade) Dose Ordered Sig/Renetta Route PRN Reason Start Time Stop Time Status Last Admin Dose Admin Acetaminophen (Tylenol) 650 mg Q4H PRN GT Mild Pain (Pain Scale 1-3) 05/16/20 09:05 06/15/20 09:04 05/18/20 01:16 Acetaminophen (Tylenol) 650 mg Q4H PRN GT Temp>=100.3 05/16/20 09:15 06/15/20 09:14 Acetaminophen/ Hydrocodone Bitart ([place] 10/325) 1 tab Q4H PRN GT Severe Pain (Pain Scale 7-10) 05/16/20 09:30 05/22/20 09:29 05/18/20 12:26 Acetaminophen/ Hydrocodone Bitart ([place] 5/325) 1 tab Q4H PRN GT Moderate Pain (Pain Scale 4-6) 05/16/20 09:30 05/22/20 09:29 05/17/20 20:46 Ascorbic Acid (Vitamin C) 250 mg TWICE A DAY GT 05/16/20 09:30 06/13/20 09:29 05/18/20 09:17 Chlorhexidine Gluconate (Yola-Hex 2%) 1 applic DAILY@2000 TOPIC 05/17/20 20:00 08/15/20 19:59 05/17/20 20:45 Dextrose (Dextrose 50%) 25 ml Q30M PRN IV Hypoglycemia 05/06/20 23:30 08/04/20 23:29 Dextrose (Dextrose 50%) 50 ml Q30M PRN IV Hypoglycemia 05/06/20 23:30 08/04/20 23:29 Dextrose/ Electrolytes 1,000 ml @ 75 mls/hr [id number] IV 05/11/20 14:00 06/10/20 13:59 05/18/20 06:31 Famotidine (Pepcid) 20 mg QHS GT 05/06/20 23:30 08/04/20 23:29 05/17/20 20:46 Heparin Sodium/ Sodium Chloride (Heparin 1000 units/500ml Premix) 1,000 unit ONCE PRN IV PICC 05/17/20 15:52 05/18/20 23:59 Insulin Aspart (NovoLOG) EVERY 6 HOURS SUBQ 05/18/20 12:00 08/05/20 06:29 05/18/20 11:50 Lidocaine HCl (Xylocaine 1% 30ml) 30 ml ONCE PRN INJ PICC 05/17/20 15:51 05/18/20 23:59 Magnesium Hydroxide (Mom) 30 ml HSPRN PRN ORAL Constipation 05/06/20 23:30 06/05/20 23:29 Meropenem 1 gm/ Sodium Chloride 55 ml @ 110 mls/hr Q8HR IVPB 05/15/20 22:00 05/20/20 21:59 05/18/20 06:31 Multivitamins (Multivitamins W/ Minerals 15ml Liquid) 15 ml DAILY GT 05/16/20 09:30 06/15/20 09:29 05/18/20 09:16 Ondansetron HCl (Zofran) 4 mg Q6H PRN IVP Nausea & Vomiting 05/06/20 23:30 06/05/20 23:29 Pantoprazole (Protonix) 40 mg EVERY 12 HOURS IVP 05/12/20 00:00 06/11/20 00:00 05/18/20 09:16 Vancomycin HCl (Vanco pharmacy to dose) 1 ea DAILY PRN MISC Per rx protocol 05/14/20 11:15 06/13/20 11:14 Vancomycin/Sodium Chloride 275 ml @ 183.333 mls/hr Q12HR@0600,1800 IVPB 05/17/20 18:00 05/22/20 17:59 05/18/20 06:00 Zinc Sulfate (Zinc Sulfate) 220 mg DAILY GT 05/16/20 09:30 05/25/20 09:29 05/18/20 09:16 Peter Bales MD May 18, 2020 13:12
--- NOTE | 2020-05-18 13:15 | NUR ---
NURSE NOTES: pt taken down to radiology for PICC insertion.
--- NOTE | 2020-05-18 13:46 | Surgery Progress Note ---
Surgery Progress Note Subjective Additional Comments d/c planning for today no n/v Objective Last 24 Hour Vital Signs Date Time Temp Pulse Resp B/P (MAP) Pulse Ox O2 Delivery O2 Flow Rate FiO2 05/18/20 12:00 100 05/18/20 12:00 96.8 101 19 126/81 (96) 97 05/18/20 09:00 Room Air 05/18/20 08:00 98.1 110 20 123/83 (96) 98 05/18/20 08:00 104 05/18/20 04:00 99.5 115 24 119/82 (94) 97 05/18/20 04:00 94 05/18/20 01:46 99.1 05/18/20 00:00 104 05/18/20 00:00 99.1 115 20 119/76 (90) 97 05/17/20 21:16 98.8 05/17/20 21:00 Room Air 05/17/20 20:00 99.0 108 20 131/85 (100) 98 05/17/20 20:00 105 05/17/20 16:00 104 05/17/20 16:00 98.8 109 20 118/76 (90) 99 05/17/20 14:46 99.3 I&O Intake and Output 05/17/20 05/18/20 19:00 07:00 Intake Total 290 ml Output Total 500 ml Balance -210 ml Free Water 250 ml Tube Feeding 40 ml Output Urine Total 500 ml Dressing: saturated Cardiovascular: RSR Respiratory: decreased breath sounds Abdomen: soft, non-tender, present bowel sounds Extremities: no tenderness, no cyanosis Laboratory Tests Test 05/17/20 16:07 05/17/20 20:12 05/18/20 06:36 05/18/20 11:15 POC Whole Blood Glucose 117 MG/DL (74-106) H 142 MG/DL (74-106) H Pending 155 MG/DL (74-106) H Plan Problems: (1) Stage 4 skin ulcer of sacral region Assessment & Plan: PATIENT NON-VERBAL. FACIAL GRIMACES NOTED WHEN REPOSITIONING. UNABLE TO REPOSITION SELF. LEFT EAR-STAGE III PRESSURE ULCER MEASURES 3.5X1.0X0.2CM. WOUND BED PINK WITH NOTED SLOUGH. PERIWOUND SKIN DARK RED/PURPLE AND BRUISED. DRAINING SMALL AMOUNT SERO-SANGUINEOUS. RECOMMEND-CLEAN WITH SALINE. PAT DRY. APPLY THERAHONEY AND COVER WITH OPTIFOAM DRESSING. REPLACE DRESSING DAILY. RIGHT EAR- STAGE III PRESSURE ULCER MEASURES 0.5X0.6X0.2CM. WOUND BED PINK WITH NOTED SLOUGH. SMALL AMOUNT SERO-SANGUINEOUS DRAINAGE. RECOMMEND-CLEAN WITH SALINE, PAT DRY, APPLY THERAHONEY AND COVER WITH OPTIFOAM DRESSING. REPLACE DRESSING DAILY. LEFT MEDIAL HEEL- DTI MEASURES 1.7X1.5X0.2CM. NOTED AREA DARK PURPLE. NON- BLANCHABLE. RECOMMEND- APPLY SKIN PROTECTOR AND OPTIFOAM DRESSING. REPLACE DAILY AND PRN. EL EVATE HEELS WITH PILLOWS RIGHT MEDIAL FOOT- DTI 2.5X2.0X0.1CM NOTED AREA DARK PURPLE RECOMMEND- APPLY SKIN PROTECTOR AND OPTIFOAM DRESSING. REPLACE DAILY AND PRN. ELEVATE HEELS/FEET WITH PILLOWS. SACRUM- STAGE IV PRESSURE ULCER MEASURES 9.5X13.7X0.5CM. MODERATE AMOUNT SEROSANGUINEOUS DRAINAGE. NO ODOR NOTED. BONE EXPOSURE WITH 40% SLOUGH AND 60% PINK GRANULATION TISSUE. AREA WITHIN WOUND BED DARK RED, POSSIBLE BRUISING. RECOMMEND-MD CONSULT. CLEAN WITH SALINE. PAT DRY. APPLY THERAHONEY AND COVER WITH GAUZE AND OPTIFOAM DRESSING. REPLACE DAILY. BHARAT MATTRESS(ALREADY IN PLACE). REPOSITION SIDE TO SIDE AT LEAST EVERY 2 HOURS OR TOLERATED Presumed ventricular peroneal shunt catheter, percutaneous gastrostomy tube and Pruitt catheter noted. Cholelithiasis noted nondistended, noninflamed appearing gallbladder. Nonobstructing small right intrarenal stones. 7 mm high-density ovoid focus interpolar aspect left kidney axial 57 may represent complex cyst with possibility of a solid lesion not excluded. Bilateral perinephric stranding slightly greater on the right is nonspecific, clinically correlate. No hydronephrosis. Destruction, deformity of the lower sacrum and coccyx with osseous erosion and overlying appearance of possible sacral decubitus pressure ulcer associated with presacral soft tissue thickening, stranding, edema with possibility of chronic osteomyelitis and soft tissue infection not excluded. (2) Heel ulcer (3) Ulcer of external ear (4) Pancreatitis Assessment & Plan: Patient identified to have elevated lipase levels upon admission. Etiology unknown work-up initiated Trend labs IV fluids urine output monitoring we will follow with recommendations hida negative us noted labs improved tf as tolerated okay for diet Gallbladder demonstrates gallstones. Gallbladder wall is borderline thickened, measuring just over 3 mm in diameter. Common bile duct is dilated, measuring 9 mm diameter. Sonographic Lockhart's sign could not be reported, patient noncommunicative. No intrahepatic biliary ductal dilatation. Liver demonstrates normal echogenicity, no focal abnormality. Portal vein and hepatic veins are patent. Pancreas is unremarkable. Spleen is unremarkable. Left kidney measures 10.3 cm in length. Right kidney measures 9.5 cm length. Both kidneys demonstrate normal echogenicity. There is no hydronephrosis. No focal abnormality . Abdominal aorta is partially obscured by bowel gas, visualized portions are non-aneurysmal . There is trace right pleural fluid. There is a very questionable poorly visualized cystic structure in the right lower quadrant Impression: Cholelithiasis. Borderline gallbladder wall thickening raises concern for acute cholecystitis. Consider further evaluation with hepatobiliary nuclear scan Right common bile duct. Downstream obstruction possibility. MRCP may be useful for better characterization Trace right pleural effusion Very questionable, poorly visualized if real, right lower quadrant cystic structure. Of uncertain significance. Consider CT to further characterize if clinically indicated DAILY ESTIMATED NEEDS: Needs based on Wound, 46.4kg 30-35 kcals/kg 7909-0979 total kcals 1.5-2 g protein/kg 69-93 g total protein 25-35ml/kcal mL/kg 4916-8533 total fluid mLs NUTRITION DIAGNOSIS: Increased kcal and pro needs r/t wound healing as evidenced by multiple wounds, including stage 4 sacral wound, stage 3 wounds @ lt ear and rt ear, DTI @ lt medial heel and rt medial foot. CURRENT TF:Glucerna 1.2 @ 40ml/hr x 24 hrs ENTERAL NUTRITION RECOMMENDATIONS: Glucerna 1.2 @ 50ml/hr x 24 hrs to provide 1200ml, 1440 kcal, 72g pro, 966ml free H2O - With tolerance, increase goal rate to 50ml/hr x 24 hrs to meet 100% est kcal/prot needs - Flush per MD/ HOB over 30 degrees. ADDITIONAL RECOMMENDATIONS: 1) Recalibrate bed scale for accurate daily wts 2) Wound healing: add Vit C 500mg BID + ZnSO4 220mg QD x 10 days Cuauhtemoc BID via PEG 3) DC D5 IVF, increase water flushes instead for improved BG control BGs in the 200's and 300's-> now improved 4) Rec long acting insulin for improved BG control 5) Monitor lipase and TF tolerance: Lipase trending down. (5) Transaminitis (6) Dehydration (7) Aneurysm (8) Diabetes (9) Hyperglycemia (10) Hypernatremia (11) Hypoxia (12) Sepsis (13) NSTEMI (non-ST elevated myocardial infarction) (14) PEG (percutaneous endoscopic gastrostomy) adjustment/replacement/removal (15) JESSICA (acute kidney injury) (16) CVA, old, hemiparesis (17) COVID-19 Lino Clark May 18, 2020 13:46
--- NOTE | 2020-05-18 14:09 | NUR ---
RADIOLOGY NOTE: RIGHT UPPER EXTREMITY PICC LINE PLACEMENT BY DR. JOANNE MCDANIELS AT 1340 HRS. FA
--- NOTE | 2020-05-18 15:38 | Brief Operative Note ---
Immediate Post Operative Note Operative Note Pre-op Diagnosis: needs IV access Procedure: PICC Post-op Diagnosis: same as pre-op Surgeon: Romi Tillman Anesthesia: local Specimen: none Complications: none Fluids: none Implant(s) used?: No Phoenix Tillman MD May 18, 2020 15:38
--- NOTE | 2020-05-18 15:59 | General Progress Note ---
Subjective Allergies: Coded Allergies: No Known Allergies (Unverified , 05/06/20) Subjective Above noted non verbal tolerating TF Objective Last 24 Hour Vital Signs Date Time Temp Pulse Resp B/P (MAP) Pulse Ox O2 Delivery O2 Flow Rate FiO2 05/18/20 12:00 100 05/18/20 12:00 96.8 101 19 126/81 (96) 97 05/18/20 09:00 Room Air 05/18/20 08:00 98.1 110 20 123/83 (96) 98 05/18/20 08:00 104 05/18/20 04:00 99.5 115 24 119/82 (94) 97 05/18/20 04:00 94 05/18/20 01:46 99.1 05/18/20 00:00 104 05/18/20 00:00 99.1 115 20 119/76 (90) 97 05/17/20 21:16 98.8 05/17/20 21:00 Room Air 05/17/20 20:00 99.0 108 20 131/85 (100) 98 05/17/20 20:00 105 05/17/20 16:00 104 05/17/20 16:00 98.8 109 20 118/76 (90) 99 Intake and Output 05/17/20 05/18/20 19:00 07:00 Intake Total 290 ml Output Total 500 ml Balance -210 ml Free Water 250 ml Tube Feeding 40 ml Output Urine Total 500 ml Laboratory Tests 05/17/20 16:07: POC Whole Blood Glucose 117H 05/17/20 20:12: POC Whole Blood Glucose 142H 05/18/20 06:36: POC Whole Blood Glucose [Pending] 05/18/20 11:15: POC Whole Blood Glucose 155H Height (Feet): 5 Height (Inches): 2.00 Weight (Pounds): 102 Objective Bedridden Woman NCAT CTA RR abd soft, (+) GT contractures Assessment/Plan Assessment/Plan: Assessment - Anemia, - ? chronic disease, - ? decline due to hydration - ? marow d/o (pacytopenia) - thrombocytopenia - improving - OBS - dysphagia, s/p PEG - decubitus ulcerations - contracted - HTN - cerebral aneuryms - Poor Px Recommendations - Transfuse PRN - Continue TF - check OB --> negative - re check LFT next week - elevate HOB - PPI - family discussion re level of care Mariajose Muhammad MD May 18, 2020 15:59
[2020-05-18 16:00] VITALS: BP 131/81
--- NOTE | 2020-05-18 16:25 | Diagnostic Imaging Report ---
Indications: Needs long-term IV access Technique: Ultrasound confirms patent compressible right brachial vein. Total sterile technique, including sterile probe cover and sterile gel, hat, mask, sterile gown, large sterile drape, and preparation with 2% chlorhexidine utilized. Local anesthesia with 1% lidocaine. Under real-time ultrasound guidance, puncture great vein using 21-gauge needle, documented and archived, passage 0.018 guidewire under direct fluoroscopy, which was used to determine appropriate catheter length, exchange for 4 [place] peel-away sheath. 4 [place] Bard dual-lumen power PICC cut to 35 cm. It was inserted through the peel-away sheath. Peel-away sheath and guidewire removed. Catheter fixed to the skin. Both catheter ports aspirated and flushed. Patient tolerated procedure well, without immediate complication. Digital radiograph documents satisfactory catheter tip position, at the cavoatrial junction. Total fluoroscopy time 25 seconds. Total dose area product [id number] [id number] Total number of images: 1 Impression: Successful placement of right arm PICC under sonographic and fluoroscopic guidance, as described above.
--- NOTE | 2020-05-18 19:15 | NUR ---
NURSE NOTES: Received report from [facility] Bojorquez. Pt in bed, eyes open, awake. No resp distress noted. labor contract analyst in place. Gt in place &patent. F/c in place &patent darning to gravity yellow urine. On low air loss mattress for skin maintenance. Bed in low position & locked, side rails up x3. Bed alarm on, Call light with in reach. Awaiting for brain picker by ambulance for discharge to [facility] .
[2020-05-18 20:00] VITALS: BP 125/90
[2020-05-18] MEDS: Dyna-Hex 2% Top Sol 2oz TOPIC SCH (21:19)
--- NOTE | 2020-05-18 23:30 | NUR ---
NURSE NOTES: Spoke with Shayne from [facility], per Shayne pt will be picked up by 12 am.
[2020-05-19] VITALS: BP 131/86
[2020-05-19] MEDS: NovoLOG Insulin Flexpen SUBQ SCH
--- NOTE | 2020-05-19 00:10 | NUR ---
NURSE NOTES: Called [facility] no response. [facility] at on hospital premises. Still waiting for pick up and delivery driver by ambulance .
[2020-05-19] MEDS ORDERED: Tubing IV Secondary IV ONE (00:39)
[2020-05-19] MEDS ORDERED: NS 275ml ONE ×2 (00:39)
--- NOTE | 2020-05-19 00:40 | NUR ---
NURSE NOTES: Ambulance personal at bedside to transport pt to [facility]. Bedside report given. Pt stable & in no distress at this time. Belongings list checked with ambulance personal.
--- NOTE | 2020-05-20 16:22 | NUR ---
CASE MANAGEMENT: Faxed clinical info (face sheet / progress notes 05-18) @ [facility] @ [phone]. T#[id number]
--- NOTE | 2020-05-21 14:02 | Discharge Summary ---
Discharge Summary Discharge Summary _ DATE OF ADMISSION: 05/06/2020 DATE OF DISCHARGE: 05/19/2020 DISCHARGED BY: Dr Navi Bales REASON FOR ADMISSION: 49 years old female with past medical history of CVA, cerebral aneurysm, seizure disorder, diabetes mellitus, hypertension, bedbound , chronic contractures , dysphagia, feeding by G-tube, sacral pressure decubitus ulcer, present on admission was brought by paramedics from the nursing home [facility] due to fever. Upon arrival temperature was 104. Patient was found to be diaphoretic and hypotensive with systolic blood pressure in 80s . Patient was also hypoxic saturating 80% on room air and tachycardic. Patient was placed on supplemental oxygen. COVID-19 was negative. Chest x-ray demonstrated bilateral atelectasis. Laboratory work-up initially revealed no leukocytosis, hemoglobin 11.4 hematocrit 37.6. ABG on 6 L O2 was stable. Chemistry demonstrated sodium 165, potassium 3.0, chloride 127. BUN 82, creatinine 1.8. Glucose 295. AST 222, ALT 293. Lipase 1197. Lactic acid 2.9. Troponin 0.213. EKG revealed sinus tachycardia, no acute ischemic changes. In emergency room septic work-up initiated and patient admitted for further management. Patient was admitted with high suspicion for COVID-19 , even though initial test was negative , given clinical picture as well as elevated inflammatory markers ferritin 1297, LDH 487 CRP 3.0. Renal parameters CONSULTANTS: pulmonary Dr Prasad ID specialist Dr. Peter Bales GI specialist Dr. Muhammad surgery Dr Willis [facility] COURSE: Patient admitted initially to ICU. Patient required pressor and started on Levophed. Hemodynamic status was closely monitored with goal to keep him mean arterial blood pressure above 65. Patient was able to be weaned off pressors. Patient was on generous IV hydration and empiric antibiotics. Blood culture revealed E. coli ESBL and bacteroids. Urine culture was negative. Repeated rapid COVID-19 and COVID-19 by PCR were both negative. Antibiotic regimen optimized as per ID repigmentation. CT of the abdomen and pelvis revealed destruction/deformity of the lower sacrum and coccyx with osseous erosion overlying appearance of possible sacral decubitus pressure ulcer associated with soft tissue thickening stranding edema and possibility of chronic osteomyelitis and soft tissue infection not excluded. ID specialist recommended treatment with vancomycin for total of 6 weeks. PICC line was placed prior to discharge, and central line was discontinued. Patient completed treatment with meropenem for E. coli ESBL bacteremia while in the hospital. Abdominal ultrasound revealed cholelithiasis with borderline gallbladder wall thickening with concern of acute cholecystitis. Patient subsequently undergone HIDA scan , which was negative : no evidence of cystic duct or common bile duct obstruction. LFT and lipase were closely monitored. AST and ALT down to normal, lipase trending down. Blood sugar was managed with sliding scale of insulin. hemoglobin A1c 6.6 at goal. Aspiration precaution maintained. Tube feeding formula and goal rate provided as per registered dietitian recommendation. Hemoglobin and hematocrit were closely monitored with goal to keep hemoglobin above 7. Stool for occult blood was negative. Anemia work-up revealed anemia of chronic disease, ferritin 1297. Patient undergone transfusion of 2 units of packed red blood cells while in the hospital. Prior to discharge hemoglobin 11.7, hematocrit 34.6. Renal parameters and electrolytes were closely monitored, electrolytes corrected as needed, nephrotoxins were avoided. BUN from 92 down to 7, and creatinine from 1.8 down to 0.4 Acute kidney injury resolved. GI prophylaxis provided. Supportive care provided. Patient clinically stabilized and was ready for transfer back to nursing home facility for continuation of care FINAL DIAGNOSES: Sepsis with septic shock E. coli bacteremia Cholelithiasis Acute pancreatitis Chronic sacral osteomyelitis Diabetes mellitus with hyperglycemia Acute renal failure-resolved Hypernatremia -resolved Elevated troponin Transaminitis- resolved History of CVA Diabetes mellitus Stage IV sacral decubitus ulcer, present on admission DISCHARGE MEDICATIONS: See Medication Reconciliation list. DISCHARGE INSTRUCTIONS: Patient was discharged to the nursing home facility. Follow up with medical doctor at the facility. I have been assigned to dictate discharge summary for this account. I was not involved in the patient's management. Beba Carson NP May 21, 2020 14:02
--- NOTE | 2020-05-22 16:44 | NUR ---
INSURANCE DC SUMMARY FAXED TO [facility] [phone]
== END 2020-05-19 00:40 | DRG 720 ==
LOC: EDBD 20:49 → EMR 21:05 → ICU 22:27 → EDBEDREQ 23:01 → 2E 05-09 16:48
PROC: B518ZZA Fluoroscopy of Superior Vena Cava, Guidance (ICD-10-PCS; principal; 2020-05-18)
PROC: 02HV33Z Insertion of Infusion Device into Superior Vena Cava, Percutaneous Approach (ICD-10-PCS; principal; 2020-05-18)
DX: A41.51 Sepsis due to Escherichia coli [E. coli] (principal); R65.21 Severe sepsis with septic shock; N17.9 Acute kidney failure, unspecified; E87.0 Hyperosmolality and hypernatremia; Z86.73 Personal history of transient ischemic attack (TIA), and cerebral infarction without residual deficits; Z74.01 Bed confinement status; L89.154 Pressure ulcer of sacral region, stage 4; M86.68 Other chronic osteomyelitis, other site; E11.65 Type 2 diabetes mellitus with hyperglycemia; R13.10 Dysphagia, unspecified; I10 Essential (primary) hypertension; Z93.1 Gastrostomy status; K85.90 Acute pancreatitis without necrosis or infection, unspecified; K80.20 Calculus of gallbladder without cholecystitis without obstruction; R74.01 Elevation of levels of liver transaminase levels; R09.02 Hypoxemia; D64.9 Anemia, unspecified; Z22.322 Carrier or suspected carrier of Methicillin resistant Staphylococcus aureus; D69.6 Thrombocytopenia, unspecified; Z20.828 Contact with and (suspected) exposure to other viral communicable diseases
CPT/HCPCS: 36415; 36569; 71045; 74176; 76700; 76937; 78266; 80048; 80053; 80076; 80202; 81003; 82009; 82010; 82150; 82270; 82550; 82728; 82803; 82962; 83036; 83540; 83550; 83605; 83615; 83690; 83735; 83880; 84100; 84484; 85007; 85025; 85610; 85651; 85730; 86140; 86850; 86900; 86901; 86920; 87040; 87081; 87086; 87181; 93005; 96365; 96368; 96375; 99291; 99292; J1815; J7030; J8499; U0002